=== PATIENT | male | born 1960 | race American Indian/Alaskan Native ===

== ENCOUNTER 2016-08-23 23:23 | Inpatient (IN) | payer MEDICARE ==
[2016-08-23] MEDS ORDERED: BOOSTRIX IM ONE (23:30)
[2016-08-23] MEDS ORDERED: NORMODYNE IV ONE (23:35)
--- NOTE | 2016-08-23 23:38 | Emergency Department Report ---
ED Altered Mental Status HPI - General Chief Complaint: Altered Mental Status Stated Complaint: AMS Time Seen by Provider: 08/23/16 23:33 Source: EMS Mode of arrival: Ambulatory Limitations: Altered Mental Status - History of Present Illness Initial Comments: Pt is a presenting to the ED via EMS for altered MS. EMS reports family and patient are poor historians, but the reported story is the patient who is wheelchair bound, fell out of his chair approximately 1.5 hours ago and has been trying to get up off the floor. Pt now presents somnolent and reacts to painful stimuli. FSG as per EMS was >300, BP elevated in the 200's, HR: 70's, saturating 100% on RA. Other history is unknown Son at bedside, he reports patient has a h/o CVA, HTN, DM, PVD, bilateral AKA, and kidney insufficiency. At baseline verbal and moves all extremities. MD Complaint: decreased responsiveness - Related Data Allergies Allergy/AdvReac Type Severity Reaction Status Date / Time Unable to Assess Allergy Unverified 08/23/16 23:25 ED Review of Systems ROS: Stated complaint: AMS Other details as noted in HPI Comment: Unobtainable due to pts medical conditions ED Past Medical Hx - Past Medical History Previous Medical History?: Yes - Surgical History Past Surgical History?: Yes Additional Surgical History: double amputee - Social History Smoking Status: Unknown if ever smoked ED Physical Exam - General Limitations: Altered Mental Status, Physical Limitation General appearance: in no apparent distress, lethargic, other (Patient has gag reflex, breathing on his own, saturating 99% on RA) - Head Head exam: Present: normocephalic, other (R orbital ecchymoses, 1cm laceration noted to the R eyebrow) - Eye Eye exam: Present: PERRL, EOMI. Absent: scleral icterus, conjunctival injection , nystagmus, periorbital swelling, periorbital tenderness Pupils: Absent: irregular, unequal, miosis - ENT ENT exam: Present: normal exam, mucous membranes moist, other (gag reflex intact ) - Neck Neck exam: Present: normal inspection, full ROM (placed in C-Collar). Absent: tenderness - Respiratory Respiratory exam: Present: normal lung sounds bilaterally. Absent: respiratory distress - Cardiovascular Cardiovascular Exam: Present: regular rate, normal rhythm, normal heart sounds. Absent: irregular rhythm, systolic murmur, diastolic murmur - GI/Abdominal GI/Abdominal exam: Present: soft, normal bowel sounds. Absent: distended, tenderness, guarding - exam: Present: normal inspection - Extremities Exam Extremities exam: Present: normal inspection, other (Pt has bilateral AKA, patient is spontaneously moving all extremities) - Back Exam Back exam: Present: normal inspection - Neurological Exam Neurological exam: Present: altered, other (GCS: 2,1,5) - Skin Skin exam: Present: warm, dry, normal color, ecchymosis. Absent: rash, diaphoretic ED Course Vital Signs 08/23/16 08/23/16 08/23/16 23:25 23:30 23:40 Pulse Rate 116 H 92 H Respiratory 26 H 26 H 24 Rate Blood Pressure Blood Pressure 208/114 204/104 [Right] O2 Sat by Pulse 95 95 98 Oximetry 08/23/16 08/24/16 08/24/16 23:58 00:00 00:06 Pulse Rate 95 H 92 H 42 L Respiratory 20 22 22 Rate Blood Pressure 153/111 189/103 Blood Pressure 153/111 189/103 [Right] O2 Sat by Pulse 94 97 98 Oximetry 08/24/16 08/24/16 08/24/16 00:10 00:16 00:20 Pulse Rate 89 91 H 90 Respiratory 17 22 18 Rate Blood Pressure 189/103 195/109 195/109 Blood Pressure 195/109 [Right] O2 Sat by Pulse 98 98 98 Oximetry 08/24/16 08/24/16 08/24/16 00:26 00:30 00:32 Pulse Rate 93 H 108 H 110 H Respiratory 17 18 21 Rate Blood Pressure 192/101 192/101 Blood Pressure 224/156 [Right] O2 Sat by Pulse 98 98 99 Oximetry 08/24/16 08/24/16 08/24/16 00:36 00:40 00:45 Pulse Rate 110 H 105 H 105 H Respiratory 18 28 H 30 H Rate Blood Pressure 224/156 224/156 Blood Pressure 244/160 [Right] O2 Sat by Pulse 99 97 93 Oximetry 08/24/16 08/24/16 08/24/16 00:46 00:50 00:55 Pulse Rate Respiratory 23 Rate Blood Pressure 244/160 222/123 Blood Pressure [Right] O2 Sat by Pulse 90 94 92 Oximetry 08/24/16 08/24/1617 01:00 01:05 01:10 Pulse Rate 98 H Respiratory 12 Rate Blood Pressure 231/131 231/131 218/120 Blood Pressure [Right] O2 Sat by Pulse 86 92 89 Oximetry 08/24/16 08/24/16 08/24/16 01:15 01:20 01:25 Pulse Rate 98 H 99 H Respiratory 18 17 18 Rate Blood Pressure 218/120 235/133 235/133 Blood Pressure [Right] O2 Sat by Pulse 90 91 95 Oximetry 08/24/16 08/24/16 08/24/16 01:30 01:35 01:40 Pulse Rate 94 H Respiratory 25 H 22 27 H Rate Blood Pressure 230/134 230/134 230/139 Blood Pressure [Right] O2 Sat by Pulse 87 95 Oximetry 08/24/16 08/24/16 08/24/16 01:45 01:50 01:55 Pulse Rate 90 89 88 Respiratory 23 22 23 Rate Blood Pressure 230/139 210/121 210/121 Blood Pressure [Right] O2 Sat by Pulse 98 97 99 Oximetry 08/24/16 08/24/16 08/24/16 02:00 02:05 02:10 Pulse Rate 88 88 88 Respiratory 22 22 22 Rate Blood Pressure 211/115 211/115 205/119 Blood Pressure [Right] O2 Sat by Pulse 96 99 96 Oximetry 08/24/16 08/24/16 08/24/16 02:15 02:20 02:25 Pulse Rate 87 87 88 Respiratory 21 22 20 Rate Blood Pressure 205/119 211/118 211/118 Blood Pressure [Right] O2 Sat by Pulse 99 96 99 Oximetry 08/24/16 08/24/16 08/24/16 02:30 02:35 02:40 Pulse Rate 88 87 87 Respiratory 22 23 22 Rate Blood Pressure 212/123 212/123 205/118 Blood Pressure [Right] O2 Sat by Pulse 96 99 95 Oximetry 08/24/16 08/24/16 08/24/16 02:45 02:50 02:55 Pulse Rate 86 90 93 H Respiratory 24 19 22 Rate Blood Pressure 205/118 231/143 231/143 Blood Pressure [Right] O2 Sat by Pulse 99 97 97 Oximetry 08/24/16 08/24/16 08/24/16 03:00 03:05 03:10 Pulse Rate 94 H 95 H 94 H Respiratory 30 H 13 16 Rate Blood Pressure 233/163 233/163 232/149 Blood Pressure [Right] O2 Sat by Pulse 98 98 96 Oximetry 08/24/16 08/24/16 08/24/16 03:15 03:20 03:25 Pulse Rate 94 H 93 H 96 H Respiratory 31 H 26 H 23 Rate Blood Pressure 232/149 233/137 233/137 Blood Pressure [Right] O2 Sat by Pulse 99 95 97 Oximetry - Reevaluation(s) Reevaluation #1: 08/24/16 00:21 Pt re-evaluated, patient is now more awake, son is at the bedside who reports patient has a history of PVD, HTN, DM, bilateral AKA, CVA, and kidney insufficiency. Pt re-examined, GCS: 4,1,6. Pt appears to have less movement of his RUE, however the nurse reports the patient did swing his arms at her in CT. Son reports patient is normally verbal and moves all extremities at baseline, he is unsure of patient's complete medical history - Lab Data Result diagrams: 08/23/16 23:35 08/23/16 23:35 Lab Results 08/23/16 08/23/16 08/23/16 Range/Units 23:25 23:35 23:35 WBC 6.9 (4.5-11.0) K/mm3 RBC 5.59 H (3.65-5.03) M/mm3 Hgb 10.8 L (11.8-15.2) gm/dl Hct 35.2 L (35.5-45.6) % MCV 63 L (84-94) fl MCH 19 L (28-32) pg MCHC 31 L (32-34) % RDW 17.0 H (13.2-15.2) % Plt Count 232 (140-440) K/mm3 Lymph % (Auto) 21.9 (13.4-35.0) % Gray % (Auto) 7.0 (0.0-7.3) % Eos % (Auto) 1.8 (0.0-4.3) % Baso % (Auto) 0.8 (0.0-1.8) % Lymph # 1.5 (1.2-5.4) K/mm3 Gray # 0.5 (0.0-0.8) K/mm3 Eos # 0.1 (0.0-0.4) K/mm3 Baso # 0.1 (0.0-0.1) K/mm3 Seg Neutrophils % 68.5 (40.0-70.0) % Seg Neutrophils # 4.7 (1.8-7.7) K/mm3 Sodium 137 (137-145) mmol/L Potassium 3.8 (3.6-5.0) mmol/L Chloride 100.4 (98-107) mmol/L Carbon Dioxide 20 L (22-30) mmol/L Anion Gap 20 mmol/L BUN 12 (9-20) mg/dL Creatinine 1.8 H (0.8-1.5) mg/dL Estimated GFR 47 ml/min BUN/Creatinine Ratio 6.66 % Glucose 357 H (75-100) mg/dL Lactic Acid (0.7-2.0) mmol/L Calcium 8.2 L (8.4-10.2) mg/dL Magnesium 1.80 (1.7-2.3) mg/dL Total Bilirubin 0.90 (0.1-1.2) mg/dL AST 37 (5-40) units/L ALT 18 (7-56) units/L Alkaline Phosphatase 147 H (35-129) units/L Ammonia (25-60) umol/L Total Creatine Kinase 340 H (55-170) units/L Total Protein 5.8 L (6.3-8.2) g/dL Albumin 3.2 L (3.9-5) g/dL Albumin/Globulin Ratio 1.2 % TSH (0.270-4.200) mlU/mL Urine Color (Yellow) Urine Turbidity (Clear) Urine pH (5.0-7.0) Ur Specific [place] (1.003-1.030) Urine Protein (Negative) mg/dL Urine Glucose (UA) (Negative) mg/dL Urine Ketones (Negative) mg/dL Urine Blood (Negative) Urine Nitrite (Negative) Urine Bilirubin (Negative) Urine Urobilinogen (<2.0) mg/dL Ur Leukocyte Esterase (Negative) Urine WBC (Auto) (0.0-6.0) /HPF Urine RBC (Auto) (0.0-6.0) /HPF Urine Bacteria (Auto) (Negative) /HPF Salicylates (2.8-20.0) mg/dL Urine Opiates Screen Urine Methadone Screen Acetaminophen (10.0-30.0) ug/mL Ur Barbiturates Screen Ur Phencyclidine Scrn Ur Amphetamines Screen U Benzodiazepines Scrn Urine Cocaine Screen U Marijuana (THC) Screen Drugs of Abuse Note Plasma/Serum Alcohol (0-0.07) gm% 08/23/16 08/23/16 08/23/16 Range/Units 23:35 23:35 23:35 WBC (4.5-11.0) K/mm3 RBC (3.65-5.03) M/mm3 Hgb (11.8-15.2) gm/dl Hct (35.5-45.6) % MCV (84-94) fl MCH (28-32) pg MCHC (32-34) % RDW (13.2-15.2) % Plt Count (140-440) K/mm3 Lymph % (Auto) (13.4-35.0) % Gray % (Auto) (0.0-7.3) % Eos % (Auto) (0.0-4.3) % Baso % (Auto) (0.0-1.8) % Lymph # (1.2-5.4) K/mm3 Gray # (0.0-0.8) K/mm3 Eos # (0.0-0.4) K/mm3 Baso # (0.0-0.1) K/mm3 Seg Neutrophils % (40.0-70.0) % Seg Neutrophils # (1.8-7.7) K/mm3 Sodium (137-145) mmol/L Potassium (3.6-5.0) mmol/L Chloride (98-107) mmol/L Carbon Dioxide (22-30) mmol/L Anion Gap mmol/L BUN (9-20) mg/dL Creatinine (0.8-1.5) mg/dL Estimated GFR ml/min BUN/Creatinine Ratio % Glucose (75-100) mg/dL Lactic Acid 4.60 H* (0.7-2.0) mmol/L Calcium (8.4-10.2) mg/dL Magnesium (1.7-2.3) mg/dL Total Bilirubin (0.1-1.2) mg/dL AST (5-40) units/L ALT (7-56) units/L Alkaline Phosphatase (35-129) units/L Ammonia (25-60) umol/L Total Creatine Kinase (55-170) units/L Total Protein (6.3-8.2) g/dL Albumin (3.9-5) g/dL Albumin/Globulin Ratio % TSH 3.080 (0.270-4.200) mlU/mL Urine Color (Yellow) Urine Turbidity (Clear) Urine pH (5.0-7.0) Ur Specific [place] (1.003-1.030) Urine Protein (Negative) mg/dL Urine Glucose (UA) (Negative) mg/dL Urine Ketones (Negative) mg/dL Urine Blood (Negative) Urine Nitrite (Negative) Urine Bilirubin (Negative) Urine Urobilinogen (<2.0) mg/dL Ur Leukocyte Esterase (Negative) Urine WBC (Auto) (0.0-6.0) /HPF Urine RBC (Auto) (0.0-6.0) /HPF Urine Bacteria (Auto) (Negative) /HPF Salicylates < 0.3 L (2.8-20.0) mg/dL Urine Opiates Screen Urine Methadone Screen Acetaminophen (10.0-30.0) ug/mL Ur Barbiturates Screen Ur Phencyclidine Scrn Ur Amphetamines Screen U Benzodiazepines Scrn Urine Cocaine Screen U Marijuana (THC) Screen Drugs of Abuse Note Plasma/Serum Alcohol (0-0.07) gm% 08/23/16 08/23/16 08/24/16 Range/Units 23:35 23:35 00:40 WBC (4.5-11.0) K/mm3 RBC (3.65-5.03) M/mm3 Hgb (11.8-15.2) gm/dl Hct (35.5-45.6) % MCV (84-94) fl MCH (28-32) pg MCHC (32-34) % RDW (13.2-15.2) % Plt Count (140-440) K/mm3 Lymph % (Auto) (13.4-35.0) % Gray % (Auto) (0.0-7.3) % Eos % (Auto) (0.0-4.3) % Baso % (Auto) (0.0-1.8) % Lymph # (1.2-5.4) K/mm3 Gray # (0.0-0.8) K/mm3 Eos # (0.0-0.4) K/mm3 Baso # (0.0-0.1) K/mm3 Seg Neutrophils % (40.0-70.0) % Seg Neutrophils # (1.8-7.7) K/mm3 Sodium (137-145) mmol/L Potassium (3.6-5.0) mmol/L Chloride (98-107) mmol/L Carbon Dioxide (22-30) mmol/L Anion Gap mmol/L BUN (9-20) mg/dL Creatinine (0.8-1.5) mg/dL Estimated GFR ml/min BUN/Creatinine Ratio % Glucose (75-100) mg/dL Lactic Acid (0.7-2.0) mmol/L Calcium (8.4-10.2) mg/dL Magnesium (1.7-2.3) mg/dL Total Bilirubin (0.1-1.2) mg/dL AST (5-40) units/L ALT (7-56) units/L Alkaline Phosphatase (35-129) units/L Ammonia (25-60) umol/L Total Creatine Kinase (55-170) units/L Total Protein (6.3-8.2) g/dL Albumin (3.9-5) g/dL Albumin/Globulin Ratio % TSH (0.270-4.200) mlU/mL Urine Color Yellow (Yellow) Urine Turbidity Clear (Clear) Urine pH 6.0 (5.0-7.0) Ur Specific [place] 1.022 (1.003-1.030) Urine Protein >500 (Negative) mg/dL Urine Glucose (UA) >=500 (Negative) mg/dL Urine Ketones Neg (Negative) mg/dL Urine Blood Mod (Negative) Urine Nitrite Neg (Negative) Urine Bilirubin Neg (Negative) Urine Urobilinogen < 2.0 (<2.0) mg/dL Ur Leukocyte Esterase Neg (Negative) Urine WBC (Auto) 1.0 (0.0-6.0) /HPF Urine RBC (Auto) 5.0 (0.0-6.0) /HPF Urine Bacteria (Auto) 2+ (Negative) /HPF Salicylates (2.8-20.0) mg/dL Urine Opiates Screen Urine Methadone Screen Acetaminophen < 15.0 (10.0-30.0) ug/mL Ur Barbiturates Screen Ur Phencyclidine Scrn Ur Amphetamines Screen U Benzodiazepines Scrn Urine Cocaine Screen U Marijuana (THC) Screen Drugs of Abuse Note Plasma/Serum Alcohol < 0.01 (0-0.07) gm% 08/24/16 08/24/16 08/24/16 Range/Units 00:40 01:44 01:44 WBC (4.5-11.0) K/mm3 RBC (3.65-5.03) M/mm3 Hgb (11.8-15.2) gm/dl Hct (35.5-45.6) % MCV (84-94) fl MCH (28-32) pg MCHC (32-34) % RDW (13.2-15.2) % Plt Count (140-440) K/mm3 Lymph % (Auto) (13.4-35.0) % Gray % (Auto) (0.0-7.3) % Eos % (Auto) (0.0-4.3) % Baso % (Auto) (0.0-1.8) % Lymph # (1.2-5.4) K/mm3 Gray # (0.0-0.8) K/mm3 Eos # (0.0-0.4) K/mm3 Baso # (0.0-0.1) K/mm3 Seg Neutrophils % (40.0-70.0) % Seg Neutrophils # (1.8-7.7) K/mm3 Sodium (137-145) mmol/L Potassium (3.6-5.0) mmol/L Chloride (98-107) mmol/L Carbon Dioxide (22-30) mmol/L Anion Gap mmol/L BUN (9-20) mg/dL Creatinine (0.8-1.5) mg/dL Estimated GFR ml/min BUN/Creatinine Ratio % Glucose (75-100) mg/dL Lactic Acid 2.50 H* (0.7-2.0) mmol/L Calcium (8.4-10.2) mg/dL Magnesium (1.7-2.3) mg/dL Total Bilirubin (0.1-1.2) mg/dL AST (5-40) units/L ALT (7-56) units/L Alkaline Phosphatase (35-129) units/L Ammonia 46.0 (25-60) umol/L Total Creatine Kinase (55-170) units/L Total Protein (6.3-8.2) g/dL Albumin (3.9-5) g/dL Albumin/Globulin Ratio % TSH (0.270-4.200) mlU/mL Urine Color (Yellow) Urine Turbidity (Clear) Urine pH (5.0-7.0) Ur Specific [place] (1.003-1.030) Urine Protein (Negative) mg/dL Urine Glucose (UA) (Negative) mg/dL Urine Ketones (Negative) mg/dL Urine Blood (Negative) Urine Nitrite (Negative) Urine Bilirubin (Negative) Urine Urobilinogen (<2.0) mg/dL Ur Leukocyte Esterase (Negative) Urine WBC (Auto) (0.0-6.0) /HPF Urine RBC (Auto) (0.0-6.0) /HPF Urine Bacteria (Auto) (Negative) /HPF Salicylates (2.8-20.0) mg/dL Urine Opiates Screen Presumptive negative Urine Methadone Screen Presumptive negative Acetaminophen (10.0-30.0) ug/mL Ur Barbiturates Screen Presumptive negative Ur Phencyclidine Scrn Presumptive negative Ur Amphetamines Screen Presumptive negative U Benzodiazepines Scrn Presumptive negative Urine Cocaine Screen Presumptive negative U Marijuana (THC) Screen Presumptive negative Drugs of Abuse Note Disclamer Plasma/Serum Alcohol (0-0.07) gm% - EKG Data -: EKG Interpreted by Me When compared to previous EKG there are: previous EKG unavailable 08/24/16 00:27 Time 2336. Sinus rhythm at 91 bpm, first degree AV block. Normal axis, no LVH Q wave in V2, diffuse T-wave inversions, no ST changes, no STEMI. No prior EKG for comparison - Radiology Data Radiology results: report reviewed CT head: No acute intracranial abnormality. An irregular area of encephalomalacia involving the right parietal lobe possibly secondary to an old infarct/hemorrhage. Cerebral atrophy appropriate for patient's age. CT cspine: No acute fracture or subluxation - Medical Decision Making Ordered Vancomycin and Zosyn for suspected infectious cause After upon initial evaluation and speaking to the son, it is unclear of his true medical history. It may be possible patient had a seizure and is post- ictal. Pt has an elevated lactate without a true source of infection. Will order keppra 1gm IVPB. Critical care attestation.: If time is entered above; I have spent that time in minutes in the direct care of this critically ill patient, excluding procedure time. ED Disposition Clinical Impression: Altered mental status, Head trauma, Laceration, Hyperglycemia, Hypertension Disposition: OP ADMITTED IP TO THIS HOSP Is pt being admited?: Yes Condition: Stable
[2016-08-23 23:52] LABS: Basophils % (Auto) 0.8 % (0.0-1.8); Eosinophils % (Auto) 1.8 % (0.0-4.3); Hematocrit 35.2 % (35.5-45.6); Hemoglobin 10.8 gm/dl (11.8-15.2); Mean Corpuscular HGB Conc 31 % (32-34); Mean Corpuscular Hemoglobin 19 pg (28-32); Mean Corpuscular Volume 63 fl (84-94); Platelet Count 232 K/mm3 (140-440); Red Blood Count 5.59 M/mm3 (3.65-5.03); White Blood Count 6.9 K/mm3 (4.5-11.0)
[2016-08-24 00:08] LABS: Albumin 3.2 g/dL (3.9-5); Albumin/Globulin Ratio 1.2 %; BUN/Creatinine Ratio 6.66; Bilirubin,Total 0.9 mg/dL (0.1-1.2); Calcium 8.2 mg/dL (8.4-10.2); Chloride 100.4 mmol/L (98-107); Magnesium 1.8 mg/dL (1.7-2.3); Potassium 3.8 mmol/L (3.6-5.0); Total Protein 5.8 g/dL (6.3-8.2)
[2016-08-24] MEDS ORDERED: NACL 0.9% 1000 ML 1,000 ML IV ONE ×2 (00:10→00:12)
[2016-08-24] MEDS ORDERED: KEPPRA 1,000 MG/NS 0.75% 100ML 1,000 MG/100 ML BAG IV ONE (00:38)
[2016-08-24 00:53] LABS: Urine Drugs of Abuse Note Disclamer
[2016-08-24] MEDS ORDERED: VANCOMYCIN/NS 1 GM/250 ML 1 GM/250 ML BAG IV ONE (01:00)
[2016-08-24] MEDS ORDERED: VANCOMYCIN/NS 1 GM/250 ML 1 GM/250 ML BAG IV SCH (01:00)
--- NOTE | 2016-08-24 01:01 | Cat Scan Report ---
FINAL REPORT PROCEDURE: CT CERVICAL SPINE WO CON TECHNIQUE: Computerized tomography of the cervical spine was performed from the skull base to T1 without contrast material. HISTORY: fall COMPARISON: No prior studies are available for comparison. FINDINGS: The alignment of the vertebral segments is normal. Minimal spur formation off the vertebral bodies is identified from the C5 through the C7 vertebral levels. The spinal canal is adequate at all levels. The visualized portion of the airway is patent. IMPRESSION: There is no evidence of an acute fracture or dislocation of the cervical spine. Mild arthritis..
[2016-08-24 01:04] LABS: Bacteria,Urine 2+ /HPF (Negative); Bilirubin,Urine NEG (Negative); Blood,Urine MOD (Negative); Ketones,Urine NEG (Negative); Leukocyte Esterase,Urine NEG (Negative); Nitrite,Urine NEG (Negative); Protein,Urine >500 mg/dL (Negative); Urobilinogen,Urine < 2.0 mg/dL (<2.0)
--- NOTE | 2016-08-24 01:17 | XRay Report ---
FINAL REPORT PROCEDURE: XR CHEST 1V AP TECHNIQUE: Chest radiograph anteroposterior view. CPT 50596 HISTORY: SOB COMPARISON: No prior studies are available for comparison. FINDINGS: Heart: Normal. Mediastinum/Vessels: Normal. Lungs/Pleural space: Mild atelectasis and effusion left lower lung. Bony thorax: No acute osseous abnormality. Life support devices: None. IMPRESSION: Mild atelectasis and effusion left lower lung.
[2016-08-24] MEDS ORDERED: ATIVAN IV ONE (01:21)
--- NOTE | 2016-08-24 03:18 | History and Physical Report ---
History of Present Illness Chief complaint: Unresponsive History of present illness: 55 YO Male with HTN, DM, CVA, PVD and is wheelchair bound, Renal Failure presents to ED for evaluation. Pt unable to provide history. Pt history provided by his son. Pt son states that pt was in his normal state of health and was watching TV. Pt fell from his wheelchair later in the evening as was unable to get up. Pt seen and evaluated in ED and found to have hypertensive emergency, and is aspirating but is able to protect his airway. Pt admitted to ICU for further care. Past History Past Medical History: diabetes, hypertension, PVD, stroke Past Surgical History: Other (Leg surgery) Social history: . denies: smoking, alcohol abuse, prescription drug abuse Family history: diabetes, hypertension Medications and Allergies Allergies Allergy/AdvReac Type Severity Reaction Status Date / Time Unable to Assess Allergy Unverified 08/23/16 23:25 Active Meds: Active Medications Piperacillin Sod/Tazobactam Sod (Zosyn/Ns 3.375gm/50ml) 3.37 gm in 49.93 mls @ 99.86 mls/hr IV Q6HR JERAMY Vancomycin HCl 750 mg/ Sodium (Chloride) 265 mls @ 166.667 mls/hr IV Q24H JERAMY Review of Systems ROS unobtainable: due to mental status Exam - Constitutional Vitals: Temp Pulse Resp BP Pulse Ox 99 H 25 H 230/134 95 08/24/16 01:20 08/24/16 01:30 08/24/16 01:30 08/24/16 01:25 General appearance: Present: severe distress, disheveled - EENT Eyes: Present: PERRL ENT: hearing intact, clear oral mucosa - Neck Neck: Present: supple, normal ROM - Respiratory Respiratory: bilateral: diminished - Cardiovascular Rhythm: regular Heart Sounds: Present: S1 & S2 Peripheral Pulses: within normal limits - Abdominal General gastrointestinal: Present: soft, non-tender, non-distended - Integumentary Integumentary: Present: clear, dry, decreased turgor - Musculoskeletal Musculoskeletal: generalized weakness - Psychiatric Psychiatric: no intact judgment & insight, no memory intact - Neurologic Neurologic: CNII-XII intact, no gait normal Results - Labs CBC & Chem 7: 08/23/16 23:35 08/23/16 23:35 Labs: Abnormal lab results 08/23/16 08/23/16 08/23/16 Range/Units 23:25 23:35 23:35 RBC 5.59 H (3.65-5.03) M/mm3 Hgb 10.8 L (11.8-15.2) gm/dl Hct 35.2 L (35.5-45.6) % MCV 63 L (84-94) fl MCH 19 L (28-32) pg MCHC 31 L (32-34) % RDW 17.0 H (13.2-15.2) % Carbon Dioxide 20 L (22-30) mmol/L Creatinine 1.8 H (0.8-1.5) mg/dL Glucose 357 H (75-100) mg/dL Lactic Acid (0.7-2.0) mmol/L Calcium 8.2 L (8.4-10.2) mg/dL Alkaline Phosphatase 147 H (35-129) units/L Total Creatine Kinase 340 H (55-170) units/L Total Protein 5.8 L (6.3-8.2) g/dL Albumin 3.2 L (3.9-5) g/dL Salicylates (2.8-20.0) mg/dL 08/23/16 08/23/16 08/24/16 Range/Units 23:35 23:35 01:44 RBC (3.65-5.03) M/mm3 Hgb (11.8-15.2) gm/dl Hct (35.5-45.6) % MCV (84-94) fl MCH (28-32) pg MCHC (32-34) % RDW (13.2-15.2) % Carbon Dioxide (22-30) mmol/L Creatinine (0.8-1.5) mg/dL Glucose (75-100) mg/dL Lactic Acid 4.60 H* 2.50 H* (0.7-2.0) mmol/L Calcium (8.4-10.2) mg/dL Alkaline Phosphatase (35-129) units/L Total Creatine Kinase (55-170) units/L Total Protein (6.3-8.2) g/dL Albumin (3.9-5) g/dL Salicylates < 0.3 L (2.8-20.0) mg/dL Assessment and Plan - Patient Problems (1) Hypertensive emergency Current Visit: Yes Status: Acute Plan to address problem: Katieene drip, monitor bp q shift, Goal systolic BP between 165-180 overnight, The high probability of a clinically significant, sudden or life threatening deterioration of the [Cardiac, pulmonary] system(s) required my full and direct attention, intervention and personal management. The aggregate critical care time was [65] minutes. This time is in addition to time spent performing reported procedures but includes the following: [x] Data Review and interpretation [x] Patient assessment and monitoring of vital signs [x] Documentation [x] Medication orders and management (2) Encephalopathy acute Current Visit: Yes Status: Acute Plan to address problem: hypertensive encephalopathy: monitor bp q shift, supportive care. (3) Aspiration pneumonia Current Visit: Yes Status: Acute Qualifiers: Aspiration pneumonia type: A Laterality: L Lung location: L Plan to address problem: Pneumonia Protocol: IV abx, supportive care, nebs, supplemental oxygen, blood cultures, aspiration precautions. (4) Acute respiratory failure Current Visit: Yes Status: Acute Qualifiers: Respiratory failure complication: R Plan to address problem: Pulmonary consulted, NIPPV as clinically indicated, supplemental oxygen. (5) Lactic acidosis Current Visit: Yes Status: Acute Plan to address problem: treat aspiration pneumonia, IVF replacement. supportive care. (6) Acute renal failure Current Visit: Yes Status: Acute Qualifiers: Acute renal failure type: A Plan to address problem: IVF replacement, monitor uop q shift, (7) Elevated d-dimer Current Visit: Yes Status: Acute Plan to address problem: will treat with empiric therapeutic anticoagulation, will reassess renal function, and conduct CTA chest after improved renal function. (8) DVT prophylaxis Current Visit: Yes Status: Acute
[2016-08-24] MEDS ORDERED: DULCOLAX PR PRN (03:22)
[2016-08-24] MEDS ORDERED: ZOFRAN IV PRN (03:22)
[2016-08-24] MEDS ORDERED: MILK OF MAGNESIA PO PRN (03:22)
[2016-08-24] MEDS ORDERED: DUONEB 0.5 MG-3 MG/3 ML SOLN IH PRN (03:22)
[2016-08-24] MEDS ORDERED: D50W (25GM) IV PRN (03:27)
[2016-08-24] MEDS ORDERED: PROVENTIL IH PRN (03:31)
[2016-08-24] MEDS ORDERED: CARDENE 50 MG in NACL 0.9% 250ML 230 ML IV SCH (04:00)
[2016-08-24] MEDS ORDERED: NS IV SCH (06:00)
[2016-08-24] MEDS ORDERED: ZOSYN IV SCH (06:00)
[2016-08-24] MEDS ORDERED: APRESOLINE IV ONE (07:56)
--- NOTE | 2016-08-24 08:32 | Admit Criteria Form ---
Admission Criteria Documentation: MENTAL STATUS CHANGE Clinical Indications for Inpatient Care (Place 'X' for any and all applicable criteria): Ongoing inpatient care may be needed for 1 or more of the following(1)(2)(3)(5)( 6): [X]I. Suspected serious etiology (eg, medical disorder, [employer] event) of altered mental status [ ]II. Danger to self or others not manageable at lower level of care [ ]III. Grave disability (eg, inability to perform self care necessary at lower level of care) [ ]IV. Agitation or inappropriate behavior interfering with care for primary condition (eg, attempting to discontinue lines or drains prematurely, unable to cooperate with respiratory care) [ ]V. Delirium [A] [D][E] as described by 1 or more of the following(26): [ ]a) Delirium due to alcohol or sedative [F] withdrawal [ ]b) Delirium of uncertain etiology that has not responded to appropriate empiric treatment [ ]c) Delirium that prevents performance of a life-sustaining function (eg, feeding or hydrating oneself) [ ]. General contraindications and/or Inappropriate clinical situations for Observational Care in patients with Mental Status Change, when ANY ONE of the following is required: [ ]a) Prediction of prolongation of LOS based on ANY ONE of the following may be considered as a contraindication for observational care 2, 3, 4, 5, 6, 7, 8, 9, 10, 11 [ ]i) Age > 65 yrs. [ ]ii) Patient arriving by ambulance [ ]iii) Patient with high acuity [ ]iv) Patient requiring vital sign monitoring [ ]v) Patient on IV medication [ ]b) Systolic blood pressures greater than or equal to 180mmHg 3, 12 [ ]c) Patient with altered mental status including delirium and other alteration of consciousness, (3) [ ]d) Patient whose discharge disposition will be to a long-term home or rehabilitation home should not be managed in Emergency Department Observation Unit. CMS rule requires 3 days hospital stay before such placement.3,13 [ ]e) Patient with failure to thrive due to broad array of etiologies 3,16,17 [ ]f) Inability to ambulate 3,14 Extended stay beyond goal length of stay for the primary condition may be needed until ALL of the following are present(3)(5): [ ]a) Underlying medical etiology of mental status change is absent, or has been established and adequately treated [ ]b) Danger to self or others is absent or manageable at lower level of care. [ ]c) Behavior crisis management, including physical or chemical restraints, is not required or available at lower level of car [ ]d) Substance or alcohol withdrawal is absent or manageable at lower level of care. [ ]e) Behavioral symptoms (eg, agitation, somnolence, inappropriate behavior) are absent, or are manageable at lower level of care. The original [facility] [employer] content created by [facility] [employer] has been revised. The portions of the content which have been revised are identified through the use of italic text or in bold, and [facility] has neither reviewed nor approved the modified material. All other unmodified content is copyright [facility] [employer]. Please see references footnoted in the original [facility] edition 2016 Admission Criteria Met: Yes
[2016-08-24] MEDS: NOVOLOG SUB-Q SCH ×3 (09:20→19:42)
--- NOTE | 2016-08-24 10:03 | Cat Scan Report ---
FINAL REPORT PROCEDURE: CT HEAD/BRAIN WO CON TECHNIQUE: Computerized tomography of the head was performed without contrast material. HISTORY: fall COMPARISON: No prior studies are available for comparison. FINDINGS: Skull and scalp: Normal. Paranasal sinuses: Normal. Ventricles and subarachnoid spaces: Are prominent consistent with cerebral atrophy.. Cerebrum: An acute intracranial hemorrhage is not identified. An irregular area of encephalomalacia is noted involving the right anterior parietal lobe without mass effect.. 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 Vasculature: Atherosclerotic calcification is identified involving bilateral internal carotid and vertebral arteries.. Comments: None. IMPRESSION: No acute intracranial abnormality An irregular area of encephalomalacia involving the right parietal lobe most likely secondary to an old infarct or hemorrhage. Cerebral atrophy appropriate for patient's age
[2016-08-24] MEDS ORDERED: NORMODYNE IV ONE (10:52)
--- NOTE | 2016-08-24 13:20 | Electroencephalogram Report ---
Electroencephalogram EEG Date of exam: 08/24/16 History: 55 YO M Hx AMS Impression: Abnormal awake and drowsy 20 minute routine EEG. There are findings to suggest mild-moderate nonspecific cerebral dysfunction. There are no findings to suggest cortical irritability, epileptiform discharges or electrographic seizures. Throughout the record the patient has altered mental status, foaming at the mouth and side to side head movements which are all non-epileptic in etiology. Description: The waking background shows an inappropriate organization with poorly-defined anterior posterior voltage and frequency gradients. Posteriorly, there is a poorly-developed mixed theta and delta frequency background which is symmetrical and bilaterally reactive. There is no variability. There are no features of sleep. Throughout, the recording there are no epileptiform abnormalities, focal or lateralizing features, or significant interhemispheric findings. Interpretation: This is a digitally acquired 21-channel electroencephalogram. Both bipolar and referential montages were used in interpretation. Electrodes were placed in accordance with the International 10-20 system.
[2016-08-24] MEDS: ROCEPHIN/NS 1 GM/50 ML 1 GM/50 ML BAG IV SCH (13:37)
[2016-08-24] MEDS: LOVENOX SUB-Q SCH ×3 (13:37→22:13)
[2016-08-24 14:43] LABS: BUN/Creatinine Ratio 9.44; Calcium 8.4 mg/dL (8.4-10.2); Chloride 105.4 mmol/L (98-107); Potassium 4.1 mmol/L (3.6-5.0)
[2016-08-24 14:56] LABS: Magnesium 1.9 mg/dL (1.7-2.3); Phosphorous 2.9 mg/dL (2.5-4.5)
[2016-08-24] MEDS: ZITHROMAX 500 MG in NACL 0.9% 250ML 250 ML IV SCH (15:13)
[2016-08-24] MEDS: APRESOLINE IV PRN (17:08)
[2016-08-24] MEDS: NovoLIN R 100 UNITS in NACL 0.9% 99 ML IV SCH ×3 (17:30→19:30)
[2016-08-24 17:36] LABS: ISTAT Base Excess -6; ISTAT HCO3 19.6; ISTAT PCO2 34.8 (35-45); ISTAT PH 7.359 (7.35-7.45); ISTAT PO2 100 (80-105); ISTAT SO2 98; ISTAT TCO2 21
[2016-08-24] MEDS: D5W/0.45% NACL/KCL 20 MEQ 20 MEQ/1,000 ML BAG IV SCH (18:00)
--- NOTE | 2016-08-24 18:41 | Progress Note ---
Assessment and Plan Assessment and plan: 55M who presented with obtundation, Elevated BP and high sugars 1. Hypertensive emergency Patient has been admitted to the ICU for Cardene drip, has failed multiple IV pushes of medications 2. Metabolic encephalopathy EEG has been done and shows nonspecific encephalopathy, non epileptiform Suspect CVA, patient will go for MRI of his brain when he is stable enough to go for the procedure 3. Presumed sepsis Continue broad-spectrum antibiotics, follow-up blood cultures, chest x-ray shows no infiltrates 4. Acute renal failure Continue IV fluids, nephrology consult Critical care time 32 minutes History Interval history: Patient remains obtunded, nonverbal, nurses note that he has had frothing at the mouth, some moving of his left upper extremity, does not obey commands. He' s had persistently elevated blood pressures and elevated blood sugars. Hospitalist Physical - Physical exam Narrative exam: General: Appears critically ill HEENT: MMM, EOMI cardiac: S1-S2 heard lungs: Rhonchorous breath sounds abdomen: soft, nontender, nondistended bowel sounds positive extremities: no edema clubbing or cyanosis Skin: no rash or lesion Neuro: Obtunded, nonverbal, does not be commands, frothing at the mouth, spontaneous movements of the left upper extremity Psych: Obtunded - Constitutional Vitals: Temp Pulse Resp BP Pulse Ox 99.9 F H 101 H 33 H 151/79 98 08/24/16 17:31 08/24/16 17:51 08/24/16 17:51 08/24/16 17:51 08/24/16 17:51 General appearance: Present: severe distress, disheveled Results - Labs CBC & Chem 7: 08/25/16 04:53 08/25/16 13:47 Labs: Laboratory Last Values WBC 6.9 K/mm3 (4.5-11.0) 08/23/16 23:35 RBC 5.59 M/mm3 (3.65-5.03) H 08/23/16 23:35 Hgb 10.8 gm/dl (11.8-15.2) L 08/23/16 23:35 Hct 35.2 % (35.5-45.6) L 08/23/16 23:35 MCV 63 fl (84-94) L 08/23/16 23:35 MCH 19 pg (28-32) L 08/23/16 23:35 MCHC 31 % (32-34) L 08/23/16 23:35 RDW 17.0 % (13.2-15.2) H 08/23/16 23:35 Plt Count 232 K/mm3 (140-440) 08/23/16 23:35 Lymph % (Auto) 21.9 % (13.4-35.0) 08/23/16 23:35 [place] % (Auto) 7.0 % (0.0-7.3) 08/23/16 23:35 Eos % (Auto) 1.8 % (0.0-4.3) 08/23/16 23:35 Baso % (Auto) 0.8 % (0.0-1.8) 08/23/16 23:35 Lymph # 1.5 K/mm3 (1.2-5.4) 08/23/16 23:35 [place] # 0.5 K/mm3 (0.0-0.8) 08/23/16 23:35 Eos # 0.1 K/mm3 (0.0-0.4) 08/23/16 23:35 Baso # 0.1 K/mm3 (0.0-0.1) 08/23/16 23:35 Seg Neutrophils % 68.5 % (40.0-70.0) 08/23/16 23:35 Seg Neutrophils # 4.7 K/mm3 (1.8-7.7) 08/23/16 23:35 D-Dimer 1138.47 ng/mlDDU (0-234) H 08/24/16 03:23 POC ABG pH 7.359 (7.35-7.45) 08/24/16 17:29 POC ABG pCO2 34.8 (35-45) L 08/24/16 17:29 POC ABG pO2 100 (80-105) 08/24/16 17:29 POC ABG HCO3 19.6 08/24/16 17:29 POC ABG Total CO2 21 08/24/16 17:29 POC ABG O2 Sat 98 08/24/16 17:29 POC ABG Base Excess -6 08/24/16 17:29 FiO2 28 % 08/24/16 17:29 Sodium 144 mmol/L (137-145) D 08/24/16 13:44 Potassium 4.1 mmol/L (3.6-5.0) 08/24/16 13:44 Chloride 105.4 mmol/L (98-107) 08/24/16 13:44 Carbon Dioxide 22 mmol/L (22-30) 08/24/16 13:44 Anion Gap 21 mmol/L 08/24/16 13:44 BUN 17 mg/dL (9-20) 08/24/16 13:44 Creatinine 1.8 mg/dL (0.8-1.5) H 08/24/16 13:44 Estimated GFR 47 ml/min 08/24/16 13:44 BUN/Creatinine Ratio 9.44 % 08/24/16 13:44 Glucose 266 mg/dL (75-100) H 08/24/16 13:44 POC Glucose 354 (70-105) H 08/24/16 13:02 Lactic Acid 2.50 mmol/L (0.7-2.0) H* 08/24/16 01:44 Calcium 8.4 mg/dL (8.4-10.2) 08/24/16 13:44 Phosphorus 2.90 mg/dL (2.5-4.5) 08/24/16 13:44 Magnesium 1.90 mg/dL (1.7-2.3) 08/24/16 13:44 Total Bilirubin 0.90 mg/dL (0.1-1.2) 08/23/16 23:35 AST 37 units/L (5-40) 08/23/16 23:35 ALT 18 units/L (7-56) 08/23/16 23:35 Alkaline Phosphatase 147 units/L (35-129) H 08/23/16 23:35 Ammonia 46.0 umol/L (25-60) 08/24/16 01:44 Total Creatine Kinase 340 units/L (55-170) H 08/23/16 23:25 Total Protein 5.8 g/dL (6.3-8.2) L 08/23/16 23:35 Albumin 3.2 g/dL (3.9-5) L 08/23/16 23:35 Albumin/Globulin Ratio 1.2 % 08/23/16 23:35 TSH 3.080 mlU/mL (0.270-4.200) 08/23/16 23:35 Urine Color Yellow (Yellow) 08/24/16 00:40 Urine Turbidity Clear (Clear) 08/24/16 00:40 Urine pH 6.0 (5.0-7.0) 08/24/16 00:40 Ur Specific [place] 1.022 (1.003-1.030) 08/24/16 00:40 Urine Protein >500 mg/dL (Negative) 08/24/16 00:40 Urine Glucose (UA) >=500 mg/dL (Negative) 08/24/16 00:40 Urine Ketones Neg mg/dL (Negative) 08/24/16 00:40 Urine Blood Mod (Negative) 08/24/16 00:40 Urine Nitrite Neg (Negative) 08/24/16 00:40 Urine Bilirubin Neg (Negative) 08/24/16 00:40 Urine Urobilinogen < 2.0 mg/dL (<2.0) 08/24/16 00:40 Ur Leukocyte Esterase Neg (Negative) 08/24/16 00:40 Urine WBC (Auto) 1.0 /HPF (0.0-6.0) 08/24/16 00:40 Urine RBC (Auto) 5.0 /HPF (0.0-6.0) 08/24/16 00:40 Urine Bacteria (Auto) 2+ /HPF (Negative) 08/24/16 00:40 Salicylates < 0.3 mg/dL (2.8-20.0) L 08/23/16 23:35 Urine Opiates Screen Presumptive negative 08/24/16 00:40 Urine Methadone Screen Presumptive negative 08/24/16 00:40 Acetaminophen < 15.0 ug/mL (10.0-30.0) 08/23/16 23:35 Ur Barbiturates Screen Presumptive negative 08/24/16 00:40 Ur Phencyclidine Scrn Presumptive negative 08/24/16 00:40 Ur Amphetamines Screen Presumptive negative 08/24/16 00:40 U Benzodiazepines Scrn Presumptive negative 08/24/16 00:40 Urine Cocaine Screen Presumptive negative 08/24/16 00:40 U Marijuana (THC) Screen Presumptive negative 08/24/16 00:40 Drugs of Abuse Note Disclamer 08/24/16 00:40 Plasma/Serum Alcohol < 0.01 gm% (0-0.07) 08/23/16 23:35
[2016-08-24] MEDS: CARDENE 50 MG in NACL 0.9% 250ML 230 ML IV SCH (19:00)
[2016-08-24 19:37] LABS: BUN/Creatinine Ratio 9.47; Calcium 8.2 mg/dL (8.4-10.2); Chloride 105.6 mmol/L (98-107); Potassium 4.1 mmol/L (3.6-5.0)
[2016-08-24] MEDS ORDERED: VANCOMYCIN 750 MG in NACL 0.9% 250ML 250 ML IV SCH (22:00)
[2016-08-24] MEDS: ATIVAN IV PRN (22:08)
[2016-08-24 22:55] LABS: BUN/Creatinine Ratio 10.55; Calcium 8.3 mg/dL (8.4-10.2); Chloride 103.7 mmol/L (98-107); Potassium 3.7 mmol/L (3.6-5.0)
[2016-08-25] MEDS: D5W/0.45% NACL/KCL 20 MEQ 20 MEQ/1,000 ML BAG IV SCH (03:22)
[2016-08-25] MEDS: ATIVAN IV PRN ×3 (03:24→15:00)
[2016-08-25 05:29] LABS: Basophils % (Auto) 0.1 % (0.0-1.8); Mean Corpuscular HGB Conc 30 % (32-34); Platelet Count 241 K/mm3 (140-440); Red Blood Count 5.36 M/mm3 (3.65-5.03); Red Cell Distribution Width 17.5 % (13.2-15.2); White Blood Count 14.1 K/mm3 (4.5-11.0)
[2016-08-25 05:36] LABS: Calcium 8.2 mg/dL (8.4-10.2); Chloride 106.2 mmol/L (98-107); Potassium 3.6 mmol/L (3.6-5.0)
[2016-08-25 05:40] LABS: Hematocrit 32.9 % (35.5-45.6); Hemoglobin 9.9 gm/dl (11.8-15.2); Mean Corpuscular Hemoglobin 19 pg (28-32); Mean Corpuscular Volume 61 fl (84-94)
[2016-08-25] MEDS: CARDENE 50 MG in NACL 0.9% 250ML 230 ML IV SCH (06:47)
[2016-08-25] MEDS: ROCEPHIN/NS 1 GM/50 ML 1 GM/50 ML BAG IV SCH (09:27)
[2016-08-25] MEDS: ZITHROMAX 500 MG in NACL 0.9% 250ML 250 ML IV SCH (10:18)
[2016-08-25] MEDS ORDERED: SODIUM BICARBONATE FEEDTUBE PRN (11:07)
[2016-08-25] MEDS ORDERED: SIMPLE SYRUP FEEDTUBE PRN (11:07)
[2016-08-25] MEDS ORDERED: PANCREAZE DR 10,500 UNIT FEEDTUBE PRN (11:07)
[2016-08-25] MEDS: LOVENOX SUB-Q SCH (11:46)
[2016-08-25] MEDS: APRESOLINE IV PRN (11:54)
[2016-08-25 12:08] LABS: ISTAT Base Excess -5; ISTAT HCO3 20.1; ISTAT PCO2 32.8 (35-45); ISTAT PH 7.394 (7.35-7.45); ISTAT PO2 108 (80-105); ISTAT SO2 98; ISTAT TCO2 21
--- NOTE | 2016-08-25 12:36 | Consultation ---
History of Present Illness - Reason for Consult Consult date: 08/25/16 Hypertensive Emergency Requesting physician: ABIMAEL MENDOZA - History of Present Illness 55 y/o male, admitted from the floor with hypertensive emergency. Patient is altered and hypertensive. Started on Cardene drip. This am, currently off, Cardene. Not responsive. ABG done but not hypercapnic. PaO2 is good. No family at bedside. Past History Past Medical History: diabetes, hypertension, PVD, stroke Past Surgical History: Other (Leg surgery) Social history: . denies: smoking, alcohol abuse, prescription drug abuse Family history: diabetes, hypertension Medications and Allergies Allergies Allergy/AdvReac Type Severity Reaction Status Date / Time Unable to Assess Allergy Unverified 08/23/16 23:25 Home Medications Medication Instructions Recorded Confirmed Last Taken Type Lopressor 50 mg PO DAILY 08/25/16 08/25/16 Unknown History Nifedipine ER 60 mg PO DAILY 08/25/16 08/25/16 Unknown History Active Meds: Active Medications Acetaminophen (Tylenol) 650 mg PO Q4H PRN PRN Reason: Pain MILD(1-3)/Fever >100.5/ALFARO Albuterol (Proventil) 2.5 mg IH Q6HRT PRN PRN Reason: Shortness Of Breath Lipase/Protease/Amylase (Pancreaze Dr 10,500 Unit) 1 each FEEDTUBE PRN PRN PRN Reason: For Clogged Feeding Tube Bisacodyl (Dulcolax) 10 mg [place] QDAY PRN PRN Reason: Constipation unrelieved by MOM Dextrose (D50w (25gm)) 50 ml IV PRN PRN PRN Reason: Hypoglycemia Enoxaparin Sodium (Lovenox) 50 mg 1 mg/kg (50 mg) SUB-Q Q12HR JERAMY Last Admin: 08/25/16 11:46 Dose: 50 mg Hydralazine HCl (Apresoline) 10 mg IV Q4HR PRN PRN Reason: BP >160/100 Last Admin: 08/25/16 11:54 Dose: 10 mg Azithromycin 500 mg/ Sodium (Chloride) 250 mls @ 250 mls/hr IV Q24HR JERAMY PRN Reason: Protocol Last Infusion: 08/25/16 11:56 Dose: Infused Ceftriaxone Sodium (Rocephin/Ns 1 Gm/50 Ml) 1 gm in 50 mls @ 100 mls/hr IV Q24HR JERAMY PRN Reason: Protocol Last Infusion: 08/25/16 11:55 Dose: Infused Nicardipine HCl 50 mg/ Sodium (Chloride) 250 mls @ 25 mls/hr IV TITR JERAMY; 5 MG/ HR PRN Reason: Protocol Last Titration: 08/25/16 10:57 Dose: 0 mg/hr, 0 mls/hr Insulin Human Regular 100 (units/ Sodium Chloride) 100 mls @ 1 mls/hr IV TITR JERAMY; 1 UNITS/HR PRN Reason: Protocol Last Titration: 08/25/16 10:14 Dose: 0.5 units/hr, 0.5 mls/hr Potassium Chloride/Dextrose/Sod Cl (D5w/0.45% Nacl/Kcl 20 Meq) 20 meq in 1,000 mls @ 62.5 mls/hr IV DIRECT JERAMY Last Admin: 08/25/16 03:22 Dose: 125 mls/hr Insulin Aspart (Novolog) 0 units SUB-Q Q6HR JERAMY PRN Reason: Protocol Insulin Detemir (Levemir) 20 units SUB-Q DAILY JERAMY Lorazepam (Ativan) 0.5 mg IV Q1H PRN PRN Reason: Agitation Last Admin: 08/25/16 03:24 Dose: 0.5 mg Magnesium Hydroxide (Milk Of Magnesia) 30 ml PO Q4H PRN PRN Reason: Constipation Ondansetron HCl (Zofran) 4 mg IV Q8H PRN PRN Reason: N/V unrelieved by Reglan Simple Syrup (Simple Syrup) 15 ml FEEDTUBE PRN PRN PRN Reason: Hypoglycemia Simple Syrup (Simple Syrup) 30 ml FEEDTUBE PRN PRN PRN Reason: Hypoglycemia Sodium Bicarbonate (Sodium Bicarbonate) 325 mg FEEDTUBE PRN PRN PRN Reason: For Clogged Feeding Tube Review of Systems ROS unobtainable: due to mental status Exam - Constitutional Vitals: Temp Pulse Resp BP Pulse Ox 98.8 F 95 H 19 162/100 98 08/25/16 12:24 08/25/16 12:00 08/25/16 12:00 08/25/16 12:00 08/25/16 12:00 General appearance: Present: no acute distress, other (not responsive) - EENT Eyes: Present: PERRL ENT: other (patient will not answer or follow any commands) - Neck Neck: Present: supple - Respiratory Respiratory effort: normal Respiratory: bilateral: rhonchi - Cardiovascular Rhythm: regular Heart Sounds: Present: S1 & S2 - Abdominal General gastrointestinal: Present: soft, distended (but only mildly) Male genitourinary: Present: deferred - Rectal Rectal Exam: deferred Results - Labs CBC & Chem 7: 08/25/16 04:53 08/25/16 04:53 Labs: Abnormal lab results 08/24/16 08/24/16 08/24/16 Range/Units 13:02 13:44 17:29 WBC (4.5-11.0) K/mm3 RBC (3.65-5.03) M/mm3 Hgb (11.8-15.2) gm/dl Hct (35.5-45.6) % MCV (84-94) fl MCH (28-32) pg MCHC (32-34) % RDW (13.2-15.2) % Lymph % (Auto) (13.4-35.0) % [place] % (Auto) (0.0-7.3) % Lymph # (1.2-5.4) K/mm3 [place] # (0.0-0.8) K/mm3 Seg Neutrophils % (40.0-70.0) % Seg Neutrophils # (1.8-7.7) K/mm3 POC ABG pCO2 34.8 L (35-45) POC ABG pO2 (80-105) Carbon Dioxide (22-30) mmol/L Creatinine 1.8 H (0.8-1.5) mg/dL Glucose 266 H (75-100) mg/dL POC Glucose 354 H (70-105) Calcium (8.4-10.2) mg/dL 08/24/16 08/24/16 08/24/16 Range/Units 17:34 18:24 18:41 WBC (4.5-11.0) K/mm3 RBC (3.65-5.03) M/mm3 Hgb (11.8-15.2) gm/dl Hct (35.5-45.6) % MCV (84-94) fl MCH (28-32) pg MCHC (32-34) % RDW (13.2-15.2) % Lymph % (Auto) (13.4-35.0) % [place] % (Auto) (0.0-7.3) % Lymph # (1.2-5.4) K/mm3 [place] # (0.0-0.8) K/mm3 Seg Neutrophils % (40.0-70.0) % Seg Neutrophils # (1.8-7.7) K/mm3 POC ABG pCO2 (35-45) POC ABG pO2 (80-105) Carbon Dioxide 18 L (22-30) mmol/L Creatinine 1.9 H (0.8-1.5) mg/dL Glucose 174 H (75-100) mg/dL POC Glucose 211 H 190 H (70-105) Calcium 8.2 L (8.4-10.2) mg/dL 08/24/16 08/24/16 08/24/16 Range/Units 19:28 20:24 21:21 WBC (4.5-11.0) K/mm3 RBC (3.65-5.03) M/mm3 Hgb (11.8-15.2) gm/dl Hct (35.5-45.6) % MCV (84-94) fl MCH (28-32) pg MCHC (32-34) % RDW (13.2-15.2) % Lymph % (Auto) (13.4-35.0) % [place] % (Auto) (0.0-7.3) % Lymph # (1.2-5.4) K/mm3 [place] # (0.0-0.8) K/mm3 Seg Neutrophils % (40.0-70.0) % Seg Neutrophils # (1.8-7.7) K/mm3 POC ABG pCO2 (35-45) POC ABG pO2 (80-105) Carbon Dioxide (22-30) mmol/L Creatinine (0.8-1.5) mg/dL Glucose (75-100) mg/dL POC Glucose 159 H 110 H 144 H (70-105) Calcium (8.4-10.2) mg/dL 08/24/16 08/24/16 08/24/16 Range/Units 21:48 22:26 23:19 WBC (4.5-11.0) K/mm3 RBC (3.65-5.03) M/mm3 Hgb (11.8-15.2) gm/dl Hct (35.5-45.6) % MCV (84-94) fl MCH (28-32) pg MCHC (32-34) % RDW (13.2-15.2) % Lymph % (Auto) (13.4-35.0) % [place] % (Auto) (0.0-7.3) % Lymph # (1.2-5.4) K/mm3 [place] # (0.0-0.8) K/mm3 Seg Neutrophils % (40.0-70.0) % Seg Neutrophils # (1.8-7.7) K/mm3 POC ABG pCO2 (35-45) POC ABG pO2 (80-105) Carbon Dioxide 21 L (22-30) mmol/L Creatinine 1.8 H (0.8-1.5) mg/dL Glucose 141 H (75-100) mg/dL POC Glucose 148 H 140 H (70-105) Calcium 8.3 L (8.4-10.2) mg/dL 08/25/16 08/25/16 08/25/16 Range/Units 01:11 02:15 03:18 WBC (4.5-11.0) K/mm3 RBC (3.65-5.03) M/mm3 Hgb (11.8-15.2) gm/dl Hct (35.5-45.6) % MCV (84-94) fl MCH (28-32) pg MCHC (32-34) % RDW (13.2-15.2) % Lymph % (Auto) (13.4-35.0) % [place] % (Auto) (0.0-7.3) % Lymph # (1.2-5.4) K/mm3 [place] # (0.0-0.8) K/mm3 Seg Neutrophils % (40.0-70.0) % Seg Neutrophils # (1.8-7.7) K/mm3 POC ABG pCO2 (35-45) POC ABG pO2 (80-105) Carbon Dioxide (22-30) mmol/L Creatinine (0.8-1.5) mg/dL Glucose (75-100) mg/dL POC Glucose 130 H 136 H 145 H (70-105) Calcium (8.4-10.2) mg/dL 08/25/16 08/25/16 08/25/16 Range/Units 04:09 04:53 04:53 WBC 14.1 H (4.5-11.0) K/mm3 RBC 5.36 H (3.65-5.03) M/mm3 Hgb 9.9 L (11.8-15.2) gm/dl Hct 32.9 L (35.5-45.6) % MCV 61 L (84-94) fl MCH 19 L (28-32) pg MCHC 30 L (32-34) % RDW 17.5 H (13.2-15.2) % Lymph % (Auto) 8.0 L (13.4-35.0) % [place] % (Auto) 9.7 H (0.0-7.3) % Lymph # 1.1 L (1.2-5.4) K/mm3 Peach # 1.4 H (0.0-0.8) K/mm3 Seg Neutrophils % 82.2 H (40.0-70.0) % Seg Neutrophils # 11.6 H (1.8-7.7) K/mm3 POC ABG pCO2 (35-45) POC ABG pO2 (80-105) Carbon Dioxide 21 L (22-30) mmol/L Creatinine 1.9 H (0.8-1.5) mg/dL Glucose 116 H (75-100) mg/dL POC Glucose 120 H (70-105) Calcium 8.2 L (8.4-10.2) mg/dL 08/25/16 08/25/16 08/25/16 Range/Units 05:05 06:31 07:35 WBC (4.5-11.0) K/mm3 RBC (3.65-5.03) M/mm3 Hgb (11.8-15.2) gm/dl Hct (35.5-45.6) % MCV (84-94) fl MCH (28-32) pg MCHC (32-34) % RDW (13.2-15.2) % Lymph % (Auto) (13.4-35.0) % [place] % (Auto) (0.0-7.3) % Lymph # (1.2-5.4) K/mm3 [place] # (0.0-0.8) K/mm3 Seg Neutrophils % (40.0-70.0) % Seg Neutrophils # (1.8-7.7) K/mm3 POC ABG pCO2 (35-45) POC ABG pO2 (80-105) Carbon Dioxide (22-30) mmol/L Creatinine (0.8-1.5) mg/dL Glucose (75-100) mg/dL POC Glucose 126 H 139 H 142 H (70-105) Calcium (8.4-10.2) mg/dL 08/25/16 08/25/16 08/25/16 Range/Units 08:55 09:48 10:59 WBC (4.5-11.0) K/mm3 RBC (3.65-5.03) M/mm3 Hgb (11.8-15.2) gm/dl Hct (35.5-45.6) % MCV (84-94) fl MCH (28-32) pg MCHC (32-34) % RDW (13.2-15.2) % Lymph % (Auto) (13.4-35.0) % [place] % (Auto) (0.0-7.3) % Lymph # (1.2-5.4) K/mm3 [place] # (0.0-0.8) K/mm3 Seg Neutrophils % (40.0-70.0) % Seg Neutrophils # (1.8-7.7) K/mm3 POC ABG pCO2 (35-45) POC ABG pO2 (80-105) Carbon Dioxide (22-30) mmol/L Creatinine (0.8-1.5) mg/dL Glucose (75-100) mg/dL POC Glucose 135 H 109 H 126 H (70-105) Calcium (8.4-10.2) mg/dL 08/25/16 Range/Units 11:34 WBC (4.5-11.0) K/mm3 RBC (3.65-5.03) M/mm3 Hgb (11.8-15.2) gm/dl Hct (35.5-45.6) % MCV (84-94) fl MCH (28-32) pg MCHC (32-34) % RDW (13.2-15.2) % Lymph % (Auto) (13.4-35.0) % [place] % (Auto) (0.0-7.3) % Lymph # (1.2-5.4) K/mm3 [place] # (0.0-0.8) K/mm3 Seg Neutrophils % (40.0-70.0) % Seg Neutrophils # (1.8-7.7) K/mm3 POC ABG pCO2 32.8 L (35-45) POC ABG pO2 108 H (80-105) Carbon Dioxide (22-30) mmol/L Creatinine (0.8-1.5) mg/dL Glucose (75-100) mg/dL POC Glucose (70-105) Calcium (8.4-10.2) mg/dL Assessment and Plan 55 y/o male with hypertensive emergency, metabolic encephalopathy, acute renal failure and leukocytosis 1. NG tube placed last night. Asked nursing to place to continuous suction for about an hour and then change back to low intermittent as long as output is not high 2. As long as the output is not high will start PO feeds and PO meds via 3. Limit any form of sedative medication 4. Consider renal consult 5. If patient is off drips, Cardene and Insulin, ok with transfer out of ICU as long as patient can stand being off cardene. 6. Neuro status being worked up by primary team CCT 31 minutes.
--- NOTE | 2016-08-25 12:56 | XRay Report ---
AP CHEST: HISTORY: Hypoxemia Mild cardiomegaly and pulmonary venous congestion are identified. There is poor visualization the left lower lobe suggesting left basilar atelectasis or less likely a small left pleural effusion. No pneumothorax. A nasogastric tube is in place. IMPRESSION: Cardiomegaly and pulmonary venous congestion. Probable left lower lobe partial atelectasis.
--- NOTE | 2016-08-25 13:02 | Consultation ---
History of Present Illness - Reason for Consult Consult date: 08/25/16 acute renal failure (55yrM adm s/p ?Blackout at home with elevated BP & Renal Insufficiency, BUN/Cr on adm 03/03.8), accelerated hypertension - History of Present Illness 55yrM adm via ER with decreased response, elevated BP & Increased BUN/Cr Past History Past Medical History: diabetes, hypertension, PVD, stroke Past Surgical History: Other (Leg surgery) Social history: . denies: smoking, alcohol abuse, prescription drug abuse Family history: diabetes, hypertension Medications and Allergies Allergies Allergy/AdvReac Type Severity Reaction Status Date / Time Unable to Assess Allergy Unverified 08/23/16 23:25 Home Medications Medication Instructions Recorded Confirmed Last Taken Type Lopressor 50 mg PO DAILY 08/25/16 08/25/16 Unknown History Nifedipine ER 60 mg PO DAILY 08/25/16 08/25/16 Unknown History Active Meds: Active Medications Acetaminophen (Tylenol) 650 mg PO Q4H PRN PRN Reason: Pain MILD(1-3)/Fever >100.5/ALFARO Albuterol (Proventil) 2.5 mg IH Q6HRT PRN PRN Reason: Shortness Of Breath Lipase/Protease/Amylase (Pancreaze Dr 10,500 Unit) 1 each FEEDTUBE PRN PRN PRN Reason: For Clogged Feeding Tube Bisacodyl (Dulcolax) 10 mg [place] QDAY PRN PRN Reason: Constipation unrelieved by MOM Dextrose (D50w (25gm)) 50 ml IV PRN PRN PRN Reason: Hypoglycemia Enoxaparin Sodium (Lovenox) 50 mg 1 mg/kg (50 mg) SUB-Q Q12HR [facility] Last Admin: 08/25/16 11:46 Dose: 50 mg Hydralazine HCl (Apresoline) 10 mg IV Q4HR PRN PRN Reason: BP >160/100 Last Admin: 08/25/16 11:54 Dose: 10 mg Azithromycin 500 mg/ Sodium (Chloride) 250 mls @ 250 mls/hr IV Q24HR JERAMY PRN Reason: Protocol Last Infusion: 08/25/16 11:56 Dose: Infused Ceftriaxone Sodium (Rocephin/Ns 1 Gm/50 Ml) 1 gm in 50 mls @ 100 mls/hr IV Q24HR JERAMY PRN Reason: Protocol Last Infusion: 08/25/16 11:55 Dose: Infused Nicardipine HCl 50 mg/ Sodium (Chloride) 250 mls @ 25 mls/hr IV TITR JERAMY; 5 MG/ HR PRN Reason: Protocol Last Titration: 08/25/16 10:57 Dose: 0 mg/hr, 0 mls/hr Insulin Human Regular 100 (units/ Sodium Chloride) 100 mls @ 1 mls/hr IV TITR JERAMY; 1 UNITS/HR PRN Reason: Protocol Last Titration: 08/25/16 10:14 Dose: 0.5 units/hr, 0.5 mls/hr Potassium Chloride/Dextrose/Sod Cl (D5w/0.45% Nacl/Kcl 20 Meq) 20 meq in 1,000 mls @ 62.5 mls/hr IV DIRECT JERAMY Last Admin: 08/25/16 03:22 Dose: 125 mls/hr Insulin Aspart (Novolog) 0 units SUB-Q Q6HR JERAMY PRN Reason: Protocol Insulin Detemir (Levemir) 20 units SUB-Q DAILY JERAMY Lorazepam (Ativan) 0.5 mg IV Q1H PRN PRN Reason: Agitation Last Admin: 08/25/16 03:24 Dose: 0.5 mg Magnesium Hydroxide (Milk Of Magnesia) 30 ml PO Q4H PRN PRN Reason: Constipation Ondansetron HCl (Zofran) 4 mg IV Q8H PRN PRN Reason: N/V unrelieved by Reglan Simple Syrup (Simple Syrup) 15 ml FEEDTUBE PRN PRN PRN Reason: Hypoglycemia Simple Syrup (Simple Syrup) 30 ml FEEDTUBE PRN PRN PRN Reason: Hypoglycemia Sodium Bicarbonate (Sodium Bicarbonate) 325 mg FEEDTUBE PRN PRN PRN Reason: For Clogged Feeding Tube Review of Systems ROS unobtainable: due to mental status Exam - Vital Signs Vital signs: Vital Signs Pulse Resp BP Pulse Ox 116 H 26 H 208/114 95 08/23/16 23:25 08/23/16 23:25 08/23/16 23:25 08/23/16 23:25 - General Appearance General appearance: appears stated age, other (Poor arousal but opens eyes & moves spontaneoulsy) Neck: Present: neck supple. Absent: JVD/HJR Respiratory: Other (Good air entry) Heart: regular, S1S2 Gastrointestinal: Present: other (Soft). Absent: tenderness, distended Integumentary: warm and dry Neurologic: obtunded Musculoskeletal: Present: other (Bilateral AKA) Results - Lab Results 08/25/16 04:53 08/25/16 04:53 Most recent lab results Calcium 8.2 mg/dL (8.4-10.2) L 08/25/16 04:53 Phosphorus 2.90 mg/dL (2.5-4.5) 08/24/16 13:44 Magnesium 1.90 mg/dL (1.7-2.3) 08/24/16 13:44 Assessment and Plan 1. Uncontrolled HTN 2. ALANNAH 3. Unresponsive PLAN Begin BP meds per NGT then wean to d/c Cardine drip Urine studies Renal u/s IVF Thanks very much, will f/u with you
[2016-08-25] MEDS: NOVOLOG SUB-Q SCH ×2 (13:26→17:47)
[2016-08-25 14:29] LABS: BUN/Creatinine Ratio 11.17; Calcium 8.2 mg/dL (8.4-10.2); Chloride 104.5 mmol/L (98-107)
[2016-08-25] MEDS ORDERED: NORVASC PO ONE ×2 (14:30)
[2016-08-25] MEDS ORDERED: NORMODYNE IV ONE (14:30)
[2016-08-25] MEDS: LEVEMIR SUB-Q SCH (14:40)
[2016-08-25] MEDS: NACL 0.45% 1000 ML 1,000 ML IV SCH (14:42)
[2016-08-25] MEDS: NORMODYNE PO SCH ×2 (14:58→22:53)
[2016-08-25] MEDS: HEPARIN SUB-Q SCH ×2 (14:58→22:53)
[2016-08-25 15:34] LABS: Potassium 4.9 mmol/L (3.6-5.0)
--- NOTE | 2016-08-25 16:28 | Magnetic Resonance Report ---
MRI of the brain without contrast. History: Altered mental status. Findings: There is a very large area of her streaky diffusion involving most if not all of the left MCA territory, a portion of the left anterior cerebral territory. There is involvement of the basal ganglia on the left. There is mild extrinsic compression of the left lateral ventricle with minimal shift of midline from left to right. There are vague areas of minimal hyperintense T2 signal are in the remy bilaterally and in the periventricular white matter on the right side. There are no extra-axial collections. Impression: Large acute infarct involving the left middle cerebral and portions of the left anterior cerebral territory with mild secondary mass effect and minimal shift of the midline from [id number]. Comment: These findings were called to the patients nurseJonathon in the ICU at 4 PM on August 25, 2016.
--- NOTE | 2016-08-25 16:51 | XRay Report ---
FINAL REPORT PROCEDURE: XR ABDOMEN 1V AP TECHNIQUE: AP view of the abdomen is obtained HISTORY: NGT placement COMPARISON: No prior studies are available for comparison. FINDINGS: Nasogastric tube passes into the antrum of the stomach. Mild increased colonic air is seen without bowel dilation. Mild increased small bowel air is seen without dilation. IMPRESSION: Nasogastric tube has its tip in the region of the antrum of the stomach.
--- NOTE | 2016-08-25 17:29 | Progress Note ---
Assessment and Plan Assessment and plan: 55M who presented with obtundation, Elevated BP and high sugars; he had not taken any of his meds in 6 months MRI brain 08/25 Large acute stroke involving the area of the left middle cerebral and portions of the left anterior cerebral territories with mild secondary mass effect with minimal shift from left to right Massive CVA with Infarct Neurology on board, allow permissive hypertension, prognosis is grim given the size of the stroke. We'll need to communicate with the family to obtain goals of care . Hypertensive emergency Patient has been weaned off Cardene drip, allow permissive hypertension given CVA, goal systolic blood pressure is 160-185 . Metabolic encephalopathy EEG has been done and shows nonspecific encephalopathy, non epileptiform Due to CVA . Presumed Sepsis has been ruled out Discontinue broad-spectrum antibiotics, sepsis has been ruled out by a negative blood cultures, chest x-ray shows no infiltrates . Acute renal failure Continue IV fluids, nephrology consult appreciated Hyper glycemic hyperosmolar nonketotic state Patient has been weaned off insulin drip, continue subcutaneous insulin, status post NG tube, may resume diabetic tube feeding Critical care time 32 minutes History Interval history: Patient remains obtunded, nonverbal, nurses note that he has had frothing at the mouth, some moving of his left upper extremity, does not obey commands. He' s had persistently elevated blood pressures and elevated blood sugars. Hospitalist Physical - Physical exam Narrative exam: General: Appears critically ill HEENT: MMM, EOMI cardiac: S1-S2 heard lungs: Rhonchorous breath sounds abdomen: soft, nontender, nondistended bowel sounds positive extremities: no edema clubbing or cyanosis Skin: no rash or lesion Neuro: Obtunded, nonverbal, does not be commands, frothing at the mouth, spontaneous movements of the left upper extremity Psych: Obtunded - Constitutional Vitals: Temp Pulse Resp BP Pulse Ox 98.5 F 82 24 130/78 97 08/25/16 16:00 08/25/16 17:00 08/25/16 17:00 08/25/16 17:00 08/25/16 17:00 General appearance: Present: severe distress, disheveled Results - Labs CBC & Chem 7: 08/25/16 04:53 08/25/16 13:47 Labs: Laboratory Last Values WBC 14.1 K/mm3 (4.5-11.0) H 08/25/16 04:53 RBC 5.36 M/mm3 (3.65-5.03) H 08/25/16 04:53 Hgb 9.9 gm/dl (11.8-15.2) L 08/25/16 04:53 Hct 32.9 % (35.5-45.6) L 08/25/16 04:53 MCV 61 fl (84-94) L 08/25/16 04:53 MCH 19 pg (28-32) L 08/25/16 04:53 MCHC 30 % (32-34) L 08/25/16 04:53 RDW 17.5 % (13.2-15.2) H 08/25/16 04:53 Plt Count 241 K/mm3 (140-440) 08/25/16 04:53 Lymph % (Auto) 8.0 % (13.4-35.0) L 08/25/16 04:53 [place] % (Auto) 9.7 % (0.0-7.3) H 08/25/16 04:53 Eos % (Auto) 0.0 % (0.0-4.3) 08/25/16 04:53 Baso % (Auto) 0.1 % (0.0-1.8) 08/25/16 04:53 Lymph # 1.1 K/mm3 (1.2-5.4) L 08/25/16 04:53 [place] # 1.4 K/mm3 (0.0-0.8) H 08/25/16 04:53 Eos # 0.0 K/mm3 (0.0-0.4) 08/25/16 04:53 Baso # 0.0 K/mm3 (0.0-0.1) 08/25/16 04:53 Seg Neutrophils % 82.2 % (40.0-70.0) H 08/25/16 04:53 Seg Neutrophils # 11.6 K/mm3 (1.8-7.7) H 08/25/16 04:53 D-Dimer 1138.47 ng/mlDDU (0-234) H 08/24/16 03:23 POC ABG pH 7.394 (7.35-7.45) 08/25/16 11:34 POC ABG pCO2 32.8 (35-45) L 08/25/16 11:34 POC ABG pO2 108 (80-105) H 08/25/16 11:34 POC ABG HCO3 20.1 08/25/16 11:34 POC ABG Total CO2 21 08/25/16 11:34 POC ABG O2 Sat 98 08/25/16 11:34 POC ABG Base Excess -5 08/25/16 11:34 FiO2 28 % 08/25/16 11:34 Sodium 139 mmol/L (137-145) 08/25/16 13:47 Potassium 4.9 mmol/L (3.6-5.0) D 08/25/16 13:47 Chloride 104.5 mmol/L (98-107) 08/25/16 13:47 Carbon Dioxide 19 mmol/L (22-30) L 08/25/16 13:47 Anion Gap 20 mmol/L 08/25/16 13:47 BUN 19 mg/dL (9-20) 08/25/16 13:47 Creatinine 1.7 mg/dL (0.8-1.5) H 08/25/16 13:47 Estimated GFR 51 ml/min 08/25/16 13:47 BUN/Creatinine Ratio 11.17 % 08/25/16 13:47 Glucose 196 mg/dL (75-100) H 08/25/16 13:47 POC Glucose 242 (70-105) H 08/25/16 16:30 Lactic Acid 1.80 mmol/L (0.7-2.0) 08/25/16 13:47 Calcium 8.2 mg/dL (8.4-10.2) L 08/25/16 13:47 Phosphorus 2.90 mg/dL (2.5-4.5) 08/24/16 13:44 Magnesium 1.90 mg/dL (1.7-2.3) 08/24/16 13:44 Total Bilirubin 0.90 mg/dL (0.1-1.2) 08/23/16 23:35 AST 37 units/L (5-40) 08/23/16 23:35 ALT 18 units/L (7-56) 08/23/16 23:35 Alkaline Phosphatase 147 units/L (35-129) H 08/23/16 23:35 Ammonia 46.0 umol/L (25-60) 08/24/16 01:44 Total Creatine Kinase 340 units/L (55-170) H 08/23/16 23:25 Total Protein 5.8 g/dL (6.3-8.2) L 08/23/16 23:35 Albumin 3.2 g/dL (3.9-5) L 08/23/16 23:35 Albumin/Globulin Ratio 1.2 % 08/23/16 23:35 TSH 3.080 mlU/mL (0.270-4.200) 08/23/16 23:35 Urine Color Yellow (Yellow) 08/24/16 00:40 Urine Turbidity Clear (Clear) 08/24/16 00:40 Urine pH 6.0 (5.0-7.0) 08/24/16 00:40 Ur Specific Lopez 1.022 (1.003-1.030) 08/24/16 00:40 Urine Protein >500 mg/dL (Negative) 08/24/16 00:40 Urine Glucose (UA) >=500 mg/dL (Negative) 08/24/16 00:40 Urine Ketones Neg mg/dL (Negative) 08/24/16 00:40 Urine Blood Mod (Negative) 08/24/16 00:40 Urine Nitrite Neg (Negative) 08/24/16 00:40 Urine Bilirubin Neg (Negative) 08/24/16 00:40 Urine Urobilinogen < 2.0 mg/dL (<2.0) 08/24/16 00:40 Ur Leukocyte Esterase Neg (Negative) 08/24/16 00:40 Urine WBC (Auto) 1.0 /HPF (0.0-6.0) 08/24/16 00:40 Urine RBC (Auto) 5.0 /HPF (0.0-6.0) 08/24/16 00:40 Urine Bacteria (Auto) 2+ /HPF (Negative) 08/24/16 00:40 Urine Creatinine 237.7 mg/dL (0.1-20.0) H 08/25/16 15:00 Protein/Creatinin Ratio 3.71 08/25/16 15:00 Urine Sodium 10 mEq/L 08/25/16 15:00 Urine Total Protein 882 mg/dL (5-11.8) H 08/25/16 15:00 Salicylates < 0.3 mg/dL (2.8-20.0) L 08/23/16 23:35 Urine Opiates Screen Presumptive negative 08/24/16 00:40 Urine Methadone Screen Presumptive negative 08/24/16 00:40 Acetaminophen < 15.0 ug/mL (10.0-30.0) 08/23/16 23:35 Ur Barbiturates Screen Presumptive negative 08/24/16 00:40 Ur Phencyclidine Scrn Presumptive negative 08/24/16 00:40 Ur Amphetamines Screen Presumptive negative 08/24/16 00:40 U Benzodiazepines Scrn Presumptive negative 08/24/16 00:40 Urine Cocaine Screen Presumptive negative 08/24/16 00:40 U Marijuana (THC) Screen Presumptive negative 08/24/16 00:40 Drugs of Abuse Note Disclamer 08/24/16 00:40 Plasma/Serum Alcohol < 0.01 gm% (0-0.07) 08/23/16 23:35
[2016-08-25] MEDS ORDERED: NORMODYNE IV PRN (17:35)
[2016-08-25] MEDS ORDERED: VANCOMYCIN 750 MG in NACL 0.9% 250ML 250 ML IV SCH (22:00)
[2016-08-26] MEDS: NOVOLOG SUB-Q SCH ×4 (00:26→18:03)
[2016-08-26] MEDS: NACL 0.45% 1000 ML 1,000 ML IV SCH (01:54)
[2016-08-26] MEDS: HEPARIN SUB-Q SCH ×4 (06:03→22:00)
[2016-08-26 08:03] LABS: Albumin 2.7 g/dL (3.9-5); Bilirubin,Total 0.9 mg/dL (0.1-1.2); Calcium 8.1 mg/dL (8.4-10.2); Chloride 106.2 mmol/L (98-107); Magnesium 1.8 mg/dL (1.7-2.3); Phosphorous 3.7 mg/dL (2.5-4.5); Potassium 4.2 mmol/L (3.6-5.0); Total Protein 5.5 g/dL (6.3-8.2)
--- NOTE | 2016-08-26 09:18 | Ultrasound Report ---
ULTRASOUND RENAL INDICATION: ALANNAH. COMPARISON: None similar. FINDINGS: Renal sonography suggests top normal/slight increased renal cortical echogenicity. Grossly preserved contours. No hydronephrosis. Slight diffuse imaged hepatic coarsening. Right hepatic lobe not excluded enlarged at approximately 19 cm craniocaudal. Small bilateral pleural effusions also suspected. RIGHT KIDNEY measures 9.8 x 5.2 x 4.9 cm with cortical thickness of 1.7 cm. LEFT KIDNEY estimated at 9.8 x 5.7 x 5.1 cm with cortical thickness of 1.2 cm. URINARY BLADDER suboptimally distended and assessed, though grossly unremarkable, in so far seen. CONCLUSION: Mild underlying medical renal disease possible sonographically without acute renal abnormality. Various other findings, as above. Please correlate. Thank you for the opportunity to participate in this patient's care.
[2016-08-26] MEDS: NORMODYNE PO SCH ×3 (09:32→22:00)
[2016-08-26] MEDS: LEVEMIR SUB-Q SCH (09:33)
--- NOTE | 2016-08-26 11:11 | Progress Note ---
Assessment and Plan 55 y/o male with hypertensive emergency, metabolic encephalopathy, acute renal failure and leukocytosis 1. Continue tube feeds 2. Follow up neurology recs 3. Discontinue any and all sedatives 4. Follow up renal recs. 5. Patient no longer requiring any drips. 6. Asked nursing to discuss with Neuro the saftey of MRI reading. As long as they are comfortable, feel that patient needs to be transferred to the floor Subjective Date of service: 08/26/16 Interval history: Large left sided stroke seen on MRI. Patient still not responsive. Sat is good on cannula. No family at bedside. Objective - Constitutional Vitals: Vital Signs - 12hr 08/25/16 08/25/16 08/26/16 23:30 23:42 00:00 Temperature 98.2 F Pulse Rate 84 82 Pulse Rate [ 82 From Monitor] Respiratory 26 H 23 Rate Blood Pressure 123/72 116/71 O2 Sat by Pulse 98 98 Oximetry 08/26/16 08/26/16 08/26/16 00:30 01:00 01:30 Temperature Pulse Rate 80 80 79 Pulse Rate [ From Monitor] Respiratory 19 22 19 Rate Blood Pressure 108/69 113/72 123/78 O2 Sat by Pulse 99 97 98 Oximetry 08/26/16 08/26/16 08/26/16 02:00 02:30 03:00 Temperature Pulse Rate 81 77 82 Pulse Rate [ From Monitor] Respiratory 21 19 26 H Rate Blood Pressure 123/78 117/79 128/80 O2 Sat by Pulse 99 98 Oximetry 08/26/16 08/26/16 08/26/16 03:30 04:00 04:30 Temperature 97.6 F Pulse Rate 79 84 86 Pulse Rate [ 84 From Monitor] Respiratory 20 17 28 H Rate Blood Pressure 127/80 135/79 134/82 O2 Sat by Pulse 99 99 99 Oximetry 08/26/16 08/26/16 08/26/16 05:00 05:30 06:00 Temperature Pulse Rate 83 86 Pulse Rate [ From Monitor] Respiratory 25 H 20 Rate Blood Pressure 133/86 133/86 133/86 O2 Sat by Pulse 98 100 99 Oximetry 08/26/16 08/26/16 08/26/16 06:30 07:00 07:30 Temperature Pulse Rate 84 81 81 Pulse Rate [ 81 From Monitor] Respiratory 21 20 20 Rate Blood Pressure 137/74 137/74 137/78 O2 Sat by Pulse 100 99 99 Oximetry 08/26/16 08/26/16 08/26/16 07:51 08:00 08:30 Temperature 98.0 F Pulse Rate 86 81 Pulse Rate [ From Monitor] Respiratory 20 18 Rate Blood Pressure 143/76 161/86 O2 Sat by Pulse 99 100 Oximetry 08/26/16 08/26/16 08/26/16 09:00 09:30 09:59 Temperature Pulse Rate 83 81 Pulse Rate [ From Monitor] Respiratory 19 23 Rate Blood Pressure 150/85 159/85 O2 Sat by Pulse 99 100 99 Oximetry 08/26/16 08/26/16 10:00 10:30 Temperature Pulse Rate 79 81 Pulse Rate [ From Monitor] Respiratory 24 27 H Rate Blood Pressure 132/84 122/77 O2 Sat by Pulse 100 99 Oximetry General appearance: Present: no acute distress, other (not responsive) - Neck Neck: supple - Respiratory Respiratory effort: normal Respiratory: bilateral: CTA - Breasts Breasts: deferred - Cardiovascular Rhythm: regular Heart Sounds: Present: S1 & S2 Extremities: no ischemia - Gastrointestinal General gastrointestinal: Present: soft, non-tender Rectal Exam: deferred - Genitourinary Male genitourinary: deferred - Labs CBC & Chem 7: 08/25/16 04:53 08/26/16 07:16 Labs: Abnormal lab results 08/25/16 08/25/16 08/25/16 Range/Units 10:59 11:34 13:47 POC ABG pCO2 32.8 L (35-45) POC ABG pO2 108 H (80-105) Carbon Dioxide 19 L (22-30) mmol/L BUN (9-20) mg/dL Creatinine 1.7 H (0.8-1.5) mg/dL Glucose 196 H (75-100) mg/dL POC Glucose 126 H (70-105) Calcium 8.2 L (8.4-10.2) mg/dL AST (5-40) units/L Total Protein (6.3-8.2) g/dL Albumin (3.9-5) g/dL Urine Creatinine (0.1-20.0) mg/dL Urine Total Protein (5-11.8) mg/dL 08/25/16 08/25/16 08/25/16 Range/Units 15:00 16:30 23:09 POC ABG pCO2 (35-45) POC ABG pO2 (80-105) Carbon Dioxide (22-30) mmol/L BUN (9-20) mg/dL Creatinine (0.8-1.5) mg/dL Glucose (75-100) mg/dL POC Glucose 242 H 131 H (70-105) Calcium (8.4-10.2) mg/dL AST (5-40) units/L Total Protein (6.3-8.2) g/dL Albumin (3.9-5) g/dL Urine Creatinine 237.7 H (0.1-20.0) mg/dL Urine Total Protein 882 H (5-11.8) mg/dL 08/26/16 08/26/16 Range/Units 05:41 07:16 POC ABG pCO2 (35-45) POC ABG pO2 (80-105) Carbon Dioxide 18 L (22-30) mmol/L BUN 26 H (9-20) mg/dL Creatinine 2.0 H (0.8-1.5) mg/dL Glucose 132 H (75-100) mg/dL POC Glucose 156 H (70-105) Calcium 8.1 L (8.4-10.2) mg/dL AST 41 H (5-40) units/L Total Protein 5.5 L (6.3-8.2) g/dL Albumin 2.7 L (3.9-5) g/dL Urine Creatinine (0.1-20.0) mg/dL Urine Total Protein (5-11.8) mg/dL
--- NOTE | 2016-08-26 12:21 | Progress Note ---
Assessment and Plan 1. HTN - Improved control, agree to avoid too low BP in the setting of acute CVA 2. ALANNAH - Continue IVF & f/u BUN/Cr. Avoid Nephrotoxic meds 3. CVA - Large Acute infarct per MRI. F/u Neuro recs 4. Lytes - Change IVF to bicarb drip & f/u Acidosis Subjective Date of service: 08/26/16 Interval history: MRI revealed Acute Cerebral infarct Objective - Vital Signs Vital signs: Vital Signs - 12hr 08/26/16 08/26/16 08/26/16 00:30 01:00 01:30 Temperature Pulse Rate 80 80 79 Pulse Rate [ From Monitor] Respiratory 19 22 19 Rate Blood Pressure 108/69 113/72 123/78 O2 Sat by Pulse 99 97 98 Oximetry 08/26/16 08/26/16 08/26/16 02:00 02:30 03:00 Temperature Pulse Rate 81 77 82 Pulse Rate [ From Monitor] Respiratory 21 19 26 H Rate Blood Pressure 123/78 117/79 128/80 O2 Sat by Pulse 99 98 Oximetry 08/26/16 08/26/16 08/26/16 03:30 04:00 04:30 Temperature 97.6 F Pulse Rate 79 84 86 Pulse Rate [ 84 From Monitor] Respiratory 20 17 28 H Rate Blood Pressure 127/80 135/79 134/82 O2 Sat by Pulse 99 99 99 Oximetry 08/26/16 08/26/16 08/26/16 05:00 05:30 06:00 Temperature Pulse Rate 83 86 Pulse Rate [ From Monitor] Respiratory 25 H 20 Rate Blood Pressure 133/86 133/86 133/86 O2 Sat by Pulse 98 100 99 Oximetry 08/26/16 08/26/16 08/26/16 06:30 07:00 07:30 Temperature Pulse Rate 84 81 81 Pulse Rate [ 81 From Monitor] Respiratory 21 20 20 Rate Blood Pressure 137/74 137/74 137/78 O2 Sat by Pulse 100 99 99 Oximetry 08/26/16 08/26/16 08/26/16 07:51 08:00 08:30 Temperature 98.0 F Pulse Rate 86 81 Pulse Rate [ From Monitor] Respiratory 20 18 Rate Blood Pressure 143/76 161/86 O2 Sat by Pulse 99 100 Oximetry 08/26/16 08/26/16 08/26/16 09:00 09:30 09:59 Temperature Pulse Rate 83 81 Pulse Rate [ From Monitor] Respiratory 19 23 Rate Blood Pressure 150/85 159/85 O2 Sat by Pulse 99 100 99 Oximetry 08/26/16 08/26/16 10:00 10:30 Temperature Pulse Rate 79 81 Pulse Rate [ From Monitor] Respiratory 24 27 H Rate Blood Pressure 132/84 122/77 O2 Sat by Pulse 100 99 Oximetry - General Appearance General appearance: other (Still poorly responsive) Neck: no JVD Respiratory: Present: Other (Good air entry) Cardiology: regular, S1S2 Gastrointestinal: other (Soft) Neurologic: obtunded - Lab 08/25/16 04:53 08/26/16 07:16 Most recent lab results Calcium 8.1 mg/dL (8.4-10.2) L 08/26/16 07:16 Phosphorus 3.70 mg/dL (2.5-4.5) 08/26/16 07:16 Magnesium 1.80 mg/dL (1.7-2.3) 08/26/16 07:16 Urine Creatinine 237.7 mg/dL (0.1-20.0) H 08/25/16 15:00 Urine Sodium 10 mEq/L 08/25/16 15:00 Urine Total Protein 882 mg/dL (5-11.8) H 08/25/16 15:00
[2016-08-26] MEDS: SODIUM BICARBONATE 100 MEQ in D5W 1,000 ML IV SCH (14:03)
--- NOTE | 2016-08-26 15:55 | Progress Note ---
Assessment and Plan Assessment and plan: 55M who presented with obtundation, Elevated BP and high sugars; he had not taken any of his meds in 6 months MRI brain 08/25 Large acute stroke involving the area of the left middle cerebral and portions of the left anterior cerebral territories with mild secondary mass effect with minimal shift from left to right Massive CVA with Infarct Neurology on board, allow permissive hypertension, prognosis is grim given the size of the stroke. We'll need to communicate with the family to decide goals of care . Hypertensive emergency Patient has been weaned off Cardene drip, allow permissive hypertension given CVA, goal systolic blood pressure is 160-185, BP meds in place . Metabolic encephalopathy EEG has been done and shows nonspecific encephalopathy, non epileptiform Due to CVA . Presumed Sepsis has been ruled out Discontinue broad-spectrum antibiotics, sepsis has been ruled out by a negative blood cultures, chest x-ray shows no infiltrates . Acute renal failure due to ATN and vasomotor nephropathy Continue IV fluids, nephrology consult appreciated metabolic acidosis likely due to ALANNAH bicarbonate drip ordered Hyper glycemic hyperosmolar nonketotic state Patient has been weaned off insulin drip, continue subcutaneous insulin, status post NG tube, diabetic tube feeding Critical care time 32 minutes History Interval history: Patient remains obtunded, nonverbal, nurses note that he has had frothing at the mouth, some moving of his left upper extremity, does not obey commands. bp and blood glc have improved Hospitalist Physical - Physical exam Narrative exam: General: Appears critically ill HEENT: MMM, EOMI cardiac: S1-S2 heard lungs: Rhonchorous breath sounds abdomen: soft, nontender, nondistended bowel sounds positive extremities: no edema clubbing or cyanosis Skin: no rash or lesion Neuro: Obtunded, nonverbal, does not be commands, frothing at the mouth, spontaneous movements of the left upper extremity Psych: Obtunded - Constitutional Vitals: Temp Pulse Resp BP Pulse Ox 97.4 F L 93 H 20 123/89 95 08/26/16 12:00 08/26/16 13:46 08/26/16 13:46 08/26/16 13:30 08/26/16 13:30 General appearance: Present: no acute distress, other (not responsive) Results - Labs CBC & Chem 7: 08/25/16 04:53 08/26/16 07:16 Labs: Laboratory Last Values WBC 14.1 K/mm3 (4.5-11.0) H 08/25/16 04:53 RBC 5.36 M/mm3 (3.65-5.03) H 08/25/16 04:53 Hgb 9.9 gm/dl (11.8-15.2) L 08/25/16 04:53 Hct 32.9 % (35.5-45.6) L 08/25/16 04:53 MCV 61 fl (84-94) L 08/25/16 04:53 MCH 19 pg (28-32) L 08/25/16 04:53 MCHC 30 % (32-34) L 08/25/16 04:53 RDW 17.5 % (13.2-15.2) H 08/25/16 04:53 Plt Count 241 K/mm3 (140-440) 08/25/16 04:53 Lymph % (Auto) 8.0 % (13.4-35.0) L 08/25/16 04:53 Morris % (Auto) 9.7 % (0.0-7.3) H 08/25/16 04:53 Eos % (Auto) 0.0 % (0.0-4.3) 08/25/16 04:53 Baso % (Auto) 0.1 % (0.0-1.8) 08/25/16 04:53 Lymph # 1.1 K/mm3 (1.2-5.4) L 08/25/16 04:53 Morris # 1.4 K/mm3 (0.0-0.8) H 08/25/16 04:53 Eos # 0.0 K/mm3 (0.0-0.4) 08/25/16 04:53 Baso # 0.0 K/mm3 (0.0-0.1) 08/25/16 04:53 Seg Neutrophils % 82.2 % (40.0-70.0) H 08/25/16 04:53 Seg Neutrophils # 11.6 K/mm3 (1.8-7.7) H 08/25/16 04:53 D-Dimer 1138.47 ng/mlDDU (0-234) H 08/24/16 03:23 POC ABG pH 7.394 (7.35-7.45) 08/25/16 11:34 POC ABG pCO2 32.8 (35-45) L 08/25/16 11:34 POC ABG pO2 108 (80-105) H 08/25/16 11:34 POC ABG HCO3 20.1 08/25/16 11:34 POC ABG Total CO2 21 08/25/16 11:34 POC ABG O2 Sat 98 08/25/16 11:34 POC ABG Base Excess -5 08/25/16 11:34 FiO2 28 % 08/25/16 11:34 Sodium 140 mmol/L (137-145) 08/26/16 07:16 Potassium 4.2 mmol/L (3.6-5.0) 08/26/16 07:16 Chloride 106.2 mmol/L (98-107) 08/26/16 07:16 Carbon Dioxide 18 mmol/L (22-30) L 08/26/16 07:16 Anion Gap 20 mmol/L 08/26/16 07:16 BUN 26 mg/dL (9-20) H 08/26/16 07:16 Creatinine 2.0 mg/dL (0.8-1.5) H 08/26/16 07:16 Estimated GFR 42 ml/min 08/26/16 07:16 BUN/Creatinine Ratio 13.00 % 08/26/16 07:16 Glucose 132 mg/dL (75-100) H 08/26/16 07:16 POC Glucose 119 (70-105) H 08/26/16 12:12 Lactic Acid 1.80 mmol/L (0.7-2.0) 08/25/16 13:47 Calcium 8.1 mg/dL (8.4-10.2) L 08/26/16 07:16 Phosphorus 3.70 mg/dL (2.5-4.5) 08/26/16 07:16 Magnesium 1.80 mg/dL (1.7-2.3) 08/26/16 07:16 Total Bilirubin 0.90 mg/dL (0.1-1.2) 08/26/16 07:16 AST 41 units/L (5-40) H 08/26/16 07:16 ALT 17 units/L (7-56) 08/26/16 07:16 Alkaline Phosphatase 97 units/L (35-129) 08/26/16 07:16 Ammonia 46.0 umol/L (25-60) 08/24/16 01:44 Total Creatine Kinase 340 units/L (55-170) H 08/23/16 23:25 Total Protein 5.5 g/dL (6.3-8.2) L 08/26/16 07:16 Albumin 2.7 g/dL (3.9-5) L 08/26/16 07:16 Albumin/Globulin Ratio 1.0 % 08/26/16 07:16 TSH 3.080 mlU/mL (0.270-4.200) 08/23/16 23:35 Urine Color Yellow (Yellow) 08/24/16 00:40 Urine Turbidity Clear (Clear) 08/24/16 00:40 Urine pH 6.0 (5.0-7.0) 08/24/16 00:40 Ur Specific [place] 1.022 (1.003-1.030) 08/24/16 00:40 Urine Protein >500 mg/dL (Negative) 08/24/16 00:40 Urine Glucose (UA) >=500 mg/dL (Negative) 08/24/16 00:40 Urine Ketones Neg mg/dL (Negative) 08/24/16 00:40 Urine Blood Mod (Negative) 08/24/16 00:40 Urine Nitrite Neg (Negative) 08/24/16 00:40 Urine Bilirubin Neg (Negative) 08/24/16 00:40 Urine Urobilinogen < 2.0 mg/dL (<2.0) 08/24/16 00:40 Ur Leukocyte Esterase Neg (Negative) 08/24/16 00:40 Urine WBC (Auto) 1.0 /HPF (0.0-6.0) 08/24/16 00:40 Urine RBC (Auto) 5.0 /HPF (0.0-6.0) 08/24/16 00:40 Urine Bacteria (Auto) 2+ /HPF (Negative) 08/24/16 00:40 Urine Creatinine 237.7 mg/dL (0.1-20.0) H 08/25/16 15:00 Protein/Creatinin Ratio 3.71 08/25/16 15:00 Urine Sodium 10 mEq/L 08/25/16 15:00 Urine Total Protein 882 mg/dL (5-11.8) H 08/25/16 15:00 Salicylates < 0.3 mg/dL (2.8-20.0) L 08/23/16 23:35 Urine Opiates Screen Presumptive negative 08/24/16 00:40 Urine Methadone Screen Presumptive negative 08/24/16 00:40 Acetaminophen < 15.0 ug/mL (10.0-30.0) 08/23/16 23:35 Ur Barbiturates Screen Presumptive negative 08/24/16 00:40 Ur Phencyclidine Scrn Presumptive negative 08/24/16 00:40 Ur Amphetamines Screen Presumptive negative 08/24/16 00:40 U Benzodiazepines Scrn Presumptive negative 08/24/16 00:40 Urine Cocaine Screen Presumptive negative 08/24/16 00:40 U Marijuana (THC) Screen Presumptive negative 08/24/16 00:40 Drugs of Abuse Note Disclamer 08/24/16 00:40 Plasma/Serum Alcohol < 0.01 gm% (0-0.07) 08/23/16 23:35
[2016-08-26] MEDS ORDERED: ADRENALIN IV ONE (22:15)
--- NOTE | 2016-08-26 23:01 | XRay Report ---
FINAL REPORT PROCEDURE: XR CHEST 1V AP TECHNIQUE: Chest radiograph anteroposterior view. CPT 48316 HISTORY: Intubation COMPARISON: 08/24/2016 FINDINGS: Heart: Mild cardiomegaly. Mediastinum/Vessels: There is mild pulmonary venous congestion. Bilateral perihilar haziness is identified.. Lungs/Pleural space: Normal. Bony thorax: No acute osseous abnormality. Life support devices: Endotracheal tube is terminating about 1 centimeter above the magnolia. Nasogastric tube is extending down into the abdomen and its tip is not included in the study.. IMPRESSION: Bilateral perihilar haziness in most likely represents pulmonary edema. Pneumonia cannot be excluded. Mild cardiomegaly.
--- NOTE | 2016-08-26 23:26 | Event Note ---
Date: 08/26/16 Code blue called Patient went into respiratory distress and had to be intubated He subsequently lost his pulse, initial rhythm PEA ACLS protocol was initiated, referred to the code sheet for details There was ROSC repeat labs
[2016-08-27 00:18] LABS: ISTAT Base Excess -4; ISTAT HCO3 21.5; ISTAT PCO2 36.2 (35-45); ISTAT PH 7.381 (7.35-7.45); ISTAT PO2 205 (80-105); ISTAT SO2 100; ISTAT TCO2 23
[2016-08-27] MEDS: NOVOLOG SUB-Q SCH ×4 (00:41→17:40)
[2016-08-27 01:56] LABS: Basophils % (Auto) 0.2 % (0.0-1.8); Eosinophils % (Auto) 0.1 % (0.0-4.3); Mean Corpuscular HGB Conc 30 % (32-34); Platelet Count 265 K/mm3 (140-440); Red Blood Count 5.29 M/mm3 (3.65-5.03); Red Cell Distribution Width 17.4 % (13.2-15.2); White Blood Count 11.8 K/mm3 (4.5-11.0)
[2016-08-27 01:58] LABS: BUN/Creatinine Ratio 14.09; Calcium 7.8 mg/dL (8.4-10.2); Chloride 96.6 mmol/L (98-107); Hematocrit 33.3 % (35.5-45.6); Mean Corpuscular Hemoglobin 19 pg (28-32); Mean Corpuscular Volume 63 fl (84-94); Potassium 4.2 mmol/L (3.6-5.0)
[2016-08-27 02:14] LABS: Creatine Kinase MB 13.6 ng/mL (0.0-4.0)
[2016-08-27 03:31] LABS: ISTAT Base Excess -1; ISTAT HCO3 22.6; ISTAT PCO2 31.3 (35-45); ISTAT PH 7.467 (7.35-7.45); ISTAT PO2 101 (80-105); ISTAT SO2 98; ISTAT TCO2 24
[2016-08-27] MEDS: SODIUM BICARBONATE 100 MEQ in D5W 1,000 ML IV SCH (04:39)
[2016-08-27 04:45] LABS: Magnesium 1.9 mg/dL (1.7-2.3); Phosphorous 3.3 mg/dL (2.5-4.5)
[2016-08-27 04:47] LABS: Creatine Kinase MB 9.3 ng/mL (0.0-4.0)
[2016-08-27] MEDS: HEPARIN SUB-Q SCH ×4 (05:00→21:05)
--- NOTE | 2016-08-27 09:22 | Progress Note ---
Assessment and Plan 1. S/p Cardiopulm Arrest - Intubated & on vent, f/u per pulm 2. HTN - Adjust BP meds for better control. Resume Amlodipine 3. ALANNAH - Prerenal Azotemia worsened post code, Now ATN. Continue F/u closely on cautious IVF, f/u pulm/vent status closely 4. CVA - Large Acute infarct per MRI. F/u per Neuro 5. Lytes - Continue bicarb drip & f/u Acidosis Subjective Date of service: 08/27/16 Interval history: Pt intubated & on vent s/p PEA arrest yesterday Objective - Vital Signs Vital signs: Vital Signs - 12hr 08/26/16 08/26/16 08/26/16 21:30 22:00 22:30 Temperature Pulse Rate 92 H 102 H Pulse Rate [ From Monitor] Respiratory 29 H 27 H Rate Blood Pressure 158/94 183/93 158/94 O2 Sat by Pulse 95 100 100 Oximetry 08/26/16 08/26/16 08/26/16 23:00 23:30 23:35 Temperature Pulse Rate 101 H 96 H 102 H Pulse Rate [ From Monitor] Respiratory Rate Blood Pressure 150/97 132/83 168/106 O2 Sat by Pulse 100 100 100 Oximetry 08/27/16 08/27/16 08/27/16 00:00 00:25 00:30 Temperature 98.9 F Pulse Rate 90 90 86 Pulse Rate [ From Monitor] Respiratory 20 Rate Blood Pressure 131/79 130/83 O2 Sat by Pulse 100 100 98 Oximetry 08/27/16 08/27/16 08/27/16 01:00 01:30 02:00 Temperature Pulse Rate 86 85 86 Pulse Rate [ From Monitor] Respiratory 20 20 20 Rate Blood Pressure 138/85 143/87 157/91 O2 Sat by Pulse 98 98 98 Oximetry 08/27/16 08/27/16 08/27/16 02:10 02:30 03:00 Temperature Pulse Rate 86 85 84 Pulse Rate [ From Monitor] Respiratory 20 20 Rate Blood Pressure 157/83 154/87 O2 Sat by Pulse 99 99 Oximetry 08/27/16 08/27/16 08/27/16 03:05 03:30 04:00 Temperature 98.5 F Pulse Rate 84 86 87 Pulse Rate [ From Monitor] Respiratory 16 18 Rate Blood Pressure 154/87 151/83 160/89 O2 Sat by Pulse 99 98 99 Oximetry 08/27/16 08/27/16 08/27/16 04:30 05:00 05:30 Temperature Pulse Rate 87 87 87 Pulse Rate [ From Monitor] Respiratory 18 20 23 Rate Blood Pressure 160/90 159/91 168/92 O2 Sat by Pulse 100 100 99 Oximetry 08/27/16 08/27/16 08/27/16 06:00 06:25 06:30 Temperature 98.5 F Pulse Rate 88 89 Pulse Rate [ From Monitor] Respiratory 25 H 20 21 Rate Blood Pressure 163/95 187/99 175/102 O2 Sat by Pulse 100 99 100 Oximetry 08/27/16 08/27/16 08/27/16 07:00 07:10 07:30 Temperature Pulse Rate 91 H 88 92 H Pulse Rate [ From Monitor] Respiratory 20 25 H Rate Blood Pressure 179/103 183/102 O2 Sat by Pulse 99 98 99 Oximetry 08/27/16 08/27/16 08/27/16 08:00 08:10 08:30 Temperature 99.3 F Pulse Rate 90 89 Pulse Rate [ 87 From Monitor] Respiratory 20 21 25 H Rate Blood Pressure 187/99 175/100 O2 Sat by Pulse 99 100 99 Oximetry 08/27/16 08:32 Temperature Pulse Rate 92 H Pulse Rate [ From Monitor] Respiratory Rate Blood Pressure 187/99 O2 Sat by Pulse Oximetry - General Appearance General appearance: intubated Respiratory: Present: Other (Good air entry per vent) Cardiology: regular, S1S2 Gastrointestinal: other (Soft) Neurologic: obtunded - Lab 08/27/16 00:00 08/27/16 00:00 Most recent lab results Calcium 7.8 mg/dL (8.4-10.2) L 08/27/16 00:00 Phosphorus 3.30 mg/dL (2.5-4.5) 08/27/16 04:17 Magnesium 1.90 mg/dL (1.7-2.3) 08/27/16 04:17 Urine Creatinine 237.7 mg/dL (0.1-20.0) H 08/25/16 15:00 Urine Sodium 10 mEq/L 08/25/16 15:00 Urine Total Protein 882 mg/dL (5-11.8) H 08/25/16 15:00
[2016-08-27] MEDS ORDERED: SODIUM BICARBONATE 150 MEQ in D5W 1,000 ML IV SCH (09:26)
--- NOTE | 2016-08-27 09:49 | Progress Note ---
Assessment and Plan 55 y/o male with hypertensive emergency, metabolic encephalopathy, acute renal failure and leukocytosis, now cardiac arrest with ROSC and orally intubated on mechanical ventilation 1. Vent support, currently on PEEP of 5 and FiO2 of 30%. CXR is clear. Respiratory failure likely secondary to neurologic dysfunction 2. Hopeful, neurology can evaluate and speak with family, given size of stroke , and location, it appears that the prognosis would be very poor, and meaningful recovery would be very low as well. 3. No sedative medication whatsoever 4. Follow up renal recs, worsening renal function. 5. Pending discussion with neurology and the family, if family wishes to continue to be aggressive, patient would need trach and peg placement and then LTACH for possible vent weaning 6. Overall prognosis is extremely poor, no family at bedside to discuss this with. CCT 31 minutes. Subjective Date of service: 08/27/16 Interval history: Patient coded last night around 2200. I was not notified of the code nor the intubation status. Found patient this am in bed intubated. Appears that patients respiratory status became compromised. Per documentaion from nursing, a decision was made to intubate but then the patient coded. The code sheet per nursing was PEA but based upon the oncall physician note, it was PEA. Neurology was notified but they had not seen the patient yet as they were consulted on yesterday. Patient does have a large left sided stroke. Currently intubated and not on any sedation. Objective Vital Signs - 12hr 08/26/16 08/26/16 08/26/16 22:00 22:30 23:00 Temperature Pulse Rate 102 H 101 H Pulse Rate [ From Monitor] Respiratory 27 H Rate Blood Pressure 183/93 158/94 150/97 O2 Sat by Pulse 100 100 100 Oximetry 08/26/16 08/26/16 08/27/16 23:30 23:35 00:00 Temperature 98.9 F Pulse Rate 96 H 102 H 90 Pulse Rate [ From Monitor] Respiratory Rate Blood Pressure 132/83 168/106 131/79 O2 Sat by Pulse 100 100 100 Oximetry 08/27/16 08/27/16 08/27/16 00:25 00:30 01:00 Temperature Pulse Rate 90 86 86 Pulse Rate [ From Monitor] Respiratory 20 20 Rate Blood Pressure 130/83 138/85 O2 Sat by Pulse 100 98 98 Oximetry 08/27/16 08/27/16 08/27/16 01:30 02:00 02:10 Temperature Pulse Rate 85 86 86 Pulse Rate [ From Monitor] Respiratory 20 20 Rate Blood Pressure 143/87 157/91 O2 Sat by Pulse 98 98 Oximetry 08/27/16 08/27/16 08/27/16 02:30 03:00 03:05 Temperature Pulse Rate 85 84 84 Pulse Rate [ From Monitor] Respiratory 20 20 Rate Blood Pressure 157/83 154/87 154/87 O2 Sat by Pulse 99 99 99 Oximetry 08/27/16 08/27/16 08/27/16 03:30 04:00 04:30 Temperature 98.5 F Pulse Rate 86 87 87 Pulse Rate [ From Monitor] Respiratory 16 18 18 Rate Blood Pressure 151/83 160/89 160/90 O2 Sat by Pulse 98 99 100 Oximetry 08/27/16 08/27/16 08/27/16 05:00 05:30 06:00 Temperature Pulse Rate 87 87 88 Pulse Rate [ From Monitor] Respiratory 20 23 25 H Rate Blood Pressure 159/91 168/92 163/95 O2 Sat by Pulse 100 99 100 Oximetry 08/27/16 08/27/16 08/27/16 06:25 06:30 07:00 Temperature 98.5 F Pulse Rate 89 91 H Pulse Rate [ From Monitor] Respiratory 20 21 20 Rate Blood Pressure 187/99 175/102 179/103 O2 Sat by Pulse 99 100 99 Oximetry 08/27/16 08/27/16 08/27/16 07:10 07:30 08:00 Temperature 99.3 F Pulse Rate 88 92 H 90 Pulse Rate [ From Monitor] Respiratory 25 H 20 Rate Blood Pressure 183/102 187/99 O2 Sat by Pulse 98 99 99 Oximetry 08/27/16 08/27/16 08/27/16 08:10 08:30 08:32 Temperature Pulse Rate 89 92 H Pulse Rate [ 87 From Monitor] Respiratory 21 25 H Rate Blood Pressure 175/100 187/99 O2 Sat by Pulse 100 99 Oximetry Constitutional: comatose Eyes: non-icteric ENT: other (orally intubated) Effort: normal Ascultation: Bilateral: clear Percussion: Bilateral: not dull Cardiovascular: regular rate and rhythm Gastrointestinal: normoactive bowel sounds, soft Extremities: other (bilateral AKA) CBC and BMP: 08/27/16 00:00 08/27/16 00:00 ABG, PT/INR, D-dimer: ABG POC ABG pH 7.467 (7.35-7.45) H 08/27/16 03:22 POC ABG pCO2 31.3 (35-45) L 08/27/16 03:22 POC ABG pO2 101 (80-105) 08/27/16 03:22 POC ABG HCO3 22.6 08/27/16 03:22 POC ABG Total CO2 24 08/27/16 03:22 POC ABG O2 Sat 98 08/27/16 03:22 PT/INR, D-dimer D-Dimer 1138.47 ng/mlDDU (0-234) H 08/24/16 03:23 Abnormal lab findings: Abnormal Labs 08/24/16 08/24/16 08/24/16 03:23 09:23 10:58 WBC RBC Hgb Hct MCV MCH MCHC RDW Lymph % (Auto) Runn[place] % (Auto) Lymph # Runn[place] # Seg Neutrophils % Seg Neutrophils # D-Dimer 1138.47 H POC ABG pH POC ABG pCO2 POC ABG pO2 Sodium Chloride Carbon Dioxide BUN Creatinine Glucose POC Glucose 410 H 392 H Calcium AST Total Creatine Kinase CK-MB (CK-2) Troponin T Total Protein Albumin HDL Cholesterol Urine Creatinine Urine Total Protein 08/24/16 08/24/16 08/24/16 13:02 13:44 17:29 WBC RBC Hgb Hct MCV MCH MCHC RDW Lymph % (Auto) [place] % (Auto) Lymph # [place] # Seg Neutrophils % Seg Neutrophils # D-Dimer POC ABG pH POC ABG pCO2 34.8 L POC ABG pO2 Sodium Chloride Carbon Dioxide BUN Creatinine 1.8 H Glucose 266 H POC Glucose 354 H Calcium AST Total Creatine Kinase CK-MB (CK-2) Troponin T Total Protein Albumin HDL Cholesterol Urine Creatinine Urine Total Protein 08/24/16 08/24/16 08/24/16 17:34 18:24 18:41 WBC RBC Hgb Hct MCV MCH MCHC RDW Lymph % (Auto) [place] % (Auto) Lymph # [place] # Seg Neutrophils % Seg Neutrophils # D-Dimer POC ABG pH POC ABG pCO2 POC ABG pO2 Sodium Chloride Carbon Dioxide 18 L BUN Creatinine 1.9 H Glucose 174 H POC Glucose 211 H 190 H Calcium 8.2 L AST Total Creatine Kinase CK-MB (CK-2) Troponin T Total Protein Albumin HDL Cholesterol Urine Creatinine Urine Total Protein 08/24/16 08/24/16 08/24/16 19:28 20:24 21:21 WBC RBC Hgb Hct MCV MCH MCHC RDW Lymph % (Auto) [place] % (Auto) Lymph # [place] # Seg Neutrophils % Seg Neutrophils # D-Dimer POC ABG pH POC ABG pCO2 POC ABG pO2 Sodium Chloride Carbon Dioxide BUN Creatinine Glucose POC Glucose 159 H 110 H 144 H Calcium AST Total Creatine Kinase CK-MB (CK-2) Troponin T Total Protein Albumin HDL Cholesterol Urine Creatinine Urine Total Protein 08/24/16 08/24/16 08/24/16 21:48 22:26 23:19 WBC RBC Hgb Hct MCV MCH MCHC RDW Lymph % (Auto) [place] % (Auto) Lymph # [place] # Seg Neutrophils % Seg Neutrophils # D-Dimer POC ABG pH POC ABG pCO2 POC ABG pO2 Sodium Chloride Carbon Dioxide 21 L BUN Creatinine 1.8 H Glucose 141 H POC Glucose 148 H 140 H Calcium 8.3 L AST Total Creatine Kinase CK-MB (CK-2) Troponin T Total Protein Albumin HDL Cholesterol Urine Creatinine Urine Total Protein 08/25/16 08/25/16 08/25/16 01:11 02:15 03:18 WBC RBC Hgb Hct MCV MCH MCHC RDW Lymph % (Auto) [place] % (Auto) Lymph # [place] # Seg Neutrophils % Seg Neutrophils # D-Dimer POC ABG pH POC ABG pCO2 POC ABG pO2 Sodium Chloride Carbon Dioxide BUN Creatinine Glucose POC Glucose 130 H 136 H 145 H Calcium AST Total Creatine Kinase CK-MB (CK-2) Troponin T Total Protein Albumin HDL Cholesterol Urine Creatinine Urine Total Protein 08/25/16 08/25/16 08/25/16 04:09 04:53 04:53 WBC 14.1 H RBC 5.36 H Hgb 9.9 L Hct 32.9 L MCV 61 L MCH 19 L MCHC 30 L RDW 17.5 H Lymph % (Auto) 8.0 L [place] % (Auto) 9.7 H Lymph # 1.1 L [place] # 1.4 H Seg Neutrophils % 82.2 H Seg Neutrophils # 11.6 H D-Dimer POC ABG pH POC ABG pCO2 POC ABG pO2 Sodium Chloride Carbon Dioxide 21 L BUN Creatinine 1.9 H Glucose 116 H POC Glucose 120 H Calcium 8.2 L AST Total Creatine Kinase CK-MB (CK-2) Troponin T Total Protein Albumin HDL Cholesterol Urine Creatinine Urine Total Protein 08/25/16 08/25/16 08/25/16 05:05 06:31 07:35 WBC RBC Hgb Hct MCV MCH MCHC RDW Lymph % (Auto) [place] % (Auto) Lymph # R[place] # Seg Neutrophils % Seg Neutrophils # D-Dimer POC ABG pH POC ABG pCO2 POC ABG pO2 Sodium Chloride Carbon Dioxide BUN Creatinine Glucose POC Glucose 126 H 139 H 142 H Calcium AST Total Creatine Kinase CK-MB (CK-2) Troponin T Total Protein Albumin HDL Cholesterol Urine Creatinine Urine Total Protein 08/25/16 08/25/16 08/25/16 08:55 09:48 10:59 WBC RBC Hgb Hct MCV MCH MCHC RDW Lymph % (Auto) [place] % (Auto) Lymph # R[place] # Seg Neutrophils % Seg Neutrophils # D-Dimer POC ABG pH POC ABG pCO2 POC ABG pO2 Sodium Chloride Carbon Dioxide BUN Creatinine Glucose POC Glucose 135 H 109 H 126 H Calcium AST Total Creatine Kinase CK-MB (CK-2) Troponin T Total Protein Albumin HDL Cholesterol Urine Creatinine Urine Total Protein 08/25/16 08/25/16 08/25/16 11:34 13:47 15:00 WBC RBC Hgb Hct MCV MCH MCHC RDW Lymph % (Auto) [place] % (Auto) Lymph # R[place] # Seg Neutrophils % Seg Neutrophils # D-Dimer POC ABG pH POC ABG pCO2 32.8 L POC ABG pO2 108 H Sodium Chloride Carbon Dioxide 19 L BUN Creatinine 1.7 H Glucose 196 H POC Glucose Calcium 8.2 L AST Total Creatine Kinase CK-MB (CK-2) Troponin T Total Protein Albumin HDL Cholesterol Urine Creatinine 237.7 H Urine Total Protein 882 H 08/25/16 08/25/16 08/26/16 16:30 23:09 05:41 WBC RBC Hgb Hct MCV MCH MCHC RDW Lymph % (Auto) [place] % (Auto) Lymph # Runn[place] # Seg Neutrophils % Seg Neutrophils # D-Dimer POC ABG pH POC ABG pCO2 POC ABG pO2 Sodium Chloride Carbon Dioxide BUN Creatinine Glucose POC Glucose 242 H 131 H 156 H Calcium AST Total Creatine Kinase CK-MB (CK-2) Troponin T Total Protein Albumin HDL Cholesterol Urine Creatinine Urine Total Protein 08/26/16 08/26/16 08/26/16 07:16 12:12 17:51 WBC RBC Hgb Hct MCV MCH MCHC RDW Lymph % (Auto) [place] % (Auto) Lymph # [place] # Seg Neutrophils % Seg Neutrophils # D-Dimer POC ABG pH POC ABG pCO2 POC ABG pO2 Sodium Chloride Carbon Dioxide 18 L BUN 26 H Creatinine 2.0 H Glucose 132 H POC Glucose 119 H 161 H Calcium 8.1 L AST 41 H Total Creatine Kinase CK-MB (CK-2) Troponin T Total Protein 5.5 L Albumin 2.7 L HDL Cholesterol Urine Creatinine Urine Total Protein 08/26/16 08/26/16 08/27/16 22:34 23:50 00:00 WBC 11.8 H RBC 5.29 H Hgb 10.0 L Hct 33.3 L MCV 63 L MCH 19 L MCHC 30 L RDW 17.4 H Lymph % (Auto) [place] % (Auto) 8.7 H Lymph # R[place] # 1.0 H Seg Neutrophils % 72.6 H Seg Neutrophils # 8.6 H D-Dimer POC ABG pH POC ABG pCO2 POC ABG pO2 Sodium Chloride Carbon Dioxide BUN Creatinine Glucose POC Glucose 107 H 119 H Calcium AST Total Creatine Kinase CK-MB (CK-2) Troponin T Total Protein Albumin HDL Cholesterol Urine Creatinine Urine Total Protein 08/27/16 08/27/16 08/27/16 00:00 00:00 00:02 WBC RBC Hgb Hct MCV MCH MCHC RDW Lymph % (Auto) [place] % (Auto) Lymph # [place] # Seg Neutrophils % Seg Neutrophils # D-Dimer POC ABG pH POC ABG pCO2 POC ABG pO2 205 H Sodium 135 L Chloride 96.6 L Carbon Dioxide 16 L BUN 31 H Creatinine 2.2 H Glucose 154 H POC Glucose Calcium 7.8 L AST Total Creatine Kinase 1401 H CK-MB (CK-2) 13.6 H Troponin T 0.421 H* Total Protein Albumin HDL Cholesterol 78 H Urine Creatinine Urine Total Protein 08/27/16 08/27/16 08/27/16 00:37 03:22 04:08 WBC RBC Hgb Hct MCV MCH MCHC RDW Lymph % (Auto) [place] % (Auto) Lymph # Runn[place] # Seg Neutrophils % Seg Neutrophils # D-Dimer POC ABG pH 7.467 H POC ABG pCO2 31.3 L POC ABG pO2 Sodium Chloride Carbon Dioxide BUN Creatinine Glucose POC Glucose 106 H Calcium AST Total Creatine Kinase 909 H CK-MB (CK-2) 9.3 H Troponin T Total Protein Albumin HDL Cholesterol Urine Creatinine Urine Total Protein 08/27/16 08/27/16 04:35 05:35 WBC RBC Hgb Hct MCV MCH MCHC RDW Lymph % (Auto) R[place] % (Auto) Lymph # Runn[place] # Seg Neutrophils % Seg Neutrophils # D-Dimer POC ABG pH POC ABG pCO2 POC ABG pO2 Sodium Chloride Carbon Dioxide BUN Creatinine Glucose POC Glucose 120 H 113 H Calcium AST Total Creatine Kinase CK-MB (CK-2) Troponin T Total Protein Albumin HDL Cholesterol Urine Creatinine Urine Total Protein Chest x-ray: image reviewed (cardiomegaly but clear lung shepherd)
[2016-08-27] MEDS: LEVEMIR SUB-Q SCH (10:31)
[2016-08-27] MEDS: NORMODYNE PO SCH ×2 (10:32→21:07)
[2016-08-27] MEDS: NORVASC PO SCH (10:33)
[2016-08-27 11:08] LABS: Creatine Kinase MB 6.3 ng/mL (0.0-4.0)
--- NOTE | 2016-08-27 15:27 | Progress Note ---
Assessment and Plan Assessment and plan: 55M who presented with obtundation, Elevated BP and high sugars; he had not taken any of his meds in 6 months MRI brain 08/25 Large acute stroke involving the area of the left middle cerebral and portions of the left anterior cerebral territories with mild secondary mass effect with minimal shift from left to right Acute Massive CVA with Infarct Neurology on board, allow permissive hypertension, prognosis is grim given the size of the stroke. We'll need to communicate with the family to decide goals of care . Hypertensive emergency Patient has been weaned off Cardene drip, allow permissive hypertension given CVA, goal systolic blood pressure is 160-185, BP meds in place . Metabolic encephalopathy EEG has been done and shows nonspecific encephalopathy, non epileptiform Due to CVA . Presumed Sepsis has been ruled out Discontinue broad-spectrum antibiotics, sepsis has been ruled out by a negative blood cultures, chest x-ray shows no infiltrates . Acute renal failure due to ATN and vasomotor nephropathy Continue IV fluids, nephrology consult appreciated metabolic acidosis likely due to ALANNAH bicarbonate drip ordered Hyper glycemic hyperosmolar nonketotic state Type 2 diabetes Patient has been weaned off insulin drip, continue subcutaneous insulin, status post NG tube, diabetic tube feeding Acute hypoxic respiratory failure Patient is currently vent dependent, status post intubation, continue mechanical ventilation Attempted to call his brother is his next of kin, Felipe Theo at [phone] and [phone], does with the numbers listed in his chart. However both of these numbers have been disconnected. 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 As his prognosis is grim, the options would be either comfort care/ hospice or placement of trach, PEG tube and transferred to LTAC Critical care time 32 minutes History Interval history: Patient went into respiratory distress overnight, he then became pulseless. Full ACLS protocol was initiated, after which there was Rosc, he is now on the fence, has not required sedation. Hospitalist Physical - Physical exam Narrative exam: General: Appears critically ill HEENT: MMM, EOMI cardiac: S1-S2 heard lungs: Rhonchorous breath sounds, mechanical ventilatory breath sounds abdomen: soft, nontender, nondistended bowel sounds positive extremities: no edema clubbing or cyanosis Skin: no rash or lesion Neuro: Obtunded, nonverbal, does not be commands, frothing at the mouth, spontaneous movements of the left upper extremity Patient is not currently on any sedation despite being intubated Psych: Obtunded - Constitutional Vitals: Temp Pulse Resp BP Pulse Ox 100.3 F H 87 28 H 150/91 99 08/27/16 11:59 08/27/16 12:30 08/27/16 12:30 08/27/16 12:30 08/27/16 12:30 General appearance: Present: no acute distress, other (not responsive) Results - Labs CBC & Chem 7: 08/27/16 00:00 08/27/16 00:00 Labs: Laboratory Last Values WBC 11.8 K/mm3 (4.5-11.0) H 08/27/16 00:00 RBC 5.29 M/mm3 (3.65-5.03) H 08/27/16 00:00 Hgb 10.0 gm/dl (11.8-15.2) L 08/27/16 00:00 Hct 33.3 % (35.5-45.6) L 08/27/16 00:00 MCV 63 fl (84-94) L 08/27/16 00:00 MCH 19 pg (28-32) L 08/27/16 00:00 MCHC 30 % (32-34) L 08/27/16 00:00 RDW 17.4 % (13.2-15.2) H 08/27/16 00:00 Plt Count 265 K/mm3 (140-440) 08/27/16 00:00 Lymph % (Auto) 18.4 % (13.4-35.0) 08/27/16 00:00 [place] % (Auto) 8.7 % (0.0-7.3) H 08/27/16 00:00 Eos % (Auto) 0.1 % (0.0-4.3) 08/27/16 00:00 Baso % (Auto) 0.2 % (0.0-1.8) 08/27/16 00:00 Lymph # 2.2 K/mm3 (1.2-5.4) 08/27/16 00:00 [place] # 1.0 K/mm3 (0.0-0.8) H 08/27/16 00:00 Eos # 0.0 K/mm3 (0.0-0.4) 08/27/16 00:00 Baso # 0.0 K/mm3 (0.0-0.1) 08/27/16 00:00 Seg Neutrophils % 72.6 % (40.0-70.0) H 08/27/16 00:00 Seg Neutrophils # 8.6 K/mm3 (1.8-7.7) H 08/27/16 00:00 D-Dimer 1138.47 ng/mlDDU (0-234) H 08/24/16 03:23 POC ABG pH 7.467 (7.35-7.45) H 08/27/16 03:22 POC ABG pCO2 31.3 (35-45) L 08/27/16 03:22 POC ABG pO2 101 (80-105) 08/27/16 03:22 POC ABG HCO3 22.6 08/27/16 03:22 POC ABG Total CO2 24 08/27/16 03:22 POC ABG O2 Sat 98 08/27/16 03:22 POC ABG Base Excess -1 08/27/16 03:22 FiO2 30 % 08/27/16 03:22 Sodium 135 mmol/L (137-145) L 08/27/16 00:00 Potassium 4.2 mmol/L (3.6-5.0) 08/27/16 00:00 Chloride 96.6 mmol/L (98-107) L 08/27/16 00:00 Carbon Dioxide 16 mmol/L (22-30) L 08/27/16 00:00 Anion Gap 27 mmol/L 08/27/16 00:00 BUN 31 mg/dL (9-20) H 08/27/16 00:00 Creatinine 2.2 mg/dL (0.8-1.5) H 08/27/16 00:00 Estimated GFR 38 ml/min 08/27/16 00:00 BUN/Creatinine Ratio 14.09 % 08/27/16 00:00 Glucose 154 mg/dL (75-100) H 08/27/16 00:00 POC Glucose 113 (70-105) H 08/27/16 05:35 Lactic Acid 1.80 mmol/L (0.7-2.0) 08/25/16 13:47 Calcium 7.8 mg/dL (8.4-10.2) L 08/27/16 00:00 Phosphorus 3.30 mg/dL (2.5-4.5) 08/27/16 04:17 Magnesium 1.90 mg/dL (1.7-2.3) 08/27/16 04:17 Total Bilirubin 0.90 mg/dL (0.1-1.2) 08/26/16 07:16 AST 41 units/L (5-40) H 08/26/16 07:16 ALT 17 units/L (7-56) 08/26/16 07:16 Alkaline Phosphatase 97 units/L (35-129) 08/26/16 07:16 Ammonia 46.0 umol/L (25-60) 08/24/16 01:44 Total Creatine Kinase 796 units/L (55-170) H 08/27/16 10:32 CK-MB (CK-2) 6.3 ng/mL (0.0-4.0) H 08/27/16 10:32 CK-MB (CK-2) Rel Index 0.7 (0-4) 08/27/16 10:32 Troponin T 0.421 ng/mL (0.00-0.029) H* 08/27/16 00:00 Total Protein 5.5 g/dL (6.3-8.2) L 08/26/16 07:16 Albumin 2.7 g/dL (3.9-5) L 08/26/16 07:16 Albumin/Globulin Ratio 1.0 % 08/26/16 07:16 Triglycerides 68 mg/dL (2-149) 08/27/16 00:00 Cholesterol 182 mg/dL (50-199) 08/27/16 00:00 LDL Cholesterol Direct 91 mg/dL (50-130) 08/27/16 00:00 HDL Cholesterol 78 mg/dL (40-59) H 08/27/16 00:00 Cholesterol/HDL Ratio 2.33 % 08/27/16 00:00 TSH 3.080 mlU/mL (0.270-4.200) 08/23/16 23:35 Urine Color Yellow (Yellow) 08/24/16 00:40 Urine Turbidity Clear (Clear) 08/24/16 00:40 Urine pH 6.0 (5.0-7.0) 08/24/16 00:40 Ur Specific Barre 1.022 (1.003-1.030) 08/24/16 00:40 Urine Protein >500 mg/dL (Negative) 08/24/16 00:40 Urine Glucose (UA) >=500 mg/dL (Negative) 08/24/16 00:40 Urine Ketones Neg mg/dL (Negative) 08/24/16 00:40 Urine Blood Mod (Negative) 08/24/16 00:40 Urine Nitrite Neg (Negative) 08/24/16 00:40 Urine Bilirubin Neg (Negative) 08/24/16 00:40 Urine Urobilinogen < 2.0 mg/dL (<2.0) 08/24/16 00:40 Ur Leukocyte Esterase Neg (Negative) 08/24/16 00:40 Urine WBC (Auto) 1.0 /HPF (0.0-6.0) 08/24/16 00:40 Urine RBC (Auto) 5.0 /HPF (0.0-6.0) 08/24/16 00:40 Urine Bacteria (Auto) 2+ /HPF (Negative) 08/24/16 00:40 Urine Creatinine 237.7 mg/dL (0.1-20.0) H 08/25/16 15:00 Protein/Creatinin Ratio 3.71 08/25/16 15:00 Urine Sodium 10 mEq/L 08/25/16 15:00 Urine Total Protein 882 mg/dL (5-11.8) H 08/25/16 15:00 Salicylates < 0.3 mg/dL (2.8-20.0) L 08/23/16 23:35 Urine Opiates Screen Presumptive negative 08/24/16 00:40 Urine Methadone Screen Presumptive negative 08/24/16 00:40 Acetaminophen < 15.0 ug/mL (10.0-30.0) 08/23/16 23:35 Ur Barbiturates Screen Presumptive negative 08/24/16 00:40 Ur Phencyclidine Scrn Presumptive negative 08/24/16 00:40 Ur Amphetamines Screen Presumptive negative 08/24/16 00:40 U Benzodiazepines Scrn Presumptive negative 08/24/16 00:40 Urine Cocaine Screen Presumptive negative 08/24/16 00:40 U Marijuana (THC) Screen Presumptive negative 08/24/16 00:40 Drugs of Abuse Note Disclamer 08/24/16 00:40 Plasma/Serum Alcohol < 0.01 gm% (0-0.07) 08/23/16 23:35
[2016-08-27] MEDS: TYLENOL PO PRN (17:14)
[2016-08-28] MEDS: NOVOLOG SUB-Q SCH ×4 (00:26→12:38)
[2016-08-28 04:38] LABS: Hematocrit 28.8 % (35.5-45.6); Hemoglobin 8.9 gm/dl (11.8-15.2); Mean Corpuscular HGB Conc 31 % (32-34); Red Cell Distribution Width 16.8 % (13.2-15.2); White Blood Count 11.5 K/mm3 (4.5-11.0)
[2016-08-28 04:44] LABS: Mean Corpuscular Hemoglobin 19 pg (28-32); Mean Corpuscular Volume 61 fl (84-94); Platelet Count 213 K/mm3 (140-440)
[2016-08-28 04:48] LABS: BUN/Creatinine Ratio 15.26; Calcium 7.5 mg/dL (8.4-10.2); Potassium 3.6 mmol/L (3.6-5.0)
[2016-08-28] MEDS: SIMPLE SYRUP FEEDTUBE PRN ×2 (05:02→06:05)
[2016-08-28] MEDS: HEPARIN SUB-Q SCH ×3 (05:04→22:19)
[2016-08-28 06:04] LABS: ISTAT Base Excess 9; ISTAT HCO3 31.1; ISTAT PCO2 35.2 (35-45); ISTAT PH 7.554 (7.35-7.45); ISTAT PO2 108 (80-105); ISTAT SO2 99; ISTAT TCO2 32
--- NOTE | 2016-08-28 09:36 | XRay Report ---
Single view chest: Compared to 08/26/16. History: Followup of respiratory failure. Findings: Cardiomegaly. Mild pulmonary venous congestion. Stable support system. Haziness left lower lobe probably related to mild pleural effusion. No consolidation. No pneumothorax. Impression: Slight increase in pulmonary venous congestion and probable left effusion compared to previous study.
[2016-08-28] MEDS: NORMODYNE PO SCH ×2 (10:15→22:18)
[2016-08-28] MEDS: NORVASC PO SCH (10:15)
[2016-08-28] MEDS: LEVEMIR SUB-Q SCH (10:33)
[2016-08-28 11:22] LABS: ISTAT Base Excess 6; ISTAT HCO3 29.6; ISTAT PCO2 38.1 (35-45); ISTAT PH 7.499 (7.35-7.45); ISTAT PO2 82 (80-105); ISTAT SO2 97; ISTAT TCO2 31
--- NOTE | 2016-08-28 11:42 | Progress Note ---
Assessment and Plan 1. S/p Cardiopulm Arrest - Intubated & on vent, f/u per pulm 2. HTN - Improved BP control, continue current meds 3. ALANNAH/ATN - F/u resolving BUN/Cr. Continue F/u cautious IVF 4. Lytes - Resolved Acidosis. Change IVF to NS 5. CVA - Large Acute infarct per MRI. F/u per Neuro Subjective Date of service: 08/28/16 Interval history: Pt intubated & on vent s/p PEA arrest Objective - Vital Signs Vital signs: Vital Signs - 12hr 08/27/16 08/28/16 08/28/16 23:53 00:00 00:04 Temperature 99.0 F Pulse Rate 89 79 Respiratory 17 16 Rate Blood Pressure 131/77 131/77 O2 Sat by Pulse 99 99 Oximetry 08/28/16 08/28/16 08/28/16 00:30 01:00 01:20 Temperature Pulse Rate 78 80 Respiratory 16 20 Rate Blood Pressure 126/79 136/83 O2 Sat by Pulse 99 98 97 Oximetry 08/28/16 08/28/16 08/28/16 01:30 02:00 02:30 Temperature Pulse Rate 80 85 81 Respiratory 17 26 H 20 Rate Blood Pressure 140/82 133/81 140/81 O2 Sat by Pulse 99 99 99 Oximetry 08/28/16 08/28/16 08/28/16 03:00 03:30 03:48 Temperature 99.5 F Pulse Rate 82 82 Respiratory 20 16 Rate Blood Pressure 137/83 145/84 O2 Sat by Pulse 98 98 Oximetry 08/28/16 08/28/16 08/28/16 04:00 04:20 04:30 Temperature Pulse Rate 86 82 82 Respiratory 16 16 Rate Blood Pressure 140/81 140/81 O2 Sat by Pulse 97 97 97 Oximetry 08/28/16 08/28/16 08/28/16 05:00 05:30 05:55 Temperature Pulse Rate 84 88 88 Respiratory 17 27 H Rate Blood Pressure 148/86 149/89 O2 Sat by Pulse 99 98 Oximetry 08/28/16 08/28/16 08/28/16 06:00 06:30 07:00 Temperature Pulse Rate 88 90 91 H Respiratory 25 H 28 H 28 H Rate Blood Pressure 156/90 162/89 163/93 O2 Sat by Pulse 98 99 98 Oximetry 05/08/28/16 08/28/16 07:05 07:30 08:00 Temperature 99.7 F H Pulse Rate 90 86 91 H Respiratory 18 24 Rate Blood Pressure 162/86 163/92 O2 Sat by Pulse 97 98 98 Oximetry 08/28/16 08/28/16 08/28/16 08:15 08:30 09:00 Temperature Pulse Rate 91 H 90 Respiratory 23 22 20 Rate Blood Pressure 165/87 153/87 O2 Sat by Pulse 98 98 98 Oximetry 08/28/16 08/28/16 08/28/16 09:30 10:00 10:50 Temperature Pulse Rate 89 90 Respiratory 20 19 20 Rate Blood Pressure 159/87 167/91 O2 Sat by Pulse 98 98 96 Oximetry - General Appearance General appearance: other (Pt remains unresponsive) Respiratory: Present: Other (On vent) Cardiology: regular, S1S2 Gastrointestinal: other (Soft) Neurologic: obtunded - Lab 08/28/16 03:39 08/28/16 03:39 Most recent lab results Calcium 7.5 mg/dL (8.4-10.2) L 08/28/16 03:39 Phosphorus 3.00 mg/dL (2.5-4.5) 08/28/16 03:39 Magnesium 2.00 mg/dL (1.7-2.3) 08/28/16 03:39 Urine Creatinine 237.7 mg/dL (0.1-20.0) H 08/25/16 15:00 Urine Sodium 10 mEq/L 08/25/16 15:00 Urine Total Protein 882 mg/dL (5-11.8) H 08/25/16 15:00
--- NOTE | 2016-08-28 12:21 | Progress Note ---
Assessment and Plan 55 y/o male with hypertensive emergency, metabolic encephalopathy, acute renal failure and leukocytosis, now cardiac arrest with ROSC and orally intubated on mechanical ventilation No new recs today. Please see below 1. Vent support, currently on PEEP of 5 and FiO2 of 30%. CXR is clear. Respiratory failure likely secondary to neurologic dysfunction 2. Hopeful, neurology can evaluate and speak with family, given size of stroke , and location, it appears that the prognosis would be very poor, and meaningful recovery would be very low as well. 3. No sedative medication whatsoever 4. Follow up renal recs, worsening renal function. 5. Pending discussion with neurology and the family, if family wishes to continue to be aggressive, patient would need trach and peg placement and then LTACH for possible vent weaning 6. Overall prognosis is extremely poor, no family at bedside to discuss this with. CCT 31 minutes. Subjective Date of service: 08/28/16 Interval history: patient remains unresponsive on vent. no sedation, is breathing over the vent. Remainder is negative. Objective Vital Signs - 12hr 08/28/16 08/28/16 08/28/16 00:30 01:00 01:20 Temperature Pulse Rate 78 80 Respiratory 16 20 Rate Blood Pressure 126/79 136/83 O2 Sat by Pulse 99 98 97 Oximetry 08/28/16 08/28/16 08/28/16 01:30 02:00 02:30 Temperature Pulse Rate 80 85 81 Respiratory 17 26 H 20 Rate Blood Pressure 140/82 133/81 140/81 O2 Sat by Pulse 99 99 99 Oximetry 08/28/16 08/28/16 08/28/16 03:00 03:30 03:48 Temperature 99.5 F Pulse Rate 82 82 Respiratory 20 16 Rate Blood Pressure 137/83 145/84 O2 Sat by Pulse 98 98 Oximetry 08/28/16 08/28/16 08/28/16 04:00 04:20 04:30 Temperature Pulse Rate 86 82 82 Respiratory 16 16 Rate Blood Pressure 140/81 140/81 O2 Sat by Pulse 97 97 97 Oximetry 08/28/16 08/28/16 08/28/16 05:00 05:30 05:55 Temperature Pulse Rate 84 88 88 Respiratory 17 27 H Rate Blood Pressure 148/86 149/89 O2 Sat by Pulse 99 98 Oximetry 08/28/16 08/28/16 08/28/16 06:00 06:30 07:00 Temperature Pulse Rate 88 90 91 H Respiratory 25 H 28 H 28 H Rate Blood Pressure 156/90 162/89 163/93 O2 Sat by Pulse 98 99 98 Oximetry 08/28/16 08/28/16 08/28/16 07:05 07:30 08:00 Temperature 99.7 F H Pulse Rate 90 86 91 H Respiratory 18 24 Rate Blood Pressure 162/86 163/92 O2 Sat by Pulse 97 98 98 Oximetry 08/28/16 08/28/16 08/28/16 08:15 08:30 09:00 Temperature Pulse Rate 91 H 90 Respiratory 23 22 20 Rate Blood Pressure 165/87 153/87 O2 Sat by Pulse 98 98 98 Oximetry 08/28/16 08/28/16 08/28/16 09:30 10:00 10:50 Temperature Pulse Rate 89 90 Respiratory 20 19 20 Rate Blood Pressure 159/87 167/91 O2 Sat by Pulse 98 98 96 Oximetry Constitutional: comatose Eyes: non-icteric ENT: other (orally intubated) Effort: normal Ascultation: Bilateral: clear Percussion: Bilateral: not dull Cardiovascular: regular rate and rhythm Gastrointestinal: normoactive bowel sounds, soft Extremities: other (bilateral AKA) CBC and BMP: 08/28/16 03:39 08/28/16 03:39 ABG, PT/INR, D-dimer: ABG POC ABG pH 7.499 (7.35-7.45) H 08/28/16 11:15 POC ABG pCO2 38.1 (35-45) 08/28/16 11:15 POC ABG pO2 82 (80-105) 08/28/16 11:15 POC ABG HCO3 29.6 08/28/16 11:15 POC ABG Total CO2 31 08/28/16 11:15 POC ABG O2 Sat 97 08/28/16 11:15 PT/INR, D-dimer D-Dimer 1138.47 ng/mlDDU (0-234) H 08/24/16 03:23 Abnormal lab findings: Abnormal Labs 08/24/16 08/24/16 08/24/16 03:23 09:23 10:58 WBC RBC Hgb Hct MCV MCH MCHC RDW Lymph % (Auto) [place] % (Auto) Lymph # [place] # Seg Neutrophils % Seg Neutrophils # D-Dimer 1138.47 H POC ABG pH POC ABG pCO2 POC ABG pO2 Sodium Chloride Carbon Dioxide BUN Creatinine Glucose POC Glucose 410 H 392 H Calcium AST Total Creatine Kinase CK-MB (CK-2) Troponin T Total Protein Albumin HDL Cholesterol Urine Creatinine Urine Total Protein 08/24/16 08/24/16 08/24/16 13:02 13:44 17:29 WBC RBC Hgb Hct MCV MCH MCHC RDW Lymph % (Auto) [place] % (Auto) Lymph # [place] # Seg Neutrophils % Seg Neutrophils # D-Dimer POC ABG pH POC ABG pCO2 34.8 L POC ABG pO2 Sodium Chloride Carbon Dioxide BUN Creatinine 1.8 H Glucose 266 H POC Glucose 354 H Calcium AST Total Creatine Kinase CK-MB (CK-2) Troponin T Total Protein Albumin HDL Cholesterol Urine Creatinine Urine Total Protein 08/24/16 08/24/16 08/24/16 17:34 18:24 18:41 WBC RBC Hgb Hct MCV MCH MCHC RDW Lymph % (Auto) [place] % (Auto) Lymph # [place] # Seg Neutrophils % Seg Neutrophils # D-Dimer POC ABG pH POC ABG pCO2 POC ABG pO2 Sodium Chloride Carbon Dioxide 18 L BUN Creatinine 1.9 H Glucose 174 H POC Glucose 211 H 190 H Calcium 8.2 L AST Total Creatine Kinase CK-MB (CK-2) Troponin T Total Protein Albumin HDL Cholesterol Urine Creatinine Urine Total Protein 08/24/16 08/24/16 08/24/16 19:28 20:24 21:21 WBC RBC Hgb Hct MCV MCH MCHC RDW Lymph % (Auto) [place] % (Auto) Lymph # [place] # Seg Neutrophils % Seg Neutrophils # D-Dimer POC ABG pH POC ABG pCO2 POC ABG pO2 Sodium Chloride Carbon Dioxide BUN Creatinine Glucose POC Glucose 159 H 110 H 144 H Calcium AST Total Creatine Kinase CK-MB (CK-2) Troponin T Total Protein Albumin HDL Cholesterol Urine Creatinine Urine Total Protein 08/24/16 08/24/16 08/24/16 21:48 22:26 23:19 WBC RBC Hgb Hct MCV MCH MCHC RDW Lymph % (Auto) [place] % (Auto) Lymph # [place] # Seg Neutrophils % Seg Neutrophils # D-Dimer POC ABG pH POC ABG pCO2 POC ABG pO2 Sodium Chloride Carbon Dioxide 21 L BUN Creatinine 1.8 H Glucose 141 H POC Glucose 148 H 140 H Calcium 8.3 L AST Total Creatine Kinase CK-MB (CK-2) Troponin T Total Protein Albumin HDL Cholesterol Urine Creatinine Urine Total Protein 08/25/16 08/25/16 08/25/16 01:11 02:15 03:18 WBC RBC Hgb Hct MCV MCH MCHC RDW Lymph % (Auto) [place] % (Auto) Lymph # [place] # Seg Neutrophils % Seg Neutrophils # D-Dimer POC ABG pH POC ABG pCO2 POC ABG pO2 Sodium Chloride Carbon Dioxide BUN Creatinine Glucose POC Glucose 130 H 136 H 145 H Calcium AST Total Creatine Kinase CK-MB (CK-2) Troponin T Total Protein Albumin HDL Cholesterol Urine Creatinine Urine Total Protein 08/25/16 08/25/16 08/25/16 04:09 04:53 04:53 WBC 14.1 H RBC 5.36 H Hgb 9.9 L Hct 32.9 L MCV 61 L MCH 19 L MCHC 30 L RDW 17.5 H Lymph % (Auto) 8.0 L [place] % (Auto) 9.7 H Lymph # 1.1 L [place] # 1.4 H Seg Neutrophils % 82.2 H Seg Neutrophils # 11.6 H D-Dimer POC ABG pH POC ABG pCO2 POC ABG pO2 Sodium Chloride Carbon Dioxide 21 L BUN Creatinine 1.9 H Glucose 116 H POC Glucose 120 H Calcium 8.2 L AST Total Creatine Kinase CK-MB (CK-2) Troponin T Total Protein Albumin HDL Cholesterol Urine Creatinine Urine Total Protein 08/25/16 08/25/16 08/25/16 05:05 06:31 07:35 WBC RBC Hgb Hct MCV MCH MCHC RDW Lymph % (Auto) [place] % (Auto) Lymph # [place] # Seg Neutrophils % Seg Neutrophils # D-Dimer POC ABG pH POC ABG pCO2 POC ABG pO2 Sodium Chloride Carbon Dioxide BUN Creatinine Glucose POC Glucose 126 H 139 H 142 H Calcium AST Total Creatine Kinase CK-MB (CK-2) Troponin T Total Protein Albumin HDL Cholesterol Urine Creatinine Urine Total Protein 08/25/16 08/25/16 08/25/16 08:55 09:48 10:59 WBC RBC Hgb Hct MCV MCH MCHC RDW Lymph % (Auto) [place] % (Auto) Lymph # [place] # Seg Neutrophils % Seg Neutrophils # D-Dimer POC ABG pH POC ABG pCO2 POC ABG pO2 Sodium Chloride Carbon Dioxide BUN Creatinine Glucose POC Glucose 135 H 109 H 126 H Calcium AST Total Creatine Kinase CK-MB (CK-2) Troponin T Total Protein Albumin HDL Cholesterol Urine Creatinine Urine Total Protein 08/25/16 08/25/16 08/25/16 11:34 13:47 15:00 WBC RBC Hgb Hct MCV MCH MCHC RDW Lymph % (Auto) [place] % (Auto) Lymph # [place] # Seg Neutrophils % Seg Neutrophils # D-Dimer POC ABG pH POC ABG pCO2 32.8 L POC ABG pO2 108 H Sodium Chloride Carbon Dioxide 19 L BUN Creatinine 1.7 H Glucose 196 H POC Glucose Calcium 8.2 L AST Total Creatine Kinase CK-MB (CK-2) Troponin T Total Protein Albumin HDL Cholesterol Urine Creatinine 237.7 H Urine Total Protein 882 H 08/25/16 08/25/16 08/26/16 16:30 23:09 05:41 WBC RBC Hgb Hct MCV MCH MCHC RDW Lymph % (Auto) [place] % (Auto) Lymph # [place] # Seg Neutrophils % Seg Neutrophils # D-Dimer POC ABG pH POC ABG pCO2 POC ABG pO2 Sodium Chloride Carbon Dioxide BUN Creatinine Glucose POC Glucose 242 H 131 H 156 H Calcium AST Total Creatine Kinase CK-MB (CK-2) Troponin T Total Protein Albumin HDL Cholesterol Urine Creatinine Urine Total Protein 08/26/16 08/26/16 08/26/16 07:16 12:12 17:51 WBC RBC Hgb Hct MCV MCH MCHC RDW Lymph % (Auto) [place] % (Auto) Lymph # [place] # Seg Neutrophils % Seg Neutrophils # D-Dimer POC ABG pH POC ABG pCO2 POC ABG pO2 Sodium Chloride Carbon Dioxide 18 L BUN 26 H Creatinine 2.0 H Glucose 132 H POC Glucose 119 H 161 H Calcium 8.1 L AST 41 H Total Creatine Kinase CK-MB (CK-2) Troponin T Total Protein 5.5 L Albumin 2.7 L HDL Cholesterol Urine Creatinine Urine Total Protein 08/26/16 08/26/16 08/27/16 22:34 23:50 00:00 WBC 11.8 H RBC 5.29 H Hgb 10.0 L Hct 33.3 L MCV 63 L MCH 19 L MCHC 30 L RDW 17.4 H Lymph % (Auto) [place] % (Auto) 8.7 H Lymph # [place] # 1.0 H Seg Neutrophils % 72.6 H Seg Neutrophils # 8.6 H D-Dimer POC ABG pH POC ABG pCO2 POC ABG pO2 Sodium Chloride Carbon Dioxide BUN Creatinine Glucose POC Glucose 107 H 119 H Calcium AST Total Creatine Kinase CK-MB (CK-2) Troponin T Total Protein Albumin HDL Cholesterol Urine Creatinine Urine Total Protein 08/27/16 08/27/16 08/27/16 00:00 00:00 00:02 WBC RBC Hgb Hct MCV MCH MCHC RDW Lymph % (Auto) [place] % (Auto) Lymph # [place] # Seg Neutrophils % Seg Neutrophils # D-Dimer POC ABG pH POC ABG pCO2 POC ABG pO2 205 H Sodium 135 L Chloride 96.6 L Carbon Dioxide 16 L BUN 31 H Creatinine 2.2 H Glucose 154 H POC Glucose Calcium 7.8 L AST Total Creatine Kinase 1401 H CK-MB (CK-2) 13.6 H Troponin T 0.421 H* Total Protein Albumin HDL Cholesterol 78 H Urine Creatinine Urine Total Protein 08/27/16 08/27/16 08/27/16 00:37 03:22 04:08 WBC RBC Hgb Hct MCV MCH MCHC RDW Lymph % (Auto) [place] % (Auto) Lymph # [place] # Seg Neutrophils % Seg Neutrophils # D-Dimer POC ABG pH 7.467 H POC ABG pCO2 31.3 L POC ABG pO2 Sodium Chloride Carbon Dioxide BUN Creatinine Glucose POC Glucose 106 H Calcium AST Total Creatine Kinase 909 H CK-MB (CK-2) 9.3 H Troponin T Total Protein Albumin HDL Cholesterol Urine Creatinine Urine Total Protein 08/27/16 08/27/16 08/27/16 04:35 05:35 10:32 WBC RBC Hgb Hct MCV MCH MCHC RDW Lymph % (Auto) [place] % (Auto) Lymph # [place] # Seg Neutrophils % Seg Neutrophils # D-Dimer POC ABG pH POC ABG pCO2 POC ABG pO2 Sodium Chloride Carbon Dioxide BUN Creatinine Glucose POC Glucose 120 H 113 H Calcium AST Total Creatine Kinase 796 H CK-MB (CK-2) 6.3 H Troponin T Total Protein Albumin HDL Cholesterol Urine Creatinine Urine Total Protein 08/27/16 08/27/16 08/27/16 11:59 17:28 18:46 WBC RBC Hgb Hct MCV MCH MCHC RDW Lymph % (Auto) [place] % (Auto) Lymph # [place] # Seg Neutrophils % Seg Neutrophils # D-Dimer POC ABG pH POC ABG pCO2 POC ABG pO2 Sodium Chloride Carbon Dioxide BUN Creatinine Glucose POC Glucose 225 H 231 H Calcium AST Total Creatine Kinase CK-MB (CK-2) Troponin T 0.473 H* Total Protein Albumin HDL Cholesterol Urine Creatinine Urine Total Protein 08/27/16 08/28/16 08/28/16 23:32 03:39 03:39 WBC 11.5 H RBC Hgb 8.9 L Hct 28.8 L MCV 61 L MCH 19 L MCHC 31 L RDW 16.8 H Lymph % (Auto) [place] % (Auto) Lymph # [place] # Seg Neutrophils % Seg Neutrophils # D-Dimer POC ABG pH POC ABG pCO2 POC ABG pO2 Sodium 134 L Chloride 95.0 L Carbon Dioxide BUN 29 H Creatinine 1.9 H Glucose 66 L POC Glucose 110 H Calcium 7.5 L AST Total Creatine Kinase CK-MB (CK-2) Troponin T Total Protein Albumin HDL Cholesterol Urine Creatinine Urine Total Protein 08/28/16 08/28/16 08/28/16 04:45 05:25 06:48 WBC RBC Hgb Hct MCV MCH MCHC RDW Lymph % (Auto) [place] % (Auto) Lymph # [place] # Seg Neutrophils % Seg Neutrophils # D-Dimer POC ABG pH 7.554 H POC ABG pCO2 POC ABG pO2 108 H Sodium Chloride Carbon Dioxide BUN Creatinine Glucose POC Glucose 67 L 120 H Calcium AST Total Creatine Kinase CK-MB (CK-2) Troponin T Total Protein Albumin HDL Cholesterol Urine Creatinine Urine Total Protein 08/28/16 08/28/16 08/28/16 10:29 11:15 12:00 WBC RBC Hgb Hct MCV MCH MCHC RDW Lymph % (Auto) [place] % (Auto) Lymph # [place] # Seg Neutrophils % Seg Neutrophils # D-Dimer POC ABG pH 7.499 H POC ABG pCO2 POC ABG pO2 Sodium Chloride Carbon Dioxide BUN Creatinine Glucose POC Glucose 206 H 181 H Calcium AST Total Creatine Kinase CK-MB (CK-2) Troponin T Total Protein Albumin HDL Cholesterol Urine Creatinine Urine Total Protein
[2016-08-28] MEDS: NACL 0.9% 1000 ML 1,000 ML IV SCH ×2 (12:48→22:24)
--- NOTE | 2016-08-28 14:44 | Progress Note ---
Assessment and Plan Assessment and plan: 85-year-old male cardiac arrest from pulseless activity massive CVA currently intubated prognosis is extremely poor. Total Time Spent with Patient (Minutes): 42min critcal care time 40% with coodination of care - Patient Problems (1) Acute CVA (cerebrovascular accident) Current Visit: Yes Status: Acute Plan to address problem: She would acute CVA massive CVA left cerebral artery. Patient unresponsive nonverbal minimal sedation spoke with son prognosis is extremely poor. (2) Acute respiratory failure Current Visit: Yes Status: Acute Qualifiers: Respiratory failure complication: R Plan to address problem: Respiratory failure multifactorial aspiration pneumonia acute CVA hypoxic respiratory failure remains intubated unable to wean prognosis is extremely poor consider hospice services. If not taken trach spoke with son Remington about alternative treatment and the plan going forward will speak with family and said options for tomorrow. (3) Altered mental status Current Visit: Yes Status: Acute Qualifiers: Altered mental status type: coma Coma depth: C Coma timing: unspecified coma timing (4) Aspiration pneumonia Current Visit: Yes Status: Acute Qualifiers: Aspiration pneumonia type: A Laterality: L Lung location: L Plan to address problem: Aspiration pneumonia continue broad-spectrum anabiotic's at present afebrile but unable to wean. Secondary to cardiorespiratory arrest and CVA. (5) Hypertensive emergency Current Visit: Yes Status: Acute Plan to address problem: Resolved (6) Cardiac arrest Current Visit: Yes Status: Acute Plan to address problem: Is status post cardiac arrest from pulseless electrical activity. Remains regular irregular. Anticoagulation statin. Increased risk for another cardiac event. (7) Acute renal failure (ARF) Current Visit: Yes Status: Acute Qualifiers: Acute renal failure type: A History Interval history: Patient remains intubated and unresponsive at this particular time. Spoke to his son and long conversation Mr. Macedo. Informed him of the gravity of patient' s illness. Informed of the poor prognosis as well as all of his diagnosis. A understand. He will speak with the rest of his family. Remains acutely ill at this time. Intubated NG tube unresponsive. Hospitalist Physical - Constitutional Vitals: Temp Pulse Resp BP Pulse Ox 99.7 F H 90 20 167/91 96 08/28/16 08:00 08/28/16 10:00 08/28/16 10:50 08/28/16 10:00 08/28/16 10:50 General appearance: Present: no acute distress, other (not responsive) - EENT ENT: other (pupils are responsivecv ) - Neck Neck: Present: supple, normal ROM - Respiratory Respiratory effort: normal Respiratory: bilateral: diminished, rales, rhonchi - Cardiovascular Rhythm: regularly irregular Heart Sounds: Present: S1 & S2 - Extremities Extremities: abnormal Extremity abnormal: edema, pulses diminished Peripheral Pulses: abnormal - Abdominal General gastrointestinal: soft, non-tender, distended, hypoactive bowel sounds - Psychiatric Psychiatric: other - Neurologic Neurologic: focal deficits (unresponsive) Results - Labs CBC & Chem 7: 08/28/16 03:39 08/28/16 03:39 Labs: Laboratory Last Values WBC 11.5 K/mm3 (4.5-11.0) H 08/28/16 03:39 RBC 4.70 M/mm3 (3.65-5.03) 08/28/16 03:39 Hgb 8.9 gm/dl (11.8-15.2) L 08/28/16 03:39 Hct 28.8 % (35.5-45.6) L 08/28/16 03:39 MCV 61 fl (84-94) L 08/28/16 03:39 MCH 19 pg (28-32) L 08/28/16 03:39 MCHC 31 % (32-34) L 08/28/16 03:39 RDW 16.8 % (13.2-15.2) H 08/28/16 03:39 Plt Count 213 K/mm3 (140-440) 08/28/16 03:39 Lymph % (Auto) Drug Room Clerk 08/28/16 03:39 [place] % (Auto) Drug Room Clerk 08/28/16 03:39 Eos % (Auto) Drug Room Clerk 08/28/16 03:39 Baso % (Auto) Drug Room Clerk 08/28/16 03:39 Lymph # Drug Room Clerk 08/28/16 03:39 [place] # Drug Room Clerk 08/28/16 03:39 Eos # Drug Room Clerk 08/28/16 03:39 Baso # Drug Room Clerk 08/28/16 03:39 Seg Neutrophils % Drug Room Clerk 08/28/16 03:39 Seg Neutrophils # Drug Room Clerk 08/28/16 03:39 D-Dimer 1138.47 ng/mlDDU (0-234) H 08/24/16 03:23 POC ABG pH 7.499 (7.35-7.45) H 08/28/16 11:15 POC ABG pCO2 38.1 (35-45) 08/28/16 11:15 POC ABG pO2 82 (80-105) 08/28/16 11:15 POC ABG HCO3 29.6 08/28/16 11:15 POC ABG Total CO2 31 08/28/16 11:15 POC ABG O2 Sat 97 08/28/16 11:15 POC ABG Base Excess 6 08/28/16 11:15 FiO2 30 % 08/28/16 11:15 Sodium 134 mmol/L (137-145) L 08/28/16 03:39 Potassium 3.6 mmol/L (3.6-5.0) 08/28/16 03:39 Chloride 95.0 mmol/L (98-107) L 08/28/16 03:39 Carbon Dioxide 23 mmol/L (22-30) D 08/28/16 03:39 Anion Gap 20 mmol/L 08/28/16 03:39 BUN 29 mg/dL (9-20) H 08/28/16 03:39 Creatinine 1.9 mg/dL (0.8-1.5) H 08/28/16 03:39 Estimated GFR 44 ml/min 08/28/16 03:39 BUN/Creatinine Ratio 15.26 % 08/28/16 03:39 Glucose 66 mg/dL (75-100) L 08/28/16 03:39 POC Glucose 181 (70-105) H 08/28/16 12:00 Lactic Acid 1.80 mmol/L (0.7-2.0) 08/25/16 13:47 Calcium 7.5 mg/dL (8.4-10.2) L 08/28/16 03:39 Phosphorus 3.00 mg/dL (2.5-4.5) 08/28/16 03:39 Magnesium 2.00 mg/dL (1.7-2.3) 08/28/16 03:39 Total Bilirubin 0.90 mg/dL (0.1-1.2) 08/26/16 07:16 AST 41 units/L (5-40) H 08/26/16 07:16 ALT 17 units/L (7-56) 08/26/16 07:16 Alkaline Phosphatase 97 units/L (35-129) 08/26/16 07:16 Ammonia 46.0 umol/L (25-60) 08/24/16 01:44 Total Creatine Kinase 796 units/L (55-170) H 08/27/16 10:32 CK-MB (CK-2) 6.3 ng/mL (0.0-4.0) H 08/27/16 10:32 CK-MB (CK-2) Rel Index 0.7 (0-4) 08/27/16 10:32 Troponin T 0.473 ng/mL (0.00-0.029) H* 08/27/16 18:46 Total Protein 5.5 g/dL (6.3-8.2) L 08/26/16 07:16 Albumin 2.7 g/dL (3.9-5) L 08/26/16 07:16 Albumin/Globulin Ratio 1.0 % 08/26/16 07:16 Triglycerides 68 mg/dL (2-149) 08/27/16 00:00 Cholesterol 182 mg/dL (50-199) 08/27/16 00:00 LDL Cholesterol Direct 91 mg/dL (50-130) 08/27/16 00:00 HDL Cholesterol 78 mg/dL (40-59) H 08/27/16 00:00 Cholesterol/HDL Ratio 2.33 % 08/27/16 00:00 TSH 3.080 mlU/mL (0.270-4.200) 08/23/16 23:35 Urine Color Yellow (Yellow) 08/24/16 00:40 Urine Turbidity Clear (Clear) 08/24/16 00:40 Urine pH 6.0 (5.0-7.0) 08/24/16 00:40 Ur Specific [place] 1.022 (1.003-1.030) 08/24/16 00:40 Urine Protein >500 mg/dL (Negative) 08/24/16 00:40 Urine Glucose (UA) >=500 mg/dL (Negative) 08/24/16 00:40 Urine Ketones Neg mg/dL (Negative) 08/24/16 00:40 Urine Blood Mod (Negative) 08/24/16 00:40 Urine Nitrite Neg (Negative) 08/24/16 00:40 Urine Bilirubin Neg (Negative) 08/24/16 00:40 Urine Urobilinogen < 2.0 mg/dL (<2.0) 08/24/16 00:40 Ur Leukocyte Esterase Neg (Negative) 08/24/16 00:40 Urine WBC (Auto) 1.0 /HPF (0.0-6.0) 08/24/16 00:40 Urine RBC (Auto) 5.0 /HPF (0.0-6.0) 08/24/16 00:40 Urine Bacteria (Auto) 2+ /HPF (Negative) 08/24/16 00:40 Urine Creatinine 237.7 mg/dL (0.1-20.0) H 08/25/16 15:00 Protein/Creatinin Ratio 3.71 08/25/16 15:00 Urine Sodium 10 mEq/L 08/25/16 15:00 Urine Total Protein 882 mg/dL (5-11.8) H 08/25/16 15:00 Salicylates < 0.3 mg/dL (2.8-20.0) L 08/23/16 23:35 Urine Opiates Screen Presumptive negative 08/24/16 00:40 Urine Methadone Screen Presumptive negative 08/24/16 00:40 Acetaminophen < 15.0 ug/mL (10.0-30.0) 08/23/16 23:35 Ur Barbiturates Screen Presumptive negative 08/24/16 00:40 Ur Phencyclidine Scrn Presumptive negative 08/24/16 00:40 Ur Amphetamines Screen Presumptive negative 08/24/16 00:40 U Benzodiazepines Scrn Presumptive negative 08/24/16 00:40 Urine Cocaine Screen Presumptive negative 08/24/16 00:40 U Marijuana (THC) Screen Presumptive negative 08/24/16 00:40 Drugs of Abuse Note Disclamer 08/24/16 00:40 Plasma/Serum Alcohol < 0.01 gm% (0-0.07) 08/23/16 23:35 - Imaging and Cardiology Chest x-ray: image reviewed CT Scan - head: image reviewed MRI - head: image reviewed
[2016-08-29 04:34] LABS: BUN/Creatinine Ratio 15.55; Calcium 7.4 mg/dL (8.4-10.2); Chloride 95.9 mmol/L (98-107); Potassium 3.7 mmol/L (3.6-5.0)
[2016-08-29 06:15] LABS: ISTAT Base Excess 6; ISTAT HCO3 29.9; ISTAT PCO2 41.7 (35-45); ISTAT PH 7.463 (7.35-7.45); ISTAT PO2 68 (80-105); ISTAT SO2 94; ISTAT TCO2 31
[2016-08-29] MEDS: NOVOLOG SUB-Q SCH ×3 (08:35→18:15)
[2016-08-29] MEDS: HEPARIN SUB-Q SCH ×3 (08:35→22:00)
--- NOTE | 2016-08-29 08:39 | XRay Report ---
AP CHEST: HISTORY: Followup respiratory failure. The endotracheal tube and nasogastric tube remain in good position. Mild cardiomegaly, mild central venous congestion and small left pleural effusion are again noted and not significantly changed. Minor right basilar atelectasis has developed. The remainder of the lungs are clear. No pneumothorax. IMPRESSION:. No significant change.
[2016-08-29] MEDS: NORVASC PO SCH (10:13)
[2016-08-29] MEDS: NORMODYNE PO SCH ×2 (10:14→21:15)
[2016-08-29] MEDS: LEVEMIR SUB-Q SCH (10:15)
[2016-08-29] MEDS: NACL 0.9% 1000 ML 1,000 ML IV SCH ×2 (10:15→21:11)
--- NOTE | 2016-08-29 13:56 | Progress Note ---
Assessment and Plan Assessment and plan: 85-year-old male cardiac arrest from pulseless activity massive CVA currently intubated prognosis is extremely poor. - Patient Problems (1) Acute CVA (cerebrovascular accident) Current Visit: Yes Status: Acute Plan to address problem: acute CVA massive CVA left cerebral artery. Patient unresponsive nonverbal minimal sedation spoke with son prognosis is extremely poor. Family to consider hospice services. Spoke with his son maricruz at [phone] for now continue statin aspirin (2) Acute respiratory failure Current Visit: Yes Status: Acute Qualifiers: Respiratory failure complication: R Plan to address problem: At this particular time still unable to wean. Consider hospice versus periodic and trach. (3) Altered mental status Current Visit: Yes Status: Acute Qualifiers: Altered mental status type: coma Coma depth: C Coma timing: unspecified coma timing Plan to address problem: Obtunded most likely secondary to the CVA. Patient is not responding at all. (4) Aspiration pneumonia Current Visit: Yes Status: Acute Qualifiers: Aspiration pneumonia type: A Laterality: L Lung location: L Plan to address problem: Aspiration pneumonia continue broad-spectrum anabiotic's at present afebrile but unable to wean. Secondary to cardiorespiratory arrest and CVA. (5) Hypertensive emergency Current Visit: Yes Status: Acute Plan to address problem: At this particular time blood pressure much better controlled. (6) Cardiac arrest Current Visit: Yes Status: Acute Plan to address problem: Is status post cardiac arrest from pulseless electrical activity. Remains regular irregular. Anticoagulation statin. Increased risk for another cardiac event. (7) Acute renal failure (ARF) Current Visit: Yes Status: Acute Qualifiers: Acute renal failure type: A History Interval history: Patient remains intubated and unresponsive at this particular time. . Remains acutely ill at this time. Intubated NG tube unresponsive. No new events overnight Hospitalist Physical - Constitutional Vitals: Temp Pulse Resp BP Pulse Ox 99.2 F 83 25 H 143/84 96 08/29/16 12:00 08/29/16 11:00 08/29/16 11:00 08/29/16 11:00 08/29/16 11:00 General appearance: Present: no acute distress, other (not responsive) - EENT ENT: other (erythematous conjunctiva) - Neck Neck: Present: supple, normal ROM - Respiratory Respiratory: bilateral: diminished, rales - Cardiovascular Rhythm: regular - Extremities Extremity abnormal: edema, other (bilateral AKA) - Abdominal General gastrointestinal: soft, non-tender, distended, normal bowel sounds, no hypoactive bowel sounds, no absent bowel sounds, no splenomegaly, no mass - Psychiatric Psychiatric: other (obtunded) - Neurologic Neurologic: focal deficits Results - Labs CBC & Chem 7: 08/28/16 03:39 08/29/16 03:12 Labs: Laboratory Last Values WBC 11.5 K/mm3 (4.5-11.0) H 08/28/16 03:39 RBC 4.70 M/mm3 (3.65-5.03) 08/28/16 03:39 Hgb 8.9 gm/dl (11.8-15.2) L 08/28/16 03:39 Hct 28.8 % (35.5-45.6) L 08/28/16 03:39 MCV 61 fl (84-94) L 08/28/16 03:39 MCH 19 pg (28-32) L 08/28/16 03:39 MCHC 31 % (32-34) L 08/28/16 03:39 RDW 16.8 % (13.2-15.2) H 08/28/16 03:39 Plt Count 213 K/mm3 (140-440) 08/28/16 03:39 Lymph % (Auto) [place]rier 08/28/16 03:39 [place] % (Auto) Rotary Drier 08/28/16 03:39 Eos % (Auto) [place]ary [place]rier 08/28/16 03:39 Baso % (Auto) [place]ary [place]rier 08/28/16 03:39 Lymph # [place] 08/28/16 03:39 [place] # Rotary Drier 08/28/16 03:39 Eos # [place]rier 08/28/16 03:39 Baso # [place] 08/28/16 03:39 Seg Neutrophils % [place] 08/28/16 03:39 Seg Neutrophils # [place] 08/28/16 03:39 D-Dimer 1138.47 ng/mlDDU (0-234) H 08/24/16 03:23 POC ABG pH 7.463 (7.35-7.45) H 08/29/16 05:56 POC ABG pCO2 41.7 (35-45) 08/29/16 05:56 POC ABG pO2 68 (80-105) L 08/29/16 05:56 POC ABG HCO3 29.9 08/29/16 05:56 POC ABG Total CO2 31 08/29/16 05:56 POC ABG O2 Sat 94 08/29/16 05:56 POC ABG Base Excess 6 08/29/16 05:56 FiO2 30 % 08/29/16 05:56 Sodium 134 mmol/L (137-145) L 08/29/16 03:12 Potassium 3.7 mmol/L (3.6-5.0) 08/29/16 03:12 Chloride 95.9 mmol/L (98-107) L 08/29/16 03:12 Carbon Dioxide 25 mmol/L (22-30) 08/29/16 03:12 Anion Gap 17 mmol/L 08/29/16 03:12 BUN 28 mg/dL (9-20) H 08/29/16 03:12 Creatinine 1.8 mg/dL (0.8-1.5) H 08/29/16 03:12 Estimated GFR 47 ml/min 08/29/16 03:12 BUN/Creatinine Ratio 15.55 % 08/29/16 03:12 Glucose 89 mg/dL (75-100) 08/29/16 03:12 POC Glucose 174 (70-105) H 08/29/16 11:52 Lactic Acid 1.80 mmol/L (0.7-2.0) 08/25/16 13:47 Calcium 7.4 mg/dL (8.4-10.2) L 08/29/16 03:12 Phosphorus 3.00 mg/dL (2.5-4.5) 08/28/16 03:39 Magnesium 2.00 mg/dL (1.7-2.3) 08/28/16 03:39 Total Bilirubin 0.90 mg/dL (0.1-1.2) 08/26/16 07:16 AST 41 units/L (5-40) H 08/26/16 07:16 ALT 17 units/L (7-56) 08/26/16 07:16 Alkaline Phosphatase 97 units/L (35-129) 08/26/16 07:16 Ammonia 46.0 umol/L (25-60) 08/24/16 01:44 Total Creatine Kinase 796 units/L (55-170) H 08/27/16 10:32 CK-MB (CK-2) 6.3 ng/mL (0.0-4.0) H 08/27/16 10:32 CK-MB (CK-2) Rel Index 0.7 (0-4) 08/27/16 10:32 Troponin T 0.473 ng/mL (0.00-0.029) H* 08/27/16 18:46 Total Protein 5.5 g/dL (6.3-8.2) L 08/26/16 07:16 Albumin 2.7 g/dL (3.9-5) L 08/26/16 07:16 Albumin/Globulin Ratio 1.0 % 08/26/16 07:16 Triglycerides 68 mg/dL (2-149) 08/27/16 00:00 Cholesterol 182 mg/dL (50-199) 08/27/16 00:00 LDL Cholesterol Direct 91 mg/dL (50-130) 08/27/16 00:00 HDL Cholesterol 78 mg/dL (40-59) H 08/27/16 00:00 Cholesterol/HDL Ratio 2.33 % 08/27/16 00:00 TSH 3.080 mlU/mL (0.270-4.200) 08/23/16 23:35 Urine Color Yellow (Yellow) 08/24/16 00:40 Urine Turbidity Clear (Clear) 08/24/16 00:40 Urine pH 6.0 (5.0-7.0) 08/24/16 00:40 Ur Specific [place] 1.022 (1.003-1.030) 08/24/16 00:40 Urine Protein >500 mg/dL (Negative) 08/24/16 00:40 Urine Glucose (UA) >=500 mg/dL (Negative) 08/24/16 00:40 Urine Ketones Neg mg/dL (Negative) 08/24/16 00:40 Urine Blood Mod (Negative) 08/24/16 00:40 Urine Nitrite Neg (Negative) 08/24/16 00:40 Urine Bilirubin Neg (Negative) 08/24/16 00:40 Urine Urobilinogen < 2.0 mg/dL (<2.0) 08/24/16 00:40 Ur Leukocyte Esterase Neg (Negative) 08/24/16 00:40 Urine WBC (Auto) 1.0 /HPF (0.0-6.0) 08/24/16 00:40 Urine RBC (Auto) 5.0 /HPF (0.0-6.0) 08/24/16 00:40 Urine Bacteria (Auto) 2+ /HPF (Negative) 08/24/16 00:40 Urine Creatinine 237.7 mg/dL (0.1-20.0) H 08/25/16 15:00 Protein/Creatinin Ratio 3.71 08/25/16 15:00 Urine Sodium 10 mEq/L 08/25/16 15:00 Urine Total Protein 882 mg/dL (5-11.8) H 08/25/16 15:00 Salicylates < 0.3 mg/dL (2.8-20.0) L 08/23/16 23:35 Urine Opiates Screen Presumptive negative 08/24/16 00:40 Urine Methadone Screen Presumptive negative 08/24/16 00:40 Acetaminophen < 15.0 ug/mL (10.0-30.0) 08/23/16 23:35 Ur Barbiturates Screen Presumptive negative 08/24/16 00:40 Ur Phencyclidine Scrn Presumptive negative 08/24/16 00:40 Ur Amphetamines Screen Presumptive negative 08/24/16 00:40 U Benzodiazepines Scrn Presumptive negative 08/24/16 00:40 Urine Cocaine Screen Presumptive negative 08/24/16 00:40 U Marijuana (THC) Screen Presumptive negative 08/24/16 00:40 Drugs of Abuse Note Disclamer 08/24/16 00:40 Plasma/Serum Alcohol < 0.01 gm% (0-0.07) 08/23/16 23:35
--- NOTE | 2016-08-29 15:54 | Progress Note ---
Assessment and Plan 1. S/p Cardiopulm Arrest - Intubated & on vent, f/u per pulm 2. HTN - Improved BP control, continue current meds 3. ALANNAH/ATN - F/u resolving BUN/Cr. Continue cautious IVF 4. Lytes - F/u Na+ on NS 5. CVA - Large Acute infarct per MRI. F/u per Neuro Subjective Date of service: 08/29/16 Interval history: Pt intubated & on vent s/p PEA arrest Objective - Vital Signs Vital signs: Vital Signs - 12hr 08/29/16 08/29/16 08/29/16 04:00 04:30 05:00 Temperature Pulse Rate 80 81 82 Pulse Rate [ From Monitor] Respiratory 17 20 17 Rate Blood Pressure 134/80 141/81 138/83 O2 Sat by Pulse 98 97 98 Oximetry 08/29/16 08/29/16 08/29/16 05:30 05:56 06:00 Temperature Pulse Rate 83 84 79 Pulse Rate [ From Monitor] Respiratory 23 22 22 Rate Blood Pressure 143/80 138/83 133/75 O2 Sat by Pulse 96 97 96 Oximetry 08/29/16 08/29/16 08/29/16 06:30 07:00 07:10 Temperature Pulse Rate 80 80 88 Pulse Rate [ From Monitor] Respiratory 27 H 25 H 24 Rate Blood Pressure 136/76 135/79 O2 Sat by Pulse 97 97 96 Oximetry 08/29/16 08/29/16 08/29/16 07:30 07:42 08:00 Temperature 98.9 F Pulse Rate 82 80 Pulse Rate [ 80 From Monitor] Respiratory 23 22 Rate Blood Pressure 140/77 139/79 O2 Sat by Pulse 97 97 Oximetry 08/29/16 08/29/16 08/29/16 08:30 09:00 09:30 Temperature Pulse Rate 86 85 85 Pulse Rate [ From Monitor] Respiratory 22 23 24 Rate Blood Pressure 152/83 150/82 159/85 O2 Sat by Pulse 95 95 95 Oximetry 08/29/16 08/29/16 08/29/16 10:00 10:13 10:14 Temperature Pulse Rate 84 86 87 Pulse Rate [ From Monitor] Respiratory 22 Rate Blood Pressure 159/83 159/83 159/83 O2 Sat by Pulse 95 Oximetry 08/29/16 08/29/16 08/29/16 10:30 11:00 11:30 Temperature Pulse Rate 86 83 80 Pulse Rate [ From Monitor] Respiratory 22 25 H 24 Rate Blood Pressure 160/88 143/84 137/76 O2 Sat by Pulse 96 96 96 Oximetry 08/29/16 08/29/16 08/29/16 12:00 12:30 13:00 Temperature 99.2 F Pulse Rate 81 79 80 Pulse Rate [ From Monitor] Respiratory 24 24 26 H Rate Blood Pressure 138/79 130/76 132/75 O2 Sat by Pulse 96 96 96 Oximetry 08/29/16 08/29/16 08/29/16 13:30 14:00 14:30 Temperature Pulse Rate 80 79 79 Pulse Rate [ From Monitor] Respiratory 27 H 28 H 31 H Rate Blood Pressure 134/78 133/77 132/78 O2 Sat by Pulse 97 97 96 Oximetry 08/29/16 08/29/16 08/29/16 15:00 15:09 15:30 Temperature Pulse Rate 78 77 78 Pulse Rate [ From Monitor] Respiratory 29 H 27 H 29 H Rate Blood Pressure 128/76 128/76 131/76 O2 Sat by Pulse 96 96 95 Oximetry - General Appearance General appearance: intubated Neck: no JVD Respiratory: Present: Other (Good air entry per vent) Cardiology: regular, S1S2 Gastrointestinal: other (Soft) Neurologic: obtunded - Lab 08/28/16 03:39 08/29/16 03:12 Most recent lab results Calcium 7.4 mg/dL (8.4-10.2) L 08/29/16 03:12 Phosphorus 3.00 mg/dL (2.5-4.5) 08/28/16 03:39 Magnesium 2.00 mg/dL (1.7-2.3) 08/28/16 03:39 Urine Creatinine 237.7 mg/dL (0.1-20.0) H 08/25/16 15:00 Urine Sodium 10 mEq/L 08/25/16 15:00 Urine Total Protein 882 mg/dL (5-11.8) H 08/25/16 15:00
[2016-08-29] MEDS: ARTIFICIAL TEARS OPHTH OINT OU PRN (16:23)
--- NOTE | 2016-08-29 17:07 | Progress Note ---
Assessment and Plan Imp: 1. Large Acute CVA 2. Malignant HTN related to #1 3. S/p CP arrest 4. Anoxic encephalopathy 5. ALANNAH 6. Acute respiratory failure, hypoxia Rec: 1. Can cont. PSV but mentation precludes extubation; likely will need trach/PEG 2. BP control 3. DVT/GI PPx, TFs 4. Recommend neurology f/u with family to help discuss prognosis and goals of care; appears prognosis very poor for meaningful recovery No family present CCT 31 minutes Subjective Date of service: 08/29/16 Principal diagnosis: Acute respiratory failure Interval history: No events. Comatose. Nonresponsive on ventilator. Tolerating PSV 10/5. BP stable. Not getting sedation. Active Medications Acetaminophen (Tylenol) 650 mg PO Q4H PRN PRN Reason: Pain MILD(1-3)/Fever >100.5/ALFARO Last Admin: 08/27/16 17:14 Dose: 650 mg Albuterol (Proventil) 2.5 mg IH Q6HRT PRN PRN Reason: Shortness Of Breath Last Admin: 08/26/16 13:36 Dose: 2.5 mg Amlodipine Besylate (Norvasc) 10 mg PO QDAY JERAMY Last Admin: 08/29/16 10:13 Dose: 10 mg Lipase/Protease/Amylase (Pancreaze Dr 10,500 Unit) 1 each FEEDTUBE PRN PRN PRN Reason: For Clogged Feeding Tube Bisacodyl (Dulcolax) 10 mg MD QDAY PRN PRN Reason: Constipation unrelieved by MOM Dextrose (D50w (25gm)) 50 ml IV PRN PRN PRN Reason: Hypoglycemia Heparin Sodium (Porcine) (Heparin) 5,000 unit SUB-Q Q8HR JERAMY Last Admin: 08/29/16 13:30 Dose: 5,000 unit Insulin Human Regular 100 (units/ Sodium Chloride) 100 mls @ 1 mls/hr IV TITR JERAMY; 1 UNITS/HR PRN Reason: Protocol Last Titration: 08/25/16 10:14 Dose: 0.5 units/hr, 0.5 mls/hr Sodium Chloride (Nacl 0.9% 1000 Ml) 1,000 mls @ 100 mls/hr IV DIRECT JERAMY Last Admin: 08/29/16 10:15 Dose: 100 mls/hr Insulin Aspart (Novolog) 0 units SUB-Q Q6HR [facility] PRN Reason: Protocol Last Admin: 08/29/16 13:28 Dose: 3 units Insulin Detemir (Levemir) 20 units SUB-Q DAILY [facility] Last Admin: 08/29/16 10:15 Dose: 20 units Labetalol HCl (Normodyne) 300 mg PO BID [facility] Last Admin: 08/29/16 10:14 Dose: 300 mg Labetalol HCl (Normodyne) 10 mg IV Q4H PRN PRN Reason: Blood Pressure SBP>185 Last Admin: 08/27/16 08:32 Dose: 10 mg Magnesium Hydroxide (Milk Of Magnesia) 30 ml PO Q4H PRN PRN Reason: Constipation Multi-Ingred Cream/Lotion/Oil/Oint (Artificial Tears Ophth Oint) 1 applic OU PRN PRN PRN Reason: Dry Eye(s) Last Admin: 08/29/16 16:23 Dose: 1 applic Ondansetron HCl (Zofran) 4 mg IV Q8H PRN PRN Reason: N/V unrelieved by Reglan Simple Syrup (Simple Syrup) 15 ml FEEDTUBE PRN PRN PRN Reason: Hypoglycemia Last Admin: 08/28/16 06:05 Dose: 15 ml Simple Syrup (Simple Syrup) 30 ml FEEDTUBE PRN PRN PRN Reason: Hypoglycemia Objective Vital Signs - 12hr 08/29/16 08/29/16 08/29/16 05:30 05:56 06:00 Temperature Pulse Rate 83 84 79 Pulse Rate [ From Monitor] Respiratory 23 22 22 Rate Blood Pressure 143/80 138/83 133/75 O2 Sat by Pulse 96 97 96 Oximetry 08/29/16 08/29/16 08/29/16 06:30 07:00 07:10 Temperature Pulse Rate 80 80 88 Pulse Rate [ From Monitor] Respiratory 27 H 25 H 24 Rate Blood Pressure 136/76 135/79 O2 Sat by Pulse 97 97 96 Oximetry 08/29/16 08/29/16 08/29/16 07:30 07:42 08:00 Temperature 98.9 F Pulse Rate 82 80 Pulse Rate [ 80 From Monitor] Respiratory 23 22 Rate Blood Pressure 140/77 139/79 O2 Sat by Pulse 97 97 Oximetry 08/29/16 08/29/16 08/29/16 08:30 09:00 09:30 Temperature Pulse Rate 86 85 85 Pulse Rate [ From Monitor] Respiratory 22 23 24 Rate Blood Pressure 152/83 150/82 159/85 O2 Sat by Pulse 95 95 95 Oximetry 08/29/16 08/29/16 08/29/16 10:00 10:13 10:14 Temperature Pulse Rate 84 86 87 Pulse Rate [ From Monitor] Respiratory 22 Rate Blood Pressure 159/83 159/83 159/83 O2 Sat by Pulse 95 Oximetry 08/29/16 08/29/16 08/29/16 10:30 11:00 11:30 Temperature Pulse Rate 86 83 80 Pulse Rate [ From Monitor] Respiratory 22 25 H 24 Rate Blood Pressure 160/88 143/84 137/76 O2 Sat by Pulse 96 96 96 Oximetry 08/29/16 08/29/16 08/29/16 12:00 12:30 13:00 Temperature 99.2 F Pulse Rate 81 79 80 Pulse Rate [ From Monitor] Respiratory 24 24 26 H Rate Blood Pressure 138/79 130/76 132/75 O2 Sat by Pulse 96 96 96 Oximetry 08/29/16 08/29/16 08/29/16 13:30 14:00 14:30 Temperature Pulse Rate 80 79 79 Pulse Rate [ From Monitor] Respiratory 27 H 28 H 31 H Rate Blood Pressure 134/78 133/77 132/78 O2 Sat by Pulse 97 97 96 Oximetry 08/29/16 08/29/16 08/29/16 15:00 15:09 15:30 Temperature Pulse Rate 78 77 78 Pulse Rate [ From Monitor] Respiratory 29 H 27 H 29 H Rate Blood Pressure 128/76 128/76 131/76 O2 Sat by Pulse 96 96 95 Oximetry 08/29/16 15:52 Temperature 98.9 F Pulse Rate Pulse Rate [ From Monitor] Respiratory Rate Blood Pressure O2 Sat by Pulse Oximetry Constitutional: comatose, other (critically ill on vent) Eyes: non-icteric ENT: other (orally intubated) Effort: normal Ascultation: Bilateral: clear Cardiovascular: regular rate and rhythm (no mrg) Gastrointestinal: normoactive bowel sounds, soft, non-tender, non-distended Integumentary: normal Extremities: no cyanosis, no edema, other (bilateral AKA) Neurologic: other (flaccid extremities) Psychiatric: other (not able to assess) CBC and BMP: 08/28/16 03:39 08/29/16 03:12 ABG, PT/INR, D-dimer: ABG POC ABG pH 7.463 (7.35-7.45) H 08/29/16 05:56 POC ABG pCO2 41.7 (35-45) 08/29/16 05:56 POC ABG pO2 68 (80-105) L 08/29/16 05:56 POC ABG HCO3 29.9 08/29/16 05:56 POC ABG Total CO2 31 08/29/16 05:56 POC ABG O2 Sat 94 08/29/16 05:56 PT/INR, D-dimer D-Dimer 1138.47 ng/mlDDU (0-234) H 08/24/16 03:23 Abnormal lab findings: Abnormal Labs 08/24/16 08/24/16 08/24/16 03:23 09:23 10:58 WBC RBC Hgb Hct MCV MCH MCHC RDW Lymph % (Auto) [place] % (Auto) Lymph # [place] # Seg Neutrophils % Seg Neutrophils # D-Dimer 1138.47 H POC ABG pH POC ABG pCO2 POC ABG pO2 Sodium Chloride Carbon Dioxide BUN Creatinine Glucose POC Glucose 410 H 392 H Calcium AST Total Creatine Kinase CK-MB (CK-2) Troponin T Total Protein Albumin HDL Cholesterol Urine Creatinine Urine Total Protein 08/24/16 08/24/16 08/24/16 13:02 13:44 17:29 WBC RBC Hgb Hct MCV MCH MCHC RDW Lymph % (Auto) [place] % (Auto) Lymph # [place] # Seg Neutrophils % Seg Neutrophils # D-Dimer POC ABG pH POC ABG pCO2 34.8 L POC ABG pO2 Sodium Chloride Carbon Dioxide BUN Creatinine 1.8 H Glucose 266 H POC Glucose 354 H Calcium AST Total Creatine Kinase CK-MB (CK-2) Troponin T Total Protein Albumin HDL Cholesterol Urine Creatinine Urine Total Protein 08/24/16 08/24/16 08/24/16 17:34 18:24 18:41 WBC RBC Hgb Hct MCV MCH MCHC RDW Lymph % (Auto) [place] % (Auto) Lymph # [place] # Seg Neutrophils % Seg Neutrophils # D-Dimer POC ABG pH POC ABG pCO2 POC ABG pO2 Sodium Chloride Carbon Dioxide 18 L BUN Creatinine 1.9 H Glucose 174 H POC Glucose 211 H 190 H Calcium 8.2 L AST Total Creatine Kinase CK-MB (CK-2) Troponin T Total Protein Albumin HDL Cholesterol Urine Creatinine Urine Total Protein 08/24/16 08/24/16 08/24/16 19:28 20:24 21:21 WBC RBC Hgb Hct MCV MCH MCHC RDW Lymph % (Auto) [place] % (Auto) Lymph # [place] # Seg Neutrophils % Seg Neutrophils # D-Dimer POC ABG pH POC ABG pCO2 POC ABG pO2 Sodium Chloride Carbon Dioxide BUN Creatinine Glucose POC Glucose 159 H 110 H 144 H Calcium AST Total Creatine Kinase CK-MB (CK-2) Troponin T Total Protein Albumin HDL Cholesterol Urine Creatinine Urine Total Protein 08/24/16 08/24/16 08/24/16 21:48 22:26 23:19 WBC RBC Hgb Hct MCV MCH MCHC RDW Lymph % (Auto) [place] % (Auto) Lymph # [place] # Seg Neutrophils % Seg Neutrophils # D-Dimer POC ABG pH POC ABG pCO2 POC ABG pO2 Sodium Chloride Carbon Dioxide 21 L BUN Creatinine 1.8 H Glucose 141 H POC Glucose 148 H 140 H Calcium 8.3 L AST Total Creatine Kinase CK-MB (CK-2) Troponin T Total Protein Albumin HDL Cholesterol Urine Creatinine Urine Total Protein 08/25/16 08/25/16 08/25/16 01:11 02:15 03:18 WBC RBC Hgb Hct MCV MCH MCHC RDW Lymph % (Auto) [place] % (Auto) Lymph # [place] # Seg Neutrophils % Seg Neutrophils # D-Dimer POC ABG pH POC ABG pCO2 POC ABG pO2 Sodium Chloride Carbon Dioxide BUN Creatinine Glucose POC Glucose 130 H 136 H 145 H Calcium AST Total Creatine Kinase CK-MB (CK-2) Troponin T Total Protein Albumin HDL Cholesterol Urine Creatinine Urine Total Protein 08/25/16 08/25/16 08/25/16 04:09 04:53 04:53 WBC 14.1 H RBC 5.36 H Hgb 9.9 L Hct 32.9 L MCV 61 L MCH 19 L MCHC 30 L RDW 17.5 H Lymph % (Auto) 8.0 L [place] % (Auto) 9.7 H Lymph # 1.1 L [place] # 1.4 H Seg Neutrophils % 82.2 H Seg Neutrophils # 11.6 H D-Dimer POC ABG pH POC ABG pCO2 POC ABG pO2 Sodium Chloride Carbon Dioxide 21 L BUN Creatinine 1.9 H Glucose 116 H POC Glucose 120 H Calcium 8.2 L AST Total Creatine Kinase CK-MB (CK-2) Troponin T Total Protein Albumin HDL Cholesterol Urine Creatinine Urine Total Protein 08/25/16 08/25/16 08/25/16 05:05 06:31 07:35 WBC RBC Hgb Hct MCV MCH MCHC RDW Lymph % (Auto) [place] % (Auto) Lymph # [place] # Seg Neutrophils % Seg Neutrophils # D-Dimer POC ABG pH POC ABG pCO2 POC ABG pO2 Sodium Chloride Carbon Dioxide BUN Creatinine Glucose POC Glucose 126 H 139 H 142 H Calcium AST Total Creatine Kinase CK-MB (CK-2) Troponin T Total Protein Albumin HDL Cholesterol Urine Creatinine Urine Total Protein 08/25/16 08/25/16 08/25/16 08:55 09:48 10:59 WBC RBC Hgb Hct MCV MCH MCHC RDW Lymph % (Auto) [place] % (Auto) Lymph # [place] # Seg Neutrophils % Seg Neutrophils # D-Dimer POC ABG pH POC ABG pCO2 POC ABG pO2 Sodium Chloride Carbon Dioxide BUN Creatinine Glucose POC Glucose 135 H 109 H 126 H Calcium AST Total Creatine Kinase CK-MB (CK-2) Troponin T Total Protein Albumin HDL Cholesterol Urine Creatinine Urine Total Protein 08/25/16 08/25/16 08/25/16 11:34 13:47 15:00 WBC RBC Hgb Hct MCV MCH MCHC RDW Lymph % (Auto) [place] % (Auto) Lymph # [place] # Seg Neutrophils % Seg Neutrophils # D-Dimer POC ABG pH POC ABG pCO2 32.8 L POC ABG pO2 108 H Sodium Chloride Carbon Dioxide 19 L BUN Creatinine 1.7 H Glucose 196 H POC Glucose Calcium 8.2 L AST Total Creatine Kinase CK-MB (CK-2) Troponin T Total Protein Albumin HDL Cholesterol Urine Creatinine 237.7 H Urine Total Protein 882 H 08/25/16 08/25/16 08/26/16 16:30 23:09 05:41 WBC RBC Hgb Hct MCV MCH MCHC RDW Lymph % (Auto) [place] % (Auto) Lymph # [place] # Seg Neutrophils % Seg Neutrophils # D-Dimer POC ABG pH POC ABG pCO2 POC ABG pO2 Sodium Chloride Carbon Dioxide BUN Creatinine Glucose POC Glucose 242 H 131 H 156 H Calcium AST Total Creatine Kinase CK-MB (CK-2) Troponin T Total Protein Albumin HDL Cholesterol Urine Creatinine Urine Total Protein 08/26/16 08/26/16 08/26/16 07:16 12:12 17:51 WBC RBC Hgb Hct MCV MCH MCHC RDW Lymph % (Auto) [place] % (Auto) Lymph # [place] # Seg Neutrophils % Seg Neutrophils # D-Dimer POC ABG pH POC ABG pCO2 POC ABG pO2 Sodium Chloride Carbon Dioxide 18 L BUN 26 H Creatinine 2.0 H Glucose 132 H POC Glucose 119 H 161 H Calcium 8.1 L AST 41 H Total Creatine Kinase CK-MB (CK-2) Troponin T Total Protein 5.5 L Albumin 2.7 L HDL Cholesterol Urine Creatinine Urine Total Protein 08/26/16 08/26/16 08/27/16 22:34 23:50 00:00 WBC 11.8 H RBC 5.29 H Hgb 10.0 L Hct 33.3 L MCV 63 L MCH 19 L MCHC 30 L RDW 17.4 H Lymph % (Auto) [place] % (Auto) 8.7 H Lymph # [place] # 1.0 H Seg Neutrophils % 72.6 H Seg Neutrophils # 8.6 H D-Dimer POC ABG pH POC ABG pCO2 POC ABG pO2 Sodium Chloride Carbon Dioxide BUN Creatinine Glucose POC Glucose 107 H 119 H Calcium AST Total Creatine Kinase CK-MB (CK-2) Troponin T Total Protein Albumin HDL Cholesterol Urine Creatinine Urine Total Protein 08/27/16 08/27/16 08/27/16 00:00 00:00 00:02 WBC RBC Hgb Hct MCV MCH MCHC RDW Lymph % (Auto) [place] % (Auto) Lymph # [place] # Seg Neutrophils % Seg Neutrophils # D-Dimer POC ABG pH POC ABG pCO2 POC ABG pO2 205 H Sodium 135 L Chloride 96.6 L Carbon Dioxide 16 L BUN 31 H Creatinine 2.2 H Glucose 154 H POC Glucose Calcium 7.8 L AST Total Creatine Kinase 1401 H CK-MB (CK-2) 13.6 H Troponin T 0.421 H* Total Protein Albumin HDL Cholesterol 78 H Urine Creatinine Urine Total Protein 08/27/16 08/27/16 08/27/16 00:37 03:22 04:08 WBC RBC Hgb Hct MCV MCH MCHC RDW Lymph % (Auto) [place] % (Auto) Lymph # [place] # Seg Neutrophils % Seg Neutrophils # D-Dimer POC ABG pH 7.467 H POC ABG pCO2 31.3 L POC ABG pO2 Sodium Chloride Carbon Dioxide BUN Creatinine Glucose POC Glucose 106 H Calcium AST Total Creatine Kinase 909 H CK-MB (CK-2) 9.3 H Troponin T Total Protein Albumin HDL Cholesterol Urine Creatinine Urine Total Protein 08/27/16 08/27/16 08/27/16 04:35 05:35 10:32 WBC RBC Hgb Hct MCV MCH MCHC RDW Lymph % (Auto) [place] % (Auto) Lymph # [place] # Seg Neutrophils % Seg Neutrophils # D-Dimer POC ABG pH POC ABG pCO2 POC ABG pO2 Sodium Chloride Carbon Dioxide BUN Creatinine Glucose POC Glucose 120 H 113 H Calcium AST Total Creatine Kinase 796 H CK-MB (CK-2) 6.3 H Troponin T Total Protein Albumin HDL Cholesterol Urine Creatinine Urine Total Protein 08/27/16 08/27/16 08/27/16 11:59 17:28 18:46 WBC RBC Hgb Hct MCV MCH MCHC RDW Lymph % (Auto) [place] % (Auto) Lymph # [place] # Seg Neutrophils % Seg Neutrophils # D-Dimer POC ABG pH POC ABG pCO2 POC ABG pO2 Sodium Chloride Carbon Dioxide BUN Creatinine Glucose POC Glucose 225 H 231 H Calcium AST Total Creatine Kinase CK-MB (CK-2) Troponin T 0.473 H* Total Protein Albumin HDL Cholesterol Urine Creatinine Urine Total Protein 08/27/16 08/28/16 08/28/16 23:32 03:39 03:39 WBC 11.5 H RBC Hgb 8.9 L Hct 28.8 L MCV 61 L MCH 19 L MCHC 31 L RDW 16.8 H Lymph % (Auto) [place] % (Auto) Lymph # [place] # Seg Neutrophils % Seg Neutrophils # D-Dimer POC ABG pH POC ABG pCO2 POC ABG pO2 Sodium 134 L Chloride 95.0 L Carbon Dioxide BUN 29 H Creatinine 1.9 H Glucose 66 L POC Glucose 110 H Calcium 7.5 L AST Total Creatine Kinase CK-MB (CK-2) Troponin T Total Protein Albumin HDL Cholesterol Urine Creatinine Urine Total Protein 08/28/16 08/28/16 08/28/16 04:45 05:25 06:48 WBC RBC Hgb Hct MCV MCH MCHC RDW Lymph % (Auto) [place] % (Auto) Lymph # [place] # Seg Neutrophils % Seg Neutrophils # D-Dimer POC ABG pH 7.554 H POC ABG pCO2 POC ABG pO2 108 H Sodium Chloride Carbon Dioxide BUN Creatinine Glucose POC Glucose 67 L 120 H Calcium AST Total Creatine Kinase CK-MB (CK-2) Troponin T Total Protein Albumin HDL Cholesterol Urine Creatinine Urine Total Protein 08/28/16 08/28/16 08/28/16 10:29 11:15 12:00 WBC RBC Hgb Hct MCV MCH MCHC RDW Lymph % (Auto) [place] % (Auto) Lymph # [place] # Seg Neutrophils % Seg Neutrophils # D-Dimer POC ABG pH 7.499 H POC ABG pCO2 POC ABG pO2 Sodium Chloride Carbon Dioxide BUN Creatinine Glucose POC Glucose 206 H 181 H Calcium AST Total Creatine Kinase CK-MB (CK-2) Troponin T Total Protein Albumin HDL Cholesterol Urine Creatinine Urine Total Protein 08/28/16 08/29/16 08/29/16 17:38 03:12 05:56 WBC RBC Hgb Hct MCV MCH MCHC RDW Lymph % (Auto) [place] % (Auto) Lymph # [place] # Seg Neutrophils % Seg Neutrophils # D-Dimer POC ABG pH 7.463 H POC ABG pCO2 POC ABG pO2 68 L Sodium 134 L Chloride 95.9 L Carbon Dioxide BUN 28 H Creatinine 1.8 H Glucose POC Glucose 140 H Calcium 7.4 L AST Total Creatine Kinase CK-MB (CK-2) Troponin T Total Protein Albumin HDL Cholesterol Urine Creatinine Urine Total Protein 08/29/16 11:52 WBC RBC Hgb Hct MCV MCH MCHC RDW Lymph % (Auto) [place] % (Auto) Lymph # [place] # Seg Neutrophils % Seg Neutrophils # D-Dimer POC ABG pH POC ABG pCO2 POC ABG pO2 Sodium Chloride Carbon Dioxide BUN Creatinine Glucose POC Glucose 174 H Calcium AST Total Creatine Kinase CK-MB (CK-2) Troponin T Total Protein Albumin HDL Cholesterol Urine Creatinine Urine Total Protein Chest x-ray: report reviewed, image reviewed (cardiomegaly w/ small bilateral effusions)
[2016-08-30 05:22] LABS: ISTAT Base Excess 3; ISTAT HCO3 26.7; ISTAT PCO2 35.7 (35-45); ISTAT PH 7.483 (7.35-7.45); ISTAT PO2 67 (80-105); ISTAT SO2 94; ISTAT TCO2 28
[2016-08-30 05:57] LABS: BUN/Creatinine Ratio 19.44; Calcium 7.5 mg/dL (8.4-10.2); Chloride 98.6 mmol/L (98-107); Potassium 4.1 mmol/L (3.6-5.0)
[2016-08-30 06:08] LABS: Magnesium 2.2 mg/dL (1.7-2.3); Phosphorous 3.6 mg/dL (2.5-4.5)
[2016-08-30] MEDS: HEPARIN SUB-Q SCH ×3 (06:16→22:34)
[2016-08-30] MEDS: NOVOLOG SUB-Q SCH ×4 (06:17→18:19)
[2016-08-30] MEDS: NACL 0.9% 1000 ML 1,000 ML IV SCH ×2 (06:29→16:17)
--- NOTE | 2016-08-30 08:41 | Progress Note ---
Assessment and Plan Assessment and plan: --Status post PEA cardiac arrest With anoxic encephalopathy, continue supportive care, poor prognosis --Acute hypoxic hypercapnic respiratory failure/mechanical ventilation more than 96 hrs Continue ventilatory support, current management Pulmonary following, unable to wean, patient may need trach and PEG placement Full CODE STATUS --Anoxic encephalopathy; supportive care --Aspiration pneumonia; secondary to altered level of consciousness, CVA Continue current antibiotics, follow cultures, pulmonary following --Acute massive CVA; Patient is unresponsive poor prognosis, supportive care --malignant hypertension Moderate control, continue current antihypertensives and when necessary medications --Acute renal failure; secondary to ATN Closely monitor renal function, avoid nephrotoxic medications, nephrology following --Status post bilateral lower extremity amputation --Full CODE STATUS --Poor prognosis Continue current management Plan of care discussed with the patient's, consults and recommendations noted and appreciated Recommend hospice/comfort care We will discuss the plan of care with the family History Interval history: patient seen and evaluated in ICU this morning medical records reviewed Patient is unresponsive encephalopathy orally intubated on ventilatory support Vital signs reviewed No family at the bedside Hospitalist Physical - Constitutional Vitals: Temp Pulse Resp BP Pulse Ox 99.1 F 80 26 H 143/80 95 08/30/16 03:41 08/30/16 08:00 08/30/16 08:00 08/30/16 08:00 08/30/16 08:00 General appearance: Present: no acute distress, other (not responsive, orally intubated on ventilator support) - Neck Neck: Present: supple, normal ROM - Respiratory Respiratory effort: normal Respiratory: bilateral: diminished, rhonchi, negative: rales, wheezing - Cardiovascular Rhythm: regular Heart Sounds: Present: S1 & S2 - Extremities Extremities: no ischemia, pulses intact, pulses symmetrical Peripheral Pulses: within normal limits - Abdominal General gastrointestinal: soft, non-tender, non-distended, normal bowel sounds - Integumentary Integumentary: Present: clear, warm - Psychiatric Psychiatric: other (not responsive) - Neurologic Neurologic: other (noncommunicative and encephalopathy) Results - Labs CBC & Chem 7: 08/30/16 08:55 08/30/16 04:50 Labs: Laboratory Last Values WBC 11.5 K/mm3 (4.5-11.0) H 08/28/16 03:39 RBC 4.70 M/mm3 (3.65-5.03) 08/28/16 03:39 Hgb 8.9 gm/dl (11.8-15.2) L 08/28/16 03:39 Hct 28.8 % (35.5-45.6) L 08/28/16 03:39 MCV 61 fl (84-94) L 08/28/16 03:39 MCH 19 pg (28-32) L 08/28/16 03:39 MCHC 31 % (32-34) L 08/28/16 03:39 RDW 16.8 % (13.2-15.2) H 08/28/16 03:39 Plt Count 213 K/mm3 (140-440) 08/28/16 03:39 Lymph % (Auto) [employer] 08/28/16 03:39 [place] % (Auto) [employer] 08/28/16 03:39 Eos % (Auto) [employer] 08/28/16 03:39 Baso % (Auto) [employer] 08/28/16 03:39 Lymph # [employer] 08/28/16 03:39 [place] # [employer] 08/28/16 03:39 Eos # [employer] 08/28/16 03:39 Baso # [employer] 08/28/16 03:39 Seg Neutrophils % [employer] 08/28/16 03:39 Seg Neutrophils # [employer] 08/28/16 03:39 D-Dimer 1138.47 ng/mlDDU (0-234) H 08/24/16 03:23 POC ABG pH 7.483 (7.35-7.45) H 08/30/16 04:49 POC ABG pCO2 35.7 (35-45) 08/30/16 04:49 POC ABG pO2 67 (80-105) L 08/30/16 04:49 POC ABG HCO3 26.7 08/30/16 04:49 POC ABG Total CO2 28 08/30/16 04:49 POC ABG O2 Sat 94 08/30/16 04:49 POC ABG Base Excess 3 08/30/16 04:49 FiO2 30 % 08/30/16 04:49 Sodium 135 mmol/L (137-145) L 08/30/16 04:50 Potassium 4.1 mmol/L (3.6-5.0) 08/30/16 04:50 Chloride 98.6 mmol/L (98-107) 08/30/16 04:50 Carbon Dioxide 24 mmol/L (22-30) 08/30/16 04:50 Anion Gap 17 mmol/L 08/30/16 04:50 BUN 35 mg/dL (9-20) H 08/30/16 04:50 Creatinine 1.8 mg/dL (0.8-1.5) H 08/30/16 04:50 Estimated GFR 47 ml/min 08/30/16 04:50 BUN/Creatinine Ratio 19.44 % 08/30/16 04:50 Glucose 167 mg/dL (75-100) H 08/30/16 04:50 POC Glucose 191 (70-105) H 08/30/16 05:30 Lactic Acid 1.80 mmol/L (0.7-2.0) 08/25/16 13:47 Calcium 7.5 mg/dL (8.4-10.2) L 08/30/16 04:50 Phosphorus 3.60 mg/dL (2.5-4.5) 08/30/16 04:50 Magnesium 2.20 mg/dL (1.7-2.3) 08/30/16 04:50 Total Bilirubin 0.90 mg/dL (0.1-1.2) 08/26/16 07:16 AST 41 units/L (5-40) H 08/26/16 07:16 ALT 17 units/L (7-56) 08/26/16 07:16 Alkaline Phosphatase 97 units/L (35-129) 08/26/16 07:16 Ammonia 46.0 umol/L (25-60) 08/24/16 01:44 Total Creatine Kinase 796 units/L (55-170) H 08/27/16 10:32 CK-MB (CK-2) 6.3 ng/mL (0.0-4.0) H 08/27/16 10:32 CK-MB (CK-2) Rel Index 0.7 (0-4) 08/27/16 10:32 Troponin T 0.473 ng/mL (0.00-0.029) H* 08/27/16 18:46 Total Protein 5.5 g/dL (6.3-8.2) L 08/26/16 07:16 Albumin 2.7 g/dL (3.9-5) L 08/26/16 07:16 Albumin/Globulin Ratio 1.0 % 08/26/16 07:16 Triglycerides 68 mg/dL (2-149) 08/27/16 00:00 Cholesterol 182 mg/dL (50-199) 08/27/16 00:00 LDL Cholesterol Direct 91 mg/dL (50-130) 08/27/16 00:00 HDL Cholesterol 78 mg/dL (40-59) H 08/27/16 00:00 Cholesterol/HDL Ratio 2.33 % 08/27/16 00:00 TSH 3.080 mlU/mL (0.270-4.200) 08/23/16 23:35 Urine Color Yellow (Yellow) 08/24/16 00:40 Urine Turbidity Clear (Clear) 08/24/16 00:40 Urine pH 6.0 (5.0-7.0) 08/24/16 00:40 Ur Specific [place] 1.022 (1.003-1.030) 08/24/16 00:40 Urine Protein >500 mg/dL (Negative) 08/24/16 00:40 Urine Glucose (UA) >=500 mg/dL (Negative) 08/24/16 00:40 Urine Ketones Neg mg/dL (Negative) 08/24/16 00:40 Urine Blood Mod (Negative) 08/24/16 00:40 Urine Nitrite Neg (Negative) 08/24/16 00:40 Urine Bilirubin Neg (Negative) 08/24/16 00:40 Urine Urobilinogen < 2.0 mg/dL (<2.0) 08/24/16 00:40 Ur Leukocyte Esterase Neg (Negative) 08/24/16 00:40 Urine WBC (Auto) 1.0 /HPF (0.0-6.0) 08/24/16 00:40 Urine RBC (Auto) 5.0 /HPF (0.0-6.0) 08/24/16 00:40 Urine Bacteria (Auto) 2+ /HPF (Negative) 08/24/16 00:40 Urine Creatinine 237.7 mg/dL (0.1-20.0) H 08/25/16 15:00 Protein/Creatinin Ratio 3.71 08/25/16 15:00 Urine Sodium 10 mEq/L 08/25/16 15:00 Urine Total Protein 882 mg/dL (5-11.8) H 08/25/16 15:00 Salicylates < 0.3 mg/dL (2.8-20.0) L 08/23/16 23:35 Urine Opiates Screen Presumptive negative 08/24/16 00:40 Urine Methadone Screen Presumptive negative 08/24/16 00:40 Acetaminophen < 15.0 ug/mL (10.0-30.0) 08/23/16 23:35 Ur Barbiturates Screen Presumptive negative 08/24/16 00:40 Ur Phencyclidine Scrn Presumptive negative 08/24/16 00:40 Ur Amphetamines Screen Presumptive negative 08/24/16 00:40 U Benzodiazepines Scrn Presumptive negative 08/24/16 00:40 Urine Cocaine Screen Presumptive negative 08/24/16 00:40 U Marijuana (THC) Screen Presumptive negative 08/24/16 00:40 Drugs of Abuse Note Disclamer 08/24/16 00:40 Plasma/Serum Alcohol < 0.01 gm% (0-0.07) 08/23/16 23:35
[2016-08-30 09:40] LABS: Basophils % (Auto) 0.4 % (0.0-1.8); Eosinophils % (Auto) 0.5 % (0.0-4.3); Hematocrit 27.5 % (35.5-45.6); Hemoglobin 8.6 gm/dl (11.8-15.2); Mean Corpuscular HGB Conc 31 % (32-34); Red Blood Count 4.54 M/mm3 (3.65-5.03); Red Cell Distribution Width 16.6 % (13.2-15.2)
[2016-08-30 09:44] LABS: Mean Corpuscular Hemoglobin 19 pg (28-32); Mean Corpuscular Volume 61 fl (84-94); Platelet Count 187 K/mm3 (140-440)
--- NOTE | 2016-08-30 10:21 | XRay Report ---
AP CHEST: HISTORY: Followup respiratory failure The endotracheal tube and nasogastric tube remain in good position. Mild cardiomegaly and pulmonary venous congestion are stable. Small left pleural effusion and left basilar atelectasis are stable. No new acute process is appreciated. IMPRESSION: No change.
[2016-08-30] MEDS: LEVEMIR SUB-Q SCH (10:29)
[2016-08-30] MEDS: NORVASC PO SCH (10:29)
[2016-08-30] MEDS: NORMODYNE PO SCH ×2 (10:29→22:33)
[2016-08-30] MEDS: ARTIFICIAL TEARS OPHTH OINT OU PRN (10:30)
--- NOTE | 2016-08-30 10:39 | Consultation ---
History of Present Illness Consult date: 08/30/16 Requesting physician: BETY PEREZ Reason for Consult: stroke Chief complaint: AMS limits direct hx History of present illness: 55 YO Male with HTN, DM, stroke unclear details/residual deficits, PVD s/p b/l AKA wheelchair bound, Renal Failure presents to ED for evaluation 08/23. Pt unable to provide history. Pt history provided by records. According to son as documented pt was in his normal state of health and was watching TV. Pt fell from his wheelchair later in the evening as was unable to get up. Pt seen and evaluated in ED and found to have hypertensive emergency. On 08/26 11 PM pt had PEA arrest s/p ACLS and was intubated. He has not received sedation. Past History Past Medical History: diabetes, hypertension, PVD, stroke Past Surgical History: Other (Leg surgery) Social history: . denies: smoking, alcohol abuse, prescription drug abuse Family history: diabetes, hypertension Medications and Allergies Allergies Allergy/AdvReac Type Severity Reaction Status Date / Time Unable to Assess Allergy Unverified 08/23/16 23:25 Home Medications Medication Instructions Recorded Confirmed Last Taken Type Lopressor 50 mg PO DAILY 08/25/16 08/25/16 Unknown History Nifedipine ER 60 mg PO DAILY 08/25/16 08/25/16 Unknown History Active Meds: Active Medications Acetaminophen (Tylenol) 650 mg PO Q4H PRN PRN Reason: Pain MILD(1-3)/Fever >100.5/ALFARO Last Admin: 08/27/16 17:14 Dose: 650 mg Albuterol (Proventil) 2.5 mg IH Q6HRT PRN PRN Reason: Shortness Of Breath Last Admin: 08/26/16 13:36 Dose: 2.5 mg Amlodipine Besylate (Norvasc) 10 mg PO QDAY JERAMY Last Admin: 08/30/16 10:29 Dose: 10 mg Lipase/Protease/Amylase (Pancreaze Dr 10,500 Unit) 1 each FEEDTUBE PRN PRN PRN Reason: For Clogged Feeding Tube Bisacodyl (Dulcolax) 10 mg ND QDAY PRN PRN Reason: Constipation unrelieved by MOM Dextrose (D50w (25gm)) 50 ml IV PRN PRN PRN Reason: Hypoglycemia Heparin Sodium (Porcine) (Heparin) 5,000 unit SUB-Q Q8HR [facility] Last Admin: 08/30/16 06:16 Dose: 5,000 unit Sodium Chloride (Nacl 0.9% 1000 Ml) 1,000 mls @ 100 mls/hr IV DIRECT [facility] Last Admin: 08/30/16 06:29 Dose: 100 mls/hr Insulin Aspart (Novolog) 0 units SUB-Q Q6HR JERAMY PRN Reason: Protocol Last Admin: 08/30/16 06:18 Dose: Not Given Insulin Detemir (Levemir) 20 units SUB-Q DAILY [facility] Last Admin: 08/30/16 10:29 Dose: 20 units Labetalol HCl (Normodyne) 300 mg PO BID [facility] Last Admin: 08/30/16 10:29 Dose: 300 mg Labetalol HCl (Normodyne) 10 mg IV Q4H PRN PRN Reason: Blood Pressure SBP>185 Last Admin: 08/27/16 08:32 Dose: 10 mg Magnesium Hydroxide (Milk Of Magnesia) 30 ml PO Q4H PRN PRN Reason: Constipation Multi-Ingred Cream/Lotion/Oil/Oint (Artificial Tears Ophth Oint) 1 applic OU PRN PRN PRN Reason: Dry Eye(s) Last Admin: 08/30/16 10:30 Dose: 1 applic Ondansetron HCl (Zofran) 4 mg IV Q8H PRN PRN Reason: N/V unrelieved by Reglan Simple Syrup (Simple Syrup) 15 ml FEEDTUBE PRN PRN PRN Reason: Hypoglycemia Last Admin: 08/28/16 06:05 Dose: 15 ml Simple Syrup (Simple Syrup) 30 ml FEEDTUBE PRN PRN PRN Reason: Hypoglycemia Review of Systems ROS unobtainable: due to endotracheal tube, due to mental status Physical Examination - Vital Signs Vital Signs: Vital Signs Pulse Resp BP Pulse Ox 116 H 26 H 208/114 95 08/23/16 23:25 08/23/16 23:25 08/23/16 23:25 08/23/16 23:25 - Constitutional General appearance: uncomfortable, acutely ill, chronically ill - EENT EENT: Present: ATNC, PERRL, mucous membranes dry - Respiratory Respiratory: Present: no respiratory distress, decreased breath sounds - Cardiovascular Cardiovascular: Present: regular rate Extremities: Present: no inflammation, other (b./l AKA) - Gastrointestinal Gastrointestinal: Present: normoactive bowel sounds, soft, non-distended - Integumentary Integumentary: Present: normal - Neurologic Cranial nerve examination: PERRL, face symmetric, intact gag reflex, Intact Vestibulo-ocular r, intact corneal reflex Speech examination: other (no speech not following commands) Sensorimotor examination: flaccid paralysis, hemiparesis Motor examination - right side: 1/5: hip flexors, knee extensors, dorsiflexion, 2/5: biceps, triceps, wrist flexion, wrist extension, single pointed operator Motor examination - left side: 1/5: biceps, triceps, wrist flexion, wrist extension, single pointed operator, hip flexors, knee extensors Detailed sensory examination: intact, pain (slight withdrawal on RUE) Reflexes: 1+: bicep - Musculoskeletal Musculoskeletal: Present: no fluid collection, no pain Results - Laboratory Findings CBC and BMP: 08/30/16 08:55 08/30/16 04:50 Abnormal Lab Findings: Abnormal Labs 08/24/16 08/24/16 08/24/16 03:23 09:23 10:58 WBC RBC Hgb Hct MCV MCH MCHC RDW Lymph % (Auto) Mills % (Auto) Lymph # Mills # Seg Neutrophils % Seg Neutrophils # D-Dimer 1138.47 H POC ABG pH POC ABG pCO2 POC ABG pO2 Sodium Chloride Carbon Dioxide BUN Creatinine Glucose POC Glucose 410 H 392 H Calcium AST Total Creatine Kinase CK-MB (CK-2) Troponin T Total Protein Albumin HDL Cholesterol Urine Creatinine Urine Total Protein 08/24/16 08/24/16 08/24/16 13:02 13:44 17:29 WBC RBC Hgb Hct MCV MCH MCHC RDW Lymph % (Auto) Mills % (Auto) Lymph # Mills # Seg Neutrophils % Seg Neutrophils # D-Dimer POC ABG pH POC ABG pCO2 34.8 L POC ABG pO2 Sodium Chloride Carbon Dioxide BUN Creatinine 1.8 H Glucose 266 H POC Glucose 354 H Calcium AST Total Creatine Kinase CK-MB (CK-2) Troponin T Total Protein Albumin HDL Cholesterol Urine Creatinine Urine Total Protein 08/24/16 08/24/16 08/24/16 17:34 18:24 18:41 WBC RBC Hgb Hct MCV MCH MCHC RDW Lymph % (Auto) Mills % (Auto) Lymph # Mills # Seg Neutrophils % Seg Neutrophils # D-Dimer POC ABG pH POC ABG pCO2 POC ABG pO2 Sodium Chloride Carbon Dioxide 18 L BUN Creatinine 1.9 H Glucose 174 H POC Glucose 211 H 190 H Calcium 8.2 L AST Total Creatine Kinase CK-MB (CK-2) Troponin T Total Protein Albumin HDL Cholesterol Urine Creatinine Urine Total Protein 08/24/16 08/24/16 08/24/16 19:28 20:24 21:21 WBC RBC Hgb Hct MCV MCH MCHC RDW Lymph % (Auto) Mills % (Auto) Lymph # Mills # Seg Neutrophils % Seg Neutrophils # D-Dimer POC ABG pH POC ABG pCO2 POC ABG pO2 Sodium Chloride Carbon Dioxide BUN Creatinine Glucose POC Glucose 159 H 110 H 144 H Calcium AST Total Creatine Kinase CK-MB (CK-2) Troponin T Total Protein Albumin HDL Cholesterol Urine Creatinine Urine Total Protein 08/24/16 08/24/16 08/24/16 21:48 22:26 23:19 WBC RBC Hgb Hct MCV MCH MCHC RDW Lymph % (Auto) Mills % (Auto) Lymph # Mills # Seg Neutrophils % Seg Neutrophils # D-Dimer POC ABG pH POC ABG pCO2 POC ABG pO2 Sodium Chloride Carbon Dioxide 21 L BUN Creatinine 1.8 H Glucose 141 H POC Glucose 148 H 140 H Calcium 8.3 L AST Total Creatine Kinase CK-MB (CK-2) Troponin T Total Protein Albumin HDL Cholesterol Urine Creatinine Urine Total Protein 08/25/16 08/25/16 08/25/16 01:11 02:15 03:18 WBC RBC Hgb Hct MCV MCH MCHC RDW Lymph % (Auto) Mills % (Auto) Lymph # Mills # Seg Neutrophils % Seg Neutrophils # D-Dimer POC ABG pH POC ABG pCO2 POC ABG pO2 Sodium Chloride Carbon Dioxide BUN Creatinine Glucose POC Glucose 130 H 136 H 145 H Calcium AST Total Creatine Kinase CK-MB (CK-2) Troponin T Total Protein Albumin HDL Cholesterol Urine Creatinine Urine Total Protein 08/25/16 08/25/16 08/25/16 04:09 04:53 04:53 WBC 14.1 H RBC 5.36 H Hgb 9.9 L Hct 32.9 L MCV 61 L MCH 19 L MCHC 30 L RDW 17.5 H Lymph % (Auto) 8.0 L Mills % (Auto) 9.7 H Lymph # 1.1 L Mills # 1.4 H Seg Neutrophils % 82.2 H Seg Neutrophils # 11.6 H D-Dimer POC ABG pH POC ABG pCO2 POC ABG pO2 Sodium Chloride Carbon Dioxide 21 L BUN Creatinine 1.9 H Glucose 116 H POC Glucose 120 H Calcium 8.2 L AST Total Creatine Kinase CK-MB (CK-2) Troponin T Total Protein Albumin HDL Cholesterol Urine Creatinine Urine Total Protein 08/25/16 08/25/16 08/25/16 05:05 06:31 07:35 WBC RBC Hgb Hct MCV MCH MCHC RDW Lymph % (Auto) Mills % (Auto) Lymph # Mills # Seg Neutrophils % Seg Neutrophils # D-Dimer POC ABG pH POC ABG pCO2 POC ABG pO2 Sodium Chloride Carbon Dioxide BUN Creatinine Glucose POC Glucose 126 H 139 H 142 H Calcium AST Total Creatine Kinase CK-MB (CK-2) Troponin T Total Protein Albumin HDL Cholesterol Urine Creatinine Urine Total Protein 08/25/16 08/25/16 08/25/16 08:55 09:48 10:59 WBC RBC Hgb Hct MCV MCH MCHC RDW Lymph % (Auto) Mills % (Auto) Lymph # Mills # Seg Neutrophils % Seg Neutrophils # D-Dimer POC ABG pH POC ABG pCO2 POC ABG pO2 Sodium Chloride Carbon Dioxide BUN Creatinine Glucose POC Glucose 135 H 109 H 126 H Calcium AST Total Creatine Kinase CK-MB (CK-2) Troponin T Total Protein Albumin HDL Cholesterol Urine Creatinine Urine Total Protein 08/25/16 08/25/16 08/25/16 11:34 13:47 15:00 WBC RBC Hgb Hct MCV MCH MCHC RDW Lymph % (Auto) Mills % (Auto) Lymph # Mills # Seg Neutrophils % Seg Neutrophils # D-Dimer POC ABG pH POC ABG pCO2 32.8 L POC ABG pO2 108 H Sodium Chloride Carbon Dioxide 19 L BUN Creatinine 1.7 H Glucose 196 H POC Glucose Calcium 8.2 L AST Total Creatine Kinase CK-MB (CK-2) Troponin T Total Protein Albumin HDL Cholesterol Urine Creatinine 237.7 H Urine Total Protein 882 H 08/25/16 08/25/16 08/26/16 16:30 23:09 05:41 WBC RBC Hgb Hct MCV MCH MCHC RDW Lymph % (Auto) Mills % (Auto) Lymph # Mills # Seg Neutrophils % Seg Neutrophils # D-Dimer POC ABG pH POC ABG pCO2 POC ABG pO2 Sodium Chloride Carbon Dioxide BUN Creatinine Glucose POC Glucose 242 H 131 H 156 H Calcium AST Total Creatine Kinase CK-MB (CK-2) Troponin T Total Protein Albumin HDL Cholesterol Urine Creatinine Urine Total Protein 08/26/16 08/26/16 08/26/16 07:16 12:12 17:51 WBC RBC Hgb Hct MCV MCH MCHC RDW Lymph % (Auto) Mills % (Auto) Lymph # Mills # Seg Neutrophils % Seg Neutrophils # D-Dimer POC ABG pH POC ABG pCO2 POC ABG pO2 Sodium Chloride Carbon Dioxide 18 L BUN 26 H Creatinine 2.0 H Glucose 132 H POC Glucose 119 H 161 H Calcium 8.1 L AST 41 H Total Creatine Kinase CK-MB (CK-2) Troponin T Total Protein 5.5 L Albumin 2.7 L HDL Cholesterol Urine Creatinine Urine Total Protein 08/26/16 08/26/16 08/27/16 22:34 23:50 00:00 WBC 11.8 H RBC 5.29 H Hgb 10.0 L Hct 33.3 L MCV 63 L MCH 19 L MCHC 30 L RDW 17.4 H Lymph % (Auto) Mills % (Auto) 8.7 H Lymph # Mills # 1.0 H Seg Neutrophils % 72.6 H Seg Neutrophils # 8.6 H D-Dimer POC ABG pH POC ABG pCO2 POC ABG pO2 Sodium Chloride Carbon Dioxide BUN Creatinine Glucose POC Glucose 107 H 119 H Calcium AST Total Creatine Kinase CK-MB (CK-2) Troponin T Total Protein Albumin HDL Cholesterol Urine Creatinine Urine Total Protein 08/27/16 08/27/16 08/27/16 00:00 00:00 00:02 WBC RBC Hgb Hct MCV MCH MCHC RDW Lymph % (Auto) Mills % (Auto) Lymph # Mills # Seg Neutrophils % Seg Neutrophils # D-Dimer POC ABG pH POC ABG pCO2 POC ABG pO2 205 H Sodium 135 L Chloride 96.6 L Carbon Dioxide 16 L BUN 31 H Creatinine 2.2 H Glucose 154 H POC Glucose Calcium 7.8 L AST Total Creatine Kinase 1401 H CK-MB (CK-2) 13.6 H Troponin T 0.421 H* Total Protein Albumin HDL Cholesterol 78 H Urine Creatinine Urine Total Protein 08/27/16 08/27/16 08/27/16 00:37 03:22 04:08 WBC RBC Hgb Hct MCV MCH MCHC RDW Lymph % (Auto) Mills % (Auto) Lymph # Mills # Seg Neutrophils % Seg Neutrophils # D-Dimer POC ABG pH 7.467 H POC ABG pCO2 31.3 L POC ABG pO2 Sodium Chloride Carbon Dioxide BUN Creatinine Glucose POC Glucose 106 H Calcium AST Total Creatine Kinase 909 H CK-MB (CK-2) 9.3 H Troponin T Total Protein Albumin HDL Cholesterol Urine Creatinine Urine Total Protein 08/27/16 08/27/16 08/27/16 04:35 05:35 10:32 WBC RBC Hgb Hct MCV MCH MCHC RDW Lymph % (Auto) Mills % (Auto) Lymph # Mills # Seg Neutrophils % Seg Neutrophils # D-Dimer POC ABG pH POC ABG pCO2 POC ABG pO2 Sodium Chloride Carbon Dioxide BUN Creatinine Glucose POC Glucose 120 H 113 H Calcium AST Total Creatine Kinase 796 H CK-MB (CK-2) 6.3 H Troponin T Total Protein Albumin HDL Cholesterol Urine Creatinine Urine Total Protein 08/27/16 08/27/16 08/27/16 11:59 17:28 18:46 WBC RBC Hgb Hct MCV MCH MCHC RDW Lymph % (Auto) Mills % (Auto) Lymph # Mills # Seg Neutrophils % Seg Neutrophils # D-Dimer POC ABG pH POC ABG pCO2 POC ABG pO2 Sodium Chloride Carbon Dioxide BUN Creatinine Glucose POC Glucose 225 H 231 H Calcium AST Total Creatine Kinase CK-MB (CK-2) Troponin T 0.473 H* Total Protein Albumin HDL Cholesterol Urine Creatinine Urine Total Protein 08/27/16 08/28/16 08/28/16 23:32 03:39 03:39 WBC 11.5 H RBC Hgb 8.9 L Hct 28.8 L MCV 61 L MCH 19 L MCHC 31 L RDW 16.8 H Lymph % (Auto) Mills % (Auto) Lymph # Mills # Seg Neutrophils % Seg Neutrophils # D-Dimer POC ABG pH POC ABG pCO2 POC ABG pO2 Sodium 134 L Chloride 95.0 L Carbon Dioxide BUN 29 H Creatinine 1.9 H Glucose 66 L POC Glucose 110 H Calcium 7.5 L AST Total Creatine Kinase CK-MB (CK-2) Troponin T Total Protein Albumin HDL Cholesterol Urine Creatinine Urine Total Protein 08/28/16 08/28/16 08/28/16 04:45 05:25 06:48 WBC RBC Hgb Hct MCV MCH MCHC RDW Lymph % (Auto) Mills % (Auto) Lymph # Mills # Seg Neutrophils % Seg Neutrophils # D-Dimer POC ABG pH 7.554 H POC ABG pCO2 POC ABG pO2 108 H Sodium Chloride Carbon Dioxide BUN Creatinine Glucose POC Glucose 67 L 120 H Calcium AST Total Creatine Kinase CK-MB (CK-2) Troponin T Total Protein Albumin HDL Cholesterol Urine Creatinine Urine Total Protein 08/28/16 08/28/16 08/28/16 10:29 11:15 12:00 WBC RBC Hgb Hct MCV MCH MCHC RDW Lymph % (Auto) Mills % (Auto) Lymph # Mills # Seg Neutrophils % Seg Neutrophils # D-Dimer POC ABG pH 7.499 H POC ABG pCO2 POC ABG pO2 Sodium Chloride Carbon Dioxide BUN Creatinine Glucose POC Glucose 206 H 181 H Calcium AST Total Creatine Kinase CK-MB (CK-2) Troponin T Total Protein Albumin HDL Cholesterol Urine Creatinine Urine Total Protein 08/28/16 08/29/16 08/29/16 17:38 03:12 05:56 WBC RBC Hgb Hct MCV MCH MCHC RDW Lymph % (Auto) Mills % (Auto) Lymph # Mills # Seg Neutrophils % Seg Neutrophils # D-Dimer POC ABG pH 7.463 H POC ABG pCO2 POC ABG pO2 68 L Sodium 134 L Chloride 95.9 L Carbon Dioxide BUN 28 H Creatinine 1.8 H Glucose POC Glucose 140 H Calcium 7.4 L AST Total Creatine Kinase CK-MB (CK-2) Troponin T Total Protein Albumin HDL Cholesterol Urine Creatinine Urine Total Protein 08/29/16 08/29/16 08/29/16 11:52 17:43 23:21 WBC RBC Hgb Hct MCV MCH MCHC RDW Lymph % (Auto) Mills % (Auto) Lymph # Mills # Seg Neutrophils % Seg Neutrophils # D-Dimer POC ABG pH POC ABG pCO2 POC ABG pO2 Sodium Chloride Carbon Dioxide BUN Creatinine Glucose POC Glucose 174 H 187 H 208 H Calcium AST Total Creatine Kinase CK-MB (CK-2) Troponin T Total Protein Albumin HDL Cholesterol Urine Creatinine Urine Total Protein 08/30/16 08/30/16 08/30/16 04:49 04:50 05:30 WBC RBC Hgb Hct MCV MCH MCHC RDW Lymph % (Auto) Mills % (Auto) Lymph # Mills # Seg Neutrophils % Seg Neutrophils # D-Dimer POC ABG pH 7.483 H POC ABG pCO2 POC ABG pO2 67 L Sodium 135 L Chloride Carbon Dioxide BUN 35 H Creatinine 1.8 H Glucose 167 H POC Glucose 191 H Calcium 7.5 L AST Total Creatine Kinase CK-MB (CK-2) Troponin T Total Protein Albumin HDL Cholesterol Urine Creatinine Urine Total Protein 08/30/16 08:55 WBC 15.0 H RBC Hgb 8.6 L Hct 27.5 L MCV 61 L MCH 19 L MCHC 31 L RDW 16.6 H Lymph % (Auto) 7.8 L Mills % (Auto) 10.4 H Lymph # Mills # 1.6 H Seg Neutrophils % 80.9 H Seg Neutrophils # 12.2 H D-Dimer POC ABG pH POC ABG pCO2 POC ABG pO2 Sodium Chloride Carbon Dioxide BUN Creatinine Glucose POC Glucose Calcium AST Total Creatine Kinase CK-MB (CK-2) Troponin T Total Protein Albumin HDL Cholesterol Urine Creatinine Urine Total Protein Assessment and Plan 55 YO Male with HTN, DM, stroke unclear details/residual deficits, PVD s/p b/l AKA wheelchair bound, Renal Failure presents to ED for evaluation 08/23 after falling from chair and unable to get up. Iniitial Dx hypertensive emergency but MRI Brain obtained 08/27 revealed large acute L MCA/ELIANE stroke. EEG 08/24 mild to mod nonspecific diffuse cerebral dysfunction but no IEDs/Sz. On 08/26 11 PM pt had PEA arrest s/p ACLS. He has not received TH or sedation. On exam pt has intact upper brainstem reflexes and slight RUE withdrawal to pain so he does not formally meet AAN criteria for definite poor neurologic prognosis(, unconsciousness after one month, or unconsciousness or severe disability after six months). However considering baseline Hx and new L MCA stroke pt will likely need continuous nursing care for an indefinite period with Trach/PEG. Plan and Recommendation: 1. No indication for pharmacologic thrombolysis with IV tPA or mechanical thrombectomy due to last known normal > 6 hrs from presentation. Current NIHSS 31 . 2. Telemetry bed w/ Q4 hour neuro checks 3. Vascular Imaging: Bilateral Carotid Duplex U/S 4. TTE to eval for possible cardiac source of embolism 5. 30 day ambulatory Tele monitor ? pAFib 6. Serum Labs: HgA1c, LDL. 7. Autoregulate SBP to goal 120-160 as pt is outside permissive HTN window. 8. Secondary stroke prevention: ASA 325mg Daily & upgrade to full dose statin therapy (Crestor 20mg or 40mg OR Lipitor 40mg or 80mg Daily OR Zocor 40mg QDay) for goal LDL < 70. No firm indication at this point for therapeutic anticoagulation as pt has not had AFib captured on telemetry monitoring. 9. F/E/N: isotonic IVF prn, prn replete, bedside speech/swallow eval prior to PO intake-likely will need PEG 10. DVT Prophylaxis 11. Stroke education, PT/OT/Speech Therapy consults, CM evaluation 12. For any changes in neurologic status, pls obtain STAT CTH w/o contrast and call neurology
[2016-08-30] MEDS: ASPIRIN PO SCH (11:54)
--- NOTE | 2016-08-30 14:45 | Event Note ---
Date: 08/30/16 Patient's condition, poor prognosis, treatment plan discussed in detail with the son at the bedside along with the patient's nurse Answered all his questions, Son verbalized understanding of poor prognosis, I discussed with him the option of hospice/comfort care and also the option of tracheostomy/PEG placement and possible LTAC placement Options of DNR/DNI discussed with the patient's son,he requested DO NOT RESUSCITATE status He will discuss with other family members and decide on withdrawal of care and hospice if all the family members agree. Discussed the plan of care with the case management
--- NOTE | 2016-08-30 14:57 | Progress Note ---
Assessment and Plan 1. S/p Cardiopulm Arrest - Intubated & on vent, Mx per pulm 2. HTN - F/u on meds 3. ALANNAH/ATN - F/u BUN/Cr. Continue cautious IVF 4. Lytes - F/u labs 5. CVA - Large Acute infarct per MRI. F/u per Neuro Pt now DNR per Hospitalist's note. Await further discussions on Hospice Vs Withdrawal of care. Will f/u as needed Subjective Date of service: 08/30/16 Principal diagnosis: Acute respiratory failure Interval history: Pt intubated & on vent s/p PEA arrest Objective - Vital Signs Vital signs: Vital Signs - 12hr 08/30/16 08/30/16 08/30/16 03:00 03:30 03:41 Temperature 99.1 F Pulse Rate 81 80 Pulse Rate [ From Monitor] Respiratory 31 H 24 Rate Blood Pressure 145/84 151/85 O2 Sat by Pulse 93 96 Oximetry 08/30/16 08/30/16 08/30/16 04:00 04:04 04:30 Temperature Pulse Rate 82 82 Pulse Rate [ From Monitor] Respiratory 27 H 24 Rate Blood Pressure 153/85 151/85 153/85 O2 Sat by Pulse 93 95 96 Oximetry 08/30/16 08/30/16 08/30/16 05:00 05:30 06:00 Temperature Pulse Rate 80 81 81 Pulse Rate [ From Monitor] Respiratory 27 H 24 25 H Rate Blood Pressure 148/84 151/84 151/84 O2 Sat by Pulse 96 96 96 Oximetry 08/30/16 08/30/16 08/30/16 06:30 07:00 07:30 Temperature Pulse Rate 81 82 80 Pulse Rate [ From Monitor] Respiratory 25 H 26 H 24 Rate Blood Pressure 152/86 158/86 157/87 O2 Sat by Pulse 96 96 96 Oximetry 08/30/16 08/30/16 08/30/16 08:00 08:27 08:30 Temperature 97.5 F L Pulse Rate 81 84 83 Pulse Rate [ 80 From Monitor] Respiratory 26 H 25 H 28 H Rate Blood Pressure 143/80 143/84 150/85 O2 Sat by Pulse 95 100 96 Oximetry 08/30/16 08/30/16 08/30/16 09:00 09:30 10:00 Temperature Pulse Rate 84 85 86 Pulse Rate [ From Monitor] Respiratory 27 H 22 29 H Rate Blood Pressure 153/84 159/83 166/88 O2 Sat by Pulse 93 96 96 Oximetry 08/30/16 08/30/16 08/30/16 10:29 10:30 11:00 Temperature Pulse Rate 89 84 79 Pulse Rate [ From Monitor] Respiratory 22 25 H Rate Blood Pressure 166/88 174/84 138/78 O2 Sat by Pulse 96 97 Oximetry 08/30/16 08/30/16 08/30/16 11:30 12:00 12:20 Temperature 97.7 F Pulse Rate 80 77 78 Pulse Rate [ From Monitor] Respiratory 30 H 24 26 H Rate Blood Pressure 137/80 131/76 131/76 O2 Sat by Pulse 97 97 97 Oximetry 08/30/16 08/30/16 08/30/16 12:30 13:00 13:30 Temperature Pulse Rate 81 81 80 Pulse Rate [ From Monitor] Respiratory 24 28 H 27 H Rate Blood Pressure 131/76 140/79 139/76 O2 Sat by Pulse 95 95 95 Oximetry - General Appearance General appearance: intubated Respiratory: Present: Other (On vent) Cardiology: regular, S1S2 Gastrointestinal: other Neurologic: obtunded - Lab 08/30/16 08:55 08/30/16 04:50 Most recent lab results Calcium 7.5 mg/dL (8.4-10.2) L 08/30/16 04:50 Phosphorus 3.60 mg/dL (2.5-4.5) 08/30/16 04:50 Magnesium 2.20 mg/dL (1.7-2.3) 08/30/16 04:50 Urine Creatinine 237.7 mg/dL (0.1-20.0) H 08/25/16 15:00 Urine Sodium 10 mEq/L 08/25/16 15:00 Urine Total Protein 882 mg/dL (5-11.8) H 08/25/16 15:00
--- NOTE | 2016-08-30 15:36 | Progress Note ---
Assessment and Plan Imp: 1. Large Acute CVA 2. Malignant HTN related to #1 3. S/p CP arrest 4. Anoxic encephalopathy 5. ALANNAH 6. Acute respiratory failure, hypoxia 7. Constipation Rec: 1. Can cont. PSV but mentation precludes extubation; likely will need trach/PEG if family wishes for aggressive treatment 2. BP control 3. DVT/GI PPx, TFs 4. F/u Echo 5. Anti-platelets added 6. Bowel regimen added; monitor 7. Per hospitalist, patient is now DNR/DNI and will co-sign order No family present during my evaluation CCT 31 minutes Subjective Date of service: 08/30/16 Principal diagnosis: Acute respiratory failure Interval history: No events. Comatose. Nonresponsive on ventilator. Tolerating PSV 01/05. BP stable. Not getting sedation. No BM. Active Medications Acetaminophen (Tylenol) 650 mg PO Q4H PRN PRN Reason: Pain MILD(1-3)/Fever >100.5/ALFARO Last Admin: 08/27/16 17:14 Dose: 650 mg Albuterol (Proventil) 2.5 mg IH Q6HRT PRN PRN Reason: Shortness Of Breath Last Admin: 08/26/16 13:36 Dose: 2.5 mg Amlodipine Besylate (Norvasc) 10 mg PO QDAY JERAMY Last Admin: 08/30/16 10:29 Dose: 10 mg Lipase/Protease/Amylase (Pancreaze Dr 10,500 Unit) 1 each FEEDTUBE PRN PRN PRN Reason: For Clogged Feeding Tube Aspirin (Aspirin) 325 mg PO QDAY JERAMY Last Admin: 08/30/16 11:54 Dose: 325 mg Bisacodyl (Dulcolax) 10 mg AR QDAY PRN PRN Reason: Constipation unrelieved by MOM Dextrose (D50w (25gm)) 50 ml IV PRN PRN PRN Reason: Hypoglycemia Heparin Sodium (Porcine) (Heparin) 5,000 unit SUB-Q Q8HR JERAMY Last Admin: 08/30/16 15:29 Dose: 5,000 unit Sodium Chloride (Nacl 0.9% 1000 Ml) 1,000 mls @ 100 mls/hr IV DIRECT JERAMY Last Admin: 08/30/16 06:29 Dose: 100 mls/hr Insulin Aspart (Novolog) 0 units SUB-Q Q6HR JERAMY PRN Reason: Protocol Last Admin: 08/30/16 11:54 Dose: 3 units Insulin Detemir (Levemir) 20 units SUB-Q DAILY [facility] Last Admin: 08/30/16 10:29 Dose: 20 units Labetalol HCl (Normodyne) 300 mg PO BID [facility] Last Admin: 08/30/16 10:29 Dose: 300 mg Labetalol HCl (Normodyne) 10 mg IV Q4H PRN PRN Reason: Blood Pressure SBP>185 Last Admin: 08/27/16 08:32 Dose: 10 mg Magnesium Hydroxide (Milk Of Magnesia) 30 ml PO Q4H PRN PRN Reason: Constipation Multi-Ingred Cream/Lotion/Oil/Oint (Artificial Tears Ophth Oint) 1 applic OU PRN PRN PRN Reason: Dry Eye(s) Last Admin: 08/30/16 10:30 Dose: 1 applic Ondansetron HCl (Zofran) 4 mg IV Q8H PRN PRN Reason: N/V unrelieved by Reglan Senna/Docusate Sodium (Senokot S) 2 tab PO QHS [facility] Simple Syrup (Simple Syrup) 15 ml FEEDTUBE PRN PRN PRN Reason: Hypoglycemia Last Admin: 08/28/16 06:05 Dose: 15 ml Simple Syrup (Simple Syrup) 30 ml FEEDTUBE PRN PRN PRN Reason: Hypoglycemia Objective Vital Signs - 12hr 08/30/16 08/30/16 08/30/16 03:41 04:00 04:04 Temperature 99.1 F Pulse Rate 82 82 Pulse Rate [ From Monitor] Respiratory 27 H 24 Rate Blood Pressure 153/85 151/85 O2 Sat by Pulse 93 95 Oximetry 08/30/16 08/30/16 08/30/16 04:30 05:00 05:30 Temperature Pulse Rate 80 81 Pulse Rate [ From Monitor] Respiratory 27 H 24 Rate Blood Pressure 153/85 148/84 151/84 O2 Sat by Pulse 96 96 96 Oximetry 08/30/16 08/30/16 08/30/16 06:00 06:30 07:00 Temperature Pulse Rate 81 81 82 Pulse Rate [ From Monitor] Respiratory 25 H 25 H 26 H Rate Blood Pressure 151/84 152/86 158/86 O2 Sat by Pulse 96 96 96 Oximetry 0508/30/16 08/30/16 07:30 08:00 08:27 Temperature 97.5 F L Pulse Rate 80 81 84 Pulse Rate [ 80 From Monitor] Respiratory 24 26 H 25 H Rate Blood Pressure 157/87 143/80 143/84 O2 Sat by Pulse 96 95 100 Oximetry 08/30/16 08/30/16 08/30/16 08:30 09:00 09:30 Temperature Pulse Rate 83 84 85 Pulse Rate [ From Monitor] Respiratory 28 H 27 H 22 Rate Blood Pressure 150/85 153/84 159/83 O2 Sat by Pulse 96 93 96 Oximetry 08/30/16 08/30/16 08/30/16 10:00 10:29 10:30 Temperature Pulse Rate 86 89 84 Pulse Rate [ From Monitor] Respiratory 29 H 22 Rate Blood Pressure 166/88 166/88 174/84 O2 Sat by Pulse 96 96 Oximetry 08/30/16 08/30/16 08/30/16 11:00 11:30 12:00 Temperature 97.7 F Pulse Rate 79 80 77 Pulse Rate [ From Monitor] Respiratory 25 H 30 H 24 Rate Blood Pressure 138/78 137/80 131/76 O2 Sat by Pulse 97 97 97 Oximetry 08/30/16 08/30/16 08/30/16 12:20 12:30 13:00 Temperature Pulse Rate 78 81 81 Pulse Rate [ From Monitor] Respiratory 26 H 24 28 H Rate Blood Pressure 131/76 131/76 140/79 O2 Sat by Pulse 97 95 95 Oximetry 08/30/16 08/30/16 08/30/16 13:30 14:00 14:30 Temperature Pulse Rate 80 80 79 Pulse Rate [ From Monitor] Respiratory 27 H 26 H 25 H Rate Blood Pressure 139/76 141/77 142/77 O2 Sat by Pulse 95 94 94 Oximetry 08/30/16 15:00 Temperature Pulse Rate 79 Pulse Rate [ From Monitor] Respiratory 23 Rate Blood Pressure 141/76 O2 Sat by Pulse 94 Oximetry Constitutional: comatose, other (critically ill on vent) Eyes: non-icteric ENT: other (orally intubated) Effort: normal Ascultation: Bilateral: clear Percussion: Bilateral: not dull Cardiovascular: regular rate and rhythm (no mrg) Gastrointestinal: normoactive bowel sounds, soft, non-distended Integumentary: normal Extremities: no cyanosis, no edema, other (bilateral AKA) Neurologic: other (moves RUE spontaneously, nothing purposeful) Psychiatric: other (not able to assess) CBC and BMP: 08/30/16 08:55 08/30/16 04:50 ABG, PT/INR, D-dimer: ABG POC ABG pH 7.483 (7.35-7.45) H 08/30/16 04:49 POC ABG pCO2 35.7 (35-45) 08/30/16 04:49 POC ABG pO2 67 (80-105) L 08/30/16 04:49 POC ABG HCO3 26.7 08/30/16 04:49 POC ABG Total CO2 28 08/30/16 04:49 POC ABG O2 Sat 94 08/30/16 04:49 PT/INR, D-dimer D-Dimer 1138.47 ng/mlDDU (0-234) H 08/24/16 03:23 Abnormal lab findings: Abnormal Labs 08/24/16 08/24/16 08/24/16 03:23 09:23 10:58 WBC RBC Hgb Hct MCV MCH MCHC RDW Lymph % (Auto) [place] % (Auto) Lymph # [place] # Seg Neutrophils % Seg Neutrophils # D-Dimer 1138.47 H POC ABG pH POC ABG pCO2 POC ABG pO2 Sodium Chloride Carbon Dioxide BUN Creatinine Glucose POC Glucose 410 H 392 H Calcium AST Total Creatine Kinase CK-MB (CK-2) Troponin T Total Protein Albumin HDL Cholesterol Urine Creatinine Urine Total Protein 08/24/16 08/24/16 08/24/16 13:02 13:44 17:29 WBC RBC Hgb Hct MCV MCH MCHC RDW Lymph % (Auto) [place] % (Auto) Lymph # [place] # Seg Neutrophils % Seg Neutrophils # D-Dimer POC ABG pH POC ABG pCO2 34.8 L POC ABG pO2 Sodium Chloride Carbon Dioxide BUN Creatinine 1.8 H Glucose 266 H POC Glucose 354 H Calcium AST Total Creatine Kinase CK-MB (CK-2) Troponin T Total Protein Albumin HDL Cholesterol Urine Creatinine Urine Total Protein 08/24/16 08/24/16 08/24/16 17:34 18:24 18:41 WBC RBC Hgb Hct MCV MCH MCHC RDW Lymph % (Auto) [place] % (Auto) Lymph # [place] # Seg Neutrophils % Seg Neutrophils # D-Dimer POC ABG pH POC ABG pCO2 POC ABG pO2 Sodium Chloride Carbon Dioxide 18 L BUN Creatinine 1.9 H Glucose 174 H POC Glucose 211 H 190 H Calcium 8.2 L AST Total Creatine Kinase CK-MB (CK-2) Troponin T Total Protein Albumin HDL Cholesterol Urine Creatinine Urine Total Protein 08/24/16 08/24/16 08/24/16 19:28 20:24 21:21 WBC RBC Hgb Hct MCV MCH MCHC RDW Lymph % (Auto) [place] % (Auto) Lymph # [place] # Seg Neutrophils % Seg Neutrophils # D-Dimer POC ABG pH POC ABG pCO2 POC ABG pO2 Sodium Chloride Carbon Dioxide BUN Creatinine Glucose POC Glucose 159 H 110 H 144 H Calcium AST Total Creatine Kinase CK-MB (CK-2) Troponin T Total Protein Albumin HDL Cholesterol Urine Creatinine Urine Total Protein 08/24/16 08/24/16 08/24/16 21:48 22:26 23:19 WBC RBC Hgb Hct MCV MCH MCHC RDW Lymph % (Auto) [place] % (Auto) Lymph # [place] # Seg Neutrophils % Seg Neutrophils # D-Dimer POC ABG pH POC ABG pCO2 POC ABG pO2 Sodium Chloride Carbon Dioxide 21 L BUN Creatinine 1.8 H Glucose 141 H POC Glucose 148 H 140 H Calcium 8.3 L AST Total Creatine Kinase CK-MB (CK-2) Troponin T Total Protein Albumin HDL Cholesterol Urine Creatinine Urine Total Protein 08/25/16 08/25/16 08/25/16 01:11 02:15 03:18 WBC RBC Hgb Hct MCV MCH MCHC RDW Lymph % (Auto) [place] % (Auto) Lymph # [place] # Seg Neutrophils % Seg Neutrophils # D-Dimer POC ABG pH POC ABG pCO2 POC ABG pO2 Sodium Chloride Carbon Dioxide BUN Creatinine Glucose POC Glucose 130 H 136 H 145 H Calcium AST Total Creatine Kinase CK-MB (CK-2) Troponin T Total Protein Albumin HDL Cholesterol Urine Creatinine Urine Total Protein 08/25/16 08/25/16 08/25/16 04:09 04:53 04:53 WBC 14.1 H RBC 5.36 H Hgb 9.9 L Hct 32.9 L MCV 61 L MCH 19 L MCHC 30 L RDW 17.5 H Lymph % (Auto) 8.0 L [place] % (Auto) 9.7 H Lymph # 1.1 L [place] # 1.4 H Seg Neutrophils % 82.2 H Seg Neutrophils # 11.6 H D-Dimer POC ABG pH POC ABG pCO2 POC ABG pO2 Sodium Chloride Carbon Dioxide 21 L BUN Creatinine 1.9 H Glucose 116 H POC Glucose 120 H Calcium 8.2 L AST Total Creatine Kinase CK-MB (CK-2) Troponin T Total Protein Albumin HDL Cholesterol Urine Creatinine Urine Total Protein 08/25/16 08/25/16 08/25/16 05:05 06:31 07:35 WBC RBC Hgb Hct MCV MCH MCHC RDW Lymph % (Auto) [place] % (Auto) Lymph # [place] # Seg Neutrophils % Seg Neutrophils # D-Dimer POC ABG pH POC ABG pCO2 POC ABG pO2 Sodium Chloride Carbon Dioxide BUN Creatinine Glucose POC Glucose 126 H 139 H 142 H Calcium AST Total Creatine Kinase CK-MB (CK-2) Troponin T Total Protein Albumin HDL Cholesterol Urine Creatinine Urine Total Protein 08/25/16 08/25/16 08/25/16 08:55 09:48 10:59 WBC RBC Hgb Hct MCV MCH MCHC RDW Lymph % (Auto) [place] % (Auto) Lymph # [place] # Seg Neutrophils % Seg Neutrophils # D-Dimer POC ABG pH POC ABG pCO2 POC ABG pO2 Sodium Chloride Carbon Dioxide BUN Creatinine Glucose POC Glucose 135 H 109 H 126 H Calcium AST Total Creatine Kinase CK-MB (CK-2) Troponin T Total Protein Albumin HDL Cholesterol Urine Creatinine Urine Total Protein 08/25/16 08/25/16 08/25/16 11:34 13:47 15:00 WBC RBC Hgb Hct MCV MCH MCHC RDW Lymph % (Auto) [place] % (Auto) Lymph # [place] # Seg Neutrophils % Seg Neutrophils # D-Dimer POC ABG pH POC ABG pCO2 32.8 L POC ABG pO2 108 H Sodium Chloride Carbon Dioxide 19 L BUN Creatinine 1.7 H Glucose 196 H POC Glucose Calcium 8.2 L AST Total Creatine Kinase CK-MB (CK-2) Troponin T Total Protein Albumin HDL Cholesterol Urine Creatinine 237.7 H Urine Total Protein 882 H 08/25/16 08/25/16 08/26/16 16:30 23:09 05:41 WBC RBC Hgb Hct MCV MCH MCHC RDW Lymph % (Auto) [place] % (Auto) Lymph # [place] # Seg Neutrophils % Seg Neutrophils # D-Dimer POC ABG pH POC ABG pCO2 POC ABG pO2 Sodium Chloride Carbon Dioxide BUN Creatinine Glucose POC Glucose 242 H 131 H 156 H Calcium AST Total Creatine Kinase CK-MB (CK-2) Troponin T Total Protein Albumin HDL Cholesterol Urine Creatinine Urine Total Protein 08/26/16 08/26/16 08/26/16 07:16 12:12 17:51 WBC RBC Hgb Hct MCV MCH MCHC RDW Lymph % (Auto) [place] % (Auto) Lymph # [place] # Seg Neutrophils % Seg Neutrophils # D-Dimer POC ABG pH POC ABG pCO2 POC ABG pO2 Sodium Chloride Carbon Dioxide 18 L BUN 26 H Creatinine 2.0 H Glucose 132 H POC Glucose 119 H 161 H Calcium 8.1 L AST 41 H Total Creatine Kinase CK-MB (CK-2) Troponin T Total Protein 5.5 L Albumin 2.7 L HDL Cholesterol Urine Creatinine Urine Total Protein 08/26/16 08/26/16 08/27/16 22:34 23:50 00:00 WBC 11.8 H RBC 5.29 H Hgb 10.0 L Hct 33.3 L MCV 63 L MCH 19 L MCHC 30 L RDW 17.4 H Lymph % (Auto) [place] % (Auto) 8.7 H Lymph # [place] # 1.0 H Seg Neutrophils % 72.6 H Seg Neutrophils # 8.6 H D-Dimer POC ABG pH POC ABG pCO2 POC ABG pO2 Sodium Chloride Carbon Dioxide BUN Creatinine Glucose POC Glucose 107 H 119 H Calcium AST Total Creatine Kinase CK-MB (CK-2) Troponin T Total Protein Albumin HDL Cholesterol Urine Creatinine Urine Total Protein 08/27/16 08/27/16 08/27/16 00:00 00:00 00:02 WBC RBC Hgb Hct MCV MCH MCHC RDW Lymph % (Auto) [place] % (Auto) Lymph # [place] # Seg Neutrophils % Seg Neutrophils # D-Dimer POC ABG pH POC ABG pCO2 POC ABG pO2 205 H Sodium 135 L Chloride 96.6 L Carbon Dioxide 16 L BUN 31 H Creatinine 2.2 H Glucose 154 H POC Glucose Calcium 7.8 L AST Total Creatine Kinase 1401 H CK-MB (CK-2) 13.6 H Troponin T 0.421 H* Total Protein Albumin HDL Cholesterol 78 H Urine Creatinine Urine Total Protein 08/27/16 08/27/16 08/27/16 00:37 03:22 04:08 WBC RBC Hgb Hct MCV MCH MCHC RDW Lymph % (Auto) [place] % (Auto) Lymph # [place] # Seg Neutrophils % Seg Neutrophils # D-Dimer POC ABG pH 7.467 H POC ABG pCO2 31.3 L POC ABG pO2 Sodium Chloride Carbon Dioxide BUN Creatinine Glucose POC Glucose 106 H Calcium AST Total Creatine Kinase 909 H CK-MB (CK-2) 9.3 H Troponin T Total Protein Albumin HDL Cholesterol Urine Creatinine Urine Total Protein 08/27/16 08/27/16 08/27/16 04:35 05:35 10:32 WBC RBC Hgb Hct MCV MCH MCHC RDW Lymph % (Auto) [place] % (Auto) Lymph # [place] # Seg Neutrophils % Seg Neutrophils # D-Dimer POC ABG pH POC ABG pCO2 POC ABG pO2 Sodium Chloride Carbon Dioxide BUN Creatinine Glucose POC Glucose 120 H 113 H Calcium AST Total Creatine Kinase 796 H CK-MB (CK-2) 6.3 H Troponin T Total Protein Albumin HDL Cholesterol Urine Creatinine Urine Total Protein 08/27/16 08/27/16 08/27/16 11:59 17:28 18:46 WBC RBC Hgb Hct MCV MCH MCHC RDW Lymph % (Auto) [place] % (Auto) Lymph # [place] # Seg Neutrophils % Seg Neutrophils # D-Dimer POC ABG pH POC ABG pCO2 POC ABG pO2 Sodium Chloride Carbon Dioxide BUN Creatinine Glucose POC Glucose 225 H 231 H Calcium AST Total Creatine Kinase CK-MB (CK-2) Troponin T 0.473 H* Total Protein Albumin HDL Cholesterol Urine Creatinine Urine Total Protein 08/27/16 08/28/16 08/28/16 23:32 03:39 03:39 WBC 11.5 H RBC Hgb 8.9 L Hct 28.8 L MCV 61 L MCH 19 L MCHC 31 L RDW 16.8 H Lymph % (Auto) [place] % (Auto) Lymph # [place] # Seg Neutrophils % Seg Neutrophils # D-Dimer POC ABG pH POC ABG pCO2 POC ABG pO2 Sodium 134 L Chloride 95.0 L Carbon Dioxide BUN 29 H Creatinine 1.9 H Glucose 66 L POC Glucose 110 H Calcium 7.5 L AST Total Creatine Kinase CK-MB (CK-2) Troponin T Total Protein Albumin HDL Cholesterol Urine Creatinine Urine Total Protein 08/28/16 08/28/16 08/28/16 04:45 05:25 06:48 WBC RBC Hgb Hct MCV MCH MCHC RDW Lymph % (Auto) [place] % (Auto) Lymph # [place] # Seg Neutrophils % Seg Neutrophils # D-Dimer POC ABG pH 7.554 H POC ABG pCO2 POC ABG pO2 108 H Sodium Chloride Carbon Dioxide BUN Creatinine Glucose POC Glucose 67 L 120 H Calcium AST Total Creatine Kinase CK-MB (CK-2) Troponin T Total Protein Albumin HDL Cholesterol Urine Creatinine Urine Total Protein 08/28/16 08/28/16 08/28/16 10:29 11:15 12:00 WBC RBC Hgb Hct MCV MCH MCHC RDW Lymph % (Auto) [place] % (Auto) Lymph # [place] # Seg Neutrophils % Seg Neutrophils # D-Dimer POC ABG pH 7.499 H POC ABG pCO2 POC ABG pO2 Sodium Chloride Carbon Dioxide BUN Creatinine Glucose POC Glucose 206 H 181 H Calcium AST Total Creatine Kinase CK-MB (CK-2) Troponin T Total Protein Albumin HDL Cholesterol Urine Creatinine Urine Total Protein 08/28/16 08/29/16 08/29/16 17:38 03:12 05:56 WBC RBC Hgb Hct MCV MCH MCHC RDW Lymph % (Auto) [place] % (Auto) Lymph # [place] # Seg Neutrophils % Seg Neutrophils # D-Dimer POC ABG pH 7.463 H POC ABG pCO2 POC ABG pO2 68 L Sodium 134 L Chloride 95.9 L Carbon Dioxide BUN 28 H Creatinine 1.8 H Glucose POC Glucose 140 H Calcium 7.4 L AST Total Creatine Kinase CK-MB (CK-2) Troponin T Total Protein Albumin HDL Cholesterol Urine Creatinine Urine Total Protein 08/29/16 08/29/16 08/29/16 11:52 17:43 23:21 WBC RBC Hgb Hct MCV MCH MCHC RDW Lymph % (Auto) [place] % (Auto) Lymph # [place] # Seg Neutrophils % Seg Neutrophils # D-Dimer POC ABG pH POC ABG pCO2 POC ABG pO2 Sodium Chloride Carbon Dioxide BUN Creatinine Glucose POC Glucose 174 H 187 H 208 H Calcium AST Total Creatine Kinase CK-MB (CK-2) Troponin T Total Protein Albumin HDL Cholesterol Urine Creatinine Urine Total Protein 08/30/16 08/30/16 08/30/16 04:49 04:50 05:30 WBC RBC Hgb Hct MCV MCH MCHC RDW Lymph % (Auto) [place] % (Auto) Lymph # [place] # Seg Neutrophils % Seg Neutrophils # D-Dimer POC ABG pH 7.483 H POC ABG pCO2 POC ABG pO2 67 L Sodium 135 L Chloride Carbon Dioxide BUN 35 H Creatinine 1.8 H Glucose 167 H POC Glucose 191 H Calcium 7.5 L AST Total Creatine Kinase CK-MB (CK-2) Troponin T Total Protein Albumin HDL Cholesterol Urine Creatinine Urine Total Protein 08/30/16 08/30/16 08:55 11:39 WBC 15.0 H RBC Hgb 8.6 L Hct 27.5 L MCV 61 L MCH 19 L MCHC 31 L RDW 16.6 H Lymph % (Auto) 7.8 L [place] % (Auto) 10.4 H Lymph # [place] # 1.6 H Seg Neutrophils % 80.9 H Seg Neutrophils # 12.2 H D-Dimer POC ABG pH POC ABG pCO2 POC ABG pO2 Sodium Chloride Carbon Dioxide BUN Creatinine Glucose POC Glucose 195 H Calcium AST Total Creatine Kinase CK-MB (CK-2) Troponin T Total Protein Albumin HDL Cholesterol Urine Creatinine Urine Total Protein Chest x-ray: report reviewed, image reviewed (increasing L pleural effusion)
[2016-08-30] MEDS: SENOKOT S PO SCH (22:34)
[2016-08-31] MEDS: NACL 0.9% 1000 ML 1,000 ML IV SCH ×2 (00:33→13:12)
[2016-08-31] MEDS: NOVOLOG SUB-Q SCH ×4 (00:34→17:36)
[2016-08-31] MEDS: HEPARIN SUB-Q SCH ×3 (06:18→21:59)
--- NOTE | 2016-08-31 07:55 | Progress Note ---
Assessment and Plan Assessment and plan: --Acute hypoxic hypercapnic respiratory failure/mechanical ventilation more than 96 hrs Continue ventilatory support, current management Pulmonary following, unable to wean, patient may need trach and PEG placement DO NOT RESUSCITATE status, family considering withdrawal of care/hospice --Status post PEA cardiac arrest With anoxic encephalopathy, continue supportive care, poor prognosis --Anoxic encephalopathy; supportive care --Aspiration pneumonia; secondary to altered level of consciousness, CVA Continue current antibiotics, follow cultures, pulmonary following --Acute massive CVA; Patient is unresponsive poor prognosis, supportive care --malignant hypertension Moderate control, continue current antihypertensives and when necessary medications --Acute renal failure; secondary to ATN Closely monitor renal function, avoid nephrotoxic medications, nephrology following --Status post bilateral lower extremity amputation --DO NOT RESUSCITATE status --Poor prognosis Family considering withdrawal of care , hospice DC planning. Case management , home with hospice when set up and when the decision is made by family Plan of care discussed with his nurse and the case management History Interval history: Patient seen and evaluated medical records reviewed Clinically no change noted, orally intubated on ventilatory support Unresponsive Vital signs reviewed Hospitalist Physical - Constitutional Vitals: Temp Pulse Resp BP Pulse Ox 99.9 F H 89 26 H 160/79 97 08/31/16 04:00 08/31/16 06:00 08/31/16 06:00 08/31/16 06:00 08/31/16 06:00 General appearance: Present: no acute distress, other (not responsive, orally intubated on ventilator support) - Neck Neck: Present: supple, other (ET tube and Dobbhoff in place) - Respiratory Respiratory effort: normal Respiratory: bilateral: diminished, rhonchi, negative: rales, wheezing - Cardiovascular Rhythm: regular Heart Sounds: Present: S1 & S2 - Extremities Extremities: no ischemia, pulses intact, pulses symmetrical - Abdominal General gastrointestinal: soft, non-tender, non-distended, normal bowel sounds - Integumentary Integumentary: Present: clear, warm - Psychiatric Psychiatric: other (noncommunicative) - Neurologic Neurologic: other (unresponsive) Results - Labs CBC & Chem 7: 08/31/16 08:02 08/31/16 08:02 Labs: Laboratory Last Values WBC 15.0 K/mm3 (4.5-11.0) H 08/30/16 08:55 RBC 4.54 M/mm3 (3.65-5.03) 08/30/16 08:55 Hgb 8.6 gm/dl (11.8-15.2) L 08/30/16 08:55 Hct 27.5 % (35.5-45.6) L 08/30/16 08:55 MCV 61 fl (84-94) L 08/30/16 08:55 MCH 19 pg (28-32) L 08/30/16 08:55 MCHC 31 % (32-34) L 08/30/16 08:55 RDW 16.6 % (13.2-15.2) H 08/30/16 08:55 Plt Count 187 K/mm3 (140-440) 08/30/16 08:55 Lymph % (Auto) 7.8 % (13.4-35.0) L 08/30/16 08:55 [place] % (Auto) 10.4 % (0.0-7.3) H 08/30/16 08:55 Eos % (Auto) 0.5 % (0.0-4.3) 08/30/16 08:55 Baso % (Auto) 0.4 % (0.0-1.8) 08/30/16 08:55 Lymph # 1.2 K/mm3 (1.2-5.4) 08/30/16 08:55 [place] # 1.6 K/mm3 (0.0-0.8) H 08/30/16 08:55 Eos # 0.1 K/mm3 (0.0-0.4) 08/30/16 08:55 Baso # 0.1 K/mm3 (0.0-0.1) 08/30/16 08:55 Seg Neutrophils % 80.9 % (40.0-70.0) H 08/30/16 08:55 Seg Neutrophils # 12.2 K/mm3 (1.8-7.7) H 08/30/16 08:55 D-Dimer 1138.47 ng/mlDDU (0-234) H 08/24/16 03:23 POC ABG pH 7.483 (7.35-7.45) H 08/30/16 04:49 POC ABG pCO2 35.7 (35-45) 08/30/16 04:49 POC ABG pO2 67 (80-105) L 08/30/16 04:49 POC ABG HCO3 26.7 08/30/16 04:49 POC ABG Total CO2 28 08/30/16 04:49 POC ABG O2 Sat 94 08/30/16 04:49 POC ABG Base Excess 3 08/30/16 04:49 FiO2 30 % 08/30/16 04:49 Sodium 135 mmol/L (137-145) L 08/30/16 04:50 Potassium 4.1 mmol/L (3.6-5.0) 08/30/16 04:50 Chloride 98.6 mmol/L (98-107) 08/30/16 04:50 Carbon Dioxide 24 mmol/L (22-30) 08/30/16 04:50 Anion Gap 17 mmol/L 08/30/16 04:50 BUN 35 mg/dL (9-20) H 08/30/16 04:50 Creatinine 1.8 mg/dL (0.8-1.5) H 08/30/16 04:50 Estimated GFR 47 ml/min 08/30/16 04:50 BUN/Creatinine Ratio 19.44 % 08/30/16 04:50 Glucose 167 mg/dL (75-100) H 08/30/16 04:50 POC Glucose 155 (70-105) H 08/31/16 05:37 Lactic Acid 1.80 mmol/L (0.7-2.0) 08/25/16 13:47 Calcium 7.5 mg/dL (8.4-10.2) L 08/30/16 04:50 Phosphorus 3.60 mg/dL (2.5-4.5) 08/30/16 04:50 Magnesium 2.20 mg/dL (1.7-2.3) 08/30/16 04:50 Total Bilirubin 0.90 mg/dL (0.1-1.2) 08/26/16 07:16 AST 41 units/L (5-40) H 08/26/16 07:16 ALT 17 units/L (7-56) 08/26/16 07:16 Alkaline Phosphatase 97 units/L (35-129) 08/26/16 07:16 Ammonia 46.0 umol/L (25-60) 08/24/16 01:44 Total Creatine Kinase 796 units/L (55-170) H 08/27/16 10:32 CK-MB (CK-2) 6.3 ng/mL (0.0-4.0) H 08/27/16 10:32 CK-MB (CK-2) Rel Index 0.7 (0-4) 08/27/16 10:32 Troponin T 0.473 ng/mL (0.00-0.029) H* 08/27/16 18:46 Total Protein 5.5 g/dL (6.3-8.2) L 08/26/16 07:16 Albumin 2.7 g/dL (3.9-5) L 08/26/16 07:16 Albumin/Globulin Ratio 1.0 % 08/26/16 07:16 Triglycerides 68 mg/dL (2-149) 08/27/16 00:00 Cholesterol 182 mg/dL (50-199) 08/27/16 00:00 LDL Cholesterol Direct 70 mg/dL (50-130) 08/30/16 09:01 HDL Cholesterol 78 mg/dL (40-59) H 08/27/16 00:00 Cholesterol/HDL Ratio 2.33 % 08/27/16 00:00 TSH 3.080 mlU/mL (0.270-4.200) 08/23/16 23:35 Urine Color Yellow (Yellow) 08/24/16 00:40 Urine Turbidity Clear (Clear) 08/24/16 00:40 Urine pH 6.0 (5.0-7.0) 08/24/16 00:40 Ur Specific [place] 1.022 (1.003-1.030) 08/24/16 00:40 Urine Protein >500 mg/dL (Negative) 08/24/16 00:40 Urine Glucose (UA) >=500 mg/dL (Negative) 08/24/16 00:40 Urine Ketones Neg mg/dL (Negative) 08/24/16 00:40 Urine Blood Mod (Negative) 08/24/16 00:40 Urine Nitrite Neg (Negative) 08/24/16 00:40 Urine Bilirubin Neg (Negative) 08/24/16 00:40 Urine Urobilinogen < 2.0 mg/dL (<2.0) 08/24/16 00:40 Ur Leukocyte Esterase Neg (Negative) 08/24/16 00:40 Urine WBC (Auto) 1.0 /HPF (0.0-6.0) 08/24/16 00:40 Urine RBC (Auto) 5.0 /HPF (0.0-6.0) 08/24/16 00:40 Urine Bacteria (Auto) 2+ /HPF (Negative) 08/24/16 00:40 Urine Creatinine 237.7 mg/dL (0.1-20.0) H 08/25/16 15:00 Protein/Creatinin Ratio 3.71 08/25/16 15:00 Urine Sodium 10 mEq/L 08/25/16 15:00 Urine Total Protein 882 mg/dL (5-11.8) H 08/25/16 15:00 Salicylates < 0.3 mg/dL (2.8-20.0) L 08/23/16 23:35 Urine Opiates Screen Presumptive negative 08/24/16 00:40 Urine Methadone Screen Presumptive negative 08/24/16 00:40 Acetaminophen < 15.0 ug/mL (10.0-30.0) 08/23/16 23:35 Ur Barbiturates Screen Presumptive negative 08/24/16 00:40 Ur Phencyclidine Scrn Presumptive negative 08/24/16 00:40 Ur Amphetamines Screen Presumptive negative 08/24/16 00:40 U Benzodiazepines Scrn Presumptive negative 08/24/16 00:40 Urine Cocaine Screen Presumptive negative 08/24/16 00:40 U Marijuana (THC) Screen Presumptive negative 08/24/16 00:40 Drugs of Abuse Note Disclamer 08/24/16 00:40 Plasma/Serum Alcohol < 0.01 gm% (0-0.07) 08/23/16 23:35
[2016-08-31 08:22] LABS: Hematocrit 27.4 % (35.5-45.6); Hemoglobin 8.5 gm/dl (11.8-15.2); Mean Corpuscular HGB Conc 31 % (32-34); Platelet Count 280 K/mm3 (140-440); Red Blood Count 4.51 M/mm3 (3.65-5.03); Red Cell Distribution Width 16.4 % (13.2-15.2); White Blood Count 14.7 K/mm3 (4.5-11.0)
[2016-08-31 08:26] LABS: Mean Corpuscular Hemoglobin 19 pg (28-32); Mean Corpuscular Volume 61 fl (84-94)
[2016-08-31 08:36] LABS: BUN/Creatinine Ratio 21.76; Calcium 7.7 mg/dL (8.4-10.2); Chloride 100.7 mmol/L (98-107); Potassium 4.5 mmol/L (3.6-5.0)
--- NOTE | 2016-08-31 08:50 | XRay Report ---
AP CHEST :08/31/16 CLINICAL: Intubated.Follow up respiratory failure. COMPARISON:Previous day. FINDINGS: The endotracheal tube is in satisfactory position. The feeding tube is satisfactory. Cardiomegaly and central vascular congestion. The pulmonary vessels are less distinct on the prior exam and there is increased diffuse opacity of the lung shepherd. The greatest opacification is in the left lower lobe with silhouetting of the diaphragm and opacification of the left costophrenic angle. No pneumothorax. IMPRESSION: Increased haziness of the lung shepherd consistent with either bilateral pleural effusions or multilobar airspace disease.
[2016-08-31] MEDS: NORVASC PO SCH (09:46)
[2016-08-31] MEDS: ASPIRIN PO SCH (09:47)
[2016-08-31] MEDS: NORMODYNE PO SCH ×2 (09:47→22:00)
[2016-08-31] MEDS: LEVEMIR SUB-Q SCH (09:47)
--- NOTE | 2016-08-31 10:45 | Discharge Summary ---
Providers - Providers Date of Admission: 08/24/16 03:22 Attending physician: JULIA DHILLON 08/24/16 03:54 Consult to Physician [CONS] Routine Consulting Provider: BETY PEREZ Reason For Exam: resp failure Place consult to:: DR. PEREZ Notified:: OFFICE Phone number called:: [phone] Was contact made?: Yes If yes, spoke with:: JULIANA Time called:: 09:15 08/24/16 13:09 Consult to Physician [CONS] Routine Consulting Provider: BETY PEREZ Reason For Exam: ICU admission Place consult to:: DR. PEREZ Notified:: OFFICE Phone number called:: [phone] Was contact made?: Yes If yes, spoke with:: MITCHELL Time called:: 13:30 08/25/16 10:24 Consult to Dietitian/Nutrition [CONS] Routine Physician Instructions: Reason For Exam: Reason for Consult: Write/Manage Tube Feeding 08/25/16 10:26 Consult to Physician [CONS] Routine Consulting Provider: KATHERYN HEBERT Reason For Exam: ALANNAH Place consult to:: dr Chong Notified:: yes Phone number called:: [phone] Was contact made?: Yes If yes, spoke with:: Office Time called:: 10:55 08/26/16 11:29 Consult to Physician [CONS] Routine Consulting Provider: ROMAN PEREZ Reason For Exam: AMS Place consult to:: Dr Perez via Nora Osborne Notified:: Nora Osborne Phone number called:: [phone] Was contact made?: Yes If yes, spoke with:: Nora QuanTemplate message Time called:: 11:32 08/30/16 15:35 Consult to Case Management [CONS] Stat Services Needed at Discharge: Other Notified:: Kavita Was contact made?: Yes Time called:: 15:36 Additional Physician Instructions: Admit & Evaluate for Home Hospice Primary care physician: UNDERPRESSER HAND Hospitalization Condition: Stable Disposition: STILL A PATIENT Exam - Constitutional Vitals: Temp Pulse Resp BP Pulse Ox 99.9 F H 94 H 26 H 165/86 96 08/31/16 08:00 08/31/16 10:00 08/31/16 10:00 08/31/16 10:00 08/31/16 10:00 Plan Follow up with: PRIMARY CARE, [Primary Care Provider] - 3-5 Days
--- NOTE | 2016-08-31 11:20 | Progress Note ---
Assessment and Plan 55 YO Male with HTN, DM, stroke unclear details/residual deficits, PVD s/p b/l AKA wheelchair bound, Renal Failure presents to ED for evaluation 08/23 after falling from chair and unable to get up. Iniitial Dx hypertensive emergency but MRI Brain obtained 08/27 revealed large acute L MCA/ELIANE stroke. EEG 08/24 mild to mod nonspecific diffuse cerebral dysfunction but no IEDs/Sz. On 08/26 11 PM pt had PEA arrest s/p ACLS. He has not received TH or sedation. On exam pt has intact upper brainstem reflexes and slight RUE withdrawal to pain so he does not formally meet AAN criteria for definite poor neurologic prognosis(, unconsciousness after one month, or unconsciousness or severe disability after six months). However considering baseline Hx and new L MCA stroke pt will likely need continuous nursing care for an indefinite period with Trach/PEG. CDs/TTE neg. LDL 70. Plan and Recommendation: 1. No indication for pharmacologic thrombolysis with IV tPA or mechanical thrombectomy due to last known normal > 6 hrs from presentation. Current NIHSS 31 . 2. Telemetry bed w/ Q4 hour neuro checks 3. 30 day ambulatory Tele monitor ? pAFib 4. Autoregulate SBP to goal 120-160 as pt is outside permissive HTN window. 5. Secondary stroke prevention: ASA 325mg Daily & upgrade to full dose statin therapy (Crestor 20mg or 40mg OR Lipitor 40mg or 80mg Daily OR Zocor 40mg QDay) for goal LDL < 70. No firm indication at this point for therapeutic anticoagulation as pt has not had AFib captured on telemetry monitoring. 6. F/E/N: isotonic IVF prn, prn replete, bedside speech/swallow eval prior to PO intake-likely will need PEG 7. DVT Prophylaxis 8. Stroke education, PT/OT/Speech Therapy consults, CM evaluation 9. For any changes in neurologic status, pls obtain STAT CTH w/o contrast and call neurology 10. We can revisit as needed. Subjective Date of service: 08/31/16 Principal diagnosis: Acute respiratory failure Interval history: no change. Objective - Vital Sign Vital Signs - 12hr 08/30/16 08/30/16 08/31/16 23:30 23:54 00:00 Temperature 100.0 F H Pulse Rate 80 80 76 Respiratory 27 H 16 Rate Blood Pressure 165/87 147/85 139/82 O2 Sat by Pulse 95 96 96 Oximetry 08/31/16 08/31/16 08/31/16 00:14 00:30 01:00 Temperature Pulse Rate 80 81 79 Respiratory 24 24 27 H Rate Blood Pressure 139/82 149/88 152/88 O2 Sat by Pulse 96 97 96 Oximetry 08/31/16 08/31/16 08/31/16 01:30 02:00 02:30 Temperature Pulse Rate 79 81 82 Respiratory 26 H 27 H 25 H Rate Blood Pressure 147/86 158/87 152/85 O2 Sat by Pulse 96 97 99 Oximetry 08/31/16 08/31/16 08/31/16 03:00 03:30 04:00 Temperature 99.9 F H Pulse Rate 83 87 83 Respiratory 24 24 Rate Blood Pressure 151/85 147/78 147/72 O2 Sat by Pulse 99 98 97 Oximetry 08/31/16 08/31/16 08/31/16 04:30 04:40 05:00 Temperature Pulse Rate 83 86 84 Respiratory 18 22 Rate Blood Pressure 148/79 148/79 152/80 O2 Sat by Pulse 97 97 96 Oximetry 08/31/16 08/31/16 08/31/16 05:30 06:00 06:30 Temperature Pulse Rate 87 89 90 Respiratory 23 26 H 26 H Rate Blood Pressure 164/80 160/79 165/82 O2 Sat by Pulse 97 97 97 Oximetry 08/31/16 08/31/16 08/31/16 07:00 07:30 08:00 Temperature 99.9 F H Pulse Rate 90 91 H 95 H Respiratory 25 H 27 H 25 H Rate Blood Pressure 163/81 171/82 171/82 O2 Sat by Pulse 95 96 96 Oximetry 08/31/16 08/31/16 08/31/16 08:05 08:30 09:00 Temperature Pulse Rate 99 H 96 H 97 H Respiratory 23 27 H 27 H Rate Blood Pressure 171/85 167/87 178/89 O2 Sat by Pulse 96 96 96 Oximetry 08/31/16 08/31/16 08/31/16 09:30 09:37 09:46 Temperature Pulse Rate 97 H 95 H 99 H Respiratory 24 Rate Blood Pressure 171/85 171/82 171/85 O2 Sat by Pulse 96 96 Oximetry 08/31/16 08/31/16 09:47 10:00 Temperature Pulse Rate 99 H 94 H Respiratory 26 H Rate Blood Pressure 171/85 165/86 O2 Sat by Pulse 96 Oximetry - General Apperance Constitutional: acutely ill, chronically ill - EENT EENT: ATNC, PERRL - Respiratory Respiratory: chest non-tender, no respiratory distress, decreased breath sounds - Cardiovascular Cardiovascular: regular rate Extremities: no clubbing, cyanosis, no inflammation - Gastrointestinal Gastrointestinal: soft, non-distended - Integumentary Integumentary: normal - Neurologic Cranial nerve examination: PERRL, face symmetric, Intact Vestibulo-ocular r, intact corneal reflex Speech examination: other (no speech) Detailed motor examination: other (RUE 1-2/5 withdrawal and LUE 0-1/5 and LE no movement) Detailed sensory examination: intact, pain - Musculoskeletal Musculoskeletal: no fluid collection, no pain, normal range of motion - Laboratory Findings CBC and BMP: 08/31/16 08:02 08/31/16 08:02 Abnormal Lab Findings: Abnormal Labs 08/24/16 08/24/16 08/24/16 03:23 09:23 10:58 WBC RBC Hgb Hct MCV MCH MCHC RDW Lymph % (Auto) Cannon % (Auto) Lymph # Cannon # Seg Neutrophils % Seg Neutrophils # D-Dimer 1138.47 H POC ABG pH POC ABG pCO2 POC ABG pO2 Sodium Chloride Carbon Dioxide BUN Creatinine Glucose POC Glucose 410 H 392 H Calcium AST Total Creatine Kinase CK-MB (CK-2) Troponin T Total Protein Albumin HDL Cholesterol Urine Creatinine Urine Total Protein 08/24/16 08/24/16 08/24/16 13:02 13:44 17:29 WBC RBC Hgb Hct MCV MCH MCHC RDW Lymph % (Auto) Cannon % (Auto) Lymph # Cannon # Seg Neutrophils % Seg Neutrophils # D-Dimer POC ABG pH POC ABG pCO2 34.8 L POC ABG pO2 Sodium Chloride Carbon Dioxide BUN Creatinine 1.8 H Glucose 266 H POC Glucose 354 H Calcium AST Total Creatine Kinase CK-MB (CK-2) Troponin T Total Protein Albumin HDL Cholesterol Urine Creatinine Urine Total Protein 08/24/16 08/24/16 08/24/16 17:34 18:24 18:41 WBC RBC Hgb Hct MCV MCH MCHC RDW Lymph % (Auto) Cannon % (Auto) Lymph # Cannon # Seg Neutrophils % Seg Neutrophils # D-Dimer POC ABG pH POC ABG pCO2 POC ABG pO2 Sodium Chloride Carbon Dioxide 18 L BUN Creatinine 1.9 H Glucose 174 H POC Glucose 211 H 190 H Calcium 8.2 L AST Total Creatine Kinase CK-MB (CK-2) Troponin T Total Protein Albumin HDL Cholesterol Urine Creatinine Urine Total Protein 08/24/16 08/24/16 08/24/16 19:28 20:24 21:21 WBC RBC Hgb Hct MCV MCH MCHC RDW Lymph % (Auto) Cannon % (Auto) Lymph # Cannon # Seg Neutrophils % Seg Neutrophils # D-Dimer POC ABG pH POC ABG pCO2 POC ABG pO2 Sodium Chloride Carbon Dioxide BUN Creatinine Glucose POC Glucose 159 H 110 H 144 H Calcium AST Total Creatine Kinase CK-MB (CK-2) Troponin T Total Protein Albumin HDL Cholesterol Urine Creatinine Urine Total Protein 08/24/16 08/24/16 08/24/16 21:48 22:26 23:19 WBC RBC Hgb Hct MCV MCH MCHC RDW Lymph % (Auto) Cannon % (Auto) Lymph # Cannon # Seg Neutrophils % Seg Neutrophils # D-Dimer POC ABG pH POC ABG pCO2 POC ABG pO2 Sodium Chloride Carbon Dioxide 21 L BUN Creatinine 1.8 H Glucose 141 H POC Glucose 148 H 140 H Calcium 8.3 L AST Total Creatine Kinase CK-MB (CK-2) Troponin T Total Protein Albumin HDL Cholesterol Urine Creatinine Urine Total Protein 08/25/16 08/25/16 08/25/16 01:11 02:15 03:18 WBC RBC Hgb Hct MCV MCH MCHC RDW Lymph % (Auto) Cannon % (Auto) Lymph # Cannon # Seg Neutrophils % Seg Neutrophils # D-Dimer POC ABG pH POC ABG pCO2 POC ABG pO2 Sodium Chloride Carbon Dioxide BUN Creatinine Glucose POC Glucose 130 H 136 H 145 H Calcium AST Total Creatine Kinase CK-MB (CK-2) Troponin T Total Protein Albumin HDL Cholesterol Urine Creatinine Urine Total Protein 08/25/16 08/25/16 08/25/16 04:09 04:53 04:53 WBC 14.1 H RBC 5.36 H Hgb 9.9 L Hct 32.9 L MCV 61 L MCH 19 L MCHC 30 L RDW 17.5 H Lymph % (Auto) 8.0 L Cannon % (Auto) 9.7 H Lymph # 1.1 L Cannon # 1.4 H Seg Neutrophils % 82.2 H Seg Neutrophils # 11.6 H D-Dimer POC ABG pH POC ABG pCO2 POC ABG pO2 Sodium Chloride Carbon Dioxide 21 L BUN Creatinine 1.9 H Glucose 116 H POC Glucose 120 H Calcium 8.2 L AST Total Creatine Kinase CK-MB (CK-2) Troponin T Total Protein Albumin HDL Cholesterol Urine Creatinine Urine Total Protein 08/25/16 08/25/16 08/25/16 05:05 06:31 07:35 WBC RBC Hgb Hct MCV MCH MCHC RDW Lymph % (Auto) Cannon % (Auto) Lymph # Cannon # Seg Neutrophils % Seg Neutrophils # D-Dimer POC ABG pH POC ABG pCO2 POC ABG pO2 Sodium Chloride Carbon Dioxide BUN Creatinine Glucose POC Glucose 126 H 139 H 142 H Calcium AST Total Creatine Kinase CK-MB (CK-2) Troponin T Total Protein Albumin HDL Cholesterol Urine Creatinine Urine Total Protein 08/25/16 08/25/16 08/25/16 08:55 09:48 10:59 WBC RBC Hgb Hct MCV MCH MCHC RDW Lymph % (Auto) Cannon % (Auto) Lymph # Cannon # Seg Neutrophils % Seg Neutrophils # D-Dimer POC ABG pH POC ABG pCO2 POC ABG pO2 Sodium Chloride Carbon Dioxide BUN Creatinine Glucose POC Glucose 135 H 109 H 126 H Calcium AST Total Creatine Kinase CK-MB (CK-2) Troponin T Total Protein Albumin HDL Cholesterol Urine Creatinine Urine Total Protein 08/25/16 08/25/16 08/25/16 11:34 13:47 15:00 WBC RBC Hgb Hct MCV MCH MCHC RDW Lymph % (Auto) Cannon % (Auto) Lymph # Cannon # Seg Neutrophils % Seg Neutrophils # D-Dimer POC ABG pH POC ABG pCO2 32.8 L POC ABG pO2 108 H Sodium Chloride Carbon Dioxide 19 L BUN Creatinine 1.7 H Glucose 196 H POC Glucose Calcium 8.2 L AST Total Creatine Kinase CK-MB (CK-2) Troponin T Total Protein Albumin HDL Cholesterol Urine Creatinine 237.7 H Urine Total Protein 882 H 08/25/16 08/25/16 08/26/16 16:30 23:09 05:41 WBC RBC Hgb Hct MCV MCH MCHC RDW Lymph % (Auto) Cannon % (Auto) Lymph # Cannon # Seg Neutrophils % Seg Neutrophils # D-Dimer POC ABG pH POC ABG pCO2 POC ABG pO2 Sodium Chloride Carbon Dioxide BUN Creatinine Glucose POC Glucose 242 H 131 H 156 H Calcium AST Total Creatine Kinase CK-MB (CK-2) Troponin T Total Protein Albumin HDL Cholesterol Urine Creatinine Urine Total Protein 08/26/16 08/26/16 08/26/16 07:16 12:12 17:51 WBC RBC Hgb Hct MCV MCH MCHC RDW Lymph % (Auto) Cannon % (Auto) Lymph # Cannon # Seg Neutrophils % Seg Neutrophils # D-Dimer POC ABG pH POC ABG pCO2 POC ABG pO2 Sodium Chloride Carbon Dioxide 18 L BUN 26 H Creatinine 2.0 H Glucose 132 H POC Glucose 119 H 161 H Calcium 8.1 L AST 41 H Total Creatine Kinase CK-MB (CK-2) Troponin T Total Protein 5.5 L Albumin 2.7 L HDL Cholesterol Urine Creatinine Urine Total Protein 08/26/16 08/26/16 08/27/16 22:34 23:50 00:00 WBC 11.8 H RBC 5.29 H Hgb 10.0 L Hct 33.3 L MCV 63 L MCH 19 L MCHC 30 L RDW 17.4 H Lymph % (Auto) Cannon % (Auto) 8.7 H Lymph # Cannon # 1.0 H Seg Neutrophils % 72.6 H Seg Neutrophils # 8.6 H D-Dimer POC ABG pH POC ABG pCO2 POC ABG pO2 Sodium Chloride Carbon Dioxide BUN Creatinine Glucose POC Glucose 107 H 119 H Calcium AST Total Creatine Kinase CK-MB (CK-2) Troponin T Total Protein Albumin HDL Cholesterol Urine Creatinine Urine Total Protein 08/27/16 08/27/16 08/27/16 00:00 00:00 00:02 WBC RBC Hgb Hct MCV MCH MCHC RDW Lymph % (Auto) Cannon % (Auto) Lymph # Cannon # Seg Neutrophils % Seg Neutrophils # D-Dimer POC ABG pH POC ABG pCO2 POC ABG pO2 205 H Sodium 135 L Chloride 96.6 L Carbon Dioxide 16 L BUN 31 H Creatinine 2.2 H Glucose 154 H POC Glucose Calcium 7.8 L AST Total Creatine Kinase 1401 H CK-MB (CK-2) 13.6 H Troponin T 0.421 H* Total Protein Albumin HDL Cholesterol 78 H Urine Creatinine Urine Total Protein 08/27/16 08/27/16 08/27/16 00:37 03:22 04:08 WBC RBC Hgb Hct MCV MCH MCHC RDW Lymph % (Auto) Cannon % (Auto) Lymph # Cannon # Seg Neutrophils % Seg Neutrophils # D-Dimer POC ABG pH 7.467 H POC ABG pCO2 31.3 L POC ABG pO2 Sodium Chloride Carbon Dioxide BUN Creatinine Glucose POC Glucose 106 H Calcium AST Total Creatine Kinase 909 H CK-MB (CK-2) 9.3 H Troponin T Total Protein Albumin HDL Cholesterol Urine Creatinine Urine Total Protein 08/27/16 08/27/16 08/27/16 04:35 05:35 10:32 WBC RBC Hgb Hct MCV MCH MCHC RDW Lymph % (Auto) Cannon % (Auto) Lymph # Cannon # Seg Neutrophils % Seg Neutrophils # D-Dimer POC ABG pH POC ABG pCO2 POC ABG pO2 Sodium Chloride Carbon Dioxide BUN Creatinine Glucose POC Glucose 120 H 113 H Calcium AST Total Creatine Kinase 796 H CK-MB (CK-2) 6.3 H Troponin T Total Protein Albumin HDL Cholesterol Urine Creatinine Urine Total Protein 08/27/16 08/27/16 08/27/16 11:59 17:28 18:46 WBC RBC Hgb Hct MCV MCH MCHC RDW Lymph % (Auto) Cannon % (Auto) Lymph # Cannon # Seg Neutrophils % Seg Neutrophils # D-Dimer POC ABG pH POC ABG pCO2 POC ABG pO2 Sodium Chloride Carbon Dioxide BUN Creatinine Glucose POC Glucose 225 H 231 H Calcium AST Total Creatine Kinase CK-MB (CK-2) Troponin T 0.473 H* Total Protein Albumin HDL Cholesterol Urine Creatinine Urine Total Protein 08/27/16 08/28/16 08/28/16 23:32 03:39 03:39 WBC 11.5 H RBC Hgb 8.9 L Hct 28.8 L MCV 61 L MCH 19 L MCHC 31 L RDW 16.8 H Lymph % (Auto) Cannon % (Auto) Lymph # Cannon # Seg Neutrophils % Seg Neutrophils # D-Dimer POC ABG pH POC ABG pCO2 POC ABG pO2 Sodium 134 L Chloride 95.0 L Carbon Dioxide BUN 29 H Creatinine 1.9 H Glucose 66 L POC Glucose 110 H Calcium 7.5 L AST Total Creatine Kinase CK-MB (CK-2) Troponin T Total Protein Albumin HDL Cholesterol Urine Creatinine Urine Total Protein 08/28/16 08/28/16 08/28/16 04:45 05:25 06:48 WBC RBC Hgb Hct MCV MCH MCHC RDW Lymph % (Auto) Cannon % (Auto) Lymph # Cannon # Seg Neutrophils % Seg Neutrophils # D-Dimer POC ABG pH 7.554 H POC ABG pCO2 POC ABG pO2 108 H Sodium Chloride Carbon Dioxide BUN Creatinine Glucose POC Glucose 67 L 120 H Calcium AST Total Creatine Kinase CK-MB (CK-2) Troponin T Total Protein Albumin HDL Cholesterol Urine Creatinine Urine Total Protein 08/28/16 08/28/16 08/28/16 10:29 11:15 12:00 WBC RBC Hgb Hct MCV MCH MCHC RDW Lymph % (Auto) Cannon % (Auto) Lymph # Cannon # Seg Neutrophils % Seg Neutrophils # D-Dimer POC ABG pH 7.499 H POC ABG pCO2 POC ABG pO2 Sodium Chloride Carbon Dioxide BUN Creatinine Glucose POC Glucose 206 H 181 H Calcium AST Total Creatine Kinase CK-MB (CK-2) Troponin T Total Protein Albumin HDL Cholesterol Urine Creatinine Urine Total Protein 08/28/16 08/29/16 08/29/16 17:38 03:12 05:56 WBC RBC Hgb Hct MCV MCH MCHC RDW Lymph % (Auto) Cannon % (Auto) Lymph # Cannon # Seg Neutrophils % Seg Neutrophils # D-Dimer POC ABG pH 7.463 H POC ABG pCO2 POC ABG pO2 68 L Sodium 134 L Chloride 95.9 L Carbon Dioxide BUN 28 H Creatinine 1.8 H Glucose POC Glucose 140 H Calcium 7.4 L AST Total Creatine Kinase CK-MB (CK-2) Troponin T Total Protein Albumin HDL Cholesterol Urine Creatinine Urine Total Protein 08/29/16 08/29/16 08/29/16 11:52 17:43 23:21 WBC RBC Hgb Hct MCV MCH MCHC RDW Lymph % (Auto) Cannon % (Auto) Lymph # Cannon # Seg Neutrophils % Seg Neutrophils # D-Dimer POC ABG pH POC ABG pCO2 POC ABG pO2 Sodium Chloride Carbon Dioxide BUN Creatinine Glucose POC Glucose 174 H 187 H 208 H Calcium AST Total Creatine Kinase CK-MB (CK-2) Troponin T Total Protein Albumin HDL Cholesterol Urine Creatinine Urine Total Protein 08/30/16 08/30/16 08/30/16 04:49 04:50 05:30 WBC RBC Hgb Hct MCV MCH MCHC RDW Lymph % (Auto) Cannon % (Auto) Lymph # Cannon # Seg Neutrophils % Seg Neutrophils # D-Dimer POC ABG pH 7.483 H POC ABG pCO2 POC ABG pO2 67 L Sodium 135 L Chloride Carbon Dioxide BUN 35 H Creatinine 1.8 H Glucose 167 H POC Glucose 191 H Calcium 7.5 L AST Total Creatine Kinase CK-MB (CK-2) Troponin T Total Protein Albumin HDL Cholesterol Urine Creatinine Urine Total Protein 08/30/16 08/30/16 08/30/16 08:55 11:39 17:18 WBC 15.0 H RBC Hgb 8.6 L Hct 27.5 L MCV 61 L MCH 19 L MCHC 31 L RDW 16.6 H Lymph % (Auto) 7.8 L Cannon % (Auto) 10.4 H Lymph # Cannon # 1.6 H Seg Neutrophils % 80.9 H Seg Neutrophils # 12.2 H D-Dimer POC ABG pH POC ABG pCO2 POC ABG pO2 Sodium Chloride Carbon Dioxide BUN Creatinine Glucose POC Glucose 195 H 147 H Calcium AST Total Creatine Kinase CK-MB (CK-2) Troponin T Total Protein Albumin HDL Cholesterol Urine Creatinine Urine Total Protein 08/30/16 08/31/16 08/31/16 23:19 05:37 08:02 WBC 14.7 H RBC Hgb 8.5 L Hct 27.4 L MCV 61 L MCH 19 L MCHC 31 L RDW 16.4 H Lymph % (Auto) Cannon % (Auto) Lymph # Cannon # Seg Neutrophils % Seg Neutrophils # D-Dimer POC ABG pH POC ABG pCO2 POC ABG pO2 Sodium Chloride Carbon Dioxide BUN Creatinine Glucose POC Glucose 143 H 155 H Calcium AST Total Creatine Kinase CK-MB (CK-2) Troponin T Total Protein Albumin HDL Cholesterol Urine Creatinine Urine Total Protein 08/31/16 08:02 WBC RBC Hgb Hct MCV MCH MCHC RDW Lymph % (Auto) Cannon % (Auto) Lymph # Cannon # Seg Neutrophils % Seg Neutrophils # D-Dimer POC ABG pH POC ABG pCO2 POC ABG pO2 Sodium 136 L Chloride Carbon Dioxide BUN 37 H Creatinine 1.7 H Glucose 153 H POC Glucose Calcium 7.7 L AST Total Creatine Kinase CK-MB (CK-2) Troponin T Total Protein Albumin HDL Cholesterol Urine Creatinine Urine Total Protein
--- NOTE | 2016-08-31 13:34 | Progress Note ---
Assessment and Plan 1. S/p Cardiopulm Arrest - Intubated & on vent, Mx per pulm. Remains unresponsive 2. HTN - F/u on meds 3. ALANNAH/ATN - F/u BUN/Cr. Hold IVF & f/u 4. Lytes - F/u labs 5. CVA - Large Acute infarct per MRI. F/u per Neuro Subjective Date of service: 08/31/16 Principal diagnosis: Acute respiratory failure Interval history: No change in clinical status. Remains on vent & still unresponsive Objective - Vital Signs Vital signs: Vital Signs - 12hr 08/31/16 08/31/16 08/31/16 02:00 02:30 03:00 Temperature Pulse Rate 81 82 83 Respiratory 27 H 25 H 24 Rate Blood Pressure 158/87 152/85 151/85 O2 Sat by Pulse 97 99 99 Oximetry 08/31/16 08/31/16 08/31/16 03:30 04:00 04:30 Temperature 99.9 F H Pulse Rate 87 83 83 Respiratory 24 18 Rate Blood Pressure 147/78 147/72 148/79 O2 Sat by Pulse 98 97 97 Oximetry 08/31/16 08/31/16 08/31/16 04:40 05:00 05:30 Temperature Pulse Rate 86 84 87 Respiratory 22 23 Rate Blood Pressure 148/79 152/80 164/80 O2 Sat by Pulse 97 96 97 Oximetry 08/31/16 08/31/16 08/31/16 06:00 06:30 07:00 Temperature Pulse Rate 89 90 90 Respiratory 26 H 26 H 25 H Rate Blood Pressure 160/79 165/82 163/81 O2 Sat by Pulse 97 97 95 Oximetry 08/31/16 08/31/16 08/31/16 07:30 08:00 08:05 Temperature 99.9 F H Pulse Rate 91 H 95 H 99 H Respiratory 27 H 25 H 23 Rate Blood Pressure 171/82 171/82 171/85 O2 Sat by Pulse 96 96 96 Oximetry 08/31/16 08/31/16 08/31/16 08:30 09:00 09:30 Temperature Pulse Rate 96 H 97 H 97 H Respiratory 27 H 27 H 24 Rate Blood Pressure 167/87 178/89 171/85 O2 Sat by Pulse 96 96 96 Oximetry 08/31/16 08/31/16 08/31/16 09:37 09:46 09:47 Temperature Pulse Rate 95 H 99 H 99 H Respiratory Rate Blood Pressure 171/82 171/85 171/85 O2 Sat by Pulse 96 Oximetry 08/31/16 08/31/16 08/31/16 10:00 10:30 11:00 Temperature Pulse Rate 94 H 87 81 Respiratory 26 H 28 H 24 Rate Blood Pressure 165/86 135/71 128/66 O2 Sat by Pulse 96 97 97 Oximetry 08/31/16 08/31/16 11:30 12:00 Temperature 99.2 F Pulse Rate 83 82 Respiratory 28 H 24 Rate Blood Pressure 126/70 133/70 O2 Sat by Pulse 97 97 Oximetry - General Appearance General appearance: intubated Neurologic: obtunded - Lab 08/31/16 08:02 08/31/16 08:02 Most recent lab results Calcium 7.7 mg/dL (8.4-10.2) L 08/31/16 08:02 Phosphorus 3.60 mg/dL (2.5-4.5) 08/30/16 04:50 Magnesium 2.20 mg/dL (1.7-2.3) 08/30/16 04:50 Urine Creatinine 237.7 mg/dL (0.1-20.0) H 08/25/16 15:00 Urine Sodium 10 mEq/L 08/25/16 15:00 Urine Total Protein 882 mg/dL (5-11.8) H 08/25/16 15:00
--- NOTE | 2016-08-31 14:11 | Progress Note ---
Assessment and Plan Imp: 1. Large Acute CVA 2. Malignant HTN related to #1 3. S/p CP arrest 4. Anoxic encephalopathy 5. ALANNAH 6. Acute respiratory failure, hypoxia 7. Constipation 8. 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 Can cont. PSV but mentation precludes extubation; will need trach/PEG if family wishes for aggressive treatment 2. BP control 3. DVT/GI PPx, TFs; agree w/ d/c IVFs 4. Anti-platelets added 5. Bowel regimen added; monitor 6. AND but family wants to hold off on hospice for now No family present during my evaluation CCT 31 minutes Subjective Date of service: 08/31/16 Principal diagnosis: Acute respiratory failure Interval history: No events. Comatose. Nonresponsive on ventilator. Tolerating PSV 10/5. BP stable. Not getting sedation. Active Medications Acetaminophen (Tylenol) 650 mg PO Q4H PRN PRN Reason: Pain MILD(1-3)/Fever >100.5/ALFARO Last Admin: 08/27/16 17:14 Dose: 650 mg Albuterol (Proventil) 2.5 mg IH Q6HRT PRN PRN Reason: Shortness Of Breath Last Admin: 08/26/16 13:36 Dose: 2.5 mg Amlodipine Besylate (Norvasc) 10 mg PO QDAY [facility] Last Admin: 08/31/16 09:46 Dose: 10 mg Lipase/Protease/Amylase (Pancreaze Dr 10,500 Unit) 1 each FEEDTUBE PRN PRN PRN Reason: For Clogged Feeding Tube Aspirin (Aspirin) 325 mg PO QDAY [facility] Last Admin: 08/31/16 09:47 Dose: 325 mg Bisacodyl (Dulcolax) 10 mg [place] QDAY PRN PRN Reason: Constipation unrelieved by MOM Dextrose (D50w (25gm)) 50 ml IV PRN PRN PRN Reason: Hypoglycemia Heparin Sodium (Porcine) (Heparin) 5,000 unit SUB-Q Q8HR [facility] Last Admin: 08/31/16 06:18 Dose: 5,000 unit Insulin Aspart (Novolog) 0 units SUB-Q Q6HR JERAMY PRN Reason: Protocol Last Admin: 08/31/16 13:12 Dose: 3 units Insulin Detemir (Levemir) 20 units SUB-Q DAILY [facility] Last Admin: 08/31/16 09:47 Dose: 20 units Labetalol HCl (Normodyne) 300 mg PO BID [facility] Last Admin: 08/31/16 09:47 Dose: 300 mg Labetalol HCl (Normodyne) 10 mg IV Q4H PRN PRN Reason: Blood Pressure SBP>185 Last Admin: 08/27/16 08:32 Dose: 10 mg Magnesium Hydroxide (Milk Of Magnesia) 30 ml PO Q4H PRN PRN Reason: Constipation Multi-Ingred Cream/Lotion/Oil/Oint (Artificial Tears Ophth Oint) 1 applic OU PRN PRN PRN Reason: Dry Eye(s) Last Admin: 08/30/16 10:30 Dose: 1 applic Ondansetron HCl (Zofran) 4 mg IV Q8H PRN PRN Reason: N/V unrelieved by Reglan Senna/Docusate Sodium (Senokot S) 2 tab PO QHS [facility] Last Admin: 08/30/16 22:34 Dose: 2 tab Simple Syrup (Simple Syrup) 15 ml FEEDTUBE PRN PRN PRN Reason: Hypoglycemia Last Admin: 08/28/16 06:05 Dose: 15 ml Simple Syrup (Simple Syrup) 30 ml FEEDTUBE PRN PRN PRN Reason: Hypoglycemia Objective Vital Signs - 12hr 08/31/16 08/31/16 08/31/16 02:30 03:00 03:30 Temperature Pulse Rate 82 83 87 Respiratory 25 H 24 Rate Blood Pressure 152/85 151/85 147/78 O2 Sat by Pulse 99 99 98 Oximetry 08/31/16 08/31/16 08/31/16 04:00 04:30 04:40 Temperature 99.9 F H Pulse Rate 83 83 86 Respiratory 24 18 Rate Blood Pressure 147/72 148/79 148/79 O2 Sat by Pulse 97 97 97 Oximetry 08/31/16 08/31/16 08/31/16 05:00 05:30 06:00 Temperature Pulse Rate 84 87 89 Respiratory 22 23 26 H Rate Blood Pressure 152/80 164/80 160/79 O2 Sat by Pulse 96 97 97 Oximetry 08/31/16 08/31/16 08/31/16 06:30 07:00 07:30 Temperature Pulse Rate 90 90 91 H Respiratory 26 H 25 H 27 H Rate Blood Pressure 165/82 163/81 171/82 O2 Sat by Pulse 97 95 96 Oximetry 08/31/16 08/31/16 08/31/16 08:00 08:05 08:30 Temperature 99.9 F H Pulse Rate 95 H 99 H 96 H Respiratory 25 H 23 27 H Rate Blood Pressure 171/82 171/85 167/87 O2 Sat by Pulse 96 96 96 Oximetry 08/31/16 08/31/16 08/31/16 09:00 09:30 09:37 Temperature Pulse Rate 97 H 97 H 95 H Respiratory 27 H 24 Rate Blood Pressure 178/89 171/85 171/82 O2 Sat by Pulse 96 96 96 Oximetry 08/31/16 08/31/16 08/31/16 09:46 09:47 10:00 Temperature Pulse Rate 99 H 99 H 94 H Respiratory 26 H Rate Blood Pressure 171/85 171/85 165/86 O2 Sat by Pulse 96 Oximetry 08/31/16 08/31/16 08/31/16 10:30 11:00 11:30 Temperature Pulse Rate 87 81 83 Respiratory 28 H 24 28 H Rate Blood Pressure 135/71 128/66 126/70 O2 Sat by Pulse 97 97 97 Oximetry 08/31/16 08/31/16 12:00 12:12 Temperature 99.2 F Pulse Rate 82 82 Respiratory 24 24 Rate Blood Pressure 133/70 133/70 O2 Sat by Pulse 97 97 Oximetry Constitutional: comatose, other (critically ill on vent, diaphoretic) Eyes: non-icteric ENT: other (orally intubated) Effort: normal Ascultation: Bilateral: clear Cardiovascular: regular rate and rhythm (no mrg) Gastrointestinal: soft, non-distended Integumentary: normal Extremities: no cyanosis, no edema, other (bilateral AKA) Neurologic: other (moves RUE spontaneously, nothing purposeful, minimal opening of eyes but not tracking) Psychiatric: other (not able to assess) CBC and BMP: 08/31/16 08:02 08/31/16 08:02 ABG, PT/INR, D-dimer: ABG POC ABG pH 7.483 (7.35-7.45) H 08/30/16 04:49 POC ABG pCO2 35.7 (35-45) 08/30/16 04:49 POC ABG pO2 67 (80-105) L 08/30/16 04:49 POC ABG HCO3 26.7 08/30/16 04:49 POC ABG Total CO2 28 08/30/16 04:49 POC ABG O2 Sat 94 08/30/16 04:49 PT/INR, D-dimer D-Dimer 1138.47 ng/mlDDU (0-234) H 08/24/16 03:23 Abnormal lab findings: Abnormal Labs 08/24/16 08/24/16 08/24/16 03:23 09:23 10:58 WBC RBC Hgb Hct MCV MCH MCHC RDW Lymph % (Auto) [place] % (Auto) Lymph # [place] # Seg Neutrophils % Seg Neutrophils # D-Dimer 1138.47 H POC ABG pH POC ABG pCO2 POC ABG pO2 Sodium Chloride Carbon Dioxide BUN Creatinine Glucose POC Glucose 410 H 392 H Calcium AST Total Creatine Kinase CK-MB (CK-2) Troponin T Total Protein Albumin HDL Cholesterol Urine Creatinine Urine Total Protein 08/24/16 08/24/16 08/24/16 13:02 13:44 17:29 WBC RBC Hgb Hct MCV MCH MCHC RDW Lymph % (Auto) [place] % (Auto) Lymph # [place] # Seg Neutrophils % Seg Neutrophils # D-Dimer POC ABG pH POC ABG pCO2 34.8 L POC ABG pO2 Sodium Chloride Carbon Dioxide BUN Creatinine 1.8 H Glucose 266 H POC Glucose 354 H Calcium AST Total Creatine Kinase CK-MB (CK-2) Troponin T Total Protein Albumin HDL Cholesterol Urine Creatinine Urine Total Protein 08/24/16 08/24/16 08/24/16 17:34 18:24 18:41 WBC RBC Hgb Hct MCV MCH MCHC RDW Lymph % (Auto) [place] % (Auto) Lymph # [place] # Seg Neutrophils % Seg Neutrophils # D-Dimer POC ABG pH POC ABG pCO2 POC ABG pO2 Sodium Chloride Carbon Dioxide 18 L BUN Creatinine 1.9 H Glucose 174 H POC Glucose 211 H 190 H Calcium 8.2 L AST Total Creatine Kinase CK-MB (CK-2) Troponin T Total Protein Albumin HDL Cholesterol Urine Creatinine Urine Total Protein 08/24/16 08/24/16 08/24/16 19:28 20:24 21:21 WBC RBC Hgb Hct MCV MCH MCHC RDW Lymph % (Auto) [place] % (Auto) Lymph # [place] # Seg Neutrophils % Seg Neutrophils # D-Dimer POC ABG pH POC ABG pCO2 POC ABG pO2 Sodium Chloride Carbon Dioxide BUN Creatinine Glucose POC Glucose 159 H 110 H 144 H Calcium AST Total Creatine Kinase CK-MB (CK-2) Troponin T Total Protein Albumin HDL Cholesterol Urine Creatinine Urine Total Protein 08/24/16 08/24/16 08/24/16 21:48 22:26 23:19 WBC RBC Hgb Hct MCV MCH MCHC RDW Lymph % (Auto) [place] % (Auto) Lymph # [place] # Seg Neutrophils % Seg Neutrophils # D-Dimer POC ABG pH POC ABG pCO2 POC ABG pO2 Sodium Chloride Carbon Dioxide 21 L BUN Creatinine 1.8 H Glucose 141 H POC Glucose 148 H 140 H Calcium 8.3 L AST Total Creatine Kinase CK-MB (CK-2) Troponin T Total Protein Albumin HDL Cholesterol Urine Creatinine Urine Total Protein 08/25/16 08/25/16 08/25/16 01:11 02:15 03:18 WBC RBC Hgb Hct MCV MCH MCHC RDW Lymph % (Auto) [place] % (Auto) Lymph # [place] # Seg Neutrophils % Seg Neutrophils # D-Dimer POC ABG pH POC ABG pCO2 POC ABG pO2 Sodium Chloride Carbon Dioxide BUN Creatinine Glucose POC Glucose 130 H 136 H 145 H Calcium AST Total Creatine Kinase CK-MB (CK-2) Troponin T Total Protein Albumin HDL Cholesterol Urine Creatinine Urine Total Protein 08/25/16 08/25/16 08/25/16 04:09 04:53 04:53 WBC 14.1 H RBC 5.36 H Hgb 9.9 L Hct 32.9 L MCV 61 L MCH 19 L MCHC 30 L RDW 17.5 H Lymph % (Auto) 8.0 L [place] % (Auto) 9.7 H Lymph # 1.1 L [place] # 1.4 H Seg Neutrophils % 82.2 H Seg Neutrophils # 11.6 H D-Dimer POC ABG pH POC ABG pCO2 POC ABG pO2 Sodium Chloride Carbon Dioxide 21 L BUN Creatinine 1.9 H Glucose 116 H POC Glucose 120 H Calcium 8.2 L AST Total Creatine Kinase CK-MB (CK-2) Troponin T Total Protein Albumin HDL Cholesterol Urine Creatinine Urine Total Protein 08/25/16 08/25/16 08/25/16 05:05 06:31 07:35 WBC RBC Hgb Hct MCV MCH MCHC RDW Lymph % (Auto) [place] % (Auto) Lymph # [place] # Seg Neutrophils % Seg Neutrophils # D-Dimer POC ABG pH POC ABG pCO2 POC ABG pO2 Sodium Chloride Carbon Dioxide BUN Creatinine Glucose POC Glucose 126 H 139 H 142 H Calcium AST Total Creatine Kinase CK-MB (CK-2) Troponin T Total Protein Albumin HDL Cholesterol Urine Creatinine Urine Total Protein 08/25/16 08/25/16 08/25/16 08:55 09:48 10:59 WBC RBC Hgb Hct MCV MCH MCHC RDW Lymph % (Auto) [place] % (Auto) Lymph # [place] # Seg Neutrophils % Seg Neutrophils # D-Dimer POC ABG pH POC ABG pCO2 POC ABG pO2 Sodium Chloride Carbon Dioxide BUN Creatinine Glucose POC Glucose 135 H 109 H 126 H Calcium AST Total Creatine Kinase CK-MB (CK-2) Troponin T Total Protein Albumin HDL Cholesterol Urine Creatinine Urine Total Protein 08/25/16 08/25/16 08/25/16 11:34 13:47 15:00 WBC RBC Hgb Hct MCV MCH MCHC RDW Lymph % (Auto) [place] % (Auto) Lymph # [place] # Seg Neutrophils % Seg Neutrophils # D-Dimer POC ABG pH POC ABG pCO2 32.8 L POC ABG pO2 108 H Sodium Chloride Carbon Dioxide 19 L BUN Creatinine 1.7 H Glucose 196 H POC Glucose Calcium 8.2 L AST Total Creatine Kinase CK-MB (CK-2) Troponin T Total Protein Albumin HDL Cholesterol Urine Creatinine 237.7 H Urine Total Protein 882 H 08/25/16 08/25/16 08/26/16 16:30 23:09 05:41 WBC RBC Hgb Hct MCV MCH MCHC RDW Lymph % (Auto) [place] % (Auto) Lymph # [place] # Seg Neutrophils % Seg Neutrophils # D-Dimer POC ABG pH POC ABG pCO2 POC ABG pO2 Sodium Chloride Carbon Dioxide BUN Creatinine Glucose POC Glucose 242 H 131 H 156 H Calcium AST Total Creatine Kinase CK-MB (CK-2) Troponin T Total Protein Albumin HDL Cholesterol Urine Creatinine Urine Total Protein 08/26/16 08/26/16 08/26/16 07:16 12:12 17:51 WBC RBC Hgb Hct MCV MCH MCHC RDW Lymph % (Auto) [place] % (Auto) Lymph # [place] # Seg Neutrophils % Seg Neutrophils # D-Dimer POC ABG pH POC ABG pCO2 POC ABG pO2 Sodium Chloride Carbon Dioxide 18 L BUN 26 H Creatinine 2.0 H Glucose 132 H POC Glucose 119 H 161 H Calcium 8.1 L AST 41 H Total Creatine Kinase CK-MB (CK-2) Troponin T Total Protein 5.5 L Albumin 2.7 L HDL Cholesterol Urine Creatinine Urine Total Protein 08/26/16 08/26/16 08/27/16 22:34 23:50 00:00 WBC 11.8 H RBC 5.29 H Hgb 10.0 L Hct 33.3 L MCV 63 L MCH 19 L MCHC 30 L RDW 17.4 H Lymph % (Auto) [place] % (Auto) 8.7 H Lymph # [place] # 1.0 H Seg Neutrophils % 72.6 H Seg Neutrophils # 8.6 H D-Dimer POC ABG pH POC ABG pCO2 POC ABG pO2 Sodium Chloride Carbon Dioxide BUN Creatinine Glucose POC Glucose 107 H 119 H Calcium AST Total Creatine Kinase CK-MB (CK-2) Troponin T Total Protein Albumin HDL Cholesterol Urine Creatinine Urine Total Protein 08/27/16 08/27/16 08/27/16 00:00 00:00 00:02 WBC RBC Hgb Hct MCV MCH MCHC RDW Lymph % (Auto) [place] % (Auto) Lymph # [place] # Seg Neutrophils % Seg Neutrophils # D-Dimer POC ABG pH POC ABG pCO2 POC ABG pO2 205 H Sodium 135 L Chloride 96.6 L Carbon Dioxide 16 L BUN 31 H Creatinine 2.2 H Glucose 154 H POC Glucose Calcium 7.8 L AST Total Creatine Kinase 1401 H CK-MB (CK-2) 13.6 H Troponin T 0.421 H* Total Protein Albumin HDL Cholesterol 78 H Urine Creatinine Urine Total Protein 08/27/16 08/27/16 08/27/16 00:37 03:22 04:08 WBC RBC Hgb Hct MCV MCH MCHC RDW Lymph % (Auto) [place] % (Auto) Lymph # [place] # Seg Neutrophils % Seg Neutrophils # D-Dimer POC ABG pH 7.467 H POC ABG pCO2 31.3 L POC ABG pO2 Sodium Chloride Carbon Dioxide BUN Creatinine Glucose POC Glucose 106 H Calcium AST Total Creatine Kinase 909 H CK-MB (CK-2) 9.3 H Troponin T Total Protein Albumin HDL Cholesterol Urine Creatinine Urine Total Protein 08/27/16 08/27/16 08/27/16 04:35 05:35 10:32 WBC RBC Hgb Hct MCV MCH MCHC RDW Lymph % (Auto) [place] % (Auto) Lymph # [place] # Seg Neutrophils % Seg Neutrophils # D-Dimer POC ABG pH POC ABG pCO2 POC ABG pO2 Sodium Chloride Carbon Dioxide BUN Creatinine Glucose POC Glucose 120 H 113 H Calcium AST Total Creatine Kinase 796 H CK-MB (CK-2) 6.3 H Troponin T Total Protein Albumin HDL Cholesterol Urine Creatinine Urine Total Protein 08/27/16 08/27/16 08/27/16 11:59 17:28 18:46 WBC RBC Hgb Hct MCV MCH MCHC RDW Lymph % (Auto) [place] % (Auto) Lymph # [place] # Seg Neutrophils % Seg Neutrophils # D-Dimer POC ABG pH POC ABG pCO2 POC ABG pO2 Sodium Chloride Carbon Dioxide BUN Creatinine Glucose POC Glucose 225 H 231 H Calcium AST Total Creatine Kinase CK-MB (CK-2) Troponin T 0.473 H* Total Protein Albumin HDL Cholesterol Urine Creatinine Urine Total Protein 08/27/16 08/28/16 08/28/16 23:32 03:39 03:39 WBC 11.5 H RBC Hgb 8.9 L Hct 28.8 L MCV 61 L MCH 19 L MCHC 31 L RDW 16.8 H Lymph % (Auto) [place] % (Auto) Lymph # [place] # Seg Neutrophils % Seg Neutrophils # D-Dimer POC ABG pH POC ABG pCO2 POC ABG pO2 Sodium 134 L Chloride 95.0 L Carbon Dioxide BUN 29 H Creatinine 1.9 H Glucose 66 L POC Glucose 110 H Calcium 7.5 L AST Total Creatine Kinase CK-MB (CK-2) Troponin T Total Protein Albumin HDL Cholesterol Urine Creatinine Urine Total Protein 08/28/16 08/28/16 08/28/16 04:45 05:25 06:48 WBC RBC Hgb Hct MCV MCH MCHC RDW Lymph % (Auto) [place] % (Auto) Lymph # [place] # Seg Neutrophils % Seg Neutrophils # D-Dimer POC ABG pH 7.554 H POC ABG pCO2 POC ABG pO2 108 H Sodium Chloride Carbon Dioxide BUN Creatinine Glucose POC Glucose 67 L 120 H Calcium AST Total Creatine Kinase CK-MB (CK-2) Troponin T Total Protein Albumin HDL Cholesterol Urine Creatinine Urine Total Protein 08/28/16 08/28/16 08/28/16 10:29 11:15 12:00 WBC RBC Hgb Hct MCV MCH MCHC RDW Lymph % (Auto) [place] % (Auto) Lymph # [place] # Seg Neutrophils % Seg Neutrophils # D-Dimer POC ABG pH 7.499 H POC ABG pCO2 POC ABG pO2 Sodium Chloride Carbon Dioxide BUN Creatinine Glucose POC Glucose 206 H 181 H Calcium AST Total Creatine Kinase CK-MB (CK-2) Troponin T Total Protein Albumin HDL Cholesterol Urine Creatinine Urine Total Protein 08/28/16 08/29/16 08/29/16 17:38 03:12 05:56 WBC RBC Hgb Hct MCV MCH MCHC RDW Lymph % (Auto) [place] % (Auto) Lymph # [place] # Seg Neutrophils % Seg Neutrophils # D-Dimer POC ABG pH 7.463 H POC ABG pCO2 POC ABG pO2 68 L Sodium 134 L Chloride 95.9 L Carbon Dioxide BUN 28 H Creatinine 1.8 H Glucose POC Glucose 140 H Calcium 7.4 L AST Total Creatine Kinase CK-MB (CK-2) Troponin T Total Protein Albumin HDL Cholesterol Urine Creatinine Urine Total Protein 08/29/16 08/29/16 08/29/16 11:52 17:43 23:21 WBC RBC Hgb Hct MCV MCH MCHC RDW Lymph % (Auto) [place] % (Auto) Lymph # [place] # Seg Neutrophils % Seg Neutrophils # D-Dimer POC ABG pH POC ABG pCO2 POC ABG pO2 Sodium Chloride Carbon Dioxide BUN Creatinine Glucose POC Glucose 174 H 187 H 208 H Calcium AST Total Creatine Kinase CK-MB (CK-2) Troponin T Total Protein Albumin HDL Cholesterol Urine Creatinine Urine Total Protein 08/30/16 08/30/16 08/30/16 04:49 04:50 05:30 WBC RBC Hgb Hct MCV MCH MCHC RDW Lymph % (Auto) [place] % (Auto) Lymph # [place] # Seg Neutrophils % Seg Neutrophils # D-Dimer POC ABG pH 7.483 H POC ABG pCO2 POC ABG pO2 67 L Sodium 135 L Chloride Carbon Dioxide BUN 35 H Creatinine 1.8 H Glucose 167 H POC Glucose 191 H Calcium 7.5 L AST Total Creatine Kinase CK-MB (CK-2) Troponin T Total Protein Albumin HDL Cholesterol Urine Creatinine Urine Total Protein 08/30/16 08/30/16 08/30/16 08:55 11:39 17:18 WBC 15.0 H RBC Hgb 8.6 L Hct 27.5 L MCV 61 L MCH 19 L MCHC 31 L RDW 16.6 H Lymph % (Auto) 7.8 L [place] % (Auto) 10.4 H Lymph # [place] # 1.6 H Seg Neutrophils % 80.9 H Seg Neutrophils # 12.2 H D-Dimer POC ABG pH POC ABG pCO2 POC ABG pO2 Sodium Chloride Carbon Dioxide BUN Creatinine Glucose POC Glucose 195 H 147 H Calcium AST Total Creatine Kinase CK-MB (CK-2) Troponin T Total Protein Albumin HDL Cholesterol Urine Creatinine Urine Total Protein 08/30/16 08/31/16 08/31/16 23:19 05:37 08:02 WBC 14.7 H RBC Hgb 8.5 L Hct 27.4 L MCV 61 L MCH 19 L MCHC 31 L RDW 16.4 H Lymph % (Auto) [place] % (Auto) Lymph # [place] # Seg Neutrophils % Seg Neutrophils # D-Dimer POC ABG pH POC ABG pCO2 POC ABG pO2 Sodium Chloride Carbon Dioxide BUN Creatinine Glucose POC Glucose 143 H 155 H Calcium AST Total Creatine Kinase CK-MB (CK-2) Troponin T Total Protein Albumin HDL Cholesterol Urine Creatinine Urine Total Protein 08/31/16 08/31/16 08:02 11:42 WBC RBC Hgb Hct MCV MCH MCHC RDW Lymph % (Auto) [place] % (Auto) Lymph # [place] # Seg Neutrophils % Seg Neutrophils # D-Dimer POC ABG pH POC ABG pCO2 POC ABG pO2 Sodium 136 L Chloride Carbon Dioxide BUN 37 H Creatinine 1.7 H Glucose 153 H POC Glucose 195 H Calcium 7.7 L AST Total Creatine Kinase CK-MB (CK-2) Troponin T Total Protein Albumin HDL Cholesterol Urine Creatinine Urine Total Protein Chest x-ray: report reviewed, image reviewed (no change)
[2016-08-31] MEDS: SENOKOT S PO SCH (22:00)
[2016-08-31] MEDS: ARTIFICIAL TEARS OPHTH OINT OU PRN (22:03)
[2016-09-01] MEDS: NOVOLOG SUB-Q SCH ×4 (00:26→17:34)
[2016-09-01] MEDS: HEPARIN SUB-Q SCH ×3 (05:36→21:24)
[2016-09-01 06:43] LABS: Hematocrit 26.6 % (35.5-45.6); Hemoglobin 8.2 gm/dl (11.8-15.2); Mean Corpuscular HGB Conc 31 % (32-34); Platelet Count 319 K/mm3 (140-440); Red Cell Distribution Width 16.7 % (13.2-15.2); White Blood Count 15.8 K/mm3 (4.5-11.0)
[2016-09-01 06:45] LABS: Mean Corpuscular Hemoglobin 19 pg (28-32); Mean Corpuscular Volume 61 fl (84-94)
[2016-09-01 07:09] LABS: Albumin 2.2 g/dL (3.9-5); Albumin/Globulin Ratio 0.9 %; BUN/Creatinine Ratio 21.5; Bilirubin,Total 2.1 mg/dL (0.1-1.2); Calcium 7.8 mg/dL (8.4-10.2); Chloride 100.7 mmol/L (98-107); Magnesium 2.4 mg/dL (1.7-2.3); Potassium 4.5 mmol/L (3.6-5.0); Total Protein 4.7 g/dL (6.3-8.2)
[2016-09-01 08:02] LABS: Anisocytosis 2+; Basophils % (Manual) 0 % (0.0-1.8); Blastocytes % (Manual) 0 %; Giant Platelets Rare; Large Platelets 1+; Poikilocytosis 2+
[2016-09-01 08:03] LABS: Hypochromasia 2+; Microcytosis 2+; Polychromasia Few; Schistocytes Rare; Target Cells 1+; Tear Drop Cells 1+
[2016-09-01 08:04] LABS: Diff Status Complete; Platelet Estimate Cons
--- NOTE | 2016-09-01 08:54 | XRay Report ---
CHEST 1 VIEW INDICATION: Respiratory failure followup. COMPARISON: Yesterday. FINDINGS: Portable, frontal chest radiograph, 2:23 AM, 09/01/2016 reveals stable cardiomediastinal silhouette, supporting devices, appearance of the lungs and osseous structures, providing for the difference in technique. CONCLUSION: No significant interval change in bilateral pulmonary congestive haziness and left retrocardiac opacity. Thank you for the opportunity to participate in this patient's care.
[2016-09-01] MEDS: LEVEMIR SUB-Q SCH (09:12)
[2016-09-01] MEDS: NORVASC PO SCH (09:12)
[2016-09-01] MEDS: ASPIRIN PO SCH (09:13)
[2016-09-01] MEDS: NORMODYNE PO SCH ×2 (09:13→21:16)
[2016-09-01] MEDS: PEPCID PO SCH (09:14)
--- NOTE | 2016-09-01 11:17 | Progress Note ---
Assessment and Plan Assessment and plan: --Acute hypoxic hypercapnic respiratory failure/mechanical ventilation more than 96 hrs Continue ventilatory support, wean as tolerated and extubate Pulmonary following, , patient may need trach and PEG placement if unable to wean DO NOT RESUSCITATE status, --Status post PEA cardiac arrest With anoxic encephalopathy, continue supportive care, poor prognosis --Anoxic encephalopathy; supportive care --Aspiration pneumonia; secondary to altered level of consciousness, CVA Continue current antibiotics, follow cultures, pulmonary following --Acute massive CVA; Patient is unresponsive poor prognosis, supportive care --malignant hypertension Moderate control, continue current antihypertensives and when necessary medications --Acute renal failure; secondary to ATN Closely monitor renal function, avoid nephrotoxic medications, nephrology following --Status post bilateral lower extremity amputation --DO NOT RESUSCITATE status --Poor prognosis Family not considering hospice, Plan of care discussed with the patient's nurse, the son and the case management Consults and recommendations noted and appreciated Critical care time 31 minutes History Interval history: Patient seen and evaluated medical records reviewed Patient remains intubated on ventilatory support more than 96 hours Unresponsive, spontaneous opening of eyes No new events reported by the nursing staff Vital signs reviewed stable Hospitalist Physical - Constitutional Vitals: Temp Pulse Resp BP Pulse Ox 99.9 F H 83 20 146/76 96 09/01/16 08:00 09/01/16 11:00 09/01/16 11:00 09/01/16 11:00 09/01/16 11:00 General appearance: Present: no acute distress, other (not responsive, orally intubated on ventilator support) - EENT Eyes: Absent: scleral icterus, conjunctival injection (spontaneous opening of eyes) - Neck Neck: Present: supple, other (ET tube and Dobbhoff in place) - Respiratory Respiratory effort: normal Respiratory: bilateral: diminished, negative: rales, rhonchi, wheezing - Cardiovascular Rhythm: regular Heart Sounds: Present: S1 & S2 - Extremities Extremities: abnormal (bilateral above-knee amputation) - Abdominal General gastrointestinal: soft, non-tender, non-distended, normal bowel sounds - Integumentary Integumentary: Present: clear, warm - Psychiatric Psychiatric: other (intubated and sedated) - Neurologic Neurologic: other (intubated and sedated) Results - Labs CBC & Chem 7: 09/01/16 06:19 09/01/16 06:19 Labs: Laboratory Last Values WBC 15.8 K/mm3 (4.5-11.0) H 09/01/16 06:19 RBC 4.40 M/mm3 (3.65-5.03) 09/01/16 06:19 Hgb 8.2 gm/dl (11.8-15.2) L 09/01/16 06:19 Hct 26.6 % (35.5-45.6) L 09/01/16 06:19 MCV 61 fl (84-94) L 09/01/16 06:19 MCH 19 pg (28-32) L 09/01/16 06:19 MCHC 31 % (32-34) L 09/01/16 06:19 RDW 16.7 % (13.2-15.2) H 09/01/16 06:19 Plt Count 319 K/mm3 (140-440) 09/01/16 06:19 Lymph % (Auto) 7.8 % (13.4-35.0) L 08/30/16 08:55 [place] % (Auto) 10.4 % (0.0-7.3) H 08/30/16 08:55 Eos % (Auto) 0.5 % (0.0-4.3) 08/30/16 08:55 Baso % (Auto) 0.4 % (0.0-1.8) 08/30/16 08:55 Lymph # 1.2 K/mm3 (1.2-5.4) 08/30/16 08:55 [place] # 1.6 K/mm3 (0.0-0.8) H 08/30/16 08:55 Eos # 0.1 K/mm3 (0.0-0.4) 08/30/16 08:55 Baso # 0.1 K/mm3 (0.0-0.1) 08/30/16 08:55 Add Manual Diff Complete 09/01/16 06:19 Total Counted 100 09/01/16 06:19 Seg Neutrophils % 80.9 % (40.0-70.0) H 08/30/16 08:55 Seg Neuts % (Manual) 87.0 % (40.0-70.0) H 09/01/16 06:19 Band Neutrophils % 0 % 09/01/16 06:19 Lymphocytes % (Manual) 5.0 % (13.4-35.0) L 09/01/16 06:19 Reactive Lymphs % (Man) 0 % 09/01/16 06:19 Monocytes % (Manual) 7.0 % (0.0-7.3) 09/01/16 06:19 Eosinophils % (Manual) 1.0 % (0.0-4.3) 09/01/16 06:19 Basophils % (Manual) 0 % (0.0-1.8) 09/01/16 06:19 Metamyelocytes % 0 % 09/01/16 06:19 Myelocytes % 0 % 09/01/16 06:19 Promyelocytes % 0 % 09/01/16 06:19 Blast Cells % 0 % 09/01/16 06:19 Nucleated RBC % 1.0 % (0.0-0.9) H 09/01/16 06:19 Seg Neutrophils # 12.2 K/mm3 (1.8-7.7) H 08/30/16 08:55 Seg Neutrophils # Man 13.7 K/mm3 (1.8-7.7) H 09/01/16 06:19 Band Neutrophils # 0.0 K/mm3 09/01/16 06:19 Lymphocytes # (Manual) 0.8 K/mm3 (1.2-5.4) L 09/01/16 06:19 Abs React Lymphs (Man) 0.0 K/mm3 09/01/16 06:19 Monocytes # (Manual) 1.1 K/mm3 (0.0-0.8) H 09/01/16 06:19 Eosinophils # (Manual) 0.2 K/mm3 (0.0-0.4) 09/01/16 06:19 Basophils # (Manual) 0.0 K/mm3 (0.0-0.1) 09/01/16 06:19 Metamyelocytes # 0.0 K/mm3 09/01/16 06:19 Myelocytes # 0.0 K/mm3 09/01/16 06:19 Promyelocytes # 0.0 K/mm3 09/01/16 06:19 Blast Cells # 0.0 K/mm3 09/01/16 06:19 WBC Morphology Not Reportable 09/01/16 06:19 Hypersegmented Neuts Not Reportable 09/01/16 06:19 Hyposegmented Neuts Not Reportable 09/01/16 06:19 Hypogranular Neuts Not Reportable 09/01/16 06:19 Smudge Cells Not Reportable 09/01/16 06:19 Toxic Granulation Not Reportable 09/01/16 06:19 Toxic Vacuolation Not Reportable 09/01/16 06:19 Dohle Bodies Not Reportable 09/01/16 06:19 Pelger-Huet Anomaly Not Reportable 09/01/16 06:19 Mattie Rods Not Reportable 09/01/16 06:19 Platelet Estimate Cons 09/01/16 06:19 Clumped Platelets Not Reportable 09/01/16 06:19 Plt Clumps, EDTA Not Reportable 09/01/16 06:19 Large Platelets 1+ 09/01/16 06:19 Giant Platelets Rare 09/01/16 06:19 Platelet Satelliting Not Reportable 09/01/16 06:19 Plt Morphology Comment Not Reportable 09/01/16 06:19 RBC Morphology Not Reportable 09/01/16 06:19 Dimorphic RBCs Not Reportable 09/01/16 06:19 Polychromasia Few 09/01/16 06:19 Hypochromasia 2+ 09/01/16 06:19 Poikilocytosis 2+ 09/01/16 06:19 Anisocytosis 2+ 09/01/16 06:19 Microcytosis 2+ 09/01/16 06:19 Macrocytosis Not Reportable 09/01/16 06:19 Spherocytes Not Reportable 09/01/16 06:19 Pappenheimer Bodies Not Reportable 09/01/16 06:19 Sickle Cells Not Reportable 09/01/16 06:19 Target Cells 1+ 09/01/16 06:19 Tear Drop Cells 1+ 09/01/16 06:19 Ovalocytes Not Reportable 09/01/16 06:19 Helmet Cells Not Reportable 09/01/16 06:19 Saeed-[place] Bodies Not Reportable 09/01/16 06:19 Combined Locks Rings Not Reportable 09/01/16 06:19 Ashlyn Cells Not Reportable 09/01/16 06:19 Bite Cells Not Reportable 09/01/16 06:19 Crenated Cell Not Reportable 09/01/16 06:19 Elliptocytes Not Reportable 09/01/16 06:19 Acanthocytes (Spur) Not Reportable 09/01/16 06:19 Rouleaux Not Reportable 09/01/16 06:19 Hemoglobin C Crystals Not Reportable 09/01/16 06:19 Schistocytes Rare 09/01/16 06:19 Malaria parasites Not Reportable 09/01/16 06:19 Gentry Bodies Not Reportable 09/01/16 06:19 Hem Pathologist Commnt No 09/01/16 06:19 D-Dimer 1138.47 ng/mlDDU (0-234) H 08/24/16 03:23 POC ABG pH 7.483 (7.35-7.45) H 08/30/16 04:49 POC ABG pCO2 35.7 (35-45) 08/30/16 04:49 POC ABG pO2 67 (80-105) L 08/30/16 04:49 POC ABG HCO3 26.7 08/30/16 04:49 POC ABG Total CO2 28 08/30/16 04:49 POC ABG O2 Sat 94 08/30/16 04:49 POC ABG Base Excess 3 08/30/16 04:49 FiO2 30 % 08/30/16 04:49 Sodium 137 mmol/L (137-145) 09/01/16 06:19 Potassium 4.5 mmol/L (3.6-5.0) 09/01/16 06:19 Chloride 100.7 mmol/L (98-107) 09/01/16 06:19 Carbon Dioxide 23 mmol/L (22-30) 09/01/16 06:19 Anion Gap 18 mmol/L 09/01/16 06:19 BUN 43 mg/dL (9-20) H 09/01/16 06:19 Creatinine 2.0 mg/dL (0.8-1.5) H 09/01/16 06:19 Estimated GFR 42 ml/min 09/01/16 06:19 BUN/Creatinine Ratio 21.50 % 09/01/16 06:19 Glucose 150 mg/dL (75-100) H 09/01/16 06:19 POC Glucose 154 (70-105) H 09/01/16 05:28 Lactic Acid 1.80 mmol/L (0.7-2.0) 08/25/16 13:47 Calcium 7.8 mg/dL (8.4-10.2) L 09/01/16 06:19 Phosphorus 4.00 mg/dL (2.5-4.5) 09/01/16 06:19 Magnesium 2.40 mg/dL (1.7-2.3) H 09/01/16 06:19 Total Bilirubin 2.10 mg/dL (0.1-1.2) H 09/01/16 06:19 AST 41 units/L (5-40) H 09/01/16 06:19 ALT 55 units/L (7-56) 09/01/16 06:19 Alkaline Phosphatase 301 units/L (35-129) H 09/01/16 06:19 Ammonia 46.0 umol/L (25-60) 08/24/16 01:44 Total Creatine Kinase 796 units/L (55-170) H 08/27/16 10:32 CK-MB (CK-2) 6.3 ng/mL (0.0-4.0) H 08/27/16 10:32 CK-MB (CK-2) Rel Index 0.7 (0-4) 08/27/16 10:32 Troponin T 0.473 ng/mL (0.00-0.029) H* 08/27/16 18:46 Total Protein 4.7 g/dL (6.3-8.2) L 09/01/16 06:19 Albumin 2.2 g/dL (3.9-5) L 09/01/16 06:19 Albumin/Globulin Ratio 0.9 % 09/01/16 06:19 Triglycerides 68 mg/dL (2-149) 08/27/16 00:00 Cholesterol 182 mg/dL (50-199) 08/27/16 00:00 LDL Cholesterol Direct 70 mg/dL (50-130) 08/30/16 09:01 HDL Cholesterol 78 mg/dL (40-59) H 08/27/16 00:00 Cholesterol/HDL Ratio 2.33 % 08/27/16 00:00 TSH 3.080 mlU/mL (0.270-4.200) 08/23/16 23:35 Urine Color Yellow (Yellow) 08/24/16 00:40 Urine Turbidity Clear (Clear) 08/24/16 00:40 Urine pH 6.0 (5.0-7.0) 08/24/16 00:40 Ur Specific [place] 1.022 (1.003-1.030) 08/24/16 00:40 Urine Protein >500 mg/dL (Negative) 08/24/16 00:40 Urine Glucose (UA) >=500 mg/dL (Negative) 08/24/16 00:40 Urine Ketones Neg mg/dL (Negative) 08/24/16 00:40 Urine Blood Mod (Negative) 08/24/16 00:40 Urine Nitrite Neg (Negative) 08/24/16 00:40 Urine Bilirubin Neg (Negative) 08/24/16 00:40 Urine Urobilinogen < 2.0 mg/dL (<2.0) 08/24/16 00:40 Ur Leukocyte Esterase Neg (Negative) 08/24/16 00:40 Urine WBC (Auto) 1.0 /HPF (0.0-6.0) 08/24/16 00:40 Urine RBC (Auto) 5.0 /HPF (0.0-6.0) 08/24/16 00:40 Urine Bacteria (Auto) 2+ /HPF (Negative) 08/24/16 00:40 Urine Creatinine 237.7 mg/dL (0.1-20.0) H 08/25/16 15:00 Protein/Creatinin Ratio 3.71 08/25/16 15:00 Urine Sodium 10 mEq/L 08/25/16 15:00 Urine Total Protein 882 mg/dL (5-11.8) H 08/25/16 15:00 Salicylates < 0.3 mg/dL (2.8-20.0) L 08/23/16 23:35 Urine Opiates Screen Presumptive negative 08/24/16 00:40 Urine Methadone Screen Presumptive negative 08/24/16 00:40 Acetaminophen < 15.0 ug/mL (10.0-30.0) 08/23/16 23:35 Ur Barbiturates Screen Presumptive negative 08/24/16 00:40 Ur Phencyclidine Scrn Presumptive negative 08/24/16 00:40 Ur Amphetamines Screen Presumptive negative 08/24/16 00:40 U Benzodiazepines Scrn Presumptive negative 08/24/16 00:40 Urine Cocaine Screen Presumptive negative 08/24/16 00:40 U Marijuana (THC) Screen Presumptive negative 08/24/16 00:40 Drugs of Abuse Note Disclamer 08/24/16 00:40 Plasma/Serum Alcohol < 0.01 gm% (0-0.07) 08/23/16 23:35
--- NOTE | 2016-09-01 12:07 | Progress Note ---
Assessment and Plan 1. S/p Cardiopulm Arrest - Intubated & on vent, Mx per pulm 2. HTN - Adjust meds as necessary 3. ALANNAH/ATN - Worsening BUN/Cr, F/u labs closely, avoid nephrotoxic meds 4. Lytes - F/u labs 5. CVA - Large Acute infarct per MRI. Remains unresponsive. F/u Neuro recs 6. Periph Edema - Hold Amlodipine, still hold IVF & f/u urine output. Would not advise diuretics since CXR not overt CHF at this time >36mins Subjective Date of service: 09/01/16 Principal diagnosis: Acute respiratory failure Objective - Vital Signs Vital signs: Vital Signs - 12hr 09/01/16 09/01/16 09/01/16 00:00 00:30 01:00 Temperature 99.1 F Pulse Rate 74 78 79 Pulse Rate [ 79 From Monitor] Respiratory 18 20 24 Rate Blood Pressure 138/77 148/79 148/79 O2 Sat by Pulse 96 97 97 Oximetry 09/01/16 09/01/16 09/01/16 01:30 02:00 02:30 Temperature Pulse Rate 80 81 82 Pulse Rate [ From Monitor] Respiratory 23 22 21 Rate Blood Pressure 152/79 155/78 153/79 O2 Sat by Pulse 96 96 96 Oximetry 09/01/16 09/01/16 09/01/16 03:00 03:30 04:00 Temperature 100 F H Pulse Rate 83 83 85 Pulse Rate [ 90 From Monitor] Respiratory 23 15 24 Rate Blood Pressure 159/79 153/80 161/83 O2 Sat by Pulse 96 96 97 Oximetry 09/01/16 09/01/16 09/01/16 04:30 05:00 05:30 Temperature Pulse Rate 86 84 86 Pulse Rate [ From Monitor] Respiratory 24 20 22 Rate Blood Pressure 160/82 161/82 164/85 O2 Sat by Pulse 97 96 97 Oximetry 09/01/16 09/01/16 09/01/16 06:00 06:30 07:00 Temperature Pulse Rate 88 87 89 Pulse Rate [ From Monitor] Respiratory 23 22 24 Rate Blood Pressure 173/85 168/83 173/87 O2 Sat by Pulse 97 96 97 Oximetry 09/01/16 09/01/16 09/01/16 07:30 08:00 08:30 Temperature 99.9 F H Pulse Rate 89 89 89 Pulse Rate [ From Monitor] Respiratory 22 24 24 Rate Blood Pressure 169/87 167/86 171/87 O2 Sat by Pulse 97 97 97 Oximetry 09/01/16 09/01/16 09/01/16 09:00 09:12 09:13 Temperature Pulse Rate 92 H 91 H 90 Pulse Rate [ From Monitor] Respiratory 24 Rate Blood Pressure 175/88 175/88 175/88 O2 Sat by Pulse 97 Oximetry 09/01/16 09/01/16 09/01/16 09:30 09:38 10:00 Temperature Pulse Rate 84 82 83 Pulse Rate [ From Monitor] Respiratory 18 23 Rate Blood Pressure 162/82 162/82 150/77 O2 Sat by Pulse 96 97 97 Oximetry 09/01/16 09/01/16 09/01/16 10:05 10:30 11:00 Temperature Pulse Rate 85 85 83 Pulse Rate [ From Monitor] Respiratory 23 26 H 20 Rate Blood Pressure 150/77 153/80 146/76 O2 Sat by Pulse 97 97 96 Oximetry - General Appearance General appearance: intubated Respiratory: Present: Other (On vent) Cardiology: regular, S1S2 Gastrointestinal: other (Soft) Neurologic: other (Unresponsive) - Lab 09/01/16 06:19 09/01/16 06:19 Most recent lab results Calcium 7.8 mg/dL (8.4-10.2) L 09/01/16 06:19 Phosphorus 4.00 mg/dL (2.5-4.5) 09/01/16 06:19 Magnesium 2.40 mg/dL (1.7-2.3) H 09/01/16 06:19 Urine Creatinine 237.7 mg/dL (0.1-20.0) H 08/25/16 15:00 Urine Sodium 10 mEq/L 08/25/16 15:00 Urine Total Protein 882 mg/dL (5-11.8) H 08/25/16 15:00
[2016-09-01] MEDS: APRESOLINE PO SCH ×2 (14:28→21:15)
--- NOTE | 2016-09-01 14:29 | Progress Note ---
Assessment and Plan Imp: 1. Large Acute CVA 2. Malignant HTN related to #1 3. S/p CP arrest 4. Anoxic encephalopathy 5. ALANNAH 6. Acute respiratory failure, hypoxia 7. Constipation 8. 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 Can cont. PSV but mentation precludes extubation; will need trach/PEG if family wishes for aggressive treatment 2. BP control per primary/renal 3. DVT/GI PPx, TFs; agree w/ holding IVFs 4. Anti-platelets added 5. Bowel regimen added; monitor 6. AND but family wants to hold off on hospice for now; believe prognosis for meaningful neurologic recovery/good quality of life is poor 7. Complex decision-making No family present during my evaluation Subjective Date of service: 09/01/16 Principal diagnosis: Acute respiratory failure Interval history: No events. Comatose. Nonresponsive on ventilator. Tolerating PSV 10/5. BP elevated at times. Not getting sedation. Active Medications Acetaminophen (Tylenol) 650 mg PO Q4H PRN PRN Reason: Pain MILD(1-3)/Fever >100.5/ALFARO Last Admin: 08/27/16 17:14 Dose: 650 mg Albuterol (Proventil) 2.5 mg IH Q6HRT PRN PRN Reason: Shortness Of Breath Last Admin: 08/26/16 13:36 Dose: 2.5 mg Lipase/Protease/Amylase (Pancreaze Dr 10,500 Unit) 1 each FEEDTUBE PRN PRN PRN Reason: For Clogged Feeding Tube Aspirin (Aspirin) 325 mg PO QDAY FORMERLY [facility], [facility] Last Admin: 09/01/16 09:13 Dose: 325 mg Bisacodyl (Dulcolax) 10 mg OH QDAY PRN PRN Reason: Constipation unrelieved by MOM Dextrose (D50w (25gm)) 50 ml IV PRN PRN PRN Reason: Hypoglycemia Famotidine (Pepcid) 20 mg PO DAILY FORMERLY [facility], [facility]1983 Last Admin: 09/01/16 09:14 Dose: 20 mg Heparin Sodium (Porcine) (Heparin) 5,000 unit SUB-Q Q8HR [facility], [facility] Last Admin: 09/01/16 05:36 Dose: 5,000 unit Hydralazine HCl (Apresoline) 50 mg PO Q8HR [facility], [facility] Insulin Aspart (Novolog) 0 units SUB-Q Q6HR JERAMY PRN Reason: Protocol Last Admin: 09/01/16 11:41 Dose: 3 units Insulin Detemir (Levemir) 20 units SUB-Q DAILY [facility]LY [facility], [facility] Last Admin: 09/01/16 09:12 Dose: 20 units Labetalol HCl (Normodyne) 300 mg PO BID [facility], [facility] Last Admin: 09/01/16 09:13 Dose: 200 mg Labetalol HCl (Normodyne) 10 mg IV Q4H PRN PRN Reason: Blood Pressure SBP>185 Last Admin: 08/27/16 08:32 Dose: 10 mg Magnesium Hydroxide (Milk Of Magnesia) 30 ml PO Q4H PRN PRN Reason: Constipation Multi-Ingred Cream/Lotion/Oil/Oint (Artificial Tears Ophth Oint) 1 applic OU PRN PRN PRN Reason: Dry Eye(s) Last Admin: 08/31/16 22:03 Dose: 1 applic Ondansetron HCl (Zofran) 4 mg IV Q8H PRN PRN Reason: N/V unrelieved by Reglan Senna/Docusate Sodium (Senokot S) 2 tab PO QHS FOR[facility], [facility] Last Admin: 08/31/16 22:00 Dose: 2 tab Simple Syrup (Simple Syrup) 15 ml FEEDTUBE PRN PRN PRN Reason: Hypoglycemia Last Admin: 08/28/16 06:05 Dose: 15 ml Simple Syrup (Simple Syrup) 30 ml FEEDTUBE PRN PRN PRN Reason: Hypoglycemia Objective Vital Signs - 12hr 09/01/16 09/01/16 09/01/16 02:30 03:00 03:30 Temperature Pulse Rate 82 83 83 Pulse Rate [ From Monitor] Respiratory 21 23 15 Rate Blood Pressure 153/79 159/79 153/80 O2 Sat by Pulse 96 96 96 Oximetry 09/01/16 09/01/16 09/01/16 04:00 04:30 05:00 Temperature 100 F H Pulse Rate 85 86 84 Pulse Rate [ 90 From Monitor] Respiratory 24 24 20 Rate Blood Pressure 161/83 160/82 161/82 O2 Sat by Pulse 97 97 96 Oximetry 09/01/16 09/01/16 09/01/16 05:30 06:00 06:30 Temperature Pulse Rate 86 88 87 Pulse Rate [ From Monitor] Respiratory 22 23 22 Rate Blood Pressure 164/85 173/85 168/83 O2 Sat by Pulse 97 97 96 Oximetry 09/01/16 09/01/16 09/01/16 07:00 07:30 08:00 Temperature 99.9 F H Pulse Rate 89 89 89 Pulse Rate [ From Monitor] Respiratory 24 22 24 Rate Blood Pressure 173/87 169/87 167/86 O2 Sat by Pulse 97 97 97 Oximetry 09/01/16 09/01/16 09/01/16 08:30 09:00 09:12 Temperature Pulse Rate 89 92 H 91 H Pulse Rate [ From Monitor] Respiratory 24 24 Rate Blood Pressure 171/87 175/88 175/88 O2 Sat by Pulse 97 97 Oximetry 09/01/16 09/01/16 09/01/16 09:13 09:30 09:38 Temperature Pulse Rate 90 84 82 Pulse Rate [ From Monitor] Respiratory 18 Rate Blood Pressure 175/88 162/82 162/82 O2 Sat by Pulse 96 97 Oximetry 09/01/16 09/01/16 09/01/16 10:00 10:05 10:30 Temperature Pulse Rate 83 85 85 Pulse Rate [ From Monitor] Respiratory 23 23 26 H Rate Blood Pressure 150/77 150/77 153/80 O2 Sat by Pulse 97 97 97 Oximetry 09/01/16 09/01/16 09/01/16 11:00 11:30 12:00 Temperature 99.6 F Pulse Rate 83 84 86 Pulse Rate [ 86 From Monitor] Respiratory 20 25 H 26 H Rate Blood Pressure 146/76 155/76 156/83 O2 Sat by Pulse 96 97 97 Oximetry 09/01/16 12:23 Temperature 99.6 F Pulse Rate Pulse Rate [ From Monitor] Respiratory Rate Blood Pressure O2 Sat by Pulse Oximetry Constitutional: comatose, other (critically ill on vent, diaphoretic) Eyes: non-icteric ENT: other (orally intubated) Effort: normal Ascultation: Bilateral: clear Cardiovascular: regular rate and rhythm (no mrg) Gastrointestinal: soft, non-distended Integumentary: normal Extremities: no cyanosis, edema (1+ upper extremities), other (bilateral AKA) Neurologic: other (moves RUE spontaneously, nothing purposeful, minimal opening of eyes but not tracking) Psychiatric: other (not able to assess) CBC and BMP: 09/01/16 06:19 09/01/16 06:19 ABG, PT/INR, D-dimer: ABG POC ABG pH 7.483 (7.35-7.45) H 08/30/16 04:49 POC ABG pCO2 35.7 (35-45) 08/30/16 04:49 POC ABG pO2 67 (80-105) L 08/30/16 04:49 POC ABG HCO3 26.7 08/30/16 04:49 POC ABG Total CO2 28 08/30/16 04:49 POC ABG O2 Sat 94 08/30/16 04:49 PT/INR, D-dimer D-Dimer 1138.47 ng/mlDDU (0-234) H 08/24/16 03:23 Abnormal lab findings: Abnormal Labs 08/24/16 08/24/16 08/24/16 03:23 09:23 10:58 WBC RBC Hgb Hct MCV MCH MCHC RDW Lymph % (Auto) [place] % (Auto) Lymph # [place] # Seg Neutrophils % Seg Neuts % (Manual) Lymphocytes % (Manual) Nucleated RBC % Seg Neutrophils # Seg Neutrophils # Man Lymphocytes # (Manual) Monocytes # (Manual) D-Dimer 1138.47 H POC ABG pH POC ABG pCO2 POC ABG pO2 Sodium Chloride Carbon Dioxide BUN Creatinine Glucose POC Glucose 410 H 392 H Calcium Magnesium Total Bilirubin AST Alkaline Phosphatase Total Creatine Kinase CK-MB (CK-2) Troponin T Total Protein Albumin HDL Cholesterol Urine Creatinine Urine Total Protein 08/24/16 08/24/16 08/24/16 13:02 13:44 17:29 WBC RBC Hgb Hct MCV MCH MCHC RDW Lymph % (Auto) [place] % (Auto) Lymph # [place] # Seg Neutrophils % Seg Neuts % (Manual) Lymphocytes % (Manual) Nucleated RBC % Seg Neutrophils # Seg Neutrophils # Man Lymphocytes # (Manual) Monocytes # (Manual) D-Dimer POC ABG pH POC ABG pCO2 34.8 L POC ABG pO2 Sodium Chloride Carbon Dioxide BUN Creatinine 1.8 H Glucose 266 H POC Glucose 354 H Calcium Magnesium Total Bilirubin AST Alkaline Phosphatase Total Creatine Kinase CK-MB (CK-2) Troponin T Total Protein Albumin HDL Cholesterol Urine Creatinine Urine Total Protein 08/24/16 08/24/16 08/24/16 17:34 18:24 18:41 WBC RBC Hgb Hct MCV MCH MCHC RDW Lymph % (Auto) [place] % (Auto) Lymph # [place] # Seg Neutrophils % Seg Neuts % (Manual) Lymphocytes % (Manual) Nucleated RBC % Seg Neutrophils # Seg Neutrophils # Man Lymphocytes # (Manual) Monocytes # (Manual) D-Dimer POC ABG pH POC ABG pCO2 POC ABG pO2 Sodium Chloride Carbon Dioxide 18 L BUN Creatinine 1.9 H Glucose 174 H POC Glucose 211 H 190 H Calcium 8.2 L Magnesium Total Bilirubin AST Alkaline Phosphatase Total Creatine Kinase CK-MB (CK-2) Troponin T Total Protein Albumin HDL Cholesterol Urine Creatinine Urine Total Protein 08/24/16 08/24/16 08/24/16 19:28 20:24 21:21 WBC RBC Hgb Hct MCV MCH MCHC RDW Lymph % (Auto) [place] % (Auto) Lymph # [place] # Seg Neutrophils % Seg Neuts % (Manual) Lymphocytes % (Manual) Nucleated RBC % Seg Neutrophils # Seg Neutrophils # Man Lymphocytes # (Manual) Monocytes # (Manual) D-Dimer POC ABG pH POC ABG pCO2 POC ABG pO2 Sodium Chloride Carbon Dioxide BUN Creatinine Glucose POC Glucose 159 H 110 H 144 H Calcium Magnesium Total Bilirubin AST Alkaline Phosphatase Total Creatine Kinase CK-MB (CK-2) Troponin T Total Protein Albumin HDL Cholesterol Urine Creatinine Urine Total Protein 08/24/16 08/24/16 08/24/16 21:48 22:26 23:19 WBC RBC Hgb Hct MCV MCH MCHC RDW Lymph % (Auto) [place] % (Auto) Lymph # [place] # Seg Neutrophils % Seg Neuts % (Manual) Lymphocytes % (Manual) Nucleated RBC % Seg Neutrophils # Seg Neutrophils # Man Lymphocytes # (Manual) Monocytes # (Manual) D-Dimer POC ABG pH POC ABG pCO2 POC ABG pO2 Sodium Chloride Carbon Dioxide 21 L BUN Creatinine 1.8 H Glucose 141 H POC Glucose 148 H 140 H Calcium 8.3 L Magnesium Total Bilirubin AST Alkaline Phosphatase Total Creatine Kinase CK-MB (CK-2) Troponin T Total Protein Albumin HDL Cholesterol Urine Creatinine Urine Total Protein 08/25/16 08/25/16 08/25/16 01:11 02:15 03:18 WBC RBC Hgb Hct MCV MCH MCHC RDW Lymph % (Auto) [place] % (Auto) Lymph # [place] # Seg Neutrophils % Seg Neuts % (Manual) Lymphocytes % (Manual) Nucleated RBC % Seg Neutrophils # Seg Neutrophils # Man Lymphocytes # (Manual) Monocytes # (Manual) D-Dimer POC ABG pH POC ABG pCO2 POC ABG pO2 Sodium Chloride Carbon Dioxide BUN Creatinine Glucose POC Glucose 130 H 136 H 145 H Calcium Magnesium Total Bilirubin AST Alkaline Phosphatase Total Creatine Kinase CK-MB (CK-2) Troponin T Total Protein Albumin HDL Cholesterol Urine Creatinine Urine Total Protein 08/25/16 08/25/16 08/25/16 04:09 04:53 04:53 WBC 14.1 H RBC 5.36 H Hgb 9.9 L Hct 32.9 L MCV 61 L MCH 19 L MCHC 30 L RDW 17.5 H Lymph % (Auto) 8.0 L [place] % (Auto) 9.7 H Lymph # 1.1 L [place] # 1.4 H Seg Neutrophils % 82.2 H Seg Neuts % (Manual) Lymphocytes % (Manual) Nucleated RBC % Seg Neutrophils # 11.6 H Seg Neutrophils # Man Lymphocytes # (Manual) Monocytes # (Manual) D-Dimer POC ABG pH POC ABG pCO2 POC ABG pO2 Sodium Chloride Carbon Dioxide 21 L BUN Creatinine 1.9 H Glucose 116 H POC Glucose 120 H Calcium 8.2 L Magnesium Total Bilirubin AST Alkaline Phosphatase Total Creatine Kinase CK-MB (CK-2) Troponin T Total Protein Albumin HDL Cholesterol Urine Creatinine Urine Total Protein 08/25/16 08/25/16 08/25/16 05:05 06:31 07:35 WBC RBC Hgb Hct MCV MCH MCHC RDW Lymph % (Auto) [place] % (Auto) Lymph # [place] # Seg Neutrophils % Seg Neuts % (Manual) Lymphocytes % (Manual) Nucleated RBC % Seg Neutrophils # Seg Neutrophils # Man Lymphocytes # (Manual) Monocytes # (Manual) D-Dimer POC ABG pH POC ABG pCO2 POC ABG pO2 Sodium Chloride Carbon Dioxide BUN Creatinine Glucose POC Glucose 126 H 139 H 142 H Calcium Magnesium Total Bilirubin AST Alkaline Phosphatase Total Creatine Kinase CK-MB (CK-2) Troponin T Total Protein Albumin HDL Cholesterol Urine Creatinine Urine Total Protein 08/25/16 08/25/16 08/25/16 08:55 09:48 10:59 WBC RBC Hgb Hct MCV MCH MCHC RDW Lymph % (Auto) [place] % (Auto) Lymph # [place] # Seg Neutrophils % Seg Neuts % (Manual) Lymphocytes % (Manual) Nucleated RBC % Seg Neutrophils # Seg Neutrophils # Man Lymphocytes # (Manual) Monocytes # (Manual) D-Dimer POC ABG pH POC ABG pCO2 POC ABG pO2 Sodium Chloride Carbon Dioxide BUN Creatinine Glucose POC Glucose 135 H 109 H 126 H Calcium Magnesium Total Bilirubin AST Alkaline Phosphatase Total Creatine Kinase CK-MB (CK-2) Troponin T Total Protein Albumin HDL Cholesterol Urine Creatinine Urine Total Protein 08/25/16 08/25/16 08/25/16 11:34 13:47 15:00 WBC RBC Hgb Hct MCV MCH MCHC RDW Lymph % (Auto) [place] % (Auto) Lymph # [place] # Seg Neutrophils % Seg Neuts % (Manual) Lymphocytes % (Manual) Nucleated RBC % Seg Neutrophils # Seg Neutrophils # Man Lymphocytes # (Manual) Monocytes # (Manual) D-Dimer POC ABG pH POC ABG pCO2 32.8 L POC ABG pO2 108 H Sodium Chloride Carbon Dioxide 19 L BUN Creatinine 1.7 H Glucose 196 H POC Glucose Calcium 8.2 L Magnesium Total Bilirubin AST Alkaline Phosphatase Total Creatine Kinase CK-MB (CK-2) Troponin T Total Protein Albumin HDL Cholesterol Urine Creatinine 237.7 H Urine Total Protein 882 H 08/25/16 08/25/16 08/26/16 16:30 23:09 05:41 WBC RBC Hgb Hct MCV MCH MCHC RDW Lymph % (Auto) [place] % (Auto) Lymph # [place] # Seg Neutrophils % Seg Neuts % (Manual) Lymphocytes % (Manual) Nucleated RBC % Seg Neutrophils # Seg Neutrophils # Man Lymphocytes # (Manual) Monocytes # (Manual) D-Dimer POC ABG pH POC ABG pCO2 POC ABG pO2 Sodium Chloride Carbon Dioxide BUN Creatinine Glucose POC Glucose 242 H 131 H 156 H Calcium Magnesium Total Bilirubin AST Alkaline Phosphatase Total Creatine Kinase CK-MB (CK-2) Troponin T Total Protein Albumin HDL Cholesterol Urine Creatinine Urine Total Protein 08/26/16 08/26/16 08/26/16 07:16 12:12 17:51 WBC RBC Hgb Hct MCV MCH MCHC RDW Lymph % (Auto) [place] % (Auto) Lymph # [place] # Seg Neutrophils % Seg Neuts % (Manual) Lymphocytes % (Manual) Nucleated RBC % Seg Neutrophils # Seg Neutrophils # Man Lymphocytes # (Manual) Monocytes # (Manual) D-Dimer POC ABG pH POC ABG pCO2 POC ABG pO2 Sodium Chloride Carbon Dioxide 18 L BUN 26 H Creatinine 2.0 H Glucose 132 H POC Glucose 119 H 161 H Calcium 8.1 L Magnesium Total Bilirubin AST 41 H Alkaline Phosphatase Total Creatine Kinase CK-MB (CK-2) Troponin T Total Protein 5.5 L Albumin 2.7 L HDL Cholesterol Urine Creatinine Urine Total Protein 08/26/16 08/26/16 08/27/16 22:34 23:50 00:00 WBC 11.8 H RBC 5.29 H Hgb 10.0 L Hct 33.3 L MCV 63 L MCH 19 L MCHC 30 L RDW 17.4 H Lymph % (Auto) [place] % (Auto) 8.7 H Lymph # [place] # 1.0 H Seg Neutrophils % 72.6 H Seg Neuts % (Manual) Lymphocytes % (Manual) Nucleated RBC % Seg Neutrophils # 8.6 H Seg Neutrophils # Man Lymphocytes # (Manual) Monocytes # (Manual) D-Dimer POC ABG pH POC ABG pCO2 POC ABG pO2 Sodium Chloride Carbon Dioxide BUN Creatinine Glucose POC Glucose 107 H 119 H Calcium Magnesium Total Bilirubin AST Alkaline Phosphatase Total Creatine Kinase CK-MB (CK-2) Troponin T Total Protein Albumin HDL Cholesterol Urine Creatinine Urine Total Protein 08/27/16 08/27/16 08/27/16 00:00 00:00 00:02 WBC RBC Hgb Hct MCV MCH MCHC RDW Lymph % (Auto) [place] % (Auto) Lymph # [place] # Seg Neutrophils % Seg Neuts % (Manual) Lymphocytes % (Manual) Nucleated RBC % Seg Neutrophils # Seg Neutrophils # Man Lymphocytes # (Manual) Monocytes # (Manual) D-Dimer POC ABG pH POC ABG pCO2 POC ABG pO2 205 H Sodium 135 L Chloride 96.6 L Carbon Dioxide 16 L BUN 31 H Creatinine 2.2 H Glucose 154 H POC Glucose Calcium 7.8 L Magnesium Total Bilirubin AST Alkaline Phosphatase Total Creatine Kinase 1401 H CK-MB (CK-2) 13.6 H Troponin T 0.421 H* Total Protein Albumin HDL Cholesterol 78 H Urine Creatinine Urine Total Protein 08/27/16 08/27/16 08/27/16 00:37 03:22 04:08 WBC RBC Hgb Hct MCV MCH MCHC RDW Lymph % (Auto) [place] % (Auto) Lymph # [place] # Seg Neutrophils % Seg Neuts % (Manual) Lymphocytes % (Manual) Nucleated RBC % Seg Neutrophils # Seg Neutrophils # Man Lymphocytes # (Manual) Monocytes # (Manual) D-Dimer POC ABG pH 7.467 H POC ABG pCO2 31.3 L POC ABG pO2 Sodium Chloride Carbon Dioxide BUN Creatinine Glucose POC Glucose 106 H Calcium Magnesium Total Bilirubin AST Alkaline Phosphatase Total Creatine Kinase 909 H CK-MB (CK-2) 9.3 H Troponin T Total Protein Albumin HDL Cholesterol Urine Creatinine Urine Total Protein 08/27/16 08/27/16 08/27/16 04:35 05:35 10:32 WBC RBC Hgb Hct MCV MCH MCHC RDW Lymph % (Auto) [place] % (Auto) Lymph # [place] # Seg Neutrophils % Seg Neuts % (Manual) Lymphocytes % (Manual) Nucleated RBC % Seg Neutrophils # Seg Neutrophils # Man Lymphocytes # (Manual) Monocytes # (Manual) D-Dimer POC ABG pH POC ABG pCO2 POC ABG pO2 Sodium Chloride Carbon Dioxide BUN Creatinine Glucose POC Glucose 120 H 113 H Calcium Magnesium Total Bilirubin AST Alkaline Phosphatase Total Creatine Kinase 796 H CK-MB (CK-2) 6.3 H Troponin T Total Protein Albumin HDL Cholesterol Urine Creatinine Urine Total Protein 08/27/16 08/27/16 08/27/16 11:59 17:28 18:46 WBC RBC Hgb Hct MCV MCH MCHC RDW Lymph % (Auto) [place] % (Auto) Lymph # [place] # Seg Neutrophils % Seg Neuts % (Manual) Lymphocytes % (Manual) Nucleated RBC % Seg Neutrophils # Seg Neutrophils # Man Lymphocytes # (Manual) Monocytes # (Manual) D-Dimer POC ABG pH POC ABG pCO2 POC ABG pO2 Sodium Chloride Carbon Dioxide BUN Creatinine Glucose POC Glucose 225 H 231 H Calcium Magnesium Total Bilirubin AST Alkaline Phosphatase Total Creatine Kinase CK-MB (CK-2) Troponin T 0.473 H* Total Protein Albumin HDL Cholesterol Urine Creatinine Urine Total Protein 08/27/16 08/28/16 08/28/16 23:32 03:39 03:39 WBC 11.5 H RBC Hgb 8.9 L Hct 28.8 L MCV 61 L MCH 19 L MCHC 31 L RDW 16.8 H Lymph % (Auto) [place] % (Auto) Lymph # [place] # Seg Neutrophils % Seg Neuts % (Manual) Lymphocytes % (Manual) Nucleated RBC % Seg Neutrophils # Seg Neutrophils # Man Lymphocytes # (Manual) Monocytes # (Manual) D-Dimer POC ABG pH POC ABG pCO2 POC ABG pO2 Sodium 134 L Chloride 95.0 L Carbon Dioxide BUN 29 H Creatinine 1.9 H Glucose 66 L POC Glucose 110 H Calcium 7.5 L Magnesium Total Bilirubin AST Alkaline Phosphatase Total Creatine Kinase CK-MB (CK-2) Troponin T Total Protein Albumin HDL Cholesterol Urine Creatinine Urine Total Protein 08/28/16 08/28/16 08/28/16 04:45 05:25 06:48 WBC RBC Hgb Hct MCV MCH MCHC RDW Lymph % (Auto) [place] % (Auto) Lymph # [place] # Seg Neutrophils % Seg Neuts % (Manual) Lymphocytes % (Manual) Nucleated RBC % Seg Neutrophils # Seg Neutrophils # Man Lymphocytes # (Manual) Monocytes # (Manual) D-Dimer POC ABG pH 7.554 H POC ABG pCO2 POC ABG pO2 108 H Sodium Chloride Carbon Dioxide BUN Creatinine Glucose POC Glucose 67 L 120 H Calcium Magnesium Total Bilirubin AST Alkaline Phosphatase Total Creatine Kinase CK-MB (CK-2) Troponin T Total Protein Albumin HDL Cholesterol Urine Creatinine Urine Total Protein 08/28/16 08/28/16 08/28/16 10:29 11:15 12:00 WBC RBC Hgb Hct MCV MCH MCHC RDW Lymph % (Auto) [place] % (Auto) Lymph # [place] # Seg Neutrophils % Seg Neuts % (Manual) Lymphocytes % (Manual) Nucleated RBC % Seg Neutrophils # Seg Neutrophils # Man Lymphocytes # (Manual) Monocytes # (Manual) D-Dimer POC ABG pH 7.499 H POC ABG pCO2 POC ABG pO2 Sodium Chloride Carbon Dioxide BUN Creatinine Glucose POC Glucose 206 H 181 H Calcium Magnesium Total Bilirubin AST Alkaline Phosphatase Total Creatine Kinase CK-MB (CK-2) Troponin T Total Protein Albumin HDL Cholesterol Urine Creatinine Urine Total Protein 08/28/16 08/29/16 08/29/16 17:38 03:12 05:56 WBC RBC Hgb Hct MCV MCH MCHC RDW Lymph % (Auto) [place] % (Auto) Lymph # [place] # Seg Neutrophils % Seg Neuts % (Manual) Lymphocytes % (Manual) Nucleated RBC % Seg Neutrophils # Seg Neutrophils # Man Lymphocytes # (Manual) Monocytes # (Manual) D-Dimer POC ABG pH 7.463 H POC ABG pCO2 POC ABG pO2 68 L Sodium 134 L Chloride 95.9 L Carbon Dioxide BUN 28 H Creatinine 1.8 H Glucose POC Glucose 140 H Calcium 7.4 L Magnesium Total Bilirubin AST Alkaline Phosphatase Total Creatine Kinase CK-MB (CK-2) Troponin T Total Protein Albumin HDL Cholesterol Urine Creatinine Urine Total Protein 08/29/16 08/29/16 08/29/16 11:52 17:43 23:21 WBC RBC Hgb Hct MCV MCH MCHC RDW Lymph % (Auto) [place] % (Auto) Lymph # [place] # Seg Neutrophils % Seg Neuts % (Manual) Lymphocytes % (Manual) Nucleated RBC % Seg Neutrophils # Seg Neutrophils # Man Lymphocytes # (Manual) Monocytes # (Manual) D-Dimer POC ABG pH POC ABG pCO2 POC ABG pO2 Sodium Chloride Carbon Dioxide BUN Creatinine Glucose POC Glucose 174 H 187 H 208 H Calcium Magnesium Total Bilirubin AST Alkaline Phosphatase Total Creatine Kinase CK-MB (CK-2) Troponin T Total Protein Albumin HDL Cholesterol Urine Creatinine Urine Total Protein 08/30/16 08/30/16 08/30/16 04:49 04:50 05:30 WBC RBC Hgb Hct MCV MCH MCHC RDW Lymph % (Auto) [place] % (Auto) Lymph # [place] # Seg Neutrophils % Seg Neuts % (Manual) Lymphocytes % (Manual) Nucleated RBC % Seg Neutrophils # Seg Neutrophils # Man Lymphocytes # (Manual) Monocytes # (Manual) D-Dimer POC ABG pH 7.483 H POC ABG pCO2 POC ABG pO2 67 L Sodium 135 L Chloride Carbon Dioxide BUN 35 H Creatinine 1.8 H Glucose 167 H POC Glucose 191 H Calcium 7.5 L Magnesium Total Bilirubin AST Alkaline Phosphatase Total Creatine Kinase CK-MB (CK-2) Troponin T Total Protein Albumin HDL Cholesterol Urine Creatinine Urine Total Protein 08/30/16 08/30/16 08/30/16 08:55 11:39 17:18 WBC 15.0 H RBC Hgb 8.6 L Hct 27.5 L MCV 61 L MCH 19 L MCHC 31 L RDW 16.6 H Lymph % (Auto) 7.8 L [place] % (Auto) 10.4 H Lymph # [place] # 1.6 H Seg Neutrophils % 80.9 H Seg Neuts % (Manual) Lymphocytes % (Manual) Nucleated RBC % Seg Neutrophils # 12.2 H Seg Neutrophils # Man Lymphocytes # (Manual) Monocytes # (Manual) D-Dimer POC ABG pH POC ABG pCO2 POC ABG pO2 Sodium Chloride Carbon Dioxide BUN Creatinine Glucose POC Glucose 195 H 147 H Calcium Magnesium Total Bilirubin AST Alkaline Phosphatase Total Creatine Kinase CK-MB (CK-2) Troponin T Total Protein Albumin HDL Cholesterol Urine Creatinine Urine Total Protein 08/30/16 08/31/16 08/31/16 23:19 05:37 08:02 WBC 14.7 H RBC Hgb 8.5 L Hct 27.4 L MCV 61 L MCH 19 L MCHC 31 L RDW 16.4 H Lymph % (Auto) [place] % (Auto) Lymph # [place] # Seg Neutrophils % Seg Neuts % (Manual) Lymphocytes % (Manual) Nucleated RBC % Seg Neutrophils # Seg Neutrophils # Man Lymphocytes # (Manual) Monocytes # (Manual) D-Dimer POC ABG pH POC ABG pCO2 POC ABG pO2 Sodium Chloride Carbon Dioxide BUN Creatinine Glucose POC Glucose 143 H 155 H Calcium Magnesium Total Bilirubin AST Alkaline Phosphatase Total Creatine Kinase CK-MB (CK-2) Troponin T Total Protein Albumin HDL Cholesterol Urine Creatinine Urine Total Protein 08/31/16 08/31/16 08/31/16 08:02 11:42 17:17 WBC RBC Hgb Hct MCV MCH MCHC RDW Lymph % (Auto) [place] % (Auto) Lymph # [place] # Seg Neutrophils % Seg Neuts % (Manual) Lymphocytes % (Manual) Nucleated RBC % Seg Neutrophils # Seg Neutrophils # Man Lymphocytes # (Manual) Monocytes # (Manual) D-Dimer POC ABG pH POC ABG pCO2 POC ABG pO2 Sodium 136 L Chloride Carbon Dioxide BUN 37 H Creatinine 1.7 H Glucose 153 H POC Glucose 195 H 197 H Calcium 7.7 L Magnesium Total Bilirubin AST Alkaline Phosphatase Total Creatine Kinase CK-MB (CK-2) Troponin T Total Protein Albumin HDL Cholesterol Urine Creatinine Urine Total Protein 08/31/16 09/01/16 09/01/16 23:41 05:28 06:19 WBC 15.8 H RBC Hgb 8.2 L Hct 26.6 L MCV 61 L MCH 19 L MCHC 31 L RDW 16.7 H Lymph % (Auto) [place] % (Auto) Lymph # [place] # Seg Neutrophils % Seg Neuts % (Manual) 87.0 H Lymphocytes % (Manual) 5.0 L Nucleated RBC % 1.0 H Seg Neutrophils # Seg Neutrophils # Man 13.7 H Lymphocytes # (Manual) 0.8 L Monocytes # (Manual) 1.1 H D-Dimer POC ABG pH POC ABG pCO2 POC ABG pO2 Sodium Chloride Carbon Dioxide BUN Creatinine Glucose POC Glucose 164 H 154 H Calcium Magnesium Total Bilirubin AST Alkaline Phosphatase Total Creatine Kinase CK-MB (CK-2) Troponin T Total Protein Albumin HDL Cholesterol Urine Creatinine Urine Total Protein 09/01/16 09/01/16 06:19 11:30 WBC RBC Hgb Hct MCV MCH MCHC RDW Lymph % (Auto) [place] % (Auto) Lymph # [place] # Seg Neutrophils % Seg Neuts % (Manual) Lymphocytes % (Manual) Nucleated RBC % Seg Neutrophils # Seg Neutrophils # Man Lymphocytes # (Manual) Monocytes # (Manual) D-Dimer POC ABG pH POC ABG pCO2 POC ABG pO2 Sodium Chloride Carbon Dioxide BUN 43 H Creatinine 2.0 H Glucose 150 H POC Glucose 156 H Calcium 7.8 L Magnesium 2.40 H Total Bilirubin 2.10 H AST 41 H Alkaline Phosphatase 301 H Total Creatine Kinase CK-MB (CK-2) Troponin T Total Protein 4.7 L Albumin 2.2 L HDL Cholesterol Urine Creatinine Urine Total Protein Chest x-ray: report reviewed, image reviewed (no change)
[2016-09-01] MEDS: SENOKOT S PO SCH (21:15)
[2016-09-02] MEDS: NOVOLOG SUB-Q SCH ×5 (00:34→23:40)
[2016-09-02] MEDS: APRESOLINE PO SCH ×3 (06:19→23:11)
[2016-09-02] MEDS: TYLENOL PO PRN (06:19)
[2016-09-02] MEDS: HEPARIN SUB-Q SCH ×3 (06:20→23:13)
[2016-09-02 09:10] LABS: Hematocrit 25.7 % (35.5-45.6); Mean Corpuscular HGB Conc 31 % (32-34); Platelet Count 332 K/mm3 (140-440); Red Blood Count 4.28 M/mm3 (3.65-5.03); Red Cell Distribution Width 16.6 % (13.2-15.2); White Blood Count 18.6 K/mm3 (4.5-11.0)
[2016-09-02 09:18] LABS: Mean Corpuscular Hemoglobin 19 pg (28-32); Mean Corpuscular Volume 60 fl (84-94)
[2016-09-02 09:22] LABS: BUN/Creatinine Ratio 23.8; Calcium 7.9 mg/dL (8.4-10.2)
[2016-09-02 09:23] LABS: Chloride 102.1 mmol/L (98-107); Magnesium 2.5 mg/dL (1.7-2.3); Phosphorous 4.5 mg/dL (2.5-4.5); Potassium 4.8 mmol/L (3.6-5.0)
--- NOTE | 2016-09-02 09:25 | Progress Note ---
Assessment and Plan Assessment and plan: --Status post PEA cardiac arrest With anoxic encephalopathy, continue supportive care, poor prognosis --Anoxic encephalopathy; supportive care --Acute hypoxic hypercapnic respiratory failure/mechanical ventilation more than 96 hrs Continue ventilatory support, wean as tolerated and extubate Pulmonary following, , patient may need trach and PEG placement if unable to wean DO NOT RESUSCITATE status, --Aspiration pneumonia; secondary to altered level of consciousness, CVA Continue current antibiotics, follow cultures, pulmonary following --Acute massive CVA; Patient is unresponsive poor prognosis, supportive care --malignant hypertension Moderate control, continue current antihypertensives and when necessary medications --Acute renal failure; secondary to ATN Closely monitor renal function, avoid nephrotoxic medications, nephrology following --Status post bilateral lower extremity amputation --DO NOT RESUSCITATE status --Poor prognosis Family members aware, family not ready for withdrawal of care or hospice . Plan of care discussed with the patient's nurse, and the case management Members not available Consults and recommendations noted and appreciated Recommend comfort care and hospice History Interval history: Patient remains intubated on ventilatory support Spontaneous opening of eyes, unresponsive Vital signs reviewed DO NOT RESUSCITATE status No new events reported by the nursing staff Hospitalist Physical - Constitutional Vitals: Temp Pulse Resp BP Pulse Ox 100.2 F H 91 H 24 139/69 99 09/02/16 08:00 09/02/16 08:00 09/02/16 08:00 09/02/16 08:00 09/02/16 08:00 General appearance: Present: no acute distress, other (not responsive, orally intubated on ventilator support) - EENT Eyes: Present: conjunctival injection (dry eyes) - Neck Neck: Present: supple, normal ROM - Respiratory Respiratory effort: normal Respiratory: bilateral: diminished, rhonchi, negative: rales, wheezing - Cardiovascular Rhythm: regular Heart Sounds: Present: S1 & S2 - Extremities Extremities: abnormal (bilateral AKA) - Abdominal General gastrointestinal: soft, non-tender, non-distended, normal bowel sounds - Integumentary Integumentary: Present: clear, warm - Psychiatric Psychiatric: other (unresponsive) - Neurologic Neurologic: other (intubated on ventilatory support) Results - Labs CBC & Chem 7: 09/02/16 08:40 09/02/16 08:40 Labs: Laboratory Last Values WBC 18.6 K/mm3 (4.5-11.0) H 09/02/16 08:40 RBC 4.28 M/mm3 (3.65-5.03) 09/02/16 08:40 Hgb 8.0 gm/dl (11.8-15.2) L 09/02/16 08:40 Hct 25.7 % (35.5-45.6) L 09/02/16 08:40 MCV 60 fl (84-94) L 09/02/16 08:40 MCH 19 pg (28-32) L 09/02/16 08:40 MCHC 31 % (32-34) L 09/02/16 08:40 RDW 16.6 % (13.2-15.2) H 09/02/16 08:40 Plt Count 332 K/mm3 (140-440) 09/02/16 08:40 Lymph % (Auto) 7.8 % (13.4-35.0) L 08/30/16 08:55 Archer % (Auto) 10.4 % (0.0-7.3) H 08/30/16 08:55 Eos % (Auto) 0.5 % (0.0-4.3) 08/30/16 08:55 Baso % (Auto) 0.4 % (0.0-1.8) 08/30/16 08:55 Lymph # 1.2 K/mm3 (1.2-5.4) 08/30/16 08:55 Archer # 1.6 K/mm3 (0.0-0.8) H 08/30/16 08:55 Eos # 0.1 K/mm3 (0.0-0.4) 08/30/16 08:55 Baso # 0.1 K/mm3 (0.0-0.1) 08/30/16 08:55 Add Manual Diff Complete 09/01/16 06:19 Total Counted 100 09/01/16 06:19 Seg Neutrophils % 80.9 % (40.0-70.0) H 08/30/16 08:55 Seg Neuts % (Manual) 87.0 % (40.0-70.0) H 09/01/16 06:19 Band Neutrophils % 0 % 09/01/16 06:19 Lymphocytes % (Manual) 5.0 % (13.4-35.0) L 09/01/16 06:19 Reactive Lymphs % (Man) 0 % 09/01/16 06:19 Monocytes % (Manual) 7.0 % (0.0-7.3) 09/01/16 06:19 Eosinophils % (Manual) 1.0 % (0.0-4.3) 09/01/16 06:19 Basophils % (Manual) 0 % (0.0-1.8) 09/01/16 06:19 Metamyelocytes % 0 % 09/01/16 06:19 Myelocytes % 0 % 09/01/16 06:19 Promyelocytes % 0 % 09/01/16 06:19 Blast Cells % 0 % 09/01/16 06:19 Nucleated RBC % 1.0 % (0.0-0.9) H 09/01/16 06:19 Seg Neutrophils # 12.2 K/mm3 (1.8-7.7) H 08/30/16 08:55 Seg Neutrophils # Man 13.7 K/mm3 (1.8-7.7) H 09/01/16 06:19 Band Neutrophils # 0.0 K/mm3 09/01/16 06:19 Lymphocytes # (Manual) 0.8 K/mm3 (1.2-5.4) L 09/01/16 06:19 Abs React Lymphs (Man) 0.0 K/mm3 09/01/16 06:19 Monocytes # (Manual) 1.1 K/mm3 (0.0-0.8) H 09/01/16 06:19 Eosinophils # (Manual) 0.2 K/mm3 (0.0-0.4) 09/01/16 06:19 Basophils # (Manual) 0.0 K/mm3 (0.0-0.1) 09/01/16 06:19 Metamyelocytes # 0.0 K/mm3 09/01/16 06:19 Myelocytes # 0.0 K/mm3 09/01/16 06:19 Promyelocytes # 0.0 K/mm3 09/01/16 06:19 Blast Cells # 0.0 K/mm3 09/01/16 06:19 WBC Morphology Not Reportable 09/01/16 06:19 Hypersegmented Neuts Not Reportable 09/01/16 06:19 Hyposegmented Neuts Not Reportable 09/01/16 06:19 Hypogranular Neuts Not Reportable 09/01/16 06:19 Smudge Cells Not Reportable 09/01/16 06:19 Toxic Granulation Not Reportable 09/01/16 06:19 Toxic Vacuolation Not Reportable 09/01/16 06:19 Dohle Bodies Not Reportable 09/01/16 06:19 Pelger-Huet Anomaly Not Reportable 09/01/16 06:19 Mattie Rods Not Reportable 09/01/16 06:19 Platelet Estimate Cons 09/01/16 06:19 Clumped Platelets Not Reportable 09/01/16 06:19 Plt Clumps, EDTA Not Reportable 09/01/16 06:19 Large Platelets 1+ 09/01/16 06:19 Giant Platelets Rare 09/01/16 06:19 Platelet Satelliting Not Reportable 09/01/16 06:19 Plt Morphology Comment Not Reportable 09/01/16 06:19 RBC Morphology Not Reportable 09/01/16 06:19 Dimorphic RBCs Not Reportable 09/01/16 06:19 Polychromasia Few 09/01/16 06:19 Hypochromasia 2+ 09/01/16 06:19 Poikilocytosis 2+ 09/01/16 06:19 Anisocytosis 2+ 09/01/16 06:19 Microcytosis 2+ 09/01/16 06:19 Macrocytosis Not Reportable 09/01/16 06:19 Spherocytes Not Reportable 09/01/16 06:19 Pappenheimer Bodies Not Reportable 09/01/16 06:19 Sickle Cells Not Reportable 09/01/16 06:19 Target Cells 1+ 09/01/16 06:19 Tear Drop Cells 1+ 09/01/16 06:19 Ovalocytes Not Reportable 09/01/16 06:19 Helmet Cells Not Reportable 09/01/16 06:19 Saeed-Anthoston Bodies Not Reportable 09/01/16 06:19 D[place]den Rings Not Reportable 09/01/16 06:19 Redfield Cells Not Reportable 09/01/16 06:19 Bite Cells Not Reportable 09/01/16 06:19 Crenated Cell Not Reportable 09/01/16 06:19 Elliptocytes Not Reportable 09/01/16 06:19 Acanthocytes (Spur) Not Reportable 09/01/16 06:19 Rouleaux Not Reportable 09/01/16 06:19 Hemoglobin C Crystals Not Reportable 09/01/16 06:19 Schistocytes Rare 09/01/16 06:19 Malaria parasites Not Reportable 09/01/16 06:19 Gentry Bodies Not Reportable 09/01/16 06:19 Hem Pathologist Commnt No 09/01/16 06:19 D-Dimer 1138.47 ng/mlDDU (0-234) H 08/24/16 03:23 POC ABG pH 7.483 (7.35-7.45) H 08/30/16 04:49 POC ABG pCO2 35.7 (35-45) 08/30/16 04:49 POC ABG pO2 67 (80-105) L 08/30/16 04:49 POC ABG HCO3 26.7 08/30/16 04:49 POC ABG Total CO2 28 08/30/16 04:49 POC ABG O2 Sat 94 08/30/16 04:49 POC ABG Base Excess 3 08/30/16 04:49 FiO2 30 % 08/30/16 04:49 Sodium 137 mmol/L (137-145) 09/02/16 08:40 Potassium 4.8 mmol/L (3.6-5.0) 09/02/16 08:40 Chloride 102.1 mmol/L (98-107) 09/02/16 08:40 Carbon Dioxide 25 mmol/L (22-30) 09/02/16 08:40 Anion Gap 15 mmol/L 09/02/16 08:40 BUN 50 mg/dL (9-20) H 09/02/16 08:40 Creatinine 2.1 mg/dL (0.8-1.5) H 09/02/16 08:40 Estimated GFR 40 ml/min 09/02/16 08:40 BUN/Creatinine Ratio 23.80 % 09/02/16 08:40 Glucose 169 mg/dL (75-100) H 09/02/16 08:40 POC Glucose 192 (70-105) H 09/02/16 06:31 Lactic Acid 1.80 mmol/L (0.7-2.0) 08/25/16 13:47 Calcium 7.9 mg/dL (8.4-10.2) L 09/02/16 08:40 Phosphorus 4.50 mg/dL (2.5-4.5) 09/02/16 08:40 Magnesium 2.50 mg/dL (1.7-2.3) H 09/02/16 08:40 Total Bilirubin 2.10 mg/dL (0.1-1.2) H 09/01/16 06:19 AST 41 units/L (5-40) H 09/01/16 06:19 ALT 55 units/L (7-56) 09/01/16 06:19 Alkaline Phosphatase 301 units/L (35-129) H 09/01/16 06:19 Ammonia 46.0 umol/L (25-60) 08/24/16 01:44 Total Creatine Kinase 796 units/L (55-170) H 08/27/16 10:32 CK-MB (CK-2) 6.3 ng/mL (0.0-4.0) H 08/27/16 10:32 CK-MB (CK-2) Rel Index 0.7 (0-4) 08/27/16 10:32 Troponin T 0.473 ng/mL (0.00-0.029) H* 08/27/16 18:46 Total Protein 4.7 g/dL (6.3-8.2) L 09/01/16 06:19 Albumin 2.2 g/dL (3.9-5) L 09/01/16 06:19 Albumin/Globulin Ratio 0.9 % 09/01/16 06:19 Triglycerides 68 mg/dL (2-149) 08/27/16 00:00 Cholesterol 182 mg/dL (50-199) 08/27/16 00:00 LDL Cholesterol Direct 70 mg/dL (50-130) 08/30/16 09:01 HDL Cholesterol 78 mg/dL (40-59) H 08/27/16 00:00 Cholesterol/HDL Ratio 2.33 % 08/27/16 00:00 TSH 3.080 mlU/mL (0.270-4.200) 08/23/16 23:35 Urine Color Yellow (Yellow) 08/24/16 00:40 Urine Turbidity Clear (Clear) 08/24/16 00:40 Urine pH 6.0 (5.0-7.0) 08/24/16 00:40 Ur Specific Ma[place] 1.022 (1.003-1.030) 08/24/16 00:40 Urine Protein >500 mg/dL (Negative) 08/24/16 00:40 Urine Glucose (UA) >=500 mg/dL (Negative) 08/24/16 00:40 Urine Ketones Neg mg/dL (Negative) 08/24/16 00:40 Urine Blood Mod (Negative) 08/24/16 00:40 Urine Nitrite Neg (Negative) 08/24/16 00:40 Urine Bilirubin Neg (Negative) 08/24/16 00:40 Urine Urobilinogen < 2.0 mg/dL (<2.0) 08/24/16 00:40 Ur Leukocyte Esterase Neg (Negative) 08/24/16 00:40 Urine WBC (Auto) 1.0 /HPF (0.0-6.0) 08/24/16 00:40 Urine RBC (Auto) 5.0 /HPF (0.0-6.0) 08/24/16 00:40 Urine Bacteria (Auto) 2+ /HPF (Negative) 08/24/16 00:40 Urine Creatinine 237.7 mg/dL (0.1-20.0) H 08/25/16 15:00 Protein/Creatinin Ratio 3.71 08/25/16 15:00 Urine Sodium 10 mEq/L 08/25/16 15:00 Urine Total Protein 882 mg/dL (5-11.8) H 08/25/16 15:00 Salicylates < 0.3 mg/dL (2.8-20.0) L 08/23/16 23:35 Urine Opiates Screen Presumptive negative 08/24/16 00:40 Urine Methadone Screen Presumptive negative 08/24/16 00:40 Acetaminophen < 15.0 ug/mL (10.0-30.0) 08/23/16 23:35 Ur Barbiturates Screen Presumptive negative 08/24/16 00:40 Ur Phencyclidine Scrn Presumptive negative 08/24/16 00:40 Ur Amphetamines Screen Presumptive negative 08/24/16 00:40 U Benzodiazepines Scrn Presumptive negative 08/24/16 00:40 Urine Cocaine Screen Presumptive negative 08/24/16 00:40 U Marijuana (THC) Screen Presumptive negative 08/24/16 00:40 Drugs of Abuse Note Disclamer 08/24/16 00:40 Plasma/Serum Alcohol < 0.01 gm% (0-0.07) 08/23/16 23:35
--- NOTE | 2016-09-02 09:36 | XRay Report ---
PORTABLE CHEST INDICATION: Followup respiratory failure. COMPARISON: Yesterday. FINDINGS: Portable, frontal chest radiograph, 2:05 AM, 09/02/2016 demonstrates now somewhat more prominent approximately 4 cm opacity at the right lung base, partly obscuring the right hemidiaphragm. Left hemidiaphragm also again obscured with diffuse pulmonary haziness, left more than right, possibly layering pleural fluid/edema. Stable cardiomediastinal silhouette, endotracheal and esophagogastric tubes, EKG leads and osseous structures. CONCLUSION: Bilateral pulmonary congestive haziness appears worse, more so towards the bases, as detailed above. Follow up on subsequent exams as well. Thank you for the opportunity to participate in this patient's care.
[2016-09-02 10:09] LABS: Anisocytosis 2+; Basophils % (Manual) 0 % (0.0-1.8); Blastocytes % (Manual) 0 %; Hypochromasia 2+; Microcytosis 2+; Poikilocytosis 2+
[2016-09-02 10:10] LABS: Polychromasia Few; Schistocytes Few; Target Cells 1+; Tear Drop Cells 1+
[2016-09-02 10:11] LABS: Diff Status Complete; Large Platelets Few; Platelet Estimate Cons
[2016-09-02] MEDS: LEVEMIR SUB-Q SCH (10:47)
[2016-09-02] MEDS: ASPIRIN PO SCH (10:47)
[2016-09-02] MEDS: NORMODYNE PO SCH ×2 (10:47→23:10)
[2016-09-02] MEDS: PEPCID PO SCH (10:47)
--- NOTE | 2016-09-02 14:17 | Progress Note ---
Assessment and Plan 1. S/p Cardiopulm Arrest - Intubated & on vent, f/u arousal 2. HTN - Good control on current meds 3. ALANNAH/ATN - Worsening BUN/Cr, resume cautious IVF & f/u closely 4. Lytes - F/u labs 5. CVA - ?Improving neuro status, continue f/u 6. Periph Edema - Improved off Amlodipine. F/u urine output >36mins Subjective Date of service: 09/02/16 Principal diagnosis: Acute respiratory failure Objective - Vital Signs Vital signs: Vital Signs - 12hr 09/02/16 09/02/16 09/02/16 02:30 03:00 03:25 Temperature Pulse Rate 92 H 94 H 94 H Respiratory 18 24 Rate Blood Pressure 153/73 158/73 158/73 O2 Sat by Pulse 97 97 97 Oximetry 09/02/16 09/02/16 09/02/16 03:30 04:00 04:30 Temperature 101.4 F H Pulse Rate 93 H 95 H 95 H Respiratory 23 24 24 Rate Blood Pressure 150/72 153/72 146/71 O2 Sat by Pulse 97 97 97 Oximetry 09/02/16 09/02/16 09/02/16 05:00 05:30 06:00 Temperature Pulse Rate 95 H 96 H 97 H Respiratory 23 27 H 27 H Rate Blood Pressure 154/75 154/73 159/76 O2 Sat by Pulse 97 98 98 Oximetry 09/02/16 09/02/16 09/02/16 06:19 06:30 07:00 Temperature Pulse Rate 97 H 95 H 96 H Respiratory 21 26 H 27 H Rate Blood Pressure 159/76 156/79 155/72 O2 Sat by Pulse 98 98 Oximetry 09/02/16 09/02/16 09/02/16 07:30 07:50 08:00 Temperature 100.2 F H Pulse Rate 94 H 91 H 91 H Respiratory 24 24 24 Rate Blood Pressure 143/65 143/65 139/69 O2 Sat by Pulse 98 98 99 Oximetry 09/02/16 09/02/16 09/02/16 08:30 09:00 09:30 Temperature Pulse Rate 89 86 86 Respiratory 23 22 20 Rate Blood Pressure 136/69 138/66 145/71 O2 Sat by Pulse 98 98 98 Oximetry 09/02/16 09/02/16 09/02/16 10:00 10:30 10:47 Temperature Pulse Rate 86 86 86 Respiratory 25 H 24 Rate Blood Pressure 148/74 146/75 146/75 O2 Sat by Pulse 97 97 Oximetry 09/02/16 09/02/16 13:15 13:40 Temperature Pulse Rate 75 74 Respiratory 23 Rate Blood Pressure 125/73 120/72 O2 Sat by Pulse 98 Oximetry - General Appearance General appearance: intubated EENT: other (Eyes open with spontaneous blinking but response unclear) Neck: no JVD Respiratory: Present: Other (Good entry per vent) Cardiology: regular, S1S2 Gastrointestinal: other (Soft) - Lab 09/02/16 08:40 09/02/16 08:40 Most recent lab results Calcium 7.9 mg/dL (8.4-10.2) L 09/02/16 08:40 Phosphorus 4.50 mg/dL (2.5-4.5) 09/02/16 08:40 Magnesium 2.50 mg/dL (1.7-2.3) H 09/02/16 08:40 Urine Creatinine 237.7 mg/dL (0.1-20.0) H 08/25/16 15:00 Urine Sodium 10 mEq/L 08/25/16 15:00 Urine Total Protein 882 mg/dL (5-11.8) H 08/25/16 15:00
--- NOTE | 2016-09-02 14:31 | Progress Note ---
Assessment and Plan Imp: 1. Large Acute CVA 2. Malignant HTN related to #1 3. S/p CP arrest 4. Anoxic encephalopathy 5. ALANNAH 6. Acute respiratory failure, hypoxia 7. Constipation 8. 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 SIRS, r/o sepsis/pneumonia Rec: 1. Can cont. PSV but mentation precludes extubation; will need trach/PEG if family wishes for aggressive treatment 2. BP control per primary/renal 3. DVT/GI PPx, TFs; IVFs resumed due to worsening renal function 4. Anti-platelets added 5. Bowel regimen added; monitor 6. AND but family wants to hold off on hospice for now; believe prognosis for meaningful neurologic recovery/good quality of life is poor 7. Fever + worsening leukocytosis and worsening infiltrates on CXR (volume overload versus pneumonia); cannot r/o pneumonia so will start Zosyn; asked RN and pharmacy to confirm there is no PCN allergy w/ family prior to administering a dose; blood, urine, and sputum cultures also sent No family present during my evaluation [id number] minutes Subjective Date of service: 09/02/16 Principal diagnosis: Acute respiratory failure Interval history: Spiked temp this AM. Opens eyes but o/w nonresponsive on ventilator. Tolerating PSV 10/5. BP elevated at times. Not getting sedation. Active Medications Acetaminophen (Tylenol) 650 mg PO Q4H PRN PRN Reason: Pain MILD(1-3)/Fever >100.5/ALFARO Last Admin: 09/02/16 06:19 Dose: 650 mg Albuterol (Proventil) 2.5 mg IH Q6HRT PRN PRN Reason: Shortness Of Breath Last Admin: 08/26/16 13:36 Dose: 2.5 mg Lipase/Protease/Amylase (Pancreaze Dr 10,500 Unit) 1 each FEEDTUBE PRN PRN PRN Reason: For Clogged Feeding Tube Artificial Tears (Isopto Tears 0.5%) 2 drops OU TID JERAMY Aspirin (Aspirin) 325 mg PO QDAY JERAMY Last Admin: 09/02/16 10:47 Dose: 325 mg Bisacodyl (Dulcolax) 10 mg NV QDAY PRN PRN Reason: Constipation unrelieved by MOM Dextrose (D50w (25gm)) 50 ml IV PRN PRN PRN Reason: Hypoglycemia Famotidine (Pepcid) 20 mg PO DAILY [facility] Last Admin: 09/02/16 10:47 Dose: 20 mg Heparin Sodium (Porcine) (Heparin) 5,000 unit SUB-Q Q8HR [facility] Last Admin: 09/02/16 13:40 Dose: 5,000 unit Hydralazine HCl (Apresoline) 50 mg PO Q8HR [facility] Last Admin: 09/02/16 13:40 Dose: 50 mg Sodium Chloride (Nacl 0.45% 1000 Ml) 1,000 mls @ 75 mls/hr IV DIRECT [facility] Piperacillin Sod/Tazobactam Sod (Zosyn/Ns 4.5gm/100ml) 4.5 gm in 100 mls @ 200 mls/hr IV Q8HR [facility] PRN Reason: Protocol Insulin Aspart (Novolog) 0 units SUB-Q Q6HR [facility] PRN Reason: Protocol Last Admin: 09/02/16 12:40 Dose: 3 units Insulin Detemir (Levemir) 20 units SUB-Q DAILY [facility] Last Admin: 09/02/16 10:47 Dose: 20 units Labetalol HCl (Normodyne) 300 mg PO BID [facility] Last Admin: 09/02/16 10:47 Dose: 300 mg Labetalol HCl (Normodyne) 10 mg IV Q4H PRN PRN Reason: Blood Pressure SBP>185 Last Admin: 08/27/16 08:32 Dose: 10 mg Magnesium Hydroxide (Milk Of Magnesia) 30 ml PO Q4H PRN PRN Reason: Constipation Multi-Ingred Cream/Lotion/Oil/Oint (Artificial Tears Ophth Oint) 1 applic OU PRN PRN PRN Reason: Dry Eye(s) Last Admin: 08/31/16 22:03 Dose: 1 applic Ondansetron HCl (Zofran) 4 mg IV Q8H PRN PRN Reason: N/V unrelieved by Reglan Senna/Docusate Sodium (Senokot S) 2 tab PO QHS [facility] Last Admin: 09/01/16 21:15 Dose: 2 tab Simple Syrup (Simple Syrup) 15 ml FEEDTUBE PRN PRN PRN Reason: Hypoglycemia Last Admin: 08/28/16 06:05 Dose: 15 ml Simple Syrup (Simple Syrup) 30 ml FEEDTUBE PRN PRN PRN Reason: Hypoglycemia Objective Vital Signs - 12hr 09/02/16 09/02/16 09/02/16 02:30 03:00 03:25 Temperature Pulse Rate 92 H 94 H 94 H Respiratory 18 24 Rate Blood Pressure 153/73 158/73 158/73 O2 Sat by Pulse 97 97 97 Oximetry 09/02/16 09/02/16 09/02/16 03:30 04:00 04:30 Temperature 101.4 F H Pulse Rate 93 H 95 H 95 H Respiratory 23 24 24 Rate Blood Pressure 150/72 153/72 146/71 O2 Sat by Pulse 97 97 97 Oximetry 09/02/16 09/02/16 09/02/16 05:00 05:30 06:00 Temperature Pulse Rate 95 H 96 H 97 H Respiratory 23 27 H 27 H Rate Blood Pressure 154/75 154/73 159/76 O2 Sat by Pulse 97 98 98 Oximetry 09/02/16 09/02/16 09/02/16 06:19 06:30 07:00 Temperature Pulse Rate 97 H 95 H 96 H Respiratory 21 26 H 27 H Rate Blood Pressure 159/76 156/79 155/72 O2 Sat by Pulse 98 98 Oximetry 09/02/16 09/02/16 09/02/16 07:30 07:50 08:00 Temperature 100.2 F H Pulse Rate 94 H 91 H 91 H Respiratory 24 24 24 Rate Blood Pressure 143/65 143/65 139/69 O2 Sat by Pulse 98 98 99 Oximetry 09/02/16 09/02/16 09/02/16 08:30 09:00 09:30 Temperature Pulse Rate 89 86 86 Respiratory 23 22 20 Rate Blood Pressure 136/69 138/66 145/71 O2 Sat by Pulse 98 98 98 Oximetry 09/02/16 09/02/16 09/02/16 10:00 10:30 10:47 Temperature Pulse Rate 86 86 86 Respiratory 25 H 24 Rate Blood Pressure 148/74 146/75 146/75 O2 Sat by Pulse 97 97 Oximetry 09/02/16 09/02/16 13:15 13:40 Temperature Pulse Rate 75 74 Respiratory 23 Rate Blood Pressure 125/73 120/72 O2 Sat by Pulse 98 Oximetry Constitutional: comatose (opens eyes only), other (critically ill on vent) Eyes: non-icteric ENT: other (orally intubated) Effort: normal Ascultation: Bilateral: clear Cardiovascular: regular rate and rhythm (no mrg) Gastrointestinal: soft, non-distended Integumentary: normal Extremities: no cyanosis, edema (1+ upper extremities), other (bilateral AKA) Neurologic: other (moves RUE spontaneously, nothing purposeful, minimal opening of eyes but not tracking) Psychiatric: other (not able to assess) CBC and BMP: 09/02/16 08:40 09/02/16 08:40 ABG, PT/INR, D-dimer: ABG POC ABG pH 7.483 (7.35-7.45) H 08/30/16 04:49 POC ABG pCO2 35.7 (35-45) 08/30/16 04:49 POC ABG pO2 67 (80-105) L 08/30/16 04:49 POC ABG HCO3 26.7 08/30/16 04:49 POC ABG Total CO2 28 08/30/16 04:49 POC ABG O2 Sat 94 08/30/16 04:49 PT/INR, D-dimer D-Dimer 1138.47 ng/mlDDU (0-234) H 08/24/16 03:23 Abnormal lab findings: Abnormal Labs 08/24/16 08/24/16 08/24/16 03:23 09:23 10:58 WBC RBC Hgb Hct MCV MCH MCHC RDW Lymph % (Auto) Cotton % (Auto) Lymph # Cotton # Seg Neutrophils % Seg Neuts % (Manual) Lymphocytes % (Manual) Nucleated RBC % Seg Neutrophils # Seg Neutrophils # Man Lymphocytes # (Manual) Monocytes # (Manual) D-Dimer 1138.47 H POC ABG pH POC ABG pCO2 POC ABG pO2 Sodium Chloride Carbon Dioxide BUN Creatinine Glucose POC Glucose 410 H 392 H Calcium Magnesium Total Bilirubin AST Alkaline Phosphatase Total Creatine Kinase CK-MB (CK-2) Troponin T Total Protein Albumin HDL Cholesterol Urine Creatinine Urine Total Protein 08/24/16 08/24/16 08/24/16 13:02 13:44 17:29 WBC RBC Hgb Hct MCV MCH MCHC RDW Lymph % (Auto) Cotton % (Auto) Lymph # Cotton # Seg Neutrophils % Seg Neuts % (Manual) Lymphocytes % (Manual) Nucleated RBC % Seg Neutrophils # Seg Neutrophils # Man Lymphocytes # (Manual) Monocytes # (Manual) D-Dimer POC ABG pH POC ABG pCO2 34.8 L POC ABG pO2 Sodium Chloride Carbon Dioxide BUN Creatinine 1.8 H Glucose 266 H POC Glucose 354 H Calcium Magnesium Total Bilirubin AST Alkaline Phosphatase Total Creatine Kinase CK-MB (CK-2) Troponin T Total Protein Albumin HDL Cholesterol Urine Creatinine Urine Total Protein 08/24/16 08/24/16 08/24/16 17:34 18:24 18:41 WBC RBC Hgb Hct MCV MCH MCHC RDW Lymph % (Auto) Cotton % (Auto) Lymph # Cotton # Seg Neutrophils % Seg Neuts % (Manual) Lymphocytes % (Manual) Nucleated RBC % Seg Neutrophils # Seg Neutrophils # Man Lymphocytes # (Manual) Monocytes # (Manual) D-Dimer POC ABG pH POC ABG pCO2 POC ABG pO2 Sodium Chloride Carbon Dioxide 18 L BUN Creatinine 1.9 H Glucose 174 H POC Glucose 211 H 190 H Calcium 8.2 L Magnesium Total Bilirubin AST Alkaline Phosphatase Total Creatine Kinase CK-MB (CK-2) Troponin T Total Protein Albumin HDL Cholesterol Urine Creatinine Urine Total Protein 08/24/16 08/24/16 08/24/16 19:28 20:24 21:21 WBC RBC Hgb Hct MCV MCH MCHC RDW Lymph % (Auto) Cotton % (Auto) Lymph # Cotton # Seg Neutrophils % Seg Neuts % (Manual) Lymphocytes % (Manual) Nucleated RBC % Seg Neutrophils # Seg Neutrophils # Man Lymphocytes # (Manual) Monocytes # (Manual) D-Dimer POC ABG pH POC ABG pCO2 POC ABG pO2 Sodium Chloride Carbon Dioxide BUN Creatinine Glucose POC Glucose 159 H 110 H 144 H Calcium Magnesium Total Bilirubin AST Alkaline Phosphatase Total Creatine Kinase CK-MB (CK-2) Troponin T Total Protein Albumin HDL Cholesterol Urine Creatinine Urine Total Protein 08/24/16 08/24/16 08/24/16 21:48 22:26 23:19 WBC RBC Hgb Hct MCV MCH MCHC RDW Lymph % (Auto) Cotton % (Auto) Lymph # Cotton # Seg Neutrophils % Seg Neuts % (Manual) Lymphocytes % (Manual) Nucleated RBC % Seg Neutrophils # Seg Neutrophils # Man Lymphocytes # (Manual) Monocytes # (Manual) D-Dimer POC ABG pH POC ABG pCO2 POC ABG pO2 Sodium Chloride Carbon Dioxide 21 L BUN Creatinine 1.8 H Glucose 141 H POC Glucose 148 H 140 H Calcium 8.3 L Magnesium Total Bilirubin AST Alkaline Phosphatase Total Creatine Kinase CK-MB (CK-2) Troponin T Total Protein Albumin HDL Cholesterol Urine Creatinine Urine Total Protein 08/25/16 08/25/16 08/25/16 01:11 02:15 03:18 WBC RBC Hgb Hct MCV MCH MCHC RDW Lymph % (Auto) Cotton % (Auto) Lymph # Cotton # Seg Neutrophils % Seg Neuts % (Manual) Lymphocytes % (Manual) Nucleated RBC % Seg Neutrophils # Seg Neutrophils # Man Lymphocytes # (Manual) Monocytes # (Manual) D-Dimer POC ABG pH POC ABG pCO2 POC ABG pO2 Sodium Chloride Carbon Dioxide BUN Creatinine Glucose POC Glucose 130 H 136 H 145 H Calcium Magnesium Total Bilirubin AST Alkaline Phosphatase Total Creatine Kinase CK-MB (CK-2) Troponin T Total Protein Albumin HDL Cholesterol Urine Creatinine Urine Total Protein 08/25/16 08/25/16 08/25/16 04:09 04:53 04:53 WBC 14.1 H RBC 5.36 H Hgb 9.9 L Hct 32.9 L MCV 61 L MCH 19 L MCHC 30 L RDW 17.5 H Lymph % (Auto) 8.0 L Cotton % (Auto) 9.7 H Lymph # 1.1 L Cotton # 1.4 H Seg Neutrophils % 82.2 H Seg Neuts % (Manual) Lymphocytes % (Manual) Nucleated RBC % Seg Neutrophils # 11.6 H Seg Neutrophils # Man Lymphocytes # (Manual) Monocytes # (Manual) D-Dimer POC ABG pH POC ABG pCO2 POC ABG pO2 Sodium Chloride Carbon Dioxide 21 L BUN Creatinine 1.9 H Glucose 116 H POC Glucose 120 H Calcium 8.2 L Magnesium Total Bilirubin AST Alkaline Phosphatase Total Creatine Kinase CK-MB (CK-2) Troponin T Total Protein Albumin HDL Cholesterol Urine Creatinine Urine Total Protein 08/25/16 08/25/16 08/25/16 05:05 06:31 07:35 WBC RBC Hgb Hct MCV MCH MCHC RDW Lymph % (Auto) Cotton % (Auto) Lymph # Cotton # Seg Neutrophils % Seg Neuts % (Manual) Lymphocytes % (Manual) Nucleated RBC % Seg Neutrophils # Seg Neutrophils # Man Lymphocytes # (Manual) Monocytes # (Manual) D-Dimer POC ABG pH POC ABG pCO2 POC ABG pO2 Sodium Chloride Carbon Dioxide BUN Creatinine Glucose POC Glucose 126 H 139 H 142 H Calcium Magnesium Total Bilirubin AST Alkaline Phosphatase Total Creatine Kinase CK-MB (CK-2) Troponin T Total Protein Albumin HDL Cholesterol Urine Creatinine Urine Total Protein 08/25/16 08/25/16 08/25/16 08:55 09:48 10:59 WBC RBC Hgb Hct MCV MCH MCHC RDW Lymph % (Auto) Cotton % (Auto) Lymph # Cotton # Seg Neutrophils % Seg Neuts % (Manual) Lymphocytes % (Manual) Nucleated RBC % Seg Neutrophils # Seg Neutrophils # Man Lymphocytes # (Manual) Monocytes # (Manual) D-Dimer POC ABG pH POC ABG pCO2 POC ABG pO2 Sodium Chloride Carbon Dioxide BUN Creatinine Glucose POC Glucose 135 H 109 H 126 H Calcium Magnesium Total Bilirubin AST Alkaline Phosphatase Total Creatine Kinase CK-MB (CK-2) Troponin T Total Protein Albumin HDL Cholesterol Urine Creatinine Urine Total Protein 08/25/16 08/25/16 08/25/16 11:34 13:47 15:00 WBC RBC Hgb Hct MCV MCH MCHC RDW Lymph % (Auto) Cotton % (Auto) Lymph # Cotton # Seg Neutrophils % Seg Neuts % (Manual) Lymphocytes % (Manual) Nucleated RBC % Seg Neutrophils # Seg Neutrophils # Man Lymphocytes # (Manual) Monocytes # (Manual) D-Dimer POC ABG pH POC ABG pCO2 32.8 L POC ABG pO2 108 H Sodium Chloride Carbon Dioxide 19 L BUN Creatinine 1.7 H Glucose 196 H POC Glucose Calcium 8.2 L Magnesium Total Bilirubin AST Alkaline Phosphatase Total Creatine Kinase CK-MB (CK-2) Troponin T Total Protein Albumin HDL Cholesterol Urine Creatinine 237.7 H Urine Total Protein 882 H 08/25/16 08/25/16 08/26/16 16:30 23:09 05:41 WBC RBC Hgb Hct MCV MCH MCHC RDW Lymph % (Auto) Cotton % (Auto) Lymph # Cotton # Seg Neutrophils % Seg Neuts % (Manual) Lymphocytes % (Manual) Nucleated RBC % Seg Neutrophils # Seg Neutrophils # Man Lymphocytes # (Manual) Monocytes # (Manual) D-Dimer POC ABG pH POC ABG pCO2 POC ABG pO2 Sodium Chloride Carbon Dioxide BUN Creatinine Glucose POC Glucose 242 H 131 H 156 H Calcium Magnesium Total Bilirubin AST Alkaline Phosphatase Total Creatine Kinase CK-MB (CK-2) Troponin T Total Protein Albumin HDL Cholesterol Urine Creatinine Urine Total Protein 08/26/16 08/26/16 08/26/16 07:16 12:12 17:51 WBC RBC Hgb Hct MCV MCH MCHC RDW Lymph % (Auto) Cotton % (Auto) Lymph # Cotton # Seg Neutrophils % Seg Neuts % (Manual) Lymphocytes % (Manual) Nucleated RBC % Seg Neutrophils # Seg Neutrophils # Man Lymphocytes # (Manual) Monocytes # (Manual) D-Dimer POC ABG pH POC ABG pCO2 POC ABG pO2 Sodium Chloride Carbon Dioxide 18 L BUN 26 H Creatinine 2.0 H Glucose 132 H POC Glucose 119 H 161 H Calcium 8.1 L Magnesium Total Bilirubin AST 41 H Alkaline Phosphatase Total Creatine Kinase CK-MB (CK-2) Troponin T Total Protein 5.5 L Albumin 2.7 L HDL Cholesterol Urine Creatinine Urine Total Protein 08/26/16 08/26/16 08/27/16 22:34 23:50 00:00 WBC 11.8 H RBC 5.29 H Hgb 10.0 L Hct 33.3 L MCV 63 L MCH 19 L MCHC 30 L RDW 17.4 H Lymph % (Auto) Cotton % (Auto) 8.7 H Lymph # Cotton # 1.0 H Seg Neutrophils % 72.6 H Seg Neuts % (Manual) Lymphocytes % (Manual) Nucleated RBC % Seg Neutrophils # 8.6 H Seg Neutrophils # Man Lymphocytes # (Manual) Monocytes # (Manual) D-Dimer POC ABG pH POC ABG pCO2 POC ABG pO2 Sodium Chloride Carbon Dioxide BUN Creatinine Glucose POC Glucose 107 H 119 H Calcium Magnesium Total Bilirubin AST Alkaline Phosphatase Total Creatine Kinase CK-MB (CK-2) Troponin T Total Protein Albumin HDL Cholesterol Urine Creatinine Urine Total Protein 08/27/16 08/27/16 08/27/16 00:00 00:00 00:02 WBC RBC Hgb Hct MCV MCH MCHC RDW Lymph % (Auto) Cotton % (Auto) Lymph # Cotton # Seg Neutrophils % Seg Neuts % (Manual) Lymphocytes % (Manual) Nucleated RBC % Seg Neutrophils # Seg Neutrophils # Man Lymphocytes # (Manual) Monocytes # (Manual) D-Dimer POC ABG pH POC ABG pCO2 POC ABG pO2 205 H Sodium 135 L Chloride 96.6 L Carbon Dioxide 16 L BUN 31 H Creatinine 2.2 H Glucose 154 H POC Glucose Calcium 7.8 L Magnesium Total Bilirubin AST Alkaline Phosphatase Total Creatine Kinase 1401 H CK-MB (CK-2) 13.6 H Troponin T 0.421 H* Total Protein Albumin HDL Cholesterol 78 H Urine Creatinine Urine Total Protein 08/27/16 08/27/16 08/27/16 00:37 03:22 04:08 WBC RBC Hgb Hct MCV MCH MCHC RDW Lymph % (Auto) Cotton % (Auto) Lymph # Cotton # Seg Neutrophils % Seg Neuts % (Manual) Lymphocytes % (Manual) Nucleated RBC % Seg Neutrophils # Seg Neutrophils # Man Lymphocytes # (Manual) Monocytes # (Manual) D-Dimer POC ABG pH 7.467 H POC ABG pCO2 31.3 L POC ABG pO2 Sodium Chloride Carbon Dioxide BUN Creatinine Glucose POC Glucose 106 H Calcium Magnesium Total Bilirubin AST Alkaline Phosphatase Total Creatine Kinase 909 H CK-MB (CK-2) 9.3 H Troponin T Total Protein Albumin HDL Cholesterol Urine Creatinine Urine Total Protein 08/27/16 08/27/16 08/27/16 04:35 05:35 10:32 WBC RBC Hgb Hct MCV MCH MCHC RDW Lymph % (Auto) Cotton % (Auto) Lymph # Cotton # Seg Neutrophils % Seg Neuts % (Manual) Lymphocytes % (Manual) Nucleated RBC % Seg Neutrophils # Seg Neutrophils # Man Lymphocytes # (Manual) Monocytes # (Manual) D-Dimer POC ABG pH POC ABG pCO2 POC ABG pO2 Sodium Chloride Carbon Dioxide BUN Creatinine Glucose POC Glucose 120 H 113 H Calcium Magnesium Total Bilirubin AST Alkaline Phosphatase Total Creatine Kinase 796 H CK-MB (CK-2) 6.3 H Troponin T Total Protein Albumin HDL Cholesterol Urine Creatinine Urine Total Protein 08/27/16 08/27/16 08/27/16 11:59 17:28 18:46 WBC RBC Hgb Hct MCV MCH MCHC RDW Lymph % (Auto) Cotton % (Auto) Lymph # Cotton # Seg Neutrophils % Seg Neuts % (Manual) Lymphocytes % (Manual) Nucleated RBC % Seg Neutrophils # Seg Neutrophils # Man Lymphocytes # (Manual) Monocytes # (Manual) D-Dimer POC ABG pH POC ABG pCO2 POC ABG pO2 Sodium Chloride Carbon Dioxide BUN Creatinine Glucose POC Glucose 225 H 231 H Calcium Magnesium Total Bilirubin AST Alkaline Phosphatase Total Creatine Kinase CK-MB (CK-2) Troponin T 0.473 H* Total Protein Albumin HDL Cholesterol Urine Creatinine Urine Total Protein 08/27/16 08/28/16 08/28/16 23:32 03:39 03:39 WBC 11.5 H RBC Hgb 8.9 L Hct 28.8 L MCV 61 L MCH 19 L MCHC 31 L RDW 16.8 H Lymph % (Auto) Cotton % (Auto) Lymph # Cotton # Seg Neutrophils % Seg Neuts % (Manual) Lymphocytes % (Manual) Nucleated RBC % Seg Neutrophils # Seg Neutrophils # Man Lymphocytes # (Manual) Monocytes # (Manual) D-Dimer POC ABG pH POC ABG pCO2 POC ABG pO2 Sodium 134 L Chloride 95.0 L Carbon Dioxide BUN 29 H Creatinine 1.9 H Glucose 66 L POC Glucose 110 H Calcium 7.5 L Magnesium Total Bilirubin AST Alkaline Phosphatase Total Creatine Kinase CK-MB (CK-2) Troponin T Total Protein Albumin HDL Cholesterol Urine Creatinine Urine Total Protein 08/28/16 08/28/16 08/28/16 04:45 05:25 06:48 WBC RBC Hgb Hct MCV MCH MCHC RDW Lymph % (Auto) Cotton % (Auto) Lymph # Cotton # Seg Neutrophils % Seg Neuts % (Manual) Lymphocytes % (Manual) Nucleated RBC % Seg Neutrophils # Seg Neutrophils # Man Lymphocytes # (Manual) Monocytes # (Manual) D-Dimer POC ABG pH 7.554 H POC ABG pCO2 POC ABG pO2 108 H Sodium Chloride Carbon Dioxide BUN Creatinine Glucose POC Glucose 67 L 120 H Calcium Magnesium Total Bilirubin AST Alkaline Phosphatase Total Creatine Kinase CK-MB (CK-2) Troponin T Total Protein Albumin HDL Cholesterol Urine Creatinine Urine Total Protein 08/28/16 08/28/16 08/28/16 10:29 11:15 12:00 WBC RBC Hgb Hct MCV MCH MCHC RDW Lymph % (Auto) Cotton % (Auto) Lymph # Cotton # Seg Neutrophils % Seg Neuts % (Manual) Lymphocytes % (Manual) Nucleated RBC % Seg Neutrophils # Seg Neutrophils # Man Lymphocytes # (Manual) Monocytes # (Manual) D-Dimer POC ABG pH 7.499 H POC ABG pCO2 POC ABG pO2 Sodium Chloride Carbon Dioxide BUN Creatinine Glucose POC Glucose 206 H 181 H Calcium Magnesium Total Bilirubin AST Alkaline Phosphatase Total Creatine Kinase CK-MB (CK-2) Troponin T Total Protein Albumin HDL Cholesterol Urine Creatinine Urine Total Protein 08/28/16 08/29/16 08/29/16 17:38 03:12 05:56 WBC RBC Hgb Hct MCV MCH MCHC RDW Lymph % (Auto) Cotton % (Auto) Lymph # Cotton # Seg Neutrophils % Seg Neuts % (Manual) Lymphocytes % (Manual) Nucleated RBC % Seg Neutrophils # Seg Neutrophils # Man Lymphocytes # (Manual) Monocytes # (Manual) D-Dimer POC ABG pH 7.463 H POC ABG pCO2 POC ABG pO2 68 L Sodium 134 L Chloride 95.9 L Carbon Dioxide BUN 28 H Creatinine 1.8 H Glucose POC Glucose 140 H Calcium 7.4 L Magnesium Total Bilirubin AST Alkaline Phosphatase Total Creatine Kinase CK-MB (CK-2) Troponin T Total Protein Albumin HDL Cholesterol Urine Creatinine Urine Total Protein 08/29/16 08/29/16 08/29/16 11:52 17:43 23:21 WBC RBC Hgb Hct MCV MCH MCHC RDW Lymph % (Auto) Cotton % (Auto) Lymph # Cotton # Seg Neutrophils % Seg Neuts % (Manual) Lymphocytes % (Manual) Nucleated RBC % Seg Neutrophils # Seg Neutrophils # Man Lymphocytes # (Manual) Monocytes # (Manual) D-Dimer POC ABG pH POC ABG pCO2 POC ABG pO2 Sodium Chloride Carbon Dioxide BUN Creatinine Glucose POC Glucose 174 H 187 H 208 H Calcium Magnesium Total Bilirubin AST Alkaline Phosphatase Total Creatine Kinase CK-MB (CK-2) Troponin T Total Protein Albumin HDL Cholesterol Urine Creatinine Urine Total Protein 08/30/16 08/30/16 08/30/16 04:49 04:50 05:30 WBC RBC Hgb Hct MCV MCH MCHC RDW Lymph % (Auto) Cotton % (Auto) Lymph # Cotton # Seg Neutrophils % Seg Neuts % (Manual) Lymphocytes % (Manual) Nucleated RBC % Seg Neutrophils # Seg Neutrophils # Man Lymphocytes # (Manual) Monocytes # (Manual) D-Dimer POC ABG pH 7.483 H POC ABG pCO2 POC ABG pO2 67 L Sodium 135 L Chloride Carbon Dioxide BUN 35 H Creatinine 1.8 H Glucose 167 H POC Glucose 191 H Calcium 7.5 L Magnesium Total Bilirubin AST Alkaline Phosphatase Total Creatine Kinase CK-MB (CK-2) Troponin T Total Protein Albumin HDL Cholesterol Urine Creatinine Urine Total Protein 08/30/16 08/30/16 08/30/16 08:55 11:39 17:18 WBC 15.0 H RBC Hgb 8.6 L Hct 27.5 L MCV 61 L MCH 19 L MCHC 31 L RDW 16.6 H Lymph % (Auto) 7.8 L Cotton % (Auto) 10.4 H Lymph # Cotton # 1.6 H Seg Neutrophils % 80.9 H Seg Neuts % (Manual) Lymphocytes % (Manual) Nucleated RBC % Seg Neutrophils # 12.2 H Seg Neutrophils # Man Lymphocytes # (Manual) Monocytes # (Manual) D-Dimer POC ABG pH POC ABG pCO2 POC ABG pO2 Sodium Chloride Carbon Dioxide BUN Creatinine Glucose POC Glucose 195 H 147 H Calcium Magnesium Total Bilirubin AST Alkaline Phosphatase Total Creatine Kinase CK-MB (CK-2) Troponin T Total Protein Albumin HDL Cholesterol Urine Creatinine Urine Total Protein 08/30/16 08/31/16 08/31/16 23:19 05:37 08:02 WBC 14.7 H RBC Hgb 8.5 L Hct 27.4 L MCV 61 L MCH 19 L MCHC 31 L RDW 16.4 H Lymph % (Auto) Cotton % (Auto) Lymph # Cotton # Seg Neutrophils % Seg Neuts % (Manual) Lymphocytes % (Manual) Nucleated RBC % Seg Neutrophils # Seg Neutrophils # Man Lymphocytes # (Manual) Monocytes # (Manual) D-Dimer POC ABG pH POC ABG pCO2 POC ABG pO2 Sodium Chloride Carbon Dioxide BUN Creatinine Glucose POC Glucose 143 H 155 H Calcium Magnesium Total Bilirubin AST Alkaline Phosphatase Total Creatine Kinase CK-MB (CK-2) Troponin T Total Protein Albumin HDL Cholesterol Urine Creatinine Urine Total Protein 08/31/16 08/31/16 08/31/16 08:02 11:42 17:17 WBC RBC Hgb Hct MCV MCH MCHC RDW Lymph % (Auto) Cotton % (Auto) Lymph # Cotton # Seg Neutrophils % Seg Neuts % (Manual) Lymphocytes % (Manual) Nucleated RBC % Seg Neutrophils # Seg Neutrophils # Man Lymphocytes # (Manual) Monocytes # (Manual) D-Dimer POC ABG pH POC ABG pCO2 POC ABG pO2 Sodium 136 L Chloride Carbon Dioxide BUN 37 H Creatinine 1.7 H Glucose 153 H POC Glucose 195 H 197 H Calcium 7.7 L Magnesium Total Bilirubin AST Alkaline Phosphatase Total Creatine Kinase CK-MB (CK-2) Troponin T Total Protein Albumin HDL Cholesterol Urine Creatinine Urine Total Protein 08/31/16 09/01/16 09/01/16 23:41 05:28 06:19 WBC 15.8 H RBC Hgb 8.2 L Hct 26.6 L MCV 61 L MCH 19 L MCHC 31 L RDW 16.7 H Lymph % (Auto) Cotton % (Auto) Lymph # Cotton # Seg Neutrophils % Seg Neuts % (Manual) 87.0 H Lymphocytes % (Manual) 5.0 L Nucleated RBC % 1.0 H Seg Neutrophils # Seg Neutrophils # Man 13.7 H Lymphocytes # (Manual) 0.8 L Monocytes # (Manual) 1.1 H D-Dimer POC ABG pH POC ABG pCO2 POC ABG pO2 Sodium Chloride Carbon Dioxide BUN Creatinine Glucose POC Glucose 164 H 154 H Calcium Magnesium Total Bilirubin AST Alkaline Phosphatase Total Creatine Kinase CK-MB (CK-2) Troponin T Total Protein Albumin HDL Cholesterol Urine Creatinine Urine Total Protein 09/01/16 09/01/16 09/01/16 06:19 11:30 17:24 WBC RBC Hgb Hct MCV MCH MCHC RDW Lymph % (Auto) Cotton % (Auto) Lymph # Cotton # Seg Neutrophils % Seg Neuts % (Manual) Lymphocytes % (Manual) Nucleated RBC % Seg Neutrophils # Seg Neutrophils # Man Lymphocytes # (Manual) Monocytes # (Manual) D-Dimer POC ABG pH POC ABG pCO2 POC ABG pO2 Sodium Chloride Carbon Dioxide BUN 43 H Creatinine 2.0 H Glucose 150 H POC Glucose 156 H 155 H Calcium 7.8 L Magnesium 2.40 H Total Bilirubin 2.10 H AST 41 H Alkaline Phosphatase 301 H Total Creatine Kinase CK-MB (CK-2) Troponin T Total Protein 4.7 L Albumin 2.2 L HDL Cholesterol Urine Creatinine Urine Total Protein 09/01/16 09/02/16 09/02/16 17:55 00:23 06:31 WBC RBC Hgb Hct MCV MCH MCHC RDW Lymph % (Auto) Cotton % (Auto) Lymph # Cotton # Seg Neutrophils % Seg Neuts % (Manual) Lymphocytes % (Manual) Nucleated RBC % Seg Neutrophils # Seg Neutrophils # Man Lymphocytes # (Manual) Monocytes # (Manual) D-Dimer POC ABG pH POC ABG pCO2 POC ABG pO2 Sodium Chloride Carbon Dioxide BUN Creatinine Glucose POC Glucose 145 H 163 H 192 H Calcium Magnesium Total Bilirubin AST Alkaline Phosphatase Total Creatine Kinase CK-MB (CK-2) Troponin T Total Protein Albumin HDL Cholesterol Urine Creatinine Urine Total Protein 09/02/16 09/02/16 09/02/16 08:40 08:40 12:40 WBC 18.6 H RBC Hgb 8.0 L Hct 25.7 L MCV 60 L MCH 19 L MCHC 31 L RDW 16.6 H Lymph % (Auto) Cotton % (Auto) Lymph # Cotton # Seg Neutrophils % Seg Neuts % (Manual) 86.0 H Lymphocytes % (Manual) 7.0 L Nucleated RBC % Seg Neutrophils # Seg Neutrophils # Man 16.0 H Lymphocytes # (Manual) Monocytes # (Manual) 1.1 H D-Dimer POC ABG pH POC ABG pCO2 POC ABG pO2 Sodium Chloride Carbon Dioxide BUN 50 H Creatinine 2.1 H Glucose 169 H POC Glucose 189 H Calcium 7.9 L Magnesium 2.50 H Total Bilirubin AST Alkaline Phosphatase Total Creatine Kinase CK-MB (CK-2) Troponin T Total Protein Albumin HDL Cholesterol Urine Creatinine Urine Total Protein Chest x-ray: report reviewed, image reviewed (worsening RLL infiltrate and L lung infiltrate (likely effusion))
[2016-09-02] MEDS ORDERED: ZOSYN/NS 4.5GM/100ML 4.5 GM/100 ML VIAL IV SCH (15:00)
[2016-09-02] MEDS: NACL 0.45% 1000 ML 1,000 ML IV SCH (16:17)
[2016-09-02] MEDS: ISOPTO TEARS 0.5% OU SCH (16:18)
[2016-09-02] MEDS: ZOSYN/NS 3.375GM/50ML 3.375 GM/50 ML BAG IV SCH ×2 (16:23→23:22)
[2016-09-02] MEDS: SENOKOT S PO SCH (23:12)
[2016-09-03 05:34] LABS: ISTAT Base Excess 4; ISTAT HCO3 27.3; ISTAT PCO2 36.5 (35-45); ISTAT PH 7.483 (7.35-7.45); ISTAT PO2 90 (80-105); ISTAT SO2 98; ISTAT TCO2 28
[2016-09-03 06:19] LABS: Basophils % (Auto) 0.2 % (0.0-1.8); Eosinophils % (Auto) 0.9 % (0.0-4.3); Hematocrit 23.5 % (35.5-45.6); Hemoglobin 7.2 gm/dl (11.8-15.2); Mean Corpuscular HGB Conc 31 % (32-34); Platelet Count 351 K/mm3 (140-440); Red Blood Count 3.83 M/mm3 (3.65-5.03); Red Cell Distribution Width 16.7 % (13.2-15.2); White Blood Count 18.1 K/mm3 (4.5-11.0)
[2016-09-03 06:29] LABS: Mean Corpuscular Hemoglobin 19 pg (28-32); Mean Corpuscular Volume 61 fl (84-94)
[2016-09-03 06:35] LABS: BUN/Creatinine Ratio 27.14; Calcium 7.7 mg/dL (8.4-10.2); Chloride 98.1 mmol/L (98-107); Potassium 5.2 mmol/L (3.6-5.0)
[2016-09-03] MEDS: APRESOLINE PO SCH ×3 (07:16→21:43)
[2016-09-03] MEDS: HEPARIN SUB-Q SCH ×3 (07:16→21:43)
[2016-09-03] MEDS: NOVOLOG SUB-Q SCH ×3 (07:17→18:41)
[2016-09-03] MEDS: ZOSYN/NS 3.375GM/50ML 3.375 GM/50 ML BAG IV SCH ×2 (07:26→15:00)
[2016-09-03] MEDS: ISOPTO TEARS 0.5% OU SCH ×4 (07:27→20:33)
--- NOTE | 2016-09-03 08:50 | Progress Note ---
Assessment and Plan Assessment and plan: --Acute hypoxic hypercapnic respiratory failure/mechanical ventilation more than 96 hrs Unable to wean , patient may need trach and PEG and LTAC placement , family of aware Continue ventilatory support, wean as tolerated and extubate Pulmonary following, DO NOT RESUSCITATE status, --Status post PEA cardiac arrest -- anoxic encephalopathy, continue supportive care, poor prognosis --Aspiration pneumonia; Continue current antibiotics, cultures negative to date, pulmonary following --Mild hypokalemia; low-dose Kayexalate 1 Closely monitor electrolytes --Acute massive CVA; Patient is unresponsive poor prognosis, supportive care --malignant hypertension Moderate control, continue current antihypertensives and when necessary medications --Acute renal failure; secondary to ATN avoid nephrotoxic medications, nephrology following --Status post bilateral lower extremity amputation --DO NOT RESUSCITATE status --Poor prognosis Family members aware, family not ready for withdrawal of care or hospice . Plan of care discussed with the patient's nurse, Family Members not available Consults and recommendations noted and appreciated Continue current management History Interval history: Patient seen and evaluated in his room this morning Medical records reviewed, no new events reported by the nursing staff Patient remains intubated on ventilatory support, spontaneous opening of eyes Unresponsive Vital signs reviewed Hospitalist Physical - Constitutional Vitals: Temp Pulse Resp BP Pulse Ox 98.6 F 83 20 133/72 99 09/03/16 08:00 09/03/16 08:00 09/03/16 08:00 09/03/16 08:00 09/03/16 08:00 General appearance: Present: no acute distress, well-nourished, other (not responsive, orally intubated on ventilator support) - EENT Eyes: Present: conjunctival injection. Absent: scleral icterus - Neck Neck: Present: supple, normal ROM, other (endotracheal tube and Dobbhoff in place) - Respiratory Respiratory effort: normal Respiratory: bilateral: diminished, rhonchi (occasional), negative: rales, wheezing - Cardiovascular Rhythm: regular Heart Sounds: Present: S1 & S2 - Extremities Extremities: abnormal (status post bilateral above-knee amputation) - Abdominal General gastrointestinal: soft, non-tender, non-distended, normal bowel sounds - Integumentary Integumentary: Present: clear, warm - Psychiatric Psychiatric: other (noncommunicative) - Neurologic Neurologic: other (noncommunicative) Results - Labs CBC & Chem 7: 09/03/16 05:36 09/03/16 05:36 Labs: Laboratory Last Values WBC 18.1 K/mm3 (4.5-11.0) H 09/03/16 05:36 RBC 3.83 M/mm3 (3.65-5.03) 09/03/16 05:36 Hgb 7.2 gm/dl (11.8-15.2) L 09/03/16 05:36 Hct 23.5 % (35.5-45.6) L 09/03/16 05:36 MCV 61 fl (84-94) L 09/03/16 05:36 MCH 19 pg (28-32) L 09/03/16 05:36 MCHC 31 % (32-34) L 09/03/16 05:36 RDW 16.7 % (13.2-15.2) H 09/03/16 05:36 Plt Count 351 K/mm3 (140-440) 09/03/16 05:36 Lymph % (Auto) 7.5 % (13.4-35.0) L 09/03/16 05:36 [place] % (Auto) 7.5 % (0.0-7.3) H 09/03/16 05:36 Eos % (Auto) 0.9 % (0.0-4.3) 09/03/16 05:36 Baso % (Auto) 0.2 % (0.0-1.8) 09/03/16 05:36 Lymph # 1.4 K/mm3 (1.2-5.4) 09/03/16 05:36 [place] # 1.4 K/mm3 (0.0-0.8) H 09/03/16 05:36 Eos # 0.2 K/mm3 (0.0-0.4) 09/03/16 05:36 Baso # 0.0 K/mm3 (0.0-0.1) 09/03/16 05:36 Add Manual Diff Complete 09/02/16 08:40 Total Counted 100 09/02/16 08:40 Seg Neutrophils % 83.9 % (40.0-70.0) H 09/03/16 05:36 Seg Neuts % (Manual) 86.0 % (40.0-70.0) H 09/02/16 08:40 Band Neutrophils % 0 % 09/02/16 08:40 Lymphocytes % (Manual) 7.0 % (13.4-35.0) L 09/02/16 08:40 Reactive Lymphs % (Man) 0 % 09/02/16 08:40 Monocytes % (Manual) 6.0 % (0.0-7.3) 09/02/16 08:40 Eosinophils % (Manual) 1.0 % (0.0-4.3) 09/02/16 08:40 Basophils % (Manual) 0 % (0.0-1.8) 09/02/16 08:40 Metamyelocytes % 0 % 09/02/16 08:40 Myelocytes % 0 % 09/02/16 08:40 Promyelocytes % 0 % 09/02/16 08:40 Blast Cells % 0 % 09/02/16 08:40 Nucleated RBC % Not Reportable 09/02/16 08:40 Seg Neutrophils # 15.2 K/mm3 (1.8-7.7) H 09/03/16 05:36 Seg Neutrophils # Man 16.0 K/mm3 (1.8-7.7) H 09/02/16 08:40 Band Neutrophils # 0.0 K/mm3 09/02/16 08:40 Lymphocytes # (Manual) 1.3 K/mm3 (1.2-5.4) 09/02/16 08:40 Abs React Lymphs (Man) 0.0 K/mm3 09/02/16 08:40 Monocytes # (Manual) 1.1 K/mm3 (0.0-0.8) H 09/02/16 08:40 Eosinophils # (Manual) 0.2 K/mm3 (0.0-0.4) 09/02/16 08:40 Basophils # (Manual) 0.0 K/mm3 (0.0-0.1) 09/02/16 08:40 Metamyelocytes # 0.0 K/mm3 09/02/16 08:40 Myelocytes # 0.0 K/mm3 09/02/16 08:40 Promyelocytes # 0.0 K/mm3 09/02/16 08:40 Blast Cells # 0.0 K/mm3 09/02/16 08:40 WBC Morphology Not Reportable 09/02/16 08:40 Hypersegmented Neuts Not Reportable 09/02/16 08:40 Hyposegmented Neuts Not Reportable 09/02/16 08:40 Hypogranular Neuts Not Reportable 09/02/16 08:40 Smudge Cells Not Reportable 09/02/16 08:40 Toxic Granulation Not Reportable 09/02/16 08:40 Toxic Vacuolation Not Reportable 09/02/16 08:40 Dohle Bodies Not Reportable 09/02/16 08:40 Pelger-Huet Anomaly Not Reportable 09/02/16 08:40 Mattie Rods Not Reportable 09/02/16 08:40 Platelet Estimate Cons 09/02/16 08:40 Clumped Platelets Not Reportable 09/02/16 08:40 Plt Clumps, EDTA Not Reportable 09/02/16 08:40 Large Platelets Few 09/02/16 08:40 Giant Platelets Not Reportable 09/02/16 08:40 Platelet Satelliting Not Reportable 09/02/16 08:40 Plt Morphology Comment Not Reportable 09/02/16 08:40 RBC Morphology Not Reportable 09/02/16 08:40 Dimorphic RBCs Not Reportable 09/02/16 08:40 Polychromasia Few 09/02/16 08:40 Hypochromasia 2+ 09/02/16 08:40 Poikilocytosis 2+ 09/02/16 08:40 Anisocytosis 2+ 09/02/16 08:40 Microcytosis 2+ 09/02/16 08:40 Macrocytosis Not Reportable 09/02/16 08:40 Spherocytes Not Reportable 09/02/16 08:40 Pappenheimer Bodies Not Reportable 09/02/16 08:40 Sickle Cells Not Reportable 09/02/16 08:40 Target Cells 1+ 09/02/16 08:40 Tear Drop Cells 1+ 09/02/16 08:40 Ovalocytes Not Reportable 09/02/16 08:40 Helmet Cells Not Reportable 09/02/16 08:40 Saeed-Many Bodies Not Reportable 09/02/16 08:40 Pawlet Rings Not Reportable 09/02/16 08:40 [place] Cells Not Reportable 09/02/16 08:40 Bite Cells Not Reportable 09/02/16 08:40 Crenated Cell Not Reportable 09/02/16 08:40 Elliptocytes Not Reportable 09/02/16 08:40 Acanthocytes (Spur) Not Reportable 09/02/16 08:40 Rouleaux Not Reportable 09/02/16 08:40 Hemoglobin C Crystals Not Reportable 09/02/16 08:40 Schistocytes Few 09/02/16 08:40 Malaria parasites Not Reportable 09/02/16 08:40 Gentry Bodies Not Reportable 09/02/16 08:40 Hem Pathologist Commnt No 09/02/16 08:40 D-Dimer 1138.47 ng/mlDDU (0-234) H 08/24/16 03:23 POC ABG pH 7.483 (7.35-7.45) H 09/03/16 04:16 POC ABG pCO2 36.5 (35-45) 09/03/16 04:16 POC ABG pO2 90 (80-105) 09/03/16 04:16 POC ABG HCO3 27.3 09/03/16 04:16 POC ABG Total CO2 28 09/03/16 04:16 POC ABG O2 Sat 98 09/03/16 04:16 POC ABG Base Excess 4 09/03/16 04:16 FiO2 30 % 09/03/16 04:16 Sodium 135 mmol/L (137-145) L 09/03/16 05:36 Potassium 5.2 mmol/L (3.6-5.0) H 09/03/16 05:36 Chloride 98.1 mmol/L (98-107) 09/03/16 05:36 Carbon Dioxide 22 mmol/L (22-30) 09/03/16 05:36 Anion Gap 20 mmol/L 09/03/16 05:36 BUN 57 mg/dL (9-20) H 09/03/16 05:36 Creatinine 2.1 mg/dL (0.8-1.5) H 09/03/16 05:36 Estimated GFR 40 ml/min 09/03/16 05:36 BUN/Creatinine Ratio 27.14 % 09/03/16 05:36 Glucose 161 mg/dL (75-100) H 09/03/16 05:36 POC Glucose 185 (70-105) H 09/03/16 04:43 Lactic Acid 1.80 mmol/L (0.7-2.0) 08/25/16 13:47 Calcium 7.7 mg/dL (8.4-10.2) L 09/03/16 05:36 Phosphorus 4.50 mg/dL (2.5-4.5) 09/02/16 08:40 Magnesium 2.50 mg/dL (1.7-2.3) H 09/02/16 08:40 Total Bilirubin 2.10 mg/dL (0.1-1.2) H 09/01/16 06:19 AST 41 units/L (5-40) H 09/01/16 06:19 ALT 55 units/L (7-56) 09/01/16 06:19 Alkaline Phosphatase 301 units/L (35-129) H 09/01/16 06:19 Ammonia 46.0 umol/L (25-60) 08/24/16 01:44 Total Creatine Kinase 796 units/L (55-170) H 08/27/16 10:32 CK-MB (CK-2) 6.3 ng/mL (0.0-4.0) H 08/27/16 10:32 CK-MB (CK-2) Rel Index 0.7 (0-4) 08/27/16 10:32 Troponin T 0.473 ng/mL (0.00-0.029) H* 08/27/16 18:46 Total Protein 4.7 g/dL (6.3-8.2) L 09/01/16 06:19 Albumin 2.2 g/dL (3.9-5) L 09/01/16 06:19 Albumin/Globulin Ratio 0.9 % 09/01/16 06:19 Triglycerides 68 mg/dL (2-149) 08/27/16 00:00 Cholesterol 182 mg/dL (50-199) 08/27/16 00:00 LDL Cholesterol Direct 70 mg/dL (50-130) 08/30/16 09:01 HDL Cholesterol 78 mg/dL (40-59) H 08/27/16 00:00 Cholesterol/HDL Ratio 2.33 % 08/27/16 00:00 TSH 3.080 mlU/mL (0.270-4.200) 08/23/16 23:35 Urine Color Yellow (Yellow) 08/24/16 00:40 Urine Turbidity Clear (Clear) 08/24/16 00:40 Urine pH 6.0 (5.0-7.0) 08/24/16 00:40 Ur Specific Kelly 1.022 (1.003-1.030) 08/24/16 00:40 Urine Protein >500 mg/dL (Negative) 08/24/16 00:40 Urine Glucose (UA) >=500 mg/dL (Negative) 08/24/16 00:40 Urine Ketones Neg mg/dL (Negative) 08/24/16 00:40 Urine Blood Mod (Negative) 08/24/16 00:40 Urine Nitrite Neg (Negative) 08/24/16 00:40 Urine Bilirubin Neg (Negative) 08/24/16 00:40 Urine Urobilinogen < 2.0 mg/dL (<2.0) 08/24/16 00:40 Ur Leukocyte Esterase Neg (Negative) 08/24/16 00:40 Urine WBC (Auto) 1.0 /HPF (0.0-6.0) 08/24/16 00:40 Urine RBC (Auto) 5.0 /HPF (0.0-6.0) 08/24/16 00:40 Urine Bacteria (Auto) 2+ /HPF (Negative) 08/24/16 00:40 Urine Creatinine 237.7 mg/dL (0.1-20.0) H 08/25/16 15:00 Protein/Creatinin Ratio 3.71 08/25/16 15:00 Urine Sodium 10 mEq/L 08/25/16 15:00 Urine Total Protein 882 mg/dL (5-11.8) H 08/25/16 15:00 Salicylates < 0.3 mg/dL (2.8-20.0) L 08/23/16 23:35 Urine Opiates Screen Presumptive negative 08/24/16 00:40 Urine Methadone Screen Presumptive negative 08/24/16 00:40 Acetaminophen < 15.0 ug/mL (10.0-30.0) 08/23/16 23:35 Ur Barbiturates Screen Presumptive negative 08/24/16 00:40 Ur Phencyclidine Scrn Presumptive negative 08/24/16 00:40 Ur Amphetamines Screen Presumptive negative 08/24/16 00:40 U Benzodiazepines Scrn Presumptive negative 08/24/16 00:40 Urine Cocaine Screen Presumptive negative 08/24/16 00:40 U Marijuana (THC) Screen Presumptive negative 08/24/16 00:40 Drugs of Abuse Note Disclamer 08/24/16 00:40 Plasma/Serum Alcohol < 0.01 gm% (0-0.07) 08/23/16 23:35
[2016-09-03] MEDS ORDERED: KIONEX PO ONE (09:00)
[2016-09-03] MEDS: ASPIRIN PO SCH (09:28)
[2016-09-03] MEDS: NORMODYNE PO SCH ×2 (09:28→21:44)
[2016-09-03] MEDS: PEPCID PO SCH (09:29)
[2016-09-03] MEDS: NACL 0.45% 1000 ML 1,000 ML IV SCH ×2 (09:29→21:42)
[2016-09-03] MEDS: LEVEMIR SUB-Q SCH (09:31)
--- NOTE | 2016-09-03 14:37 | Progress Note ---
Assessment and Plan Assessment and Plan Imp: 1. Large Acute CVA 2. Malignant HTN related to #1 3. S/p CP arrest 4. Anoxic encephalopathy 5. ALANNAH 6. Acute respiratory failure, hypoxia 7. Constipation 8. 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 SIRS, r/o sepsis/pneumonia 10. Suspect bilateral pleural effusions Rec: 1. Can cont. PSV but mentation precludes extubation; will need trach/PEG if family wishes for aggressive treatment 2. BP control per primary/renal 3. DVT/GI PPx, TFs; IVFs resumed due to worsening renal function 4. Anti-platelets added 5. Bowel regimen added; monitor 6. AND but family wants to hold off on hospice for now; believe prognosis for meaningful neurologic recovery/good quality of life is poor 7. Fever + worsening leukocytosis and worsening infiltrates on CXR (volume overload versus pneumonia); cannot r/o pneumonia so will start Zosyn; asked RN and pharmacy to confirm there is no PCN allergy w/ family prior to administering a dose; blood, urine, and sputum cultures also sent No family present during my evaluation [id number] minutes Subjective Date of service: 09/03/16 Principal diagnosis: Acute respiratory failure Interval history: Patient remained unresponsive and orally intubated. No new complaints. Objective Vital Signs - 12hr 09/03/16 09/03/16 09/03/16 03:00 03:30 03:38 Temperature Pulse Rate 77 79 Pulse Rate [ 79 From Monitor] Respiratory 20 18 15 Rate Blood Pressure 135/70 137/75 O2 Sat by Pulse 98 98 Oximetry 09/03/16 09/03/16 09/03/16 03:52 04:00 04:30 Temperature 98.8 F Pulse Rate 79 80 Pulse Rate [ From Monitor] Respiratory 18 19 Rate Blood Pressure 142/79 137/75 O2 Sat by Pulse 98 98 Oximetry 09/03/16 09/03/16 09/03/16 05:00 05:30 06:00 Temperature Pulse Rate 82 78 80 Pulse Rate [ From Monitor] Respiratory 23 16 20 Rate Blood Pressure 137/75 141/73 142/77 O2 Sat by Pulse 99 99 99 Oximetry 09/03/16 09/03/16 09/03/16 06:30 07:00 07:16 Temperature Pulse Rate 80 81 81 Pulse Rate [ From Monitor] Respiratory 21 20 Rate Blood Pressure 145/73 141/77 141/77 O2 Sat by Pulse 99 99 Oximetry 09/03/16 09/03/16 09/03/16 07:30 07:42 07:44 Temperature Pulse Rate 81 84 Pulse Rate [ From Monitor] Respiratory 21 20 Rate Blood Pressure 139/72 139/72 O2 Sat by Pulse 99 99 Oximetry 09/03/16 09/03/16 09/03/16 08:00 08:30 09:00 Temperature 98.6 F Pulse Rate 83 84 86 Pulse Rate [ From Monitor] Respiratory 20 23 26 H Rate Blood Pressure 133/72 144/70 141/71 O2 Sat by Pulse 99 99 99 Oximetry 09/03/16 09/03/16 09/03/16 09:28 09:30 10:00 Temperature Pulse Rate 86 86 84 Pulse Rate [ From Monitor] Respiratory 23 23 Rate Blood Pressure 141/71 139/74 134/69 O2 Sat by Pulse 99 99 Oximetry 09/03/16 09/03/16 09/03/16 10:30 11:00 11:05 Temperature Pulse Rate 81 81 80 Pulse Rate [ From Monitor] Respiratory 21 22 Rate Blood Pressure 125/69 133/68 133/68 O2 Sat by Pulse 99 99 99 Oximetry 09/03/16 09/03/16 09/03/16 11:30 12:00 12:30 Temperature 99.2 F Pulse Rate 81 81 80 Pulse Rate [ 83 From Monitor] Respiratory 22 19 21 Rate Blood Pressure 128/65 122/68 123/63 O2 Sat by Pulse 99 99 99 Oximetry 09/03/16 09/03/16 13:00 13:04 Temperature Pulse Rate 82 83 Pulse Rate [ From Monitor] Respiratory 22 Rate Blood Pressure 131/70 123/63 O2 Sat by Pulse 99 Oximetry Constitutional: comatose (opens eyes only), other (critically ill on vent) Eyes: non-icteric ENT: other (orally intubated) Effort: normal Ascultation: Bilateral: clear Percussion: Bilateral: not dull Cardiovascular: regular rate and rhythm (no mrg) Gastrointestinal: soft, non-distended Integumentary: normal Extremities: no cyanosis, edema (1+ upper extremities), other (bilateral AKA) Neurologic: other (moves RUE spontaneously, nothing purposeful, minimal opening of eyes but not tracking) Psychiatric: other (not able to assess) CBC and BMP: 09/03/16 05:36 09/03/16 05:36 ABG, PT/INR, D-dimer: ABG POC ABG pH 7.483 (7.35-7.45) H 09/03/16 04:16 POC ABG pCO2 36.5 (35-45) 09/03/16 04:16 POC ABG pO2 90 (80-105) 09/03/16 04:16 POC ABG HCO3 27.3 09/03/16 04:16 POC ABG Total CO2 28 09/03/16 04:16 POC ABG O2 Sat 98 09/03/16 04:16 PT/INR, D-dimer D-Dimer 1138.47 ng/mlDDU (0-234) H 08/24/16 03:23 Abnormal lab findings: Abnormal Labs 08/24/16 08/24/16 08/24/16 03:23 09:23 10:58 WBC RBC Hgb Hct MCV MCH MCHC RDW Lymph % (Auto) [place] % (Auto) Lymph # [place] # Seg Neutrophils % Seg Neuts % (Manual) Lymphocytes % (Manual) Nucleated RBC % Seg Neutrophils # Seg Neutrophils # Man Lymphocytes # (Manual) Monocytes # (Manual) D-Dimer 1138.47 H POC ABG pH POC ABG pCO2 POC ABG pO2 Sodium Potassium Chloride Carbon Dioxide BUN Creatinine Glucose POC Glucose 410 H 392 H Calcium Magnesium Total Bilirubin AST Alkaline Phosphatase Total Creatine Kinase CK-MB (CK-2) Troponin T Total Protein Albumin HDL Cholesterol Urine Creatinine Urine Total Protein 08/24/16 08/24/16 08/24/16 13:02 13:44 17:29 WBC RBC Hgb Hct MCV MCH MCHC RDW Lymph % (Auto) [place] % (Auto) Lymph # [place] # Seg Neutrophils % Seg Neuts % (Manual) Lymphocytes % (Manual) Nucleated RBC % Seg Neutrophils # Seg Neutrophils # Man Lymphocytes # (Manual) Monocytes # (Manual) D-Dimer POC ABG pH POC ABG pCO2 34.8 L POC ABG pO2 Sodium Potassium Chloride Carbon Dioxide BUN Creatinine 1.8 H Glucose 266 H POC Glucose 354 H Calcium Magnesium Total Bilirubin AST Alkaline Phosphatase Total Creatine Kinase CK-MB (CK-2) Troponin T Total Protein Albumin HDL Cholesterol Urine Creatinine Urine Total Protein 08/24/16 08/24/16 08/24/16 17:34 18:24 18:41 WBC RBC Hgb Hct MCV MCH MCHC RDW Lymph % (Auto) [place] % (Auto) Lymph # [place] # Seg Neutrophils % Seg Neuts % (Manual) Lymphocytes % (Manual) Nucleated RBC % Seg Neutrophils # Seg Neutrophils # Man Lymphocytes # (Manual) Monocytes # (Manual) D-Dimer POC ABG pH POC ABG pCO2 POC ABG pO2 Sodium Potassium Chloride Carbon Dioxide 18 L BUN Creatinine 1.9 H Glucose 174 H POC Glucose 211 H 190 H Calcium 8.2 L Magnesium Total Bilirubin AST Alkaline Phosphatase Total Creatine Kinase CK-MB (CK-2) Troponin T Total Protein Albumin HDL Cholesterol Urine Creatinine Urine Total Protein 08/24/16 08/24/16 08/24/16 19:28 20:24 21:21 WBC RBC Hgb Hct MCV MCH MCHC RDW Lymph % (Auto) [place] % (Auto) Lymph # [place] # Seg Neutrophils % Seg Neuts % (Manual) Lymphocytes % (Manual) Nucleated RBC % Seg Neutrophils # Seg Neutrophils # Man Lymphocytes # (Manual) Monocytes # (Manual) D-Dimer POC ABG pH POC ABG pCO2 POC ABG pO2 Sodium Potassium Chloride Carbon Dioxide BUN Creatinine Glucose POC Glucose 159 H 110 H 144 H Calcium Magnesium Total Bilirubin AST Alkaline Phosphatase Total Creatine Kinase CK-MB (CK-2) Troponin T Total Protein Albumin HDL Cholesterol Urine Creatinine Urine Total Protein 08/24/16 08/24/16 08/24/16 21:48 22:26 23:19 WBC RBC Hgb Hct MCV MCH MCHC RDW Lymph % (Auto) [place] % (Auto) Lymph # [place] # Seg Neutrophils % Seg Neuts % (Manual) Lymphocytes % (Manual) Nucleated RBC % Seg Neutrophils # Seg Neutrophils # Man Lymphocytes # (Manual) Monocytes # (Manual) D-Dimer POC ABG pH POC ABG pCO2 POC ABG pO2 Sodium Potassium Chloride Carbon Dioxide 21 L BUN Creatinine 1.8 H Glucose 141 H POC Glucose 148 H 140 H Calcium 8.3 L Magnesium Total Bilirubin AST Alkaline Phosphatase Total Creatine Kinase CK-MB (CK-2) Troponin T Total Protein Albumin HDL Cholesterol Urine Creatinine Urine Total Protein 08/25/16 08/25/16 08/25/16 01:11 02:15 03:18 WBC RBC Hgb Hct MCV MCH MCHC RDW Lymph % (Auto) [place] % (Auto) Lymph # [place] # Seg Neutrophils % Seg Neuts % (Manual) Lymphocytes % (Manual) Nucleated RBC % Seg Neutrophils # Seg Neutrophils # Man Lymphocytes # (Manual) Monocytes # (Manual) D-Dimer POC ABG pH POC ABG pCO2 POC ABG pO2 Sodium Potassium Chloride Carbon Dioxide BUN Creatinine Glucose POC Glucose 130 H 136 H 145 H Calcium Magnesium Total Bilirubin AST Alkaline Phosphatase Total Creatine Kinase CK-MB (CK-2) Troponin T Total Protein Albumin HDL Cholesterol Urine Creatinine Urine Total Protein 08/25/16 08/25/16 08/25/16 04:09 04:53 04:53 WBC 14.1 H RBC 5.36 H Hgb 9.9 L Hct 32.9 L MCV 61 L MCH 19 L MCHC 30 L RDW 17.5 H Lymph % (Auto) 8.0 L [place] % (Auto) 9.7 H Lymph # 1.1 L [place] # 1.4 H Seg Neutrophils % 82.2 H Seg Neuts % (Manual) Lymphocytes % (Manual) Nucleated RBC % Seg Neutrophils # 11.6 H Seg Neutrophils # Man Lymphocytes # (Manual) Monocytes # (Manual) D-Dimer POC ABG pH POC ABG pCO2 POC ABG pO2 Sodium Potassium Chloride Carbon Dioxide 21 L BUN Creatinine 1.9 H Glucose 116 H POC Glucose 120 H Calcium 8.2 L Magnesium Total Bilirubin AST Alkaline Phosphatase Total Creatine Kinase CK-MB (CK-2) Troponin T Total Protein Albumin HDL Cholesterol Urine Creatinine Urine Total Protein 08/25/16 08/25/16 08/25/16 05:05 06:31 07:35 WBC RBC Hgb Hct MCV MCH MCHC RDW Lymph % (Auto) [place] % (Auto) Lymph # [place] # Seg Neutrophils % Seg Neuts % (Manual) Lymphocytes % (Manual) Nucleated RBC % Seg Neutrophils # Seg Neutrophils # Man Lymphocytes # (Manual) Monocytes # (Manual) D-Dimer POC ABG pH POC ABG pCO2 POC ABG pO2 Sodium Potassium Chloride Carbon Dioxide BUN Creatinine Glucose POC Glucose 126 H 139 H 142 H Calcium Magnesium Total Bilirubin AST Alkaline Phosphatase Total Creatine Kinase CK-MB (CK-2) Troponin T Total Protein Albumin HDL Cholesterol Urine Creatinine Urine Total Protein 08/25/16 08/25/16 08/25/16 08:55 09:48 10:59 WBC RBC Hgb Hct MCV MCH MCHC RDW Lymph % (Auto) [place] % (Auto) Lymph # [place] # Seg Neutrophils % Seg Neuts % (Manual) Lymphocytes % (Manual) Nucleated RBC % Seg Neutrophils # Seg Neutrophils # Man Lymphocytes # (Manual) Monocytes # (Manual) D-Dimer POC ABG pH POC ABG pCO2 POC ABG pO2 Sodium Potassium Chloride Carbon Dioxide BUN Creatinine Glucose POC Glucose 135 H 109 H 126 H Calcium Magnesium Total Bilirubin AST Alkaline Phosphatase Total Creatine Kinase CK-MB (CK-2) Troponin T Total Protein Albumin HDL Cholesterol Urine Creatinine Urine Total Protein 08/25/16 08/25/16 08/25/16 11:34 13:47 15:00 WBC RBC Hgb Hct MCV MCH MCHC RDW Lymph % (Auto) [place] % (Auto) Lymph # [place] # Seg Neutrophils % Seg Neuts % (Manual) Lymphocytes % (Manual) Nucleated RBC % Seg Neutrophils # Seg Neutrophils # Man Lymphocytes # (Manual) Monocytes # (Manual) D-Dimer POC ABG pH POC ABG pCO2 32.8 L POC ABG pO2 108 H Sodium Potassium Chloride Carbon Dioxide 19 L BUN Creatinine 1.7 H Glucose 196 H POC Glucose Calcium 8.2 L Magnesium Total Bilirubin AST Alkaline Phosphatase Total Creatine Kinase CK-MB (CK-2) Troponin T Total Protein Albumin HDL Cholesterol Urine Creatinine 237.7 H Urine Total Protein 882 H 08/25/16 08/25/16 08/26/16 16:30 23:09 05:41 WBC RBC Hgb Hct MCV MCH MCHC RDW Lymph % (Auto) [place] % (Auto) Lymph # [place] # Seg Neutrophils % Seg Neuts % (Manual) Lymphocytes % (Manual) Nucleated RBC % Seg Neutrophils # Seg Neutrophils # Man Lymphocytes # (Manual) Monocytes # (Manual) D-Dimer POC ABG pH POC ABG pCO2 POC ABG pO2 Sodium Potassium Chloride Carbon Dioxide BUN Creatinine Glucose POC Glucose 242 H 131 H 156 H Calcium Magnesium Total Bilirubin AST Alkaline Phosphatase Total Creatine Kinase CK-MB (CK-2) Troponin T Total Protein Albumin HDL Cholesterol Urine Creatinine Urine Total Protein 08/26/16 08/26/16 08/26/16 07:16 12:12 17:51 WBC RBC Hgb Hct MCV MCH MCHC RDW Lymph % (Auto) [place] % (Auto) Lymph # [place] # Seg Neutrophils % Seg Neuts % (Manual) Lymphocytes % (Manual) Nucleated RBC % Seg Neutrophils # Seg Neutrophils # Man Lymphocytes # (Manual) Monocytes # (Manual) D-Dimer POC ABG pH POC ABG pCO2 POC ABG pO2 Sodium Potassium Chloride Carbon Dioxide 18 L BUN 26 H Creatinine 2.0 H Glucose 132 H POC Glucose 119 H 161 H Calcium 8.1 L Magnesium Total Bilirubin AST 41 H Alkaline Phosphatase Total Creatine Kinase CK-MB (CK-2) Troponin T Total Protein 5.5 L Albumin 2.7 L HDL Cholesterol Urine Creatinine Urine Total Protein 08/26/16 08/26/16 08/27/16 22:34 23:50 00:00 WBC 11.8 H RBC 5.29 H Hgb 10.0 L Hct 33.3 L MCV 63 L MCH 19 L MCHC 30 L RDW 17.4 H Lymph % (Auto) [place] % (Auto) 8.7 H Lymph # [place] # 1.0 H Seg Neutrophils % 72.6 H Seg Neuts % (Manual) Lymphocytes % (Manual) Nucleated RBC % Seg Neutrophils # 8.6 H Seg Neutrophils # Man Lymphocytes # (Manual) Monocytes # (Manual) D-Dimer POC ABG pH POC ABG pCO2 POC ABG pO2 Sodium Potassium Chloride Carbon Dioxide BUN Creatinine Glucose POC Glucose 107 H 119 H Calcium Magnesium Total Bilirubin AST Alkaline Phosphatase Total Creatine Kinase CK-MB (CK-2) Troponin T Total Protein Albumin HDL Cholesterol Urine Creatinine Urine Total Protein 08/27/16 08/27/16 08/27/16 00:00 00:00 00:02 WBC RBC Hgb Hct MCV MCH MCHC RDW Lymph % (Auto) [place] % (Auto) Lymph # [place] # Seg Neutrophils % Seg Neuts % (Manual) Lymphocytes % (Manual) Nucleated RBC % Seg Neutrophils # Seg Neutrophils # Man Lymphocytes # (Manual) Monocytes # (Manual) D-Dimer POC ABG pH POC ABG pCO2 POC ABG pO2 205 H Sodium 135 L Potassium Chloride 96.6 L Carbon Dioxide 16 L BUN 31 H Creatinine 2.2 H Glucose 154 H POC Glucose Calcium 7.8 L Magnesium Total Bilirubin AST Alkaline Phosphatase Total Creatine Kinase 1401 H CK-MB (CK-2) 13.6 H Troponin T 0.421 H* Total Protein Albumin HDL Cholesterol 78 H Urine Creatinine Urine Total Protein 08/27/16 08/27/16 08/27/16 00:37 03:22 04:08 WBC RBC Hgb Hct MCV MCH MCHC RDW Lymph % (Auto) [place] % (Auto) Lymph # [place] # Seg Neutrophils % Seg Neuts % (Manual) Lymphocytes % (Manual) Nucleated RBC % Seg Neutrophils # Seg Neutrophils # Man Lymphocytes # (Manual) Monocytes # (Manual) D-Dimer POC ABG pH 7.467 H POC ABG pCO2 31.3 L POC ABG pO2 Sodium Potassium Chloride Carbon Dioxide BUN Creatinine Glucose POC Glucose 106 H Calcium Magnesium Total Bilirubin AST Alkaline Phosphatase Total Creatine Kinase 909 H CK-MB (CK-2) 9.3 H Troponin T Total Protein Albumin HDL Cholesterol Urine Creatinine Urine Total Protein 08/27/16 08/27/16 08/27/16 04:35 05:35 10:32 WBC RBC Hgb Hct MCV MCH MCHC RDW Lymph % (Auto) [place] % (Auto) Lymph # [place] # Seg Neutrophils % Seg Neuts % (Manual) Lymphocytes % (Manual) Nucleated RBC % Seg Neutrophils # Seg Neutrophils # Man Lymphocytes # (Manual) Monocytes # (Manual) D-Dimer POC ABG pH POC ABG pCO2 POC ABG pO2 Sodium Potassium Chloride Carbon Dioxide BUN Creatinine Glucose POC Glucose 120 H 113 H Calcium Magnesium Total Bilirubin AST Alkaline Phosphatase Total Creatine Kinase 796 H CK-MB (CK-2) 6.3 H Troponin T Total Protein Albumin HDL Cholesterol Urine Creatinine Urine Total Protein 08/27/16 08/27/16 08/27/16 11:59 17:28 18:46 WBC RBC Hgb Hct MCV MCH MCHC RDW Lymph % (Auto) [place] % (Auto) Lymph # [place] # Seg Neutrophils % Seg Neuts % (Manual) Lymphocytes % (Manual) Nucleated RBC % Seg Neutrophils # Seg Neutrophils # Man Lymphocytes # (Manual) Monocytes # (Manual) D-Dimer POC ABG pH POC ABG pCO2 POC ABG pO2 Sodium Potassium Chloride Carbon Dioxide BUN Creatinine Glucose POC Glucose 225 H 231 H Calcium Magnesium Total Bilirubin AST Alkaline Phosphatase Total Creatine Kinase CK-MB (CK-2) Troponin T 0.473 H* Total Protein Albumin HDL Cholesterol Urine Creatinine Urine Total Protein 08/27/16 08/28/16 08/28/16 23:32 03:39 03:39 WBC 11.5 H RBC Hgb 8.9 L Hct 28.8 L MCV 61 L MCH 19 L MCHC 31 L RDW 16.8 H Lymph % (Auto) [place] % (Auto) Lymph # [place] # Seg Neutrophils % Seg Neuts % (Manual) Lymphocytes % (Manual) Nucleated RBC % Seg Neutrophils # Seg Neutrophils # Man Lymphocytes # (Manual) Monocytes # (Manual) D-Dimer POC ABG pH POC ABG pCO2 POC ABG pO2 Sodium 134 L Potassium Chloride 95.0 L Carbon Dioxide BUN 29 H Creatinine 1.9 H Glucose 66 L POC Glucose 110 H Calcium 7.5 L Magnesium Total Bilirubin AST Alkaline Phosphatase Total Creatine Kinase CK-MB (CK-2) Troponin T Total Protein Albumin HDL Cholesterol Urine Creatinine Urine Total Protein 08/28/16 08/28/16 08/28/16 04:45 05:25 06:48 WBC RBC Hgb Hct MCV MCH MCHC RDW Lymph % (Auto) [place] % (Auto) Lymph # [place] # Seg Neutrophils % Seg Neuts % (Manual) Lymphocytes % (Manual) Nucleated RBC % Seg Neutrophils # Seg Neutrophils # Man Lymphocytes # (Manual) Monocytes # (Manual) D-Dimer POC ABG pH 7.554 H POC ABG pCO2 POC ABG pO2 108 H Sodium Potassium Chloride Carbon Dioxide BUN Creatinine Glucose POC Glucose 67 L 120 H Calcium Magnesium Total Bilirubin AST Alkaline Phosphatase Total Creatine Kinase CK-MB (CK-2) Troponin T Total Protein Albumin HDL Cholesterol Urine Creatinine Urine Total Protein 08/28/16 08/28/16 08/28/16 10:29 11:15 12:00 WBC RBC Hgb Hct MCV MCH MCHC RDW Lymph % (Auto) [place] % (Auto) Lymph # [place] # Seg Neutrophils % Seg Neuts % (Manual) Lymphocytes % (Manual) Nucleated RBC % Seg Neutrophils # Seg Neutrophils # Man Lymphocytes # (Manual) Monocytes # (Manual) D-Dimer POC ABG pH 7.499 H POC ABG pCO2 POC ABG pO2 Sodium Potassium Chloride Carbon Dioxide BUN Creatinine Glucose POC Glucose 206 H 181 H Calcium Magnesium Total Bilirubin AST Alkaline Phosphatase Total Creatine Kinase CK-MB (CK-2) Troponin T Total Protein Albumin HDL Cholesterol Urine Creatinine Urine Total Protein 08/28/16 08/29/16 08/29/16 17:38 03:12 05:56 WBC RBC Hgb Hct MCV MCH MCHC RDW Lymph % (Auto) [place] % (Auto) Lymph # [place] # Seg Neutrophils % Seg Neuts % (Manual) Lymphocytes % (Manual) Nucleated RBC % Seg Neutrophils # Seg Neutrophils # Man Lymphocytes # (Manual) Monocytes # (Manual) D-Dimer POC ABG pH 7.463 H POC ABG pCO2 POC ABG pO2 68 L Sodium 134 L Potassium Chloride 95.9 L Carbon Dioxide BUN 28 H Creatinine 1.8 H Glucose POC Glucose 140 H Calcium 7.4 L Magnesium Total Bilirubin AST Alkaline Phosphatase Total Creatine Kinase CK-MB (CK-2) Troponin T Total Protein Albumin HDL Cholesterol Urine Creatinine Urine Total Protein 08/29/16 08/29/16 08/29/16 11:52 17:43 23:21 WBC RBC Hgb Hct MCV MCH MCHC RDW Lymph % (Auto) [place] % (Auto) Lymph # [place] # Seg Neutrophils % Seg Neuts % (Manual) Lymphocytes % (Manual) Nucleated RBC % Seg Neutrophils # Seg Neutrophils # Man Lymphocytes # (Manual) Monocytes # (Manual) D-Dimer POC ABG pH POC ABG pCO2 POC ABG pO2 Sodium Potassium Chloride Carbon Dioxide BUN Creatinine Glucose POC Glucose 174 H 187 H 208 H Calcium Magnesium Total Bilirubin AST Alkaline Phosphatase Total Creatine Kinase CK-MB (CK-2) Troponin T Total Protein Albumin HDL Cholesterol Urine Creatinine Urine Total Protein 08/30/16 08/30/16 08/30/16 04:49 04:50 05:30 WBC RBC Hgb Hct MCV MCH MCHC RDW Lymph % (Auto) [place] % (Auto) Lymph # [place] # Seg Neutrophils % Seg Neuts % (Manual) Lymphocytes % (Manual) Nucleated RBC % Seg Neutrophils # Seg Neutrophils # Man Lymphocytes # (Manual) Monocytes # (Manual) D-Dimer POC ABG pH 7.483 H POC ABG pCO2 POC ABG pO2 67 L Sodium 135 L Potassium Chloride Carbon Dioxide BUN 35 H Creatinine 1.8 H Glucose 167 H POC Glucose 191 H Calcium 7.5 L Magnesium Total Bilirubin AST Alkaline Phosphatase Total Creatine Kinase CK-MB (CK-2) Troponin T Total Protein Albumin HDL Cholesterol Urine Creatinine Urine Total Protein 08/30/16 08/30/16 08/30/16 08:55 11:39 17:18 WBC 15.0 H RBC Hgb 8.6 L Hct 27.5 L MCV 61 L MCH 19 L MCHC 31 L RDW 16.6 H Lymph % (Auto) 7.8 L [place] % (Auto) 10.4 H Lymph # [place] # 1.6 H Seg Neutrophils % 80.9 H Seg Neuts % (Manual) Lymphocytes % (Manual) Nucleated RBC % Seg Neutrophils # 12.2 H Seg Neutrophils # Man Lymphocytes # (Manual) Monocytes # (Manual) D-Dimer POC ABG pH POC ABG pCO2 POC ABG pO2 Sodium Potassium Chloride Carbon Dioxide BUN Creatinine Glucose POC Glucose 195 H 147 H Calcium Magnesium Total Bilirubin AST Alkaline Phosphatase Total Creatine Kinase CK-MB (CK-2) Troponin T Total Protein Albumin HDL Cholesterol Urine Creatinine Urine Total Protein 08/30/16 08/31/16 08/31/16 23:19 05:37 08:02 WBC 14.7 H RBC Hgb 8.5 L Hct 27.4 L MCV 61 L MCH 19 L MCHC 31 L RDW 16.4 H Lymph % (Auto) [place] % (Auto) Lymph # [place] # Seg Neutrophils % Seg Neuts % (Manual) Lymphocytes % (Manual) Nucleated RBC % Seg Neutrophils # Seg Neutrophils # Man Lymphocytes # (Manual) Monocytes # (Manual) D-Dimer POC ABG pH POC ABG pCO2 POC ABG pO2 Sodium Potassium Chloride Carbon Dioxide BUN Creatinine Glucose POC Glucose 143 H 155 H Calcium Magnesium Total Bilirubin AST Alkaline Phosphatase Total Creatine Kinase CK-MB (CK-2) Troponin T Total Protein Albumin HDL Cholesterol Urine Creatinine Urine Total Protein 08/31/16 08/31/16 08/31/16 08:02 11:42 17:17 WBC RBC Hgb Hct MCV MCH MCHC RDW Lymph % (Auto) [place] % (Auto) Lymph # [place] # Seg Neutrophils % Seg Neuts % (Manual) Lymphocytes % (Manual) Nucleated RBC % Seg Neutrophils # Seg Neutrophils # Man Lymphocytes # (Manual) Monocytes # (Manual) D-Dimer POC ABG pH POC ABG pCO2 POC ABG pO2 Sodium 136 L Potassium Chloride Carbon Dioxide BUN 37 H Creatinine 1.7 H Glucose 153 H POC Glucose 195 H 197 H Calcium 7.7 L Magnesium Total Bilirubin AST Alkaline Phosphatase Total Creatine Kinase CK-MB (CK-2) Troponin T Total Protein Albumin HDL Cholesterol Urine Creatinine Urine Total Protein 08/31/16 09/01/16 09/01/16 23:41 05:28 06:19 WBC 15.8 H RBC Hgb 8.2 L Hct 26.6 L MCV 61 L MCH 19 L MCHC 31 L RDW 16.7 H Lymph % (Auto) [place] % (Auto) Lymph # [place] # Seg Neutrophils % Seg Neuts % (Manual) 87.0 H Lymphocytes % (Manual) 5.0 L Nucleated RBC % 1.0 H Seg Neutrophils # Seg Neutrophils # Man 13.7 H Lymphocytes # (Manual) 0.8 L Monocytes # (Manual) 1.1 H D-Dimer POC ABG pH POC ABG pCO2 POC ABG pO2 Sodium Potassium Chloride Carbon Dioxide BUN Creatinine Glucose POC Glucose 164 H 154 H Calcium Magnesium Total Bilirubin AST Alkaline Phosphatase Total Creatine Kinase CK-MB (CK-2) Troponin T Total Protein Albumin HDL Cholesterol Urine Creatinine Urine Total Protein 09/01/16 09/01/1617 06:19 11:30 17:24 WBC RBC Hgb Hct MCV MCH MCHC RDW Lymph % (Auto) [place] % (Auto) Lymph # [place] # Seg Neutrophils % Seg Neuts % (Manual) Lymphocytes % (Manual) Nucleated RBC % Seg Neutrophils # Seg Neutrophils # Man Lymphocytes # (Manual) Monocytes # (Manual) D-Dimer POC ABG pH POC ABG pCO2 POC ABG pO2 Sodium Potassium Chloride Carbon Dioxide BUN 43 H Creatinine 2.0 H Glucose 150 H POC Glucose 156 H 155 H Calcium 7.8 L Magnesium 2.40 H Total Bilirubin 2.10 H AST 41 H Alkaline Phosphatase 301 H Total Creatine Kinase CK-MB (CK-2) Troponin T Total Protein 4.7 L Albumin 2.2 L HDL Cholesterol Urine Creatinine Urine Total Protein 09/01/16 09/02/16 09/02/16 17:55 00:23 06:31 WBC RBC Hgb Hct MCV MCH MCHC RDW Lymph % (Auto) [place] % (Auto) Lymph # [place] # Seg Neutrophils % Seg Neuts % (Manual) Lymphocytes % (Manual) Nucleated RBC % Seg Neutrophils # Seg Neutrophils # Man Lymphocytes # (Manual) Monocytes # (Manual) D-Dimer POC ABG pH POC ABG pCO2 POC ABG pO2 Sodium Potassium Chloride Carbon Dioxide BUN Creatinine Glucose POC Glucose 145 H 163 H 192 H Calcium Magnesium Total Bilirubin AST Alkaline Phosphatase Total Creatine Kinase CK-MB (CK-2) Troponin T Total Protein Albumin HDL Cholesterol Urine Creatinine Urine Total Protein 09/02/16 09/02/16 09/02/16 08:40 08:40 12:40 WBC 18.6 H RBC Hgb 8.0 L Hct 25.7 L MCV 60 L MCH 19 L MCHC 31 L RDW 16.6 H Lymph % (Auto) [place] % (Auto) Lymph # [place] # Seg Neutrophils % Seg Neuts % (Manual) 86.0 H Lymphocytes % (Manual) 7.0 L Nucleated RBC % Seg Neutrophils # Seg Neutrophils # Man 16.0 H Lymphocytes # (Manual) Monocytes # (Manual) 1.1 H D-Dimer POC ABG pH POC ABG pCO2 POC ABG pO2 Sodium Potassium Chloride Carbon Dioxide BUN 50 H Creatinine 2.1 H Glucose 169 H POC Glucose 189 H Calcium 7.9 L Magnesium 2.50 H Total Bilirubin AST Alkaline Phosphatase Total Creatine Kinase CK-MB (CK-2) Troponin T Total Protein Albumin HDL Cholesterol Urine Creatinine Urine Total Protein 09/02/16 09/02/16 09/03/16 17:20 23:21 04:16 WBC RBC Hgb Hct MCV MCH MCHC RDW Lymph % (Auto) [place] % (Auto) Lymph # [place] # Seg Neutrophils % Seg Neuts % (Manual) Lymphocytes % (Manual) Nucleated RBC % Seg Neutrophils # Seg Neutrophils # Man Lymphocytes # (Manual) Monocytes # (Manual) D-Dimer POC ABG pH 7.483 H POC ABG pCO2 POC ABG pO2 Sodium Potassium Chloride Carbon Dioxide BUN Creatinine Glucose POC Glucose 181 H 173 H Calcium Magnesium Total Bilirubin AST Alkaline Phosphatase Total Creatine Kinase CK-MB (CK-2) Troponin T Total Protein Albumin HDL Cholesterol Urine Creatinine Urine Total Protein 09/03/16 09/03/16 09/03/16 04:43 05:36 05:36 WBC 18.1 H RBC Hgb 7.2 L Hct 23.5 L MCV 61 L MCH 19 L MCHC 31 L RDW 16.7 H Lymph % (Auto) 7.5 L [place] % (Auto) 7.5 H Lymph # [place] # 1.4 H Seg Neutrophils % 83.9 H Seg Neuts % (Manual) Lymphocytes % (Manual) Nucleated RBC % Seg Neutrophils # 15.2 H Seg Neutrophils # Man Lymphocytes # (Manual) Monocytes # (Manual) D-Dimer POC ABG pH POC ABG pCO2 POC ABG pO2 Sodium 135 L Potassium 5.2 H Chloride Carbon Dioxide BUN 57 H Creatinine 2.1 H Glucose 161 H POC Glucose 185 H Calcium 7.7 L Magnesium Total Bilirubin AST Alkaline Phosphatase Total Creatine Kinase CK-MB (CK-2) Troponin T Total Protein Albumin HDL Cholesterol Urine Creatinine Urine Total Protein 09/03/16 11:48 WBC RBC Hgb Hct MCV MCH MCHC RDW Lymph % (Auto) [place] % (Auto) Lymph # [place] # Seg Neutrophils % Seg Neuts % (Manual) Lymphocytes % (Manual) Nucleated RBC % Seg Neutrophils # Seg Neutrophils # Man Lymphocytes # (Manual) Monocytes # (Manual) D-Dimer POC ABG pH POC ABG pCO2 POC ABG pO2 Sodium Potassium Chloride Carbon Dioxide BUN Creatinine Glucose POC Glucose 201 H Calcium Magnesium Total Bilirubin AST Alkaline Phosphatase Total Creatine Kinase CK-MB (CK-2) Troponin T Total Protein Albumin HDL Cholesterol Urine Creatinine Urine Total Protein Chest x-ray: report reviewed (bilateral haziness and lower lobes)
[2016-09-03] MEDS: SENOKOT S PO SCH (21:43)
[2016-09-04] MEDS: NOVOLOG SUB-Q SCH ×4 (00:20→18:19)
[2016-09-04] MEDS: ZOSYN/NS 3.375GM/50ML 3.375 GM/50 ML BAG IV SCH ×3 (00:21→14:12)
[2016-09-04 05:29] LABS: ISTAT Base Excess 3; ISTAT HCO3 26.1; ISTAT PCO2 33.5 (35-45); ISTAT PO2 74 (80-105); ISTAT SO2 96; ISTAT TCO2 27
[2016-09-04] MEDS: APRESOLINE PO SCH ×3 (06:03→22:06)
[2016-09-04] MEDS: HEPARIN SUB-Q SCH ×3 (06:03→22:07)
[2016-09-04] MEDS: TYLENOL PO PRN (07:32)
[2016-09-04] MEDS: ISOPTO TEARS 0.5% OU SCH ×3 (07:46→20:37)
--- NOTE | 2016-09-04 08:00 | Progress Note ---
Assessment and Plan Assessment and plan: --Acute hypoxic hypercapnic respiratory failure/mechanical ventilation more than 96 hrs Unable to wean , patient may need trach and PEG and LTAC placement , family of aware Continue ventilatory support, wean as tolerated and extubate Pulmonary following, DO NOT RESUSCITATE status, --Status post PEA cardiac arrest -- anoxic encephalopathy, continue supportive care, poor prognosis --Aspiration pneumonia; Continue current antibiotics, cultures negative to date, pulmonary following --Mild hypokalemia; low-dose Kayexalate 1 Closely monitor electrolytes --Acute massive CVA; Patient is unresponsive poor prognosis, supportive care --malignant hypertension Moderate control, continue current antihypertensives and when necessary medications --Acute renal failure; secondary to ATN avoid nephrotoxic medications, nephrology following --Status post bilateral lower extremity amputation --DO NOT RESUSCITATE status --Poor prognosis Family members aware, family not ready for withdrawal of care or hospice . Plan of care discussed with the patient's nurse, Family Members not available Consults and recommendations noted and appreciated Continue current management History Interval history: Patient seen and evaluated medical records reviewed Clinically no change remains intubated on ventilatory support more than 96 outbursts Unresponsive Vital signs reviewed, stable No new events reported by the nursing staff Hospitalist Physical - Constitutional Vitals: Temp Pulse Resp BP Pulse Ox 102.1 F H 98 H 27 H 152/86 97 09/04/16 07:55 09/04/16 07:42 09/04/16 07:42 09/04/16 07:42 09/04/16 07:42 General appearance: Present: no acute distress, well-nourished, other (not responsive, orally intubated on ventilator support) - EENT Eyes: Present: PERRL, EOM intact - Neck Neck: Present: supple, normal ROM - Respiratory Respiratory effort: normal Respiratory: bilateral: diminished, negative: rales, rhonchi, wheezing - Cardiovascular Rhythm: regular Heart Sounds: Present: S1 & S2 - Extremities Extremities: no ischemia, pulses intact, pulses symmetrical Peripheral Pulses: within normal limits - Abdominal General gastrointestinal: soft, non-tender, non-distended, normal bowel sounds - Integumentary Integumentary: Present: clear, warm - Psychiatric Psychiatric: other (unresponsive) - Neurologic Neurologic: other (unresponsive) Results - Labs CBC & Chem 7: 09/03/16 05:36 09/03/16 05:36 Labs: Laboratory Last Values WBC 18.1 K/mm3 (4.5-11.0) H 09/03/16 05:36 RBC 3.83 M/mm3 (3.65-5.03) 09/03/16 05:36 Hgb 7.2 gm/dl (11.8-15.2) L 09/03/16 05:36 Hct 23.5 % (35.5-45.6) L 09/03/16 05:36 MCV 61 fl (84-94) L 09/03/16 05:36 MCH 19 pg (28-32) L 09/03/16 05:36 MCHC 31 % (32-34) L 09/03/16 05:36 RDW 16.7 % (13.2-15.2) H 09/03/16 05:36 Plt Count 351 K/mm3 (140-440) 09/03/16 05:36 Lymph % (Auto) 7.5 % (13.4-35.0) L 09/03/16 05:36 Person % (Auto) 7.5 % (0.0-7.3) H 09/03/16 05:36 Eos % (Auto) 0.9 % (0.0-4.3) 09/03/16 05:36 Baso % (Auto) 0.2 % (0.0-1.8) 09/03/16 05:36 Lymph # 1.4 K/mm3 (1.2-5.4) 09/03/16 05:36 Person # 1.4 K/mm3 (0.0-0.8) H 09/03/16 05:36 Eos # 0.2 K/mm3 (0.0-0.4) 09/03/16 05:36 Baso # 0.0 K/mm3 (0.0-0.1) 09/03/16 05:36 Add Manual Diff Complete 09/02/16 08:40 Total Counted 100 09/02/16 08:40 Seg Neutrophils % 83.9 % (40.0-70.0) H 09/03/16 05:36 Seg Neuts % (Manual) 86.0 % (40.0-70.0) H 09/02/16 08:40 Band Neutrophils % 0 % 09/02/16 08:40 Lymphocytes % (Manual) 7.0 % (13.4-35.0) L 09/02/16 08:40 Reactive Lymphs % (Man) 0 % 09/02/16 08:40 Monocytes % (Manual) 6.0 % (0.0-7.3) 09/02/16 08:40 Eosinophils % (Manual) 1.0 % (0.0-4.3) 09/02/16 08:40 Basophils % (Manual) 0 % (0.0-1.8) 09/02/16 08:40 Metamyelocytes % 0 % 09/02/16 08:40 Myelocytes % 0 % 09/02/16 08:40 Promyelocytes % 0 % 09/02/16 08:40 Blast Cells % 0 % 09/02/16 08:40 Nucleated RBC % Not Reportable 09/02/16 08:40 Seg Neutrophils # 15.2 K/mm3 (1.8-7.7) H 09/03/16 05:36 Seg Neutrophils # Man 16.0 K/mm3 (1.8-7.7) H 09/02/16 08:40 Band Neutrophils # 0.0 K/mm3 09/02/16 08:40 Lymphocytes # (Manual) 1.3 K/mm3 (1.2-5.4) 09/02/16 08:40 Abs React Lymphs (Man) 0.0 K/mm3 09/02/16 08:40 Monocytes # (Manual) 1.1 K/mm3 (0.0-0.8) H 09/02/16 08:40 Eosinophils # (Manual) 0.2 K/mm3 (0.0-0.4) 09/02/16 08:40 Basophils # (Manual) 0.0 K/mm3 (0.0-0.1) 09/02/16 08:40 Metamyelocytes # 0.0 K/mm3 09/02/16 08:40 Myelocytes # 0.0 K/mm3 09/02/16 08:40 Promyelocytes # 0.0 K/mm3 09/02/16 08:40 Blast Cells # 0.0 K/mm3 09/02/16 08:40 WBC Morphology Not Reportable 09/02/16 08:40 Hypersegmented Neuts Not Reportable 09/02/16 08:40 Hyposegmented Neuts Not Reportable 09/02/16 08:40 Hypogranular Neuts Not Reportable 09/02/16 08:40 Smudge Cells Not Reportable 09/02/16 08:40 Toxic Granulation Not Reportable 09/02/16 08:40 Toxic Vacuolation Not Reportable 09/02/16 08:40 Dohle Bodies Not Reportable 09/02/16 08:40 Pelger-Huet Anomaly Not Reportable 09/02/16 08:40 Mattie Rods Not Reportable 09/02/16 08:40 Platelet Estimate Cons 09/02/16 08:40 Clumped Platelets Not Reportable 09/02/16 08:40 Plt Clumps, EDTA Not Reportable 09/02/16 08:40 Large Platelets Few 09/02/16 08:40 Giant Platelets Not Reportable 09/02/16 08:40 Platelet Satelliting Not Reportable 09/02/16 08:40 Plt Morphology Comment Not Reportable 09/02/16 08:40 RBC Morphology Not Reportable 09/02/16 08:40 Dimorphic RBCs Not Reportable 09/02/16 08:40 Polychromasia Few 09/02/16 08:40 Hypochromasia 2+ 09/02/16 08:40 Poikilocytosis 2+ 09/02/16 08:40 Anisocytosis 2+ 09/02/16 08:40 Microcytosis 2+ 09/02/16 08:40 Macrocytosis Not Reportable 09/02/16 08:40 Spherocytes Not Reportable 09/02/16 08:40 Pappenheimer Bodies Not Reportable 09/02/16 08:40 Sickle Cells Not Reportable 09/02/16 08:40 Target Cells 1+ 09/02/16 08:40 Tear Drop Cells 1+ 09/02/16 08:40 Ovalocytes Not Reportable 09/02/16 08:40 Helmet Cells Not Reportable 09/02/16 08:40 Saeed-[place] Bodies Not Reportable 09/02/16 08:40 [place] Rings Not Reportable 09/02/16 08:40 [place] Cells Not Reportable 09/02/16 08:40 Bite Cells Not Reportable 09/02/16 08:40 Crenated Cell Not Reportable 09/02/16 08:40 Elliptocytes Not Reportable 09/02/16 08:40 Acanthocytes (Spur) Not Reportable 09/02/16 08:40 Rouleaux Not Reportable 09/02/16 08:40 Hemoglobin C Crystals Not Reportable 09/02/16 08:40 Schistocytes Few 09/02/16 08:40 Malaria parasites Not Reportable 09/02/16 08:40 [place] Bodies Not Reportable 09/02/16 08:40 Hem Pathologist Commnt No 09/02/16 08:40 D-Dimer 1138.47 ng/mlDDU (0-234) H 08/24/16 03:23 POC ABG pH 7.500 (7.35-7.45) H 09/04/16 04:23 POC ABG pCO2 33.5 (35-45) L 09/04/16 04:23 POC ABG pO2 74 (80-105) L 09/04/16 04:23 POC ABG HCO3 26.1 09/04/16 04:23 POC ABG Total CO2 27 09/04/16 04:23 POC ABG O2 Sat 96 09/04/16 04:23 POC ABG Base Excess 3 09/04/16 04:23 FiO2 30 % 09/04/16 04:23 Sodium 135 mmol/L (137-145) L 09/03/16 05:36 Potassium 5.2 mmol/L (3.6-5.0) H 09/03/16 05:36 Chloride 98.1 mmol/L (98-107) 09/03/16 05:36 Carbon Dioxide 22 mmol/L (22-30) 09/03/16 05:36 Anion Gap 20 mmol/L 09/03/16 05:36 BUN 57 mg/dL (9-20) H 09/03/16 05:36 Creatinine 2.1 mg/dL (0.8-1.5) H 09/03/16 05:36 Estimated GFR 40 ml/min 09/03/16 05:36 BUN/Creatinine Ratio 27.14 % 09/03/16 05:36 Glucose 161 mg/dL (75-100) H 09/03/16 05:36 POC Glucose 166 (70-105) H 09/04/16 05:51 Lactic Acid 1.80 mmol/L (0.7-2.0) 08/25/16 13:47 Calcium 7.7 mg/dL (8.4-10.2) L 09/03/16 05:36 Phosphorus 4.50 mg/dL (2.5-4.5) 09/02/16 08:40 Magnesium 2.50 mg/dL (1.7-2.3) H 09/02/16 08:40 Total Bilirubin 2.10 mg/dL (0.1-1.2) H 09/01/16 06:19 AST 41 units/L (5-40) H 09/01/16 06:19 ALT 55 units/L (7-56) 09/01/16 06:19 Alkaline Phosphatase 301 units/L (35-129) H 09/01/16 06:19 Ammonia 46.0 umol/L (25-60) 08/24/16 01:44 Total Creatine Kinase 796 units/L (55-170) H 08/27/16 10:32 CK-MB (CK-2) 6.3 ng/mL (0.0-4.0) H 08/27/16 10:32 CK-MB (CK-2) Rel Index 0.7 (0-4) 08/27/16 10:32 Troponin T 0.473 ng/mL (0.00-0.029) H* 08/27/16 18:46 Total Protein 4.7 g/dL (6.3-8.2) L 09/01/16 06:19 Albumin 2.2 g/dL (3.9-5) L 09/01/16 06:19 Albumin/Globulin Ratio 0.9 % 09/01/16 06:19 Triglycerides 68 mg/dL (2-149) 08/27/16 00:00 Cholesterol 182 mg/dL (50-199) 08/27/16 00:00 LDL Cholesterol Direct 70 mg/dL (50-130) 08/30/16 09:01 HDL Cholesterol 78 mg/dL (40-59) H 08/27/16 00:00 Cholesterol/HDL Ratio 2.33 % 08/27/16 00:00 TSH 3.080 mlU/mL (0.270-4.200) 08/23/16 23:35 Urine Color Yellow (Yellow) 08/24/16 00:40 Urine Turbidity Clear (Clear) 08/24/16 00:40 Urine pH 6.0 (5.0-7.0) 08/24/16 00:40 Ur Specific [place] 1.022 (1.003-1.030) 08/24/16 00:40 Urine Protein >500 mg/dL (Negative) 08/24/16 00:40 Urine Glucose (UA) >=500 mg/dL (Negative) 08/24/16 00:40 Urine Ketones Neg mg/dL (Negative) 08/24/16 00:40 Urine Blood Mod (Negative) 08/24/16 00:40 Urine Nitrite Neg (Negative) 08/24/16 00:40 Urine Bilirubin Neg (Negative) 08/24/16 00:40 Urine Urobilinogen < 2.0 mg/dL (<2.0) 08/24/16 00:40 Ur Leukocyte Esterase Neg (Negative) 08/24/16 00:40 Urine WBC (Auto) 1.0 /HPF (0.0-6.0) 08/24/16 00:40 Urine RBC (Auto) 5.0 /HPF (0.0-6.0) 08/24/16 00:40 Urine Bacteria (Auto) 2+ /HPF (Negative) 08/24/16 00:40 Urine Creatinine 237.7 mg/dL (0.1-20.0) H 08/25/16 15:00 Protein/Creatinin Ratio 3.71 08/25/16 15:00 Urine Sodium 10 mEq/L 08/25/16 15:00 Urine Total Protein 882 mg/dL (5-11.8) H 08/25/16 15:00 Salicylates < 0.3 mg/dL (2.8-20.0) L 08/23/16 23:35 Urine Opiates Screen Presumptive negative 08/24/16 00:40 Urine Methadone Screen Presumptive negative 08/24/16 00:40 Acetaminophen < 15.0 ug/mL (10.0-30.0) 08/23/16 23:35 Ur Barbiturates Screen Presumptive negative 08/24/16 00:40 Ur Phencyclidine Scrn Presumptive negative 08/24/16 00:40 Ur Amphetamines Screen Presumptive negative 08/24/16 00:40 U Benzodiazepines Scrn Presumptive negative 08/24/16 00:40 Urine Cocaine Screen Presumptive negative 08/24/16 00:40 U Marijuana (THC) Screen Presumptive negative 08/24/16 00:40 Drugs of Abuse Note Disclamer 08/24/16 00:40 Plasma/Serum Alcohol < 0.01 gm% (0-0.07) 08/23/16 23:35
[2016-09-04] MEDS: NORMODYNE PO SCH ×2 (09:26→22:06)
[2016-09-04] MEDS: LEVEMIR SUB-Q SCH (09:27)
[2016-09-04] MEDS: ASPIRIN PO SCH (09:27)
[2016-09-04] MEDS: PEPCID PO SCH (09:27)
--- NOTE | 2016-09-04 11:14 | Progress Note ---
Assessment and Plan 1. S/p Cardiopulm Arrest - Intubated & on vent, f/u arousal ?Encephalopathy 2. HTN - Continue current meds 3. ALANNAH/ATN - Today's labs pending. Hold IVF & f/u BUN/Cr 4. Lytes - F/u labs 5. CVA - Opens eyes & has spontaneous withdrawal of limbs but no obvious purposeful movement or response 6. Periph Edema - Hold IVF & f/u urine output. Still suggest to avoid diuretics for now if possible Subjective Date of service: 09/04/16 Principal diagnosis: Acute respiratory failure Interval history: Pt remains on vent via ETT Objective - Vital Signs Vital signs: Vital Signs - 12hr 09/03/16 09/03/16 09/04/16 23:30 23:43 00:00 Temperature 99.8 F H Pulse Rate 86 87 Respiratory 26 H Rate Blood Pressure 139/76 139/76 O2 Sat by Pulse 98 99 Oximetry 09/04/16 09/04/16 09/04/16 01:00 02:00 03:00 Temperature Pulse Rate 88 89 91 H Respiratory 23 23 24 Rate Blood Pressure 133/77 143/78 144/77 O2 Sat by Pulse 98 99 98 Oximetry 09/04/16 09/04/16 09/04/16 03:43 04:00 04:23 Temperature 100.5 F H Pulse Rate 91 H 93 H Respiratory 24 Rate Blood Pressure 148/80 148/80 O2 Sat by Pulse 98 98 Oximetry 09/04/16 09/04/16 09/04/16 05:00 06:00 06:03 Temperature Pulse Rate 94 H 95 H 96 H Respiratory 24 24 Rate Blood Pressure 149/77 154/81 146/77 O2 Sat by Pulse 98 98 Oximetry 09/04/16 09/04/16 09/04/16 06:04 07:00 07:42 Temperature Pulse Rate 95 H 100 H 98 H Respiratory 24 28 H 27 H Rate Blood Pressure 146/77 158/80 152/86 O2 Sat by Pulse 99 98 97 Oximetry 09/04/16 09/04/16 09/04/16 07:55 07:57 07:59 Temperature 102.1 F H Pulse Rate 102 H Respiratory 29 H Rate Blood Pressure 164/85 O2 Sat by Pulse 99 Oximetry 09/04/16 09/04/16 09/04/16 08:00 09:00 09:26 Temperature Pulse Rate 100 H 94 H 94 H Respiratory 29 H 29 H Rate Blood Pressure 164/85 158/80 158/80 O2 Sat by Pulse 98 99 Oximetry 09/04/16 10:00 Temperature Pulse Rate 84 Respiratory 25 H Rate Blood Pressure 136/76 O2 Sat by Pulse 97 Oximetry - General Appearance General appearance: intubated Respiratory: Present: Other (Good air entry per vent) Cardiology: regular, S1S2 Gastrointestinal: normal Neurologic: obtunded - Lab 09/03/16 05:36 09/03/16 05:36 Most recent lab results Calcium 7.7 mg/dL (8.4-10.2) L 09/03/16 05:36 Phosphorus 4.50 mg/dL (2.5-4.5) 09/02/16 08:40 Magnesium 2.50 mg/dL (1.7-2.3) H 09/02/16 08:40 Urine Creatinine 237.7 mg/dL (0.1-20.0) H 08/25/16 15:00 Urine Sodium 10 mEq/L 08/25/16 15:00 Urine Total Protein 882 mg/dL (5-11.8) H 08/25/16 15:00
--- NOTE | 2016-09-04 14:54 | Progress Note ---
Assessment and Plan Assessment and Plan Imp: 1. Large Acute CVA 2. Malignant HTN related to #1 3. S/p CP arrest 4. Anoxic encephalopathy 5. ALANNAH 6. Acute respiratory failure, hypoxia 7. Constipation 8. 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 SIRS, r/o sepsis/pneumonia 10. Suspect bilateral pleural effusions Rec: 1. Can cont. PSV but mentation precludes extubation; will need trach/PEG if family wishes for aggressive treatment 2. BP control per primary/renal 3. DVT/GI PPx, TFs; IVFs resumed due to worsening renal function 4. Anti-platelets added 5. Bowel regimen added; monitor 6. AND but family wants to hold off on hospice for now; believe prognosis for meaningful neurologic recovery/good quality of life is poor 7. Fever + worsening leukocytosis and worsening infiltrates on CXR (volume overload versus pneumonia); cannot r/o pneumonia so will start Zosyn; asked RN and pharmacy to confirm there is no PCN allergy w/ family prior to administering a dose; blood, urine, and sputum cultures also sent 8. ET tube adjusted to proper position. No family present during my evaluation [id number] minutes Subjective Date of service: 09/04/16 Principal diagnosis: Acute respiratory failure Interval history: Patient remained unresponsive and orally intubated. No new complaints. Mild degree of endotracheal tube cuff leak was noted. Objective Vital Signs - 12hr 09/04/16 09/04/16 09/04/16 03:00 03:43 04:00 Temperature 100.5 F H Pulse Rate 91 H 91 H Pulse Rate [ From Monitor] Respiratory 24 24 Rate Blood Pressure 144/77 148/80 O2 Sat by Pulse 98 98 Oximetry 09/04/16 09/04/16 09/04/16 04:23 05:00 06:00 Temperature Pulse Rate 93 H 94 H 95 H Pulse Rate [ From Monitor] Respiratory 24 24 Rate Blood Pressure 148/80 149/77 154/81 O2 Sat by Pulse 98 98 98 Oximetry 09/04/16 09/04/16 09/04/16 06:03 06:04 07:00 Temperature Pulse Rate 96 H 95 H 100 H Pulse Rate [ From Monitor] Respiratory 24 28 H Rate Blood Pressure 146/77 146/77 158/80 O2 Sat by Pulse 99 98 Oximetry 09/04/16 09/04/16 09/04/16 07:42 07:55 07:57 Temperature 102.1 F H Pulse Rate 98 H 102 H Pulse Rate [ From Monitor] Respiratory 27 H Rate Blood Pressure 152/86 164/85 O2 Sat by Pulse 97 99 Oximetry 09/04/16 09/04/16 09/04/16 07:59 08:00 09:00 Temperature Pulse Rate 100 H 94 H Pulse Rate [ From Monitor] Respiratory 29 H 29 H 29 H Rate Blood Pressure 164/85 158/80 O2 Sat by Pulse 98 99 Oximetry 09/04/16 09/04/16 09/04/16 09:26 10:00 11:00 Temperature Pulse Rate 94 H 84 75 Pulse Rate [ From Monitor] Respiratory 25 H 24 Rate Blood Pressure 158/80 136/76 115/67 O2 Sat by Pulse 97 100 Oximetry 09/04/16 09/04/16 09/04/16 11:59 12:00 14:13 Temperature 99.4 F Pulse Rate 76 76 83 Pulse Rate [ 75 From Monitor] Respiratory 21 Rate Blood Pressure 105/65 115/70 139/76 O2 Sat by Pulse 100 100 Oximetry Constitutional: comatose (opens eyes only), other (critically ill on vent) Eyes: non-icteric ENT: other (orally intubated) Effort: normal Ascultation: Bilateral: clear Percussion: Bilateral: not dull Cardiovascular: regular rate and rhythm (no mrg) Gastrointestinal: soft, non-distended Integumentary: normal Extremities: no cyanosis, edema (1+ upper extremities), other (bilateral AKA) Neurologic: other (moves RUE spontaneously, nothing purposeful, minimal opening of eyes but not tracking) Psychiatric: other (not able to assess) CBC and BMP: 09/03/16 05:36 09/03/16 05:36 ABG, PT/INR, D-dimer: ABG POC ABG pH 7.500 (7.35-7.45) H 09/04/16 04:23 POC ABG pCO2 33.5 (35-45) L 09/04/16 04:23 POC ABG pO2 74 (80-105) L 09/04/16 04:23 POC ABG HCO3 26.1 09/04/16 04:23 POC ABG Total CO2 27 09/04/16 04:23 POC ABG O2 Sat 96 09/04/16 04:23 PT/INR, D-dimer D-Dimer 1138.47 ng/mlDDU (0-234) H 08/24/16 03:23 Abnormal lab findings: Abnormal Labs 08/24/16 08/24/16 08/24/16 03:23 09:23 10:58 WBC RBC Hgb Hct MCV MCH MCHC RDW Lymph % (Auto) Mitchell % (Auto) Lymph # Mitchell # Seg Neutrophils % Seg Neuts % (Manual) Lymphocytes % (Manual) Nucleated RBC % Seg Neutrophils # Seg Neutrophils # Man Lymphocytes # (Manual) Monocytes # (Manual) D-Dimer 1138.47 H POC ABG pH POC ABG pCO2 POC ABG pO2 Sodium Potassium Chloride Carbon Dioxide BUN Creatinine Glucose POC Glucose 410 H 392 H Calcium Magnesium Total Bilirubin AST Alkaline Phosphatase Total Creatine Kinase CK-MB (CK-2) Troponin T Total Protein Albumin HDL Cholesterol Urine Creatinine Urine Total Protein 08/24/16 08/24/16 08/24/16 13:02 13:44 17:29 WBC RBC Hgb Hct MCV MCH MCHC RDW Lymph % (Auto) Mitchell % (Auto) Lymph # Mitchell # Seg Neutrophils % Seg Neuts % (Manual) Lymphocytes % (Manual) Nucleated RBC % Seg Neutrophils # Seg Neutrophils # Man Lymphocytes # (Manual) Monocytes # (Manual) D-Dimer POC ABG pH POC ABG pCO2 34.8 L POC ABG pO2 Sodium Potassium Chloride Carbon Dioxide BUN Creatinine 1.8 H Glucose 266 H POC Glucose 354 H Calcium Magnesium Total Bilirubin AST Alkaline Phosphatase Total Creatine Kinase CK-MB (CK-2) Troponin T Total Protein Albumin HDL Cholesterol Urine Creatinine Urine Total Protein 08/24/16 08/24/16 08/24/16 17:34 18:24 18:41 WBC RBC Hgb Hct MCV MCH MCHC RDW Lymph % (Auto) Mitchell % (Auto) Lymph # [place] # Seg Neutrophils % Seg Neuts % (Manual) Lymphocytes % (Manual) Nucleated RBC % Seg Neutrophils # Seg Neutrophils # Man Lymphocytes # (Manual) Monocytes # (Manual) D-Dimer POC ABG pH POC ABG pCO2 POC ABG pO2 Sodium Potassium Chloride Carbon Dioxide 18 L BUN Creatinine 1.9 H Glucose 174 H POC Glucose 211 H 190 H Calcium 8.2 L Magnesium Total Bilirubin AST Alkaline Phosphatase Total Creatine Kinase CK-MB (CK-2) Troponin T Total Protein Albumin HDL Cholesterol Urine Creatinine Urine Total Protein 08/24/16 08/24/16 08/24/16 19:28 20:24 21:21 WBC RBC Hgb Hct MCV MCH MCHC RDW Lymph % (Auto) Mitchell % (Auto) Lymph # [place] # Seg Neutrophils % Seg Neuts % (Manual) Lymphocytes % (Manual) Nucleated RBC % Seg Neutrophils # Seg Neutrophils # Man Lymphocytes # (Manual) Monocytes # (Manual) D-Dimer POC ABG pH POC ABG pCO2 POC ABG pO2 Sodium Potassium Chloride Carbon Dioxide BUN Creatinine Glucose POC Glucose 159 H 110 H 144 H Calcium Magnesium Total Bilirubin AST Alkaline Phosphatase Total Creatine Kinase CK-MB (CK-2) Troponin T Total Protein Albumin HDL Cholesterol Urine Creatinine Urine Total Protein 08/24/16 08/24/16 08/24/16 21:48 22:26 23:19 WBC RBC Hgb Hct MCV MCH MCHC RDW Lymph % (Auto) [place] % (Auto) Lymph # [place] # Seg Neutrophils % Seg Neuts % (Manual) Lymphocytes % (Manual) Nucleated RBC % Seg Neutrophils # Seg Neutrophils # Man Lymphocytes # (Manual) Monocytes # (Manual) D-Dimer POC ABG pH POC ABG pCO2 POC ABG pO2 Sodium Potassium Chloride Carbon Dioxide 21 L BUN Creatinine 1.8 H Glucose 141 H POC Glucose 148 H 140 H Calcium 8.3 L Magnesium Total Bilirubin AST Alkaline Phosphatase Total Creatine Kinase CK-MB (CK-2) Troponin T Total Protein Albumin HDL Cholesterol Urine Creatinine Urine Total Protein 08/25/16 08/25/16 08/25/16 01:11 02:15 03:18 WBC RBC Hgb Hct MCV MCH MCHC RDW Lymph % (Auto) [place] % (Auto) Lymph # [place] # Seg Neutrophils % Seg Neuts % (Manual) Lymphocytes % (Manual) Nucleated RBC % Seg Neutrophils # Seg Neutrophils # Man Lymphocytes # (Manual) Monocytes # (Manual) D-Dimer POC ABG pH POC ABG pCO2 POC ABG pO2 Sodium Potassium Chloride Carbon Dioxide BUN Creatinine Glucose POC Glucose 130 H 136 H 145 H Calcium Magnesium Total Bilirubin AST Alkaline Phosphatase Total Creatine Kinase CK-MB (CK-2) Troponin T Total Protein Albumin HDL Cholesterol Urine Creatinine Urine Total Protein 08/25/16 08/25/16 08/25/16 04:09 04:53 04:53 WBC 14.1 H RBC 5.36 H Hgb 9.9 L Hct 32.9 L MCV 61 L MCH 19 L MCHC 30 L RDW 17.5 H Lymph % (Auto) 8.0 L Mitchell % (Auto) 9.7 H Lymph # 1.1 L Mitchell # 1.4 H Seg Neutrophils % 82.2 H Seg Neuts % (Manual) Lymphocytes % (Manual) Nucleated RBC % Seg Neutrophils # 11.6 H Seg Neutrophils # Man Lymphocytes # (Manual) Monocytes # (Manual) D-Dimer POC ABG pH POC ABG pCO2 POC ABG pO2 Sodium Potassium Chloride Carbon Dioxide 21 L BUN Creatinine 1.9 H Glucose 116 H POC Glucose 120 H Calcium 8.2 L Magnesium Total Bilirubin AST Alkaline Phosphatase Total Creatine Kinase CK-MB (CK-2) Troponin T Total Protein Albumin HDL Cholesterol Urine Creatinine Urine Total Protein 08/25/16 08/25/16 08/25/16 05:05 06:31 07:35 WBC RBC Hgb Hct MCV MCH MCHC RDW Lymph % (Auto) Mitchell % (Auto) Lymph # [place] # Seg Neutrophils % Seg Neuts % (Manual) Lymphocytes % (Manual) Nucleated RBC % Seg Neutrophils # Seg Neutrophils # Man Lymphocytes # (Manual) Monocytes # (Manual) D-Dimer POC ABG pH POC ABG pCO2 POC ABG pO2 Sodium Potassium Chloride Carbon Dioxide BUN Creatinine Glucose POC Glucose 126 H 139 H 142 H Calcium Magnesium Total Bilirubin AST Alkaline Phosphatase Total Creatine Kinase CK-MB (CK-2) Troponin T Total Protein Albumin HDL Cholesterol Urine Creatinine Urine Total Protein 08/25/16 08/25/16 08/25/16 08:55 09:48 10:59 WBC RBC Hgb Hct MCV MCH MCHC RDW Lymph % (Auto) Mitchell % (Auto) Lymph # [place] # Seg Neutrophils % Seg Neuts % (Manual) Lymphocytes % (Manual) Nucleated RBC % Seg Neutrophils # Seg Neutrophils # Man Lymphocytes # (Manual) Monocytes # (Manual) D-Dimer POC ABG pH POC ABG pCO2 POC ABG pO2 Sodium Potassium Chloride Carbon Dioxide BUN Creatinine Glucose POC Glucose 135 H 109 H 126 H Calcium Magnesium Total Bilirubin AST Alkaline Phosphatase Total Creatine Kinase CK-MB (CK-2) Troponin T Total Protein Albumin HDL Cholesterol Urine Creatinine Urine Total Protein 08/25/16 08/25/16 08/25/16 11:34 13:47 15:00 WBC RBC Hgb Hct MCV MCH MCHC RDW Lymph % (Auto) Mitchell % (Auto) Lymph # [place] # Seg Neutrophils % Seg Neuts % (Manual) Lymphocytes % (Manual) Nucleated RBC % Seg Neutrophils # Seg Neutrophils # Man Lymphocytes # (Manual) Monocytes # (Manual) D-Dimer POC ABG pH POC ABG pCO2 32.8 L POC ABG pO2 108 H Sodium Potassium Chloride Carbon Dioxide 19 L BUN Creatinine 1.7 H Glucose 196 H POC Glucose Calcium 8.2 L Magnesium Total Bilirubin AST Alkaline Phosphatase Total Creatine Kinase CK-MB (CK-2) Troponin T Total Protein Albumin HDL Cholesterol Urine Creatinine 237.7 H Urine Total Protein 882 H 08/25/16 08/25/16 08/26/16 16:30 23:09 05:41 WBC RBC Hgb Hct MCV MCH MCHC RDW Lymph % (Auto) Mitchell % (Auto) Lymph # [place] # Seg Neutrophils % Seg Neuts % (Manual) Lymphocytes % (Manual) Nucleated RBC % Seg Neutrophils # Seg Neutrophils # Man Lymphocytes # (Manual) Monocytes # (Manual) D-Dimer POC ABG pH POC ABG pCO2 POC ABG pO2 Sodium Potassium Chloride Carbon Dioxide BUN Creatinine Glucose POC Glucose 242 H 131 H 156 H Calcium Magnesium Total Bilirubin AST Alkaline Phosphatase Total Creatine Kinase CK-MB (CK-2) Troponin T Total Protein Albumin HDL Cholesterol Urine Creatinine Urine Total Protein 08/26/16 08/26/16 08/26/16 07:16 12:12 17:51 WBC RBC Hgb Hct MCV MCH MCHC RDW Lymph % (Auto) Mitchell % (Auto) Lymph # [place] # Seg Neutrophils % Seg Neuts % (Manual) Lymphocytes % (Manual) Nucleated RBC % Seg Neutrophils # Seg Neutrophils # Man Lymphocytes # (Manual) Monocytes # (Manual) D-Dimer POC ABG pH POC ABG pCO2 POC ABG pO2 Sodium Potassium Chloride Carbon Dioxide 18 L BUN 26 H Creatinine 2.0 H Glucose 132 H POC Glucose 119 H 161 H Calcium 8.1 L Magnesium Total Bilirubin AST 41 H Alkaline Phosphatase Total Creatine Kinase CK-MB (CK-2) Troponin T Total Protein 5.5 L Albumin 2.7 L HDL Cholesterol Urine Creatinine Urine Total Protein 08/26/16 08/26/16 08/27/16 22:34 23:50 00:00 WBC 11.8 H RBC 5.29 H Hgb 10.0 L Hct 33.3 L MCV 63 L MCH 19 L MCHC 30 L RDW 17.4 H Lymph % (Auto) Mitchell % (Auto) 8.7 H Lymph # Mitchell # 1.0 H Seg Neutrophils % 72.6 H Seg Neuts % (Manual) Lymphocytes % (Manual) Nucleated RBC % Seg Neutrophils # 8.6 H Seg Neutrophils # Man Lymphocytes # (Manual) Monocytes # (Manual) D-Dimer POC ABG pH POC ABG pCO2 POC ABG pO2 Sodium Potassium Chloride Carbon Dioxide BUN Creatinine Glucose POC Glucose 107 H 119 H Calcium Magnesium Total Bilirubin AST Alkaline Phosphatase Total Creatine Kinase CK-MB (CK-2) Troponin T Total Protein Albumin HDL Cholesterol Urine Creatinine Urine Total Protein 08/27/16 08/27/16 08/27/16 00:00 00:00 00:02 WBC RBC Hgb Hct MCV MCH MCHC RDW Lymph % (Auto) Mitchell % (Auto) Lymph # [place] # Seg Neutrophils % Seg Neuts % (Manual) Lymphocytes % (Manual) Nucleated RBC % Seg Neutrophils # Seg Neutrophils # Man Lymphocytes # (Manual) Monocytes # (Manual) D-Dimer POC ABG pH POC ABG pCO2 POC ABG pO2 205 H Sodium 135 L Potassium Chloride 96.6 L Carbon Dioxide 16 L BUN 31 H Creatinine 2.2 H Glucose 154 H POC Glucose Calcium 7.8 L Magnesium Total Bilirubin AST Alkaline Phosphatase Total Creatine Kinase 1401 H CK-MB (CK-2) 13.6 H Troponin T 0.421 H* Total Protein Albumin HDL Cholesterol 78 H Urine Creatinine Urine Total Protein 08/27/16 08/27/16 08/27/16 00:37 03:22 04:08 WBC RBC Hgb Hct MCV MCH MCHC RDW Lymph % (Auto) Mitchell % (Auto) Lymph # [place] # Seg Neutrophils % Seg Neuts % (Manual) Lymphocytes % (Manual) Nucleated RBC % Seg Neutrophils # Seg Neutrophils # Man Lymphocytes # (Manual) Monocytes # (Manual) D-Dimer POC ABG pH 7.467 H POC ABG pCO2 31.3 L POC ABG pO2 Sodium Potassium Chloride Carbon Dioxide BUN Creatinine Glucose POC Glucose 106 H Calcium Magnesium Total Bilirubin AST Alkaline Phosphatase Total Creatine Kinase 909 H CK-MB (CK-2) 9.3 H Troponin T Total Protein Albumin HDL Cholesterol Urine Creatinine Urine Total Protein 08/27/16 08/27/16 08/27/16 04:35 05:35 10:32 WBC RBC Hgb Hct MCV MCH MCHC RDW Lymph % (Auto) Mitchell % (Auto) Lymph # [place] # Seg Neutrophils % Seg Neuts % (Manual) Lymphocytes % (Manual) Nucleated RBC % Seg Neutrophils # Seg Neutrophils # Man Lymphocytes # (Manual) Monocytes # (Manual) D-Dimer POC ABG pH POC ABG pCO2 POC ABG pO2 Sodium Potassium Chloride Carbon Dioxide BUN Creatinine Glucose POC Glucose 120 H 113 H Calcium Magnesium Total Bilirubin AST Alkaline Phosphatase Total Creatine Kinase 796 H CK-MB (CK-2) 6.3 H Troponin T Total Protein Albumin HDL Cholesterol Urine Creatinine Urine Total Protein 08/27/16 08/27/16 08/27/16 11:59 17:28 18:46 WBC RBC Hgb Hct MCV MCH MCHC RDW Lymph % (Auto) Mitchell % (Auto) Lymph # [place] # Seg Neutrophils % Seg Neuts % (Manual) Lymphocytes % (Manual) Nucleated RBC % Seg Neutrophils # Seg Neutrophils # Man Lymphocytes # (Manual) Monocytes # (Manual) D-Dimer POC ABG pH POC ABG pCO2 POC ABG pO2 Sodium Potassium Chloride Carbon Dioxide BUN Creatinine Glucose POC Glucose 225 H 231 H Calcium Magnesium Total Bilirubin AST Alkaline Phosphatase Total Creatine Kinase CK-MB (CK-2) Troponin T 0.473 H* Total Protein Albumin HDL Cholesterol Urine Creatinine Urine Total Protein 08/27/16 08/28/16 08/28/16 23:32 03:39 03:39 WBC 11.5 H RBC Hgb 8.9 L Hct 28.8 L MCV 61 L MCH 19 L MCHC 31 L RDW 16.8 H Lymph % (Auto) Mitchell % (Auto) Lymph # [place] # Seg Neutrophils % Seg Neuts % (Manual) Lymphocytes % (Manual) Nucleated RBC % Seg Neutrophils # Seg Neutrophils # Man Lymphocytes # (Manual) Monocytes # (Manual) D-Dimer POC ABG pH POC ABG pCO2 POC ABG pO2 Sodium 134 L Potassium Chloride 95.0 L Carbon Dioxide BUN 29 H Creatinine 1.9 H Glucose 66 L POC Glucose 110 H Calcium 7.5 L Magnesium Total Bilirubin AST Alkaline Phosphatase Total Creatine Kinase CK-MB (CK-2) Troponin T Total Protein Albumin HDL Cholesterol Urine Creatinine Urine Total Protein 08/28/16 08/28/16 08/28/16 04:45 05:25 06:48 WBC RBC Hgb Hct MCV MCH MCHC RDW Lymph % (Auto) Mitchell % (Auto) Lymph # [place] # Seg Neutrophils % Seg Neuts % (Manual) Lymphocytes % (Manual) Nucleated RBC % Seg Neutrophils # Seg Neutrophils # Man Lymphocytes # (Manual) Monocytes # (Manual) D-Dimer POC ABG pH 7.554 H POC ABG pCO2 POC ABG pO2 108 H Sodium Potassium Chloride Carbon Dioxide BUN Creatinine Glucose POC Glucose 67 L 120 H Calcium Magnesium Total Bilirubin AST Alkaline Phosphatase Total Creatine Kinase CK-MB (CK-2) Troponin T Total Protein Albumin HDL Cholesterol Urine Creatinine Urine Total Protein 08/28/16 08/28/16 08/28/16 10:29 11:15 12:00 WBC RBC Hgb Hct MCV MCH MCHC RDW Lymph % (Auto) Mitchell % (Auto) Lymph # [place] # Seg Neutrophils % Seg Neuts % (Manual) Lymphocytes % (Manual) Nucleated RBC % Seg Neutrophils # Seg Neutrophils # Man Lymphocytes # (Manual) Monocytes # (Manual) D-Dimer POC ABG pH 7.499 H POC ABG pCO2 POC ABG pO2 Sodium Potassium Chloride Carbon Dioxide BUN Creatinine Glucose POC Glucose 206 H 181 H Calcium Magnesium Total Bilirubin AST Alkaline Phosphatase Total Creatine Kinase CK-MB (CK-2) Troponin T Total Protein Albumin HDL Cholesterol Urine Creatinine Urine Total Protein 08/28/16 08/29/16 08/29/16 17:38 03:12 05:56 WBC RBC Hgb Hct MCV MCH MCHC RDW Lymph % (Auto) [place] % (Auto) Lymph # [place] # Seg Neutrophils % Seg Neuts % (Manual) Lymphocytes % (Manual) Nucleated RBC % Seg Neutrophils # Seg Neutrophils # Man Lymphocytes # (Manual) Monocytes # (Manual) D-Dimer POC ABG pH 7.463 H POC ABG pCO2 POC ABG pO2 68 L Sodium 134 L Potassium Chloride 95.9 L Carbon Dioxide BUN 28 H Creatinine 1.8 H Glucose POC Glucose 140 H Calcium 7.4 L Magnesium Total Bilirubin AST Alkaline Phosphatase Total Creatine Kinase CK-MB (CK-2) Troponin T Total Protein Albumin HDL Cholesterol Urine Creatinine Urine Total Protein 08/29/16 08/29/16 08/29/16 11:52 17:43 23:21 WBC RBC Hgb Hct MCV MCH MCHC RDW Lymph % (Auto) [place] % (Auto) Lymph # [place] # Seg Neutrophils % Seg Neuts % (Manual) Lymphocytes % (Manual) Nucleated RBC % Seg Neutrophils # Seg Neutrophils # Man Lymphocytes # (Manual) Monocytes # (Manual) D-Dimer POC ABG pH POC ABG pCO2 POC ABG pO2 Sodium Potassium Chloride Carbon Dioxide BUN Creatinine Glucose POC Glucose 174 H 187 H 208 H Calcium Magnesium Total Bilirubin AST Alkaline Phosphatase Total Creatine Kinase CK-MB (CK-2) Troponin T Total Protein Albumin HDL Cholesterol Urine Creatinine Urine Total Protein 08/30/16 08/30/16 08/30/16 04:49 04:50 05:30 WBC RBC Hgb Hct MCV MCH MCHC RDW Lymph % (Auto) [place] % (Auto) Lymph # [place] # Seg Neutrophils % Seg Neuts % (Manual) Lymphocytes % (Manual) Nucleated RBC % Seg Neutrophils # Seg Neutrophils # Man Lymphocytes # (Manual) Monocytes # (Manual) D-Dimer POC ABG pH 7.483 H POC ABG pCO2 POC ABG pO2 67 L Sodium 135 L Potassium Chloride Carbon Dioxide BUN 35 H Creatinine 1.8 H Glucose 167 H POC Glucose 191 H Calcium 7.5 L Magnesium Total Bilirubin AST Alkaline Phosphatase Total Creatine Kinase CK-MB (CK-2) Troponin T Total Protein Albumin HDL Cholesterol Urine Creatinine Urine Total Protein 08/30/16 08/30/16 08/30/16 08:55 11:39 17:18 WBC 15.0 H RBC Hgb 8.6 L Hct 27.5 L MCV 61 L MCH 19 L MCHC 31 L RDW 16.6 H Lymph % (Auto) 7.8 L Mitchell % (Auto) 10.4 H Lymph # Mitchell # 1.6 H Seg Neutrophils % 80.9 H Seg Neuts % (Manual) Lymphocytes % (Manual) Nucleated RBC % Seg Neutrophils # 12.2 H Seg Neutrophils # Man Lymphocytes # (Manual) Monocytes # (Manual) D-Dimer POC ABG pH POC ABG pCO2 POC ABG pO2 Sodium Potassium Chloride Carbon Dioxide BUN Creatinine Glucose POC Glucose 195 H 147 H Calcium Magnesium Total Bilirubin AST Alkaline Phosphatase Total Creatine Kinase CK-MB (CK-2) Troponin T Total Protein Albumin HDL Cholesterol Urine Creatinine Urine Total Protein 08/30/16 08/31/16 08/31/16 23:19 05:37 08:02 WBC 14.7 H RBC Hgb 8.5 L Hct 27.4 L MCV 61 L MCH 19 L MCHC 31 L RDW 16.4 H Lymph % (Auto) Mitchell % (Auto) Lymph # [place] # Seg Neutrophils % Seg Neuts % (Manual) Lymphocytes % (Manual) Nucleated RBC % Seg Neutrophils # Seg Neutrophils # Man Lymphocytes # (Manual) Monocytes # (Manual) D-Dimer POC ABG pH POC ABG pCO2 POC ABG pO2 Sodium Potassium Chloride Carbon Dioxide BUN Creatinine Glucose POC Glucose 143 H 155 H Calcium Magnesium Total Bilirubin AST Alkaline Phosphatase Total Creatine Kinase CK-MB (CK-2) Troponin T Total Protein Albumin HDL Cholesterol Urine Creatinine Urine Total Protein 08/31/16 08/31/16 08/31/16 08:02 11:42 17:17 WBC RBC Hgb Hct MCV MCH MCHC RDW Lymph % (Auto) [place] % (Auto) Lymph # [place] # Seg Neutrophils % Seg Neuts % (Manual) Lymphocytes % (Manual) Nucleated RBC % Seg Neutrophils # Seg Neutrophils # Man Lymphocytes # (Manual) Monocytes # (Manual) D-Dimer POC ABG pH POC ABG pCO2 POC ABG pO2 Sodium 136 L Potassium Chloride Carbon Dioxide BUN 37 H Creatinine 1.7 H Glucose 153 H POC Glucose 195 H 197 H Calcium 7.7 L Magnesium Total Bilirubin AST Alkaline Phosphatase Total Creatine Kinase CK-MB (CK-2) Troponin T Total Protein Albumin HDL Cholesterol Urine Creatinine Urine Total Protein 08/31/16 09/01/16 09/01/16 23:41 05:28 06:19 WBC 15.8 H RBC Hgb 8.2 L Hct 26.6 L MCV 61 L MCH 19 L MCHC 31 L RDW 16.7 H Lymph % (Auto) [place] % (Auto) Lymph # [place] # Seg Neutrophils % Seg Neuts % (Manual) 87.0 H Lymphocytes % (Manual) 5.0 L Nucleated RBC % 1.0 H Seg Neutrophils # Seg Neutrophils # Man 13.7 H Lymphocytes # (Manual) 0.8 L Monocytes # (Manual) 1.1 H D-Dimer POC ABG pH POC ABG pCO2 POC ABG pO2 Sodium Potassium Chloride Carbon Dioxide BUN Creatinine Glucose POC Glucose 164 H 154 H Calcium Magnesium Total Bilirubin AST Alkaline Phosphatase Total Creatine Kinase CK-MB (CK-2) Troponin T Total Protein Albumin HDL Cholesterol Urine Creatinine Urine Total Protein 09/01/16 09/01/16 09/01/16 06:19 11:30 17:24 WBC RBC Hgb Hct MCV MCH MCHC RDW Lymph % (Auto) [place] % (Auto) Lymph # [place] # Seg Neutrophils % Seg Neuts % (Manual) Lymphocytes % (Manual) Nucleated RBC % Seg Neutrophils # Seg Neutrophils # Man Lymphocytes # (Manual) Monocytes # (Manual) D-Dimer POC ABG pH POC ABG pCO2 POC ABG pO2 Sodium Potassium Chloride Carbon Dioxide BUN 43 H Creatinine 2.0 H Glucose 150 H POC Glucose 156 H 155 H Calcium 7.8 L Magnesium 2.40 H Total Bilirubin 2.10 H AST 41 H Alkaline Phosphatase 301 H Total Creatine Kinase CK-MB (CK-2) Troponin T Total Protein 4.7 L Albumin 2.2 L HDL Cholesterol Urine Creatinine Urine Total Protein 09/01/16 09/02/16 09/02/16 17:55 00:23 06:31 WBC RBC Hgb Hct MCV MCH MCHC RDW Lymph % (Auto) [place] % (Auto) Lymph # [place] # Seg Neutrophils % Seg Neuts % (Manual) Lymphocytes % (Manual) Nucleated RBC % Seg Neutrophils # Seg Neutrophils # Man Lymphocytes # (Manual) Monocytes # (Manual) D-Dimer POC ABG pH POC ABG pCO2 POC ABG pO2 Sodium Potassium Chloride Carbon Dioxide BUN Creatinine Glucose POC Glucose 145 H 163 H 192 H Calcium Magnesium Total Bilirubin AST Alkaline Phosphatase Total Creatine Kinase CK-MB (CK-2) Troponin T Total Protein Albumin HDL Cholesterol Urine Creatinine Urine Total Protein 09/02/16 09/02/16 09/02/16 08:40 08:40 12:40 WBC 18.6 H RBC Hgb 8.0 L Hct 25.7 L MCV 60 L MCH 19 L MCHC 31 L RDW 16.6 H Lymph % (Auto) Mitchell % (Auto) Lymph # [place] # Seg Neutrophils % Seg Neuts % (Manual) 86.0 H Lymphocytes % (Manual) 7.0 L Nucleated RBC % Seg Neutrophils # Seg Neutrophils # Man 16.0 H Lymphocytes # (Manual) Monocytes # (Manual) 1.1 H D-Dimer POC ABG pH POC ABG pCO2 POC ABG pO2 Sodium Potassium Chloride Carbon Dioxide BUN 50 H Creatinine 2.1 H Glucose 169 H POC Glucose 189 H Calcium 7.9 L Magnesium 2.50 H Total Bilirubin AST Alkaline Phosphatase Total Creatine Kinase CK-MB (CK-2) Troponin T Total Protein Albumin HDL Cholesterol Urine Creatinine Urine Total Protein 09/02/16 09/02/16 09/03/16 17:20 23:21 04:16 WBC RBC Hgb Hct MCV MCH MCHC RDW Lymph % (Auto) Mitchell % (Auto) Lymph # [place] # Seg Neutrophils % Seg Neuts % (Manual) Lymphocytes % (Manual) Nucleated RBC % Seg Neutrophils # Seg Neutrophils # Man Lymphocytes # (Manual) Monocytes # (Manual) D-Dimer POC ABG pH 7.483 H POC ABG pCO2 POC ABG pO2 Sodium Potassium Chloride Carbon Dioxide BUN Creatinine Glucose POC Glucose 181 H 173 H Calcium Magnesium Total Bilirubin AST Alkaline Phosphatase Total Creatine Kinase CK-MB (CK-2) Troponin T Total Protein Albumin HDL Cholesterol Urine Creatinine Urine Total Protein 09/03/16 09/03/16 09/03/16 04:43 05:36 05:36 WBC 18.1 H RBC Hgb 7.2 L Hct 23.5 L MCV 61 L MCH 19 L MCHC 31 L RDW 16.7 H Lymph % (Auto) 7.5 L [place] % (Auto) 7.5 H Lymph # Mitchell # 1.4 H Seg Neutrophils % 83.9 H Seg Neuts % (Manual) Lymphocytes % (Manual) Nucleated RBC % Seg Neutrophils # 15.2 H Seg Neutrophils # Man Lymphocytes # (Manual) Monocytes # (Manual) D-Dimer POC ABG pH POC ABG pCO2 POC ABG pO2 Sodium 135 L Potassium 5.2 H Chloride Carbon Dioxide BUN 57 H Creatinine 2.1 H Glucose 161 H POC Glucose 185 H Calcium 7.7 L Magnesium Total Bilirubin AST Alkaline Phosphatase Total Creatine Kinase CK-MB (CK-2) Troponin T Total Protein Albumin HDL Cholesterol Urine Creatinine Urine Total Protein 09/03/16 09/03/16 09/03/16 11:48 18:19 23:14 WBC RBC Hgb Hct MCV MCH MCHC RDW Lymph % (Auto) Mitchell % (Auto) Lymph # Mitchell # Seg Neutrophils % Seg Neuts % (Manual) Lymphocytes % (Manual) Nucleated RBC % Seg Neutrophils # Seg Neutrophils # Man Lymphocytes # (Manual) Monocytes # (Manual) D-Dimer POC ABG pH POC ABG pCO2 POC ABG pO2 Sodium Potassium Chloride Carbon Dioxide BUN Creatinine Glucose POC Glucose 201 H 193 H 132 H Calcium Magnesium Total Bilirubin AST Alkaline Phosphatase Total Creatine Kinase CK-MB (CK-2) Troponin T Total Protein Albumin HDL Cholesterol Urine Creatinine Urine Total Protein 09/04/16 09/04/16 09/04/16 04:23 05:51 11:46 WBC RBC Hgb Hct MCV MCH MCHC RDW Lymph % (Auto) Mitchell % (Auto) Lymph # Mitchell # Seg Neutrophils % Seg Neuts % (Manual) Lymphocytes % (Manual) Nucleated RBC % Seg Neutrophils # Seg Neutrophils # Man Lymphocytes # (Manual) Monocytes # (Manual) D-Dimer POC ABG pH 7.500 H POC ABG pCO2 33.5 L POC ABG pO2 74 L Sodium Potassium Chloride Carbon Dioxide BUN Creatinine Glucose POC Glucose 166 H 164 H Calcium Magnesium Total Bilirubin AST Alkaline Phosphatase Total Creatine Kinase CK-MB (CK-2) Troponin T Total Protein Albumin HDL Cholesterol Urine Creatinine Urine Total Protein Chest x-ray: image reviewed (ET tube in good position, cardiomegaly small pleural effusions)
[2016-09-04 16:40] LABS: ISTAT Base Excess 1; ISTAT HCO3 24.4; ISTAT PCO2 34.3 (35-45); ISTAT PH 7.461 (7.35-7.45); ISTAT PO2 76 (80-105); ISTAT SO2 96; ISTAT TCO2 25
--- NOTE | 2016-09-04 17:03 | XRay Report ---
FINAL REPORT PROCEDURE: XRAY CHEST SINGLE VIEW TECHNIQUE: Chest radiograph anteroposterior view. CPT 52230 HISTORY: ETT is advanced from 20 to 22cm. CXR is needed to verify09/04/2016 2:24 PM Cherie Gaylareason ett placement COMPARISON: 08/26/2016 FINDINGS: Heart: Mild to moderately enlarged Mediastinum/Vessels: Moderate congestion with cephalization of flow and mild to moderate edema. Suspect mild to moderate CHF Lungs/Pleural space: Progressive bilateral pleural effusions moderate on the left and small on the right with lower lung zone atelectasis and or infiltrates. Slight haziness in the mid to upper lung zones Bony thorax: No acute osseous abnormality. Life support devices: Endotracheal tube tip 4 centimeters from the bifurcation appearing to be approximately retracted 1 centimeter. NG tube along the esophagus believed to be terminating below the inferior plane of the film headed towards the fundus. IMPRESSION: Endotracheal tube in place with tip 4 centimeters from the bifurcation Bilateral pleural effusions and lower lung zone airspace disease Mild to moderate CHF suspected No pneumothorax Followup is advised
[2016-09-04] MEDS: SENOKOT S PO SCH (22:06)
[2016-09-05] MEDS: ZOSYN/NS 3.375GM/50ML 3.375 GM/50 ML BAG IV SCH ×3 (00:21→14:14)
[2016-09-05] MEDS: NOVOLOG SUB-Q SCH ×4 (00:21→18:16)
[2016-09-05] MEDS: APRESOLINE PO SCH ×2 (06:12→13:30)
[2016-09-05] MEDS: HEPARIN SUB-Q SCH ×2 (06:13→13:30)
--- NOTE | 2016-09-05 08:00 | Progress Note ---
Hospitalist Physical - Constitutional Vitals: Temp Pulse Resp BP Pulse Ox 100.1 F H 96 H 33 H 134/75 97 09/05/16 04:00 09/05/16 07:26 09/05/16 07:16 09/05/16 07:26 09/05/16 07:26 General appearance: Present: no acute distress, well-nourished, other (not responsive, orally intubated on ventilator support) Results - Labs CBC & Chem 7: 09/03/16 05:36 09/03/16 05:36 Labs: Laboratory Last Values WBC 18.1 K/mm3 (4.5-11.0) H 09/03/16 05:36 RBC 3.83 M/mm3 (3.65-5.03) 09/03/16 05:36 Hgb 7.2 gm/dl (11.8-15.2) L 09/03/16 05:36 Hct 23.5 % (35.5-45.6) L 09/03/16 05:36 MCV 61 fl (84-94) L 09/03/16 05:36 MCH 19 pg (28-32) L 09/03/16 05:36 MCHC 31 % (32-34) L 09/03/16 05:36 RDW 16.7 % (13.2-15.2) H 09/03/16 05:36 Plt Count 351 K/mm3 (140-440) 09/03/16 05:36 Lymph % (Auto) 7.5 % (13.4-35.0) L 09/03/16 05:36 Dunn % (Auto) 7.5 % (0.0-7.3) H 09/03/16 05:36 Eos % (Auto) 0.9 % (0.0-4.3) 09/03/16 05:36 Baso % (Auto) 0.2 % (0.0-1.8) 09/03/16 05:36 Lymph # 1.4 K/mm3 (1.2-5.4) 09/03/16 05:36 Dunn # 1.4 K/mm3 (0.0-0.8) H 09/03/16 05:36 Eos # 0.2 K/mm3 (0.0-0.4) 09/03/16 05:36 Baso # 0.0 K/mm3 (0.0-0.1) 09/03/16 05:36 Add Manual Diff Complete 09/02/16 08:40 Total Counted 100 09/02/16 08:40 Seg Neutrophils % 83.9 % (40.0-70.0) H 09/03/16 05:36 Seg Neuts % (Manual) 86.0 % (40.0-70.0) H 09/02/16 08:40 Band Neutrophils % 0 % 09/02/16 08:40 Lymphocytes % (Manual) 7.0 % (13.4-35.0) L 09/02/16 08:40 Reactive Lymphs % (Man) 0 % 09/02/16 08:40 Monocytes % (Manual) 6.0 % (0.0-7.3) 09/02/16 08:40 Eosinophils % (Manual) 1.0 % (0.0-4.3) 09/02/16 08:40 Basophils % (Manual) 0 % (0.0-1.8) 09/02/16 08:40 Metamyelocytes % 0 % 09/02/16 08:40 Myelocytes % 0 % 09/02/16 08:40 Promyelocytes % 0 % 09/02/16 08:40 Blast Cells % 0 % 09/02/16 08:40 Nucleated RBC % Not Reportable 09/02/16 08:40 Seg Neutrophils # 15.2 K/mm3 (1.8-7.7) H 09/03/16 05:36 Seg Neutrophils # Man 16.0 K/mm3 (1.8-7.7) H 09/02/16 08:40 Band Neutrophils # 0.0 K/mm3 09/02/16 08:40 Lymphocytes # (Manual) 1.3 K/mm3 (1.2-5.4) 09/02/16 08:40 Abs React Lymphs (Man) 0.0 K/mm3 09/02/16 08:40 Monocytes # (Manual) 1.1 K/mm3 (0.0-0.8) H 09/02/16 08:40 Eosinophils # (Manual) 0.2 K/mm3 (0.0-0.4) 09/02/16 08:40 Basophils # (Manual) 0.0 K/mm3 (0.0-0.1) 09/02/16 08:40 Metamyelocytes # 0.0 K/mm3 09/02/16 08:40 Myelocytes # 0.0 K/mm3 09/02/16 08:40 Promyelocytes # 0.0 K/mm3 09/02/16 08:40 Blast Cells # 0.0 K/mm3 09/02/16 08:40 WBC Morphology Not Reportable 09/02/16 08:40 Hypersegmented Neuts Not Reportable 09/02/16 08:40 Hyposegmented Neuts Not Reportable 09/02/16 08:40 Hypogranular Neuts Not Reportable 09/02/16 08:40 Smudge Cells Not Reportable 09/02/16 08:40 Toxic Granulation Not Reportable 09/02/16 08:40 Toxic Vacuolation Not Reportable 09/02/16 08:40 Dohle Bodies Not Reportable 09/02/16 08:40 Pelger-Huet Anomaly Not Reportable 09/02/16 08:40 Mattie Rods Not Reportable 09/02/16 08:40 Platelet Estimate Cons 09/02/16 08:40 Clumped Platelets Not Reportable 09/02/16 08:40 Plt Clumps, EDTA Not Reportable 09/02/16 08:40 Large Platelets Few 09/02/16 08:40 Giant Platelets Not Reportable 09/02/16 08:40 Platelet Satelliting Not Reportable 09/02/16 08:40 Plt Morphology Comment Not Reportable 09/02/16 08:40 RBC Morphology Not Reportable 09/02/16 08:40 Dimorphic RBCs Not Reportable 09/02/16 08:40 Polychromasia Few 09/02/16 08:40 Hypochromasia 2+ 09/02/16 08:40 Poikilocytosis 2+ 09/02/16 08:40 Anisocytosis 2+ 09/02/16 08:40 Microcytosis 2+ 09/02/16 08:40 Macrocytosis Not Reportable 09/02/16 08:40 Spherocytes Not Reportable 09/02/16 08:40 Pappenheimer Bodies Not Reportable 09/02/16 08:40 Sickle Cells Not Reportable 09/02/16 08:40 Target Cells 1+ 09/02/16 08:40 Tear Drop Cells 1+ 09/02/16 08:40 Ovalocytes Not Reportable 09/02/16 08:40 Helmet Cells Not Reportable 09/02/16 08:40 Saeed-Claxton Bodies Not Reportable 09/02/16 08:40 [place] Rings Not Reportable 09/02/16 08:40 [place] Cells Not Reportable 09/02/16 08:40 Bite Cells Not Reportable 09/02/16 08:40 Crenated Cell Not Reportable 09/02/16 08:40 Elliptocytes Not Reportable 09/02/16 08:40 Acanthocytes (Spur) Not Reportable 09/02/16 08:40 Rouleaux Not Reportable 09/02/16 08:40 Hemoglobin C Crystals Not Reportable 09/02/16 08:40 Schistocytes Few 09/02/16 08:40 Malaria parasites Not Reportable 09/02/16 08:40 Gentry Bodies Not Reportable 09/02/16 08:40 Hem Pathologist Commnt No 09/02/16 08:40 D-Dimer 1138.47 ng/mlDDU (0-234) H 08/24/16 03:23 POC ABG pH 7.461 (7.35-7.45) H 09/04/16 16:20 POC ABG pCO2 34.3 (35-45) L 09/04/16 16:20 POC ABG pO2 76 (80-105) L 09/04/16 16:20 POC ABG HCO3 24.4 09/04/16 16:20 POC ABG Total CO2 25 09/04/16 16:20 POC ABG O2 Sat 96 09/04/16 16:20 POC ABG Base Excess 1 09/04/16 16:20 FiO2 30 % 09/04/16 16:20 Sodium 135 mmol/L (137-145) L 09/03/16 05:36 Potassium 5.2 mmol/L (3.6-5.0) H 09/03/16 05:36 Chloride 98.1 mmol/L (98-107) 09/03/16 05:36 Carbon Dioxide 22 mmol/L (22-30) 09/03/16 05:36 Anion Gap 20 mmol/L 09/03/16 05:36 BUN 57 mg/dL (9-20) H 09/03/16 05:36 Creatinine 2.1 mg/dL (0.8-1.5) H 09/03/16 05:36 Estimated GFR 40 ml/min 09/03/16 05:36 BUN/Creatinine Ratio 27.14 % 09/03/16 05:36 Glucose 161 mg/dL (75-100) H 09/03/16 05:36 POC Glucose 215 (70-105) H 09/05/16 05:32 Lactic Acid 1.80 mmol/L (0.7-2.0) 08/25/16 13:47 Calcium 7.7 mg/dL (8.4-10.2) L 09/03/16 05:36 Phosphorus 4.50 mg/dL (2.5-4.5) 09/02/16 08:40 Magnesium 2.50 mg/dL (1.7-2.3) H 09/02/16 08:40 Total Bilirubin 2.10 mg/dL (0.1-1.2) H 09/01/16 06:19 AST 41 units/L (5-40) H 09/01/16 06:19 ALT 55 units/L (7-56) 09/01/16 06:19 Alkaline Phosphatase 301 units/L (35-129) H 09/01/16 06:19 Ammonia 46.0 umol/L (25-60) 08/24/16 01:44 Total Creatine Kinase 796 units/L (55-170) H 08/27/16 10:32 CK-MB (CK-2) 6.3 ng/mL (0.0-4.0) H 08/27/16 10:32 CK-MB (CK-2) Rel Index 0.7 (0-4) 08/27/16 10:32 Troponin T 0.473 ng/mL (0.00-0.029) H* 08/27/16 18:46 Total Protein 4.7 g/dL (6.3-8.2) L 09/01/16 06:19 Albumin 2.2 g/dL (3.9-5) L 09/01/16 06:19 Albumin/Globulin Ratio 0.9 % 09/01/16 06:19 Triglycerides 68 mg/dL (2-149) 08/27/16 00:00 Cholesterol 182 mg/dL (50-199) 08/27/16 00:00 LDL Cholesterol Direct 70 mg/dL (50-130) 08/30/16 09:01 HDL Cholesterol 78 mg/dL (40-59) H 08/27/16 00:00 Cholesterol/HDL Ratio 2.33 % 08/27/16 00:00 TSH 3.080 mlU/mL (0.270-4.200) 08/23/16 23:35 Urine Color Yellow (Yellow) 08/24/16 00:40 Urine Turbidity Clear (Clear) 08/24/16 00:40 Urine pH 6.0 (5.0-7.0) 08/24/16 00:40 Ur Specific [place] 1.022 (1.003-1.030) 08/24/16 00:40 Urine Protein >500 mg/dL (Negative) 08/24/16 00:40 Urine Glucose (UA) >=500 mg/dL (Negative) 08/24/16 00:40 Urine Ketones Neg mg/dL (Negative) 08/24/16 00:40 Urine Blood Mod (Negative) 08/24/16 00:40 Urine Nitrite Neg (Negative) 08/24/16 00:40 Urine Bilirubin Neg (Negative) 08/24/16 00:40 Urine Urobilinogen < 2.0 mg/dL (<2.0) 08/24/16 00:40 Ur Leukocyte Esterase Neg (Negative) 08/24/16 00:40 Urine WBC (Auto) 1.0 /HPF (0.0-6.0) 08/24/16 00:40 Urine RBC (Auto) 5.0 /HPF (0.0-6.0) 08/24/16 00:40 Urine Bacteria (Auto) 2+ /HPF (Negative) 08/24/16 00:40 Urine Creatinine 237.7 mg/dL (0.1-20.0) H 08/25/16 15:00 Protein/Creatinin Ratio 3.71 08/25/16 15:00 Urine Sodium 10 mEq/L 08/25/16 15:00 Urine Total Protein 882 mg/dL (5-11.8) H 08/25/16 15:00 Salicylates < 0.3 mg/dL (2.8-20.0) L 08/23/16 23:35 Urine Opiates Screen Presumptive negative 08/24/16 00:40 Urine Methadone Screen Presumptive negative 08/24/16 00:40 Acetaminophen < 15.0 ug/mL (10.0-30.0) 08/23/16 23:35 Ur Barbiturates Screen Presumptive negative 08/24/16 00:40 Ur Phencyclidine Scrn Presumptive negative 08/24/16 00:40 Ur Amphetamines Screen Presumptive negative 08/24/16 00:40 U Benzodiazepines Scrn Presumptive negative 08/24/16 00:40 Urine Cocaine Screen Presumptive negative 08/24/16 00:40 U Marijuana (THC) Screen Presumptive negative 08/24/16 00:40 Drugs of Abuse Note Disclamer 08/24/16 00:40 Plasma/Serum Alcohol < 0.01 gm% (0-0.07) 08/23/16 23:35
[2016-09-05] MEDS: ISOPTO TEARS 0.5% OU SCH ×2 (08:03→13:31)
[2016-09-05] MEDS: TYLENOL PO PRN (08:20)
--- NOTE | 2016-09-05 09:44 | Progress Note ---
Assessment and Plan 55 y/o male with hypertensive emergency, metabolic encephalopathy, acute renal failure and leukocytosis, now cardiac arrest with ROSC and orally intubated on mechanical ventilation 1. Vent support, currently on PEEP of 5 and FiO2 of 30%. CXR is clear. Respiratory failure likely secondary to neurologic dysfunction 2. Family leaning towards hospice per CM, very appropriate given degree of stroke and current mental state 3. Will continue to follow with you. CCT 31 minutes. Subjective Date of service: 09/05/16 Principal diagnosis: Acute respiratory failure Interval history: No acute events. Spoke with CM and they spoke with family this am. Family apparently is leaning towards hospice. Breathing over vent. Not responsive. No family at bedside. No sedation. Objective Vital Signs - 12hr 09/04/16 09/04/16 09/04/16 21:54 22:00 22:06 Temperature Pulse Rate 140 H 140 H 140 H Pulse Rate [ From Monitor] Respiratory 19 25 H Rate Blood Pressure 130/79 127/85 130/79 O2 Sat by Pulse 100 99 Oximetry 09/04/16 09/04/16 09/05/16 23:00 23:30 00:00 Temperature 98.1 F Pulse Rate 79 78 77 Pulse Rate [ From Monitor] Respiratory 23 24 Rate Blood Pressure 113/71 113/71 113/70 O2 Sat by Pulse 99 99 98 Oximetry 09/05/16 09/05/16 09/05/16 01:00 02:00 03:00 Temperature Pulse Rate 78 79 82 Pulse Rate [ From Monitor] Respiratory 24 28 H 27 H Rate Blood Pressure 118/68 113/69 123/69 O2 Sat by Pulse 99 99 99 Oximetry 09/05/16 09/05/16 09/05/16 04:00 05:00 06:00 Temperature 100.1 F H Pulse Rate 85 86 87 Pulse Rate [ From Monitor] Respiratory 27 H 28 H 26 H Rate Blood Pressure 126/75 134/77 136/78 O2 Sat by Pulse 94 99 99 Oximetry 09/05/16 09/05/16 09/05/16 06:12 07:00 07:16 Temperature Pulse Rate 87 96 H 97 H Pulse Rate [ From Monitor] Respiratory 33 H 33 H Rate Blood Pressure 136/78 137/86 137/86 O2 Sat by Pulse 94 96 Oximetry 09/05/16 09/05/16 09/05/16 07:26 08:00 09:00 Temperature Pulse Rate 96 H 90 90 Pulse Rate [ 92 H From Monitor] Respiratory 29 H 29 H Rate Blood Pressure 134/75 136/73 135/70 O2 Sat by Pulse 97 98 99 Oximetry Constitutional: comatose (opens eyes only), other (critically ill on vent) Eyes: non-icteric ENT: other (orally intubated) Effort: normal Ascultation: Bilateral: clear Percussion: Bilateral: not dull Cardiovascular: regular rate and rhythm (no mrg) Gastrointestinal: soft, non-distended Integumentary: normal Extremities: no cyanosis, edema (1+ upper extremities), other (bilateral AKA) Neurologic: other (moves RUE spontaneously, nothing purposeful, minimal opening of eyes but not tracking) Psychiatric: other (not able to assess) CBC and BMP: 09/03/16 05:36 09/03/16 05:36 ABG, PT/INR, D-dimer: ABG POC ABG pH 7.461 (7.35-7.45) H 09/04/16 16:20 POC ABG pCO2 34.3 (35-45) L 09/04/16 16:20 POC ABG pO2 76 (80-105) L 09/04/16 16:20 POC ABG HCO3 24.4 09/04/16 16:20 POC ABG Total CO2 25 09/04/16 16:20 POC ABG O2 Sat 96 09/04/16 16:20 PT/INR, D-dimer D-Dimer 1138.47 ng/mlDDU (0-234) H 08/24/16 03:23 Abnormal lab findings: Abnormal Labs 08/24/16 08/24/16 08/24/16 03:23 09:23 10:58 WBC RBC Hgb Hct MCV MCH MCHC RDW Lymph % (Auto) [place] % (Auto) Lymph # [place] # Seg Neutrophils % Seg Neuts % (Manual) Lymphocytes % (Manual) Nucleated RBC % Seg Neutrophils # Seg Neutrophils # Man Lymphocytes # (Manual) Monocytes # (Manual) D-Dimer 1138.47 H POC ABG pH POC ABG pCO2 POC ABG pO2 Sodium Potassium Chloride Carbon Dioxide BUN Creatinine Glucose POC Glucose 410 H 392 H Calcium Magnesium Total Bilirubin AST Alkaline Phosphatase Total Creatine Kinase CK-MB (CK-2) Troponin T Total Protein Albumin HDL Cholesterol Urine Creatinine Urine Total Protein 08/24/16 08/24/16 08/24/16 13:02 13:44 17:29 WBC RBC Hgb Hct MCV MCH MCHC RDW Lymph % (Auto) [place] % (Auto) Lymph # [place] # Seg Neutrophils % Seg Neuts % (Manual) Lymphocytes % (Manual) Nucleated RBC % Seg Neutrophils # Seg Neutrophils # Man Lymphocytes # (Manual) Monocytes # (Manual) D-Dimer POC ABG pH POC ABG pCO2 34.8 L POC ABG pO2 Sodium Potassium Chloride Carbon Dioxide BUN Creatinine 1.8 H Glucose 266 H POC Glucose 354 H Calcium Magnesium Total Bilirubin AST Alkaline Phosphatase Total Creatine Kinase CK-MB (CK-2) Troponin T Total Protein Albumin HDL Cholesterol Urine Creatinine Urine Total Protein 08/24/16 08/24/16 08/24/16 17:34 18:24 18:41 WBC RBC Hgb Hct MCV MCH MCHC RDW Lymph % (Auto) [place] % (Auto) Lymph # [place] # Seg Neutrophils % Seg Neuts % (Manual) Lymphocytes % (Manual) Nucleated RBC % Seg Neutrophils # Seg Neutrophils # Man Lymphocytes # (Manual) Monocytes # (Manual) D-Dimer POC ABG pH POC ABG pCO2 POC ABG pO2 Sodium Potassium Chloride Carbon Dioxide 18 L BUN Creatinine 1.9 H Glucose 174 H POC Glucose 211 H 190 H Calcium 8.2 L Magnesium Total Bilirubin AST Alkaline Phosphatase Total Creatine Kinase CK-MB (CK-2) Troponin T Total Protein Albumin HDL Cholesterol Urine Creatinine Urine Total Protein 08/24/16 08/24/16 08/24/16 19:28 20:24 21:21 WBC RBC Hgb Hct MCV MCH MCHC RDW Lymph % (Auto) [place] % (Auto) Lymph # [place] # Seg Neutrophils % Seg Neuts % (Manual) Lymphocytes % (Manual) Nucleated RBC % Seg Neutrophils # Seg Neutrophils # Man Lymphocytes # (Manual) Monocytes # (Manual) D-Dimer POC ABG pH POC ABG pCO2 POC ABG pO2 Sodium Potassium Chloride Carbon Dioxide BUN Creatinine Glucose POC Glucose 159 H 110 H 144 H Calcium Magnesium Total Bilirubin AST Alkaline Phosphatase Total Creatine Kinase CK-MB (CK-2) Troponin T Total Protein Albumin HDL Cholesterol Urine Creatinine Urine Total Protein 08/24/16 08/24/16 08/24/16 21:48 22:26 23:19 WBC RBC Hgb Hct MCV MCH MCHC RDW Lymph % (Auto) [place] % (Auto) Lymph # [place] # Seg Neutrophils % Seg Neuts % (Manual) Lymphocytes % (Manual) Nucleated RBC % Seg Neutrophils # Seg Neutrophils # Man Lymphocytes # (Manual) Monocytes # (Manual) D-Dimer POC ABG pH POC ABG pCO2 POC ABG pO2 Sodium Potassium Chloride Carbon Dioxide 21 L BUN Creatinine 1.8 H Glucose 141 H POC Glucose 148 H 140 H Calcium 8.3 L Magnesium Total Bilirubin AST Alkaline Phosphatase Total Creatine Kinase CK-MB (CK-2) Troponin T Total Protein Albumin HDL Cholesterol Urine Creatinine Urine Total Protein 08/25/16 08/25/16 08/25/16 01:11 02:15 03:18 WBC RBC Hgb Hct MCV MCH MCHC RDW Lymph % (Auto) [place] % (Auto) Lymph # [place] # Seg Neutrophils % Seg Neuts % (Manual) Lymphocytes % (Manual) Nucleated RBC % Seg Neutrophils # Seg Neutrophils # Man Lymphocytes # (Manual) Monocytes # (Manual) D-Dimer POC ABG pH POC ABG pCO2 POC ABG pO2 Sodium Potassium Chloride Carbon Dioxide BUN Creatinine Glucose POC Glucose 130 H 136 H 145 H Calcium Magnesium Total Bilirubin AST Alkaline Phosphatase Total Creatine Kinase CK-MB (CK-2) Troponin T Total Protein Albumin HDL Cholesterol Urine Creatinine Urine Total Protein 08/25/16 08/25/16 08/25/16 04:09 04:53 04:53 WBC 14.1 H RBC 5.36 H Hgb 9.9 L Hct 32.9 L MCV 61 L MCH 19 L MCHC 30 L RDW 17.5 H Lymph % (Auto) 8.0 L [place] % (Auto) 9.7 H Lymph # 1.1 L [place] # 1.4 H Seg Neutrophils % 82.2 H Seg Neuts % (Manual) Lymphocytes % (Manual) Nucleated RBC % Seg Neutrophils # 11.6 H Seg Neutrophils # Man Lymphocytes # (Manual) Monocytes # (Manual) D-Dimer POC ABG pH POC ABG pCO2 POC ABG pO2 Sodium Potassium Chloride Carbon Dioxide 21 L BUN Creatinine 1.9 H Glucose 116 H POC Glucose 120 H Calcium 8.2 L Magnesium Total Bilirubin AST Alkaline Phosphatase Total Creatine Kinase CK-MB (CK-2) Troponin T Total Protein Albumin HDL Cholesterol Urine Creatinine Urine Total Protein 08/25/16 08/25/16 08/25/16 05:05 06:31 07:35 WBC RBC Hgb Hct MCV MCH MCHC RDW Lymph % (Auto) [place] % (Auto) Lymph # [place] # Seg Neutrophils % Seg Neuts % (Manual) Lymphocytes % (Manual) Nucleated RBC % Seg Neutrophils # Seg Neutrophils # Man Lymphocytes # (Manual) Monocytes # (Manual) D-Dimer POC ABG pH POC ABG pCO2 POC ABG pO2 Sodium Potassium Chloride Carbon Dioxide BUN Creatinine Glucose POC Glucose 126 H 139 H 142 H Calcium Magnesium Total Bilirubin AST Alkaline Phosphatase Total Creatine Kinase CK-MB (CK-2) Troponin T Total Protein Albumin HDL Cholesterol Urine Creatinine Urine Total Protein 08/25/16 08/25/16 08/25/16 08:55 09:48 10:59 WBC RBC Hgb Hct MCV MCH MCHC RDW Lymph % (Auto) [place] % (Auto) Lymph # [place] # Seg Neutrophils % Seg Neuts % (Manual) Lymphocytes % (Manual) Nucleated RBC % Seg Neutrophils # Seg Neutrophils # Man Lymphocytes # (Manual) Monocytes # (Manual) D-Dimer POC ABG pH POC ABG pCO2 POC ABG pO2 Sodium Potassium Chloride Carbon Dioxide BUN Creatinine Glucose POC Glucose 135 H 109 H 126 H Calcium Magnesium Total Bilirubin AST Alkaline Phosphatase Total Creatine Kinase CK-MB (CK-2) Troponin T Total Protein Albumin HDL Cholesterol Urine Creatinine Urine Total Protein 08/25/16 08/25/16 08/25/16 11:34 13:47 15:00 WBC RBC Hgb Hct MCV MCH MCHC RDW Lymph % (Auto) [place] % (Auto) Lymph # [place] # Seg Neutrophils % Seg Neuts % (Manual) Lymphocytes % (Manual) Nucleated RBC % Seg Neutrophils # Seg Neutrophils # Man Lymphocytes # (Manual) Monocytes # (Manual) D-Dimer POC ABG pH POC ABG pCO2 32.8 L POC ABG pO2 108 H Sodium Potassium Chloride Carbon Dioxide 19 L BUN Creatinine 1.7 H Glucose 196 H POC Glucose Calcium 8.2 L Magnesium Total Bilirubin AST Alkaline Phosphatase Total Creatine Kinase CK-MB (CK-2) Troponin T Total Protein Albumin HDL Cholesterol Urine Creatinine 237.7 H Urine Total Protein 882 H 08/25/16 08/25/16 08/26/16 16:30 23:09 05:41 WBC RBC Hgb Hct MCV MCH MCHC RDW Lymph % (Auto) [place] % (Auto) Lymph # [place] # Seg Neutrophils % Seg Neuts % (Manual) Lymphocytes % (Manual) Nucleated RBC % Seg Neutrophils # Seg Neutrophils # Man Lymphocytes # (Manual) Monocytes # (Manual) D-Dimer POC ABG pH POC ABG pCO2 POC ABG pO2 Sodium Potassium Chloride Carbon Dioxide BUN Creatinine Glucose POC Glucose 242 H 131 H 156 H Calcium Magnesium Total Bilirubin AST Alkaline Phosphatase Total Creatine Kinase CK-MB (CK-2) Troponin T Total Protein Albumin HDL Cholesterol Urine Creatinine Urine Total Protein 08/26/16 08/26/16 08/26/16 07:16 12:12 17:51 WBC RBC Hgb Hct MCV MCH MCHC RDW Lymph % (Auto) [place] % (Auto) Lymph # [place] # Seg Neutrophils % Seg Neuts % (Manual) Lymphocytes % (Manual) Nucleated RBC % Seg Neutrophils # Seg Neutrophils # Man Lymphocytes # (Manual) Monocytes # (Manual) D-Dimer POC ABG pH POC ABG pCO2 POC ABG pO2 Sodium Potassium Chloride Carbon Dioxide 18 L BUN 26 H Creatinine 2.0 H Glucose 132 H POC Glucose 119 H 161 H Calcium 8.1 L Magnesium Total Bilirubin AST 41 H Alkaline Phosphatase Total Creatine Kinase CK-MB (CK-2) Troponin T Total Protein 5.5 L Albumin 2.7 L HDL Cholesterol Urine Creatinine Urine Total Protein 08/26/16 08/26/16 08/27/16 22:34 23:50 00:00 WBC 11.8 H RBC 5.29 H Hgb 10.0 L Hct 33.3 L MCV 63 L MCH 19 L MCHC 30 L RDW 17.4 H Lymph % (Auto) [place] % (Auto) 8.7 H Lymph # [place] # 1.0 H Seg Neutrophils % 72.6 H Seg Neuts % (Manual) Lymphocytes % (Manual) Nucleated RBC % Seg Neutrophils # 8.6 H Seg Neutrophils # Man Lymphocytes # (Manual) Monocytes # (Manual) D-Dimer POC ABG pH POC ABG pCO2 POC ABG pO2 Sodium Potassium Chloride Carbon Dioxide BUN Creatinine Glucose POC Glucose 107 H 119 H Calcium Magnesium Total Bilirubin AST Alkaline Phosphatase Total Creatine Kinase CK-MB (CK-2) Troponin T Total Protein Albumin HDL Cholesterol Urine Creatinine Urine Total Protein 08/27/16 08/27/16 08/27/16 00:00 00:00 00:02 WBC RBC Hgb Hct MCV MCH MCHC RDW Lymph % (Auto) [place] % (Auto) Lymph # [place] # Seg Neutrophils % Seg Neuts % (Manual) Lymphocytes % (Manual) Nucleated RBC % Seg Neutrophils # Seg Neutrophils # Man Lymphocytes # (Manual) Monocytes # (Manual) D-Dimer POC ABG pH POC ABG pCO2 POC ABG pO2 205 H Sodium 135 L Potassium Chloride 96.6 L Carbon Dioxide 16 L BUN 31 H Creatinine 2.2 H Glucose 154 H POC Glucose Calcium 7.8 L Magnesium Total Bilirubin AST Alkaline Phosphatase Total Creatine Kinase 1401 H CK-MB (CK-2) 13.6 H Troponin T 0.421 H* Total Protein Albumin HDL Cholesterol 78 H Urine Creatinine Urine Total Protein 08/27/16 08/27/16 08/27/16 00:37 03:22 04:08 WBC RBC Hgb Hct MCV MCH MCHC RDW Lymph % (Auto) [place] % (Auto) Lymph # [place] # Seg Neutrophils % Seg Neuts % (Manual) Lymphocytes % (Manual) Nucleated RBC % Seg Neutrophils # Seg Neutrophils # Man Lymphocytes # (Manual) Monocytes # (Manual) D-Dimer POC ABG pH 7.467 H POC ABG pCO2 31.3 L POC ABG pO2 Sodium Potassium Chloride Carbon Dioxide BUN Creatinine Glucose POC Glucose 106 H Calcium Magnesium Total Bilirubin AST Alkaline Phosphatase Total Creatine Kinase 909 H CK-MB (CK-2) 9.3 H Troponin T Total Protein Albumin HDL Cholesterol Urine Creatinine Urine Total Protein 08/27/16 08/27/16 08/27/16 04:35 05:35 10:32 WBC RBC Hgb Hct MCV MCH MCHC RDW Lymph % (Auto) [place] % (Auto) Lymph # [place] # Seg Neutrophils % Seg Neuts % (Manual) Lymphocytes % (Manual) Nucleated RBC % Seg Neutrophils # Seg Neutrophils # Man Lymphocytes # (Manual) Monocytes # (Manual) D-Dimer POC ABG pH POC ABG pCO2 POC ABG pO2 Sodium Potassium Chloride Carbon Dioxide BUN Creatinine Glucose POC Glucose 120 H 113 H Calcium Magnesium Total Bilirubin AST Alkaline Phosphatase Total Creatine Kinase 796 H CK-MB (CK-2) 6.3 H Troponin T Total Protein Albumin HDL Cholesterol Urine Creatinine Urine Total Protein 08/27/16 08/27/16 08/27/16 11:59 17:28 18:46 WBC RBC Hgb Hct MCV MCH MCHC RDW Lymph % (Auto) [place] % (Auto) Lymph # [place] # Seg Neutrophils % Seg Neuts % (Manual) Lymphocytes % (Manual) Nucleated RBC % Seg Neutrophils # Seg Neutrophils # Man Lymphocytes # (Manual) Monocytes # (Manual) D-Dimer POC ABG pH POC ABG pCO2 POC ABG pO2 Sodium Potassium Chloride Carbon Dioxide BUN Creatinine Glucose POC Glucose 225 H 231 H Calcium Magnesium Total Bilirubin AST Alkaline Phosphatase Total Creatine Kinase CK-MB (CK-2) Troponin T 0.473 H* Total Protein Albumin HDL Cholesterol Urine Creatinine Urine Total Protein 08/27/16 08/28/16 08/28/16 23:32 03:39 03:39 WBC 11.5 H RBC Hgb 8.9 L Hct 28.8 L MCV 61 L MCH 19 L MCHC 31 L RDW 16.8 H Lymph % (Auto) [place] % (Auto) Lymph # [place] # Seg Neutrophils % Seg Neuts % (Manual) Lymphocytes % (Manual) Nucleated RBC % Seg Neutrophils # Seg Neutrophils # Man Lymphocytes # (Manual) Monocytes # (Manual) D-Dimer POC ABG pH POC ABG pCO2 POC ABG pO2 Sodium 134 L Potassium Chloride 95.0 L Carbon Dioxide BUN 29 H Creatinine 1.9 H Glucose 66 L POC Glucose 110 H Calcium 7.5 L Magnesium Total Bilirubin AST Alkaline Phosphatase Total Creatine Kinase CK-MB (CK-2) Troponin T Total Protein Albumin HDL Cholesterol Urine Creatinine Urine Total Protein 08/28/16 08/28/16 08/28/16 04:45 05:25 06:48 WBC RBC Hgb Hct MCV MCH MCHC RDW Lymph % (Auto) [place] % (Auto) Lymph # [place] # Seg Neutrophils % Seg Neuts % (Manual) Lymphocytes % (Manual) Nucleated RBC % Seg Neutrophils # Seg Neutrophils # Man Lymphocytes # (Manual) Monocytes # (Manual) D-Dimer POC ABG pH 7.554 H POC ABG pCO2 POC ABG pO2 108 H Sodium Potassium Chloride Carbon Dioxide BUN Creatinine Glucose POC Glucose 67 L 120 H Calcium Magnesium Total Bilirubin AST Alkaline Phosphatase Total Creatine Kinase CK-MB (CK-2) Troponin T Total Protein Albumin HDL Cholesterol Urine Creatinine Urine Total Protein 08/28/16 08/28/16 08/28/16 10:29 11:15 12:00 WBC RBC Hgb Hct MCV MCH MCHC RDW Lymph % (Auto) [place] % (Auto) Lymph # [place] # Seg Neutrophils % Seg Neuts % (Manual) Lymphocytes % (Manual) Nucleated RBC % Seg Neutrophils # Seg Neutrophils # Man Lymphocytes # (Manual) Monocytes # (Manual) D-Dimer POC ABG pH 7.499 H POC ABG pCO2 POC ABG pO2 Sodium Potassium Chloride Carbon Dioxide BUN Creatinine Glucose POC Glucose 206 H 181 H Calcium Magnesium Total Bilirubin AST Alkaline Phosphatase Total Creatine Kinase CK-MB (CK-2) Troponin T Total Protein Albumin HDL Cholesterol Urine Creatinine Urine Total Protein 08/28/16 08/29/16 08/29/16 17:38 03:12 05:56 WBC RBC Hgb Hct MCV MCH MCHC RDW Lymph % (Auto) [place] % (Auto) Lymph # [place] # Seg Neutrophils % Seg Neuts % (Manual) Lymphocytes % (Manual) Nucleated RBC % Seg Neutrophils # Seg Neutrophils # Man Lymphocytes # (Manual) Monocytes # (Manual) D-Dimer POC ABG pH 7.463 H POC ABG pCO2 POC ABG pO2 68 L Sodium 134 L Potassium Chloride 95.9 L Carbon Dioxide BUN 28 H Creatinine 1.8 H Glucose POC Glucose 140 H Calcium 7.4 L Magnesium Total Bilirubin AST Alkaline Phosphatase Total Creatine Kinase CK-MB (CK-2) Troponin T Total Protein Albumin HDL Cholesterol Urine Creatinine Urine Total Protein 08/29/16 08/29/16 08/29/16 11:52 17:43 23:21 WBC RBC Hgb Hct MCV MCH MCHC RDW Lymph % (Auto) [place] % (Auto) Lymph # [place] # Seg Neutrophils % Seg Neuts % (Manual) Lymphocytes % (Manual) Nucleated RBC % Seg Neutrophils # Seg Neutrophils # Man Lymphocytes # (Manual) Monocytes # (Manual) D-Dimer POC ABG pH POC ABG pCO2 POC ABG pO2 Sodium Potassium Chloride Carbon Dioxide BUN Creatinine Glucose POC Glucose 174 H 187 H 208 H Calcium Magnesium Total Bilirubin AST Alkaline Phosphatase Total Creatine Kinase CK-MB (CK-2) Troponin T Total Protein Albumin HDL Cholesterol Urine Creatinine Urine Total Protein 08/30/16 08/30/16 08/30/16 04:49 04:50 05:30 WBC RBC Hgb Hct MCV MCH MCHC RDW Lymph % (Auto) [place] % (Auto) Lymph # [place] # Seg Neutrophils % Seg Neuts % (Manual) Lymphocytes % (Manual) Nucleated RBC % Seg Neutrophils # Seg Neutrophils # Man Lymphocytes # (Manual) Monocytes # (Manual) D-Dimer POC ABG pH 7.483 H POC ABG pCO2 POC ABG pO2 67 L Sodium 135 L Potassium Chloride Carbon Dioxide BUN 35 H Creatinine 1.8 H Glucose 167 H POC Glucose 191 H Calcium 7.5 L Magnesium Total Bilirubin AST Alkaline Phosphatase Total Creatine Kinase CK-MB (CK-2) Troponin T Total Protein Albumin HDL Cholesterol Urine Creatinine Urine Total Protein 05/30/17 05/30/17 05/30/17 08:55 11:39 17:18 WBC 15.0 H RBC Hgb 8.6 L Hct 27.5 L MCV 61 L MCH 19 L MCHC 31 L RDW 16.6 H Lymph % (Auto) 7.8 L [place] % (Auto) 10.4 H Lymph # [place] # 1.6 H Seg Neutrophils % 80.9 H Seg Neuts % (Manual) Lymphocytes % (Manual) Nucleated RBC % Seg Neutrophils # 12.2 H Seg Neutrophils # Man Lymphocytes # (Manual) Monocytes # (Manual) D-Dimer POC ABG pH POC ABG pCO2 POC ABG pO2 Sodium Potassium Chloride Carbon Dioxide BUN Creatinine Glucose POC Glucose 195 H 147 H Calcium Magnesium Total Bilirubin AST Alkaline Phosphatase Total Creatine Kinase CK-MB (CK-2) Troponin T Total Protein Albumin HDL Cholesterol Urine Creatinine Urine Total Protein 08/30/16 08/31/16 08/31/16 23:19 05:37 08:02 WBC 14.7 H RBC Hgb 8.5 L Hct 27.4 L MCV 61 L MCH 19 L MCHC 31 L RDW 16.4 H Lymph % (Auto) [place] % (Auto) Lymph # [place] # Seg Neutrophils % Seg Neuts % (Manual) Lymphocytes % (Manual) Nucleated RBC % Seg Neutrophils # Seg Neutrophils # Man Lymphocytes # (Manual) Monocytes # (Manual) D-Dimer POC ABG pH POC ABG pCO2 POC ABG pO2 Sodium Potassium Chloride Carbon Dioxide BUN Creatinine Glucose POC Glucose 143 H 155 H Calcium Magnesium Total Bilirubin AST Alkaline Phosphatase Total Creatine Kinase CK-MB (CK-2) Troponin T Total Protein Albumin HDL Cholesterol Urine Creatinine Urine Total Protein 08/31/16 08/31/16 08/31/16 08:02 11:42 17:17 WBC RBC Hgb Hct MCV MCH MCHC RDW Lymph % (Auto) [place] % (Auto) Lymph # [place] # Seg Neutrophils % Seg Neuts % (Manual) Lymphocytes % (Manual) Nucleated RBC % Seg Neutrophils # Seg Neutrophils # Man Lymphocytes # (Manual) Monocytes # (Manual) D-Dimer POC ABG pH POC ABG pCO2 POC ABG pO2 Sodium 136 L Potassium Chloride Carbon Dioxide BUN 37 H Creatinine 1.7 H Glucose 153 H POC Glucose 195 H 197 H Calcium 7.7 L Magnesium Total Bilirubin AST Alkaline Phosphatase Total Creatine Kinase CK-MB (CK-2) Troponin T Total Protein Albumin HDL Cholesterol Urine Creatinine Urine Total Protein 08/31/16 09/01/16 09/01/16 23:41 05:28 06:19 WBC 15.8 H RBC Hgb 8.2 L Hct 26.6 L MCV 61 L MCH 19 L MCHC 31 L RDW 16.7 H Lymph % (Auto) [place] % (Auto) Lymph # [place] # Seg Neutrophils % Seg Neuts % (Manual) 87.0 H Lymphocytes % (Manual) 5.0 L Nucleated RBC % 1.0 H Seg Neutrophils # Seg Neutrophils # Man 13.7 H Lymphocytes # (Manual) 0.8 L Monocytes # (Manual) 1.1 H D-Dimer POC ABG pH POC ABG pCO2 POC ABG pO2 Sodium Potassium Chloride Carbon Dioxide BUN Creatinine Glucose POC Glucose 164 H 154 H Calcium Magnesium Total Bilirubin AST Alkaline Phosphatase Total Creatine Kinase CK-MB (CK-2) Troponin T Total Protein Albumin HDL Cholesterol Urine Creatinine Urine Total Protein 09/01/16 09/01/16 09/01/16 06:19 11:30 17:24 WBC RBC Hgb Hct MCV MCH MCHC RDW Lymph % (Auto) [place] % (Auto) Lymph # [place] # Seg Neutrophils % Seg Neuts % (Manual) Lymphocytes % (Manual) Nucleated RBC % Seg Neutrophils # Seg Neutrophils # Man Lymphocytes # (Manual) Monocytes # (Manual) D-Dimer POC ABG pH POC ABG pCO2 POC ABG pO2 Sodium Potassium Chloride Carbon Dioxide BUN 43 H Creatinine 2.0 H Glucose 150 H POC Glucose 156 H 155 H Calcium 7.8 L Magnesium 2.40 H Total Bilirubin 2.10 H AST 41 H Alkaline Phosphatase 301 H Total Creatine Kinase CK-MB (CK-2) Troponin T Total Protein 4.7 L Albumin 2.2 L HDL Cholesterol Urine Creatinine Urine Total Protein 09/01/16 09/02/16 09/02/16 17:55 00:23 06:31 WBC RBC Hgb Hct MCV MCH MCHC RDW Lymph % (Auto) [place] % (Auto) Lymph # [place] # Seg Neutrophils % Seg Neuts % (Manual) Lymphocytes % (Manual) Nucleated RBC % Seg Neutrophils # Seg Neutrophils # Man Lymphocytes # (Manual) Monocytes # (Manual) D-Dimer POC ABG pH POC ABG pCO2 POC ABG pO2 Sodium Potassium Chloride Carbon Dioxide BUN Creatinine Glucose POC Glucose 145 H 163 H 192 H Calcium Magnesium Total Bilirubin AST Alkaline Phosphatase Total Creatine Kinase CK-MB (CK-2) Troponin T Total Protein Albumin HDL Cholesterol Urine Creatinine Urine Total Protein 09/02/16 09/02/16 09/02/16 08:40 08:40 12:40 WBC 18.6 H RBC Hgb 8.0 L Hct 25.7 L MCV 60 L MCH 19 L MCHC 31 L RDW 16.6 H Lymph % (Auto) [place] % (Auto) Lymph # [place] # Seg Neutrophils % Seg Neuts % (Manual) 86.0 H Lymphocytes % (Manual) 7.0 L Nucleated RBC % Seg Neutrophils # Seg Neutrophils # Man 16.0 H Lymphocytes # (Manual) Monocytes # (Manual) 1.1 H D-Dimer POC ABG pH POC ABG pCO2 POC ABG pO2 Sodium Potassium Chloride Carbon Dioxide BUN 50 H Creatinine 2.1 H Glucose 169 H POC Glucose 189 H Calcium 7.9 L Magnesium 2.50 H Total Bilirubin AST Alkaline Phosphatase Total Creatine Kinase CK-MB (CK-2) Troponin T Total Protein Albumin HDL Cholesterol Urine Creatinine Urine Total Protein 09/02/16 09/02/16 09/03/16 17:20 23:21 04:16 WBC RBC Hgb Hct MCV MCH MCHC RDW Lymph % (Auto) [place] % (Auto) Lymph # [place] # Seg Neutrophils % Seg Neuts % (Manual) Lymphocytes % (Manual) Nucleated RBC % Seg Neutrophils # Seg Neutrophils # Man Lymphocytes # (Manual) Monocytes # (Manual) D-Dimer POC ABG pH 7.483 H POC ABG pCO2 POC ABG pO2 Sodium Potassium Chloride Carbon Dioxide BUN Creatinine Glucose POC Glucose 181 H 173 H Calcium Magnesium Total Bilirubin AST Alkaline Phosphatase Total Creatine Kinase CK-MB (CK-2) Troponin T Total Protein Albumin HDL Cholesterol Urine Creatinine Urine Total Protein 09/03/16 09/03/16 09/03/16 04:43 05:36 05:36 WBC 18.1 H RBC Hgb 7.2 L Hct 23.5 L MCV 61 L MCH 19 L MCHC 31 L RDW 16.7 H Lymph % (Auto) 7.5 L [place] % (Auto) 7.5 H Lymph # [place] # 1.4 H Seg Neutrophils % 83.9 H Seg Neuts % (Manual) Lymphocytes % (Manual) Nucleated RBC % Seg Neutrophils # 15.2 H Seg Neutrophils # Man Lymphocytes # (Manual) Monocytes # (Manual) D-Dimer POC ABG pH POC ABG pCO2 POC ABG pO2 Sodium 135 L Potassium 5.2 H Chloride Carbon Dioxide BUN 57 H Creatinine 2.1 H Glucose 161 H POC Glucose 185 H Calcium 7.7 L Magnesium Total Bilirubin AST Alkaline Phosphatase Total Creatine Kinase CK-MB (CK-2) Troponin T Total Protein Albumin HDL Cholesterol Urine Creatinine Urine Total Protein 09/03/16 09/03/16 09/03/16 11:48 18:19 23:14 WBC RBC Hgb Hct MCV MCH MCHC RDW Lymph % (Auto) [place] % (Auto) Lymph # [place] # Seg Neutrophils % Seg Neuts % (Manual) Lymphocytes % (Manual) Nucleated RBC % Seg Neutrophils # Seg Neutrophils # Man Lymphocytes # (Manual) Monocytes # (Manual) D-Dimer POC ABG pH POC ABG pCO2 POC ABG pO2 Sodium Potassium Chloride Carbon Dioxide BUN Creatinine Glucose POC Glucose 201 H 193 H 132 H Calcium Magnesium Total Bilirubin AST Alkaline Phosphatase Total Creatine Kinase CK-MB (CK-2) Troponin T Total Protein Albumin HDL Cholesterol Urine Creatinine Urine Total Protein 09/04/16 09/04/16 09/04/16 04:23 05:51 11:46 WBC RBC Hgb Hct MCV MCH MCHC RDW Lymph % (Auto) [place] % (Auto) Lymph # [place] # Seg Neutrophils % Seg Neuts % (Manual) Lymphocytes % (Manual) Nucleated RBC % Seg Neutrophils # Seg Neutrophils # Man Lymphocytes # (Manual) Monocytes # (Manual) D-Dimer POC ABG pH 7.500 H POC ABG pCO2 33.5 L POC ABG pO2 74 L Sodium Potassium Chloride Carbon Dioxide BUN Creatinine Glucose POC Glucose 166 H 164 H Calcium Magnesium Total Bilirubin AST Alkaline Phosphatase Total Creatine Kinase CK-MB (CK-2) Troponin T Total Protein Albumin HDL Cholesterol Urine Creatinine Urine Total Protein 09/04/16 09/04/16 09/04/16 16:20 17:41 23:36 WBC RBC Hgb Hct MCV MCH MCHC RDW Lymph % (Auto) [place] % (Auto) Lymph # [place] # Seg Neutrophils % Seg Neuts % (Manual) Lymphocytes % (Manual) Nucleated RBC % Seg Neutrophils # Seg Neutrophils # Man Lymphocytes # (Manual) Monocytes # (Manual) D-Dimer POC ABG pH 7.461 H POC ABG pCO2 34.3 L POC ABG pO2 76 L Sodium Potassium Chloride Carbon Dioxide BUN Creatinine Glucose POC Glucose 172 H 164 H Calcium Magnesium Total Bilirubin AST Alkaline Phosphatase Total Creatine Kinase CK-MB (CK-2) Troponin T Total Protein Albumin HDL Cholesterol Urine Creatinine Urine Total Protein 09/05/16 05:32 WBC RBC Hgb Hct MCV MCH MCHC RDW Lymph % (Auto) [place] % (Auto) Lymph # [place] # Seg Neutrophils % Seg Neuts % (Manual) Lymphocytes % (Manual) Nucleated RBC % Seg Neutrophils # Seg Neutrophils # Man Lymphocytes # (Manual) Monocytes # (Manual) D-Dimer POC ABG pH POC ABG pCO2 POC ABG pO2 Sodium Potassium Chloride Carbon Dioxide BUN Creatinine Glucose POC Glucose 215 H Calcium Magnesium Total Bilirubin AST Alkaline Phosphatase Total Creatine Kinase CK-MB (CK-2) Troponin T Total Protein Albumin HDL Cholesterol Urine Creatinine Urine Total Protein
[2016-09-05 10:18] LABS: Hematocrit 21.9 % (35.5-45.6); Hemoglobin 6.6 gm/dl (11.8-15.2); Mean Corpuscular HGB Conc 30 % (32-34); Platelet Count 358 K/mm3 (140-440); Red Cell Distribution Width 16.9 % (13.2-15.2)
[2016-09-05 10:20] LABS: Mean Corpuscular Hemoglobin 18 pg (28-32); Mean Corpuscular Volume 61 fl (84-94); White Blood Count 21.5 K/mm3 (4.5-11.0)
[2016-09-05] MEDS: NORMODYNE PO SCH (10:24)
[2016-09-05] MEDS: ASPIRIN PO SCH (10:24)
[2016-09-05] MEDS: PEPCID PO SCH (10:24)
[2016-09-05] MEDS: LEVEMIR SUB-Q SCH (10:25)
[2016-09-05 10:26] LABS: Eosinophils % (Auto) 0.2 % (0.0-4.3)
[2016-09-05 10:34] LABS: Albumin 2.1 g/dL (3.9-5); Albumin/Globulin Ratio 0.5 %; BUN/Creatinine Ratio 25.18; Bilirubin,Total 0.9 mg/dL (0.1-1.2); Chloride 99.3 mmol/L (98-107); Magnesium 2.8 mg/dL (1.7-2.3); Phosphorous 5.4 mg/dL (2.5-4.5); Potassium 5.4 mmol/L (3.6-5.0)
[2016-09-05 11:10] LABS: Basophils % (Manual) 0 % (0.0-1.8); Blastocytes % (Manual) 0 %; Eosinophils % (Manual) 0 % (0.0-4.3); Hypochromasia 2+; Microcytosis 2+
[2016-09-05] MEDS ORDERED: KIONEX PO ONE (11:11)
[2016-09-05 11:12] LABS: Anisocytosis 1+; Target Cells 1+
[2016-09-05 11:13] LABS: Diff Status Complete; Polychromasia Few
[2016-09-05] MEDS ORDERED: NACL 0.9% 500 ML 500 ML IV ONE (11:13)
--- NOTE | 2016-09-05 14:34 | Consultation ---
History of Present Illness - Reason for Consult Consult date: 09/05/16 acute renal failure, chronic renal failure, hyperkalemia Past History Past Medical History: diabetes, hypertension, PVD, stroke Past Surgical History: Other (Leg surgery) Social history: . denies: smoking, alcohol abuse, prescription drug abuse Family history: diabetes, hypertension Medications and Allergies Allergies Allergy/AdvReac Type Severity Reaction Status Date / Time No Known Allergies Allergy Unverified 09/02/16 16:53 Home Medications Medication Instructions Recorded Confirmed Last Taken Type Lopressor 50 mg PO DAILY 08/25/16 08/25/16 Unknown History Nifedipine ER 60 mg PO DAILY 08/25/16 08/25/16 Unknown History Active Meds: Active Medications Acetaminophen (Tylenol) 650 mg PO Q4H PRN PRN Reason: Pain MILD(1-3)/Fever >100.5/ALFARO Last Admin: 09/05/16 08:20 Dose: 650 mg Albuterol (Proventil) 2.5 mg IH Q6HRT PRN PRN Reason: Shortness Of Breath Last Admin: 08/26/16 13:36 Dose: 2.5 mg Lipase/Protease/Amylase (Pancreaze Dr 10,500 Unit) 1 each FEEDTUBE PRN PRN PRN Reason: For Clogged Feeding Tube Artificial Tears (Isopto Tears 0.5%) 2 drops OU TID [facility] Last Admin: 09/05/16 13:31 Dose: 2 drops Aspirin (Aspirin) 325 mg PO QDAY [facility] Last Admin: 09/05/16 10:24 Dose: 325 mg Bisacodyl (Dulcolax) 10 mg ID QDAY PRN PRN Reason: Constipation unrelieved by MOM Dextrose (D50w (25gm)) 50 ml IV PRN PRN PRN Reason: Hypoglycemia Famotidine (Pepcid) 20 mg PO DAILY [facility] Last Admin: 09/05/16 10:24 Dose: 20 mg Heparin Sodium (Porcine) (Heparin) 5,000 unit SUB-Q Q8HR [facility] Last Admin: 09/05/16 13:30 Dose: 5,000 unit Hydralazine HCl (Apresoline) 50 mg PO Q8HR [facility] Last Admin: 09/05/16 13:30 Dose: 50 mg Piperacillin Sod/Tazobactam Sod (Zosyn/Ns 3.375gm/50ml) 3.375 gm in 50 mls @ 100 mls/hr IV Q8H [facility] PRN Reason: Protocol Last Admin: 09/05/16 14:14 Dose: 100 mls/hr Insulin Aspart (Novolog) 0 units SUB-Q Q6HR [facility] PRN Reason: Protocol Last Admin: 09/05/16 13:00 Dose: 3 units Insulin Detemir (Levemir) 20 units SUB-Q DAILY [facility] Last Admin: 09/05/16 10:25 Dose: 20 units Labetalol HCl (Normodyne) 300 mg PO BID [facility] Last Admin: 09/05/16 10:24 Dose: 300 mg Labetalol HCl (Normodyne) 10 mg IV Q4H PRN PRN Reason: Blood Pressure SBP>185 Last Admin: 08/27/16 08:32 Dose: 10 mg Magnesium Hydroxide (Milk Of Magnesia) 30 ml PO Q4H PRN PRN Reason: Constipation Multi-Ingred Cream/Lotion/Oil/Oint (Artificial Tears Ophth Oint) 1 applic OU PRN PRN PRN Reason: Dry Eye(s) Last Admin: 08/31/16 22:03 Dose: 1 applic Ondansetron HCl (Zofran) 4 mg IV Q8H PRN PRN Reason: N/V unrelieved by Reglan Senna/Docusate Sodium (Senokot S) 2 tab PO QHS [facility] Last Admin: 09/04/16 22:06 Dose: 2 tab Simple Syrup (Simple Syrup) 15 ml FEEDTUBE PRN PRN PRN Reason: Hypoglycemia Last Admin: 08/28/16 06:05 Dose: 15 ml Simple Syrup (Simple Syrup) 30 ml FEEDTUBE PRN PRN PRN Reason: Hypoglycemia Exam - Vital Signs Vital signs: Vital Signs Pulse Resp BP Pulse Ox 116 H 26 H 208/114 95 08/23/16 23:25 08/23/16 23:25 08/23/16 23:25 08/23/16 23:25 Results - Lab Results 09/05/16 10:08 09/05/16 10:08 Most recent lab results Calcium 8.0 mg/dL (8.4-10.2) L 09/05/16 10:08 Phosphorus 5.40 mg/dL (2.5-4.5) H 09/05/16 10:08 Magnesium 2.80 mg/dL (1.7-2.3) H 09/05/16 10:08 Urine Creatinine 237.7 mg/dL (0.1-20.0) H 08/25/16 15:00 Urine Sodium 10 mEq/L 08/25/16 15:00 Urine Total Protein 882 mg/dL (5-11.8) H 08/25/16 15:00
--- NOTE | 2016-09-05 14:36 | Progress Note ---
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 Increase in creatinine since yesterday. BP is fair. Renal prognosis is guarded. (2) Volume overload Current Visit: Yes Status: Acute Qualifiers: Hypervolemia type: H Plan to address problem: IV Lasix as needed. (3) Hyperkalemia Current Visit: Yes Status: Acute Plan to address problem: kayexalate and Lasix. (4) Hypertensive emergency Current Visit: Yes Status: Acute Plan to address problem: BP is better. (5) Cardiac arrest Current Visit: Yes Status: Acute (6) Acute CVA (cerebrovascular accident) Current Visit: Yes Status: Acute (7) Acute respiratory failure Current Visit: Yes Status: Acute Qualifiers: Respiratory failure complication: R Plan to address problem: On the vent. Subjective Date of service: 09/05/16 Principal diagnosis: Acute respiratory failure Interval history: Patient remain intubated. Objective - Vital Signs Vital signs: Vital Signs - 12hr 09/05/16 09/05/16 09/05/16 03:00 04:00 05:00 Temperature 100.1 F H Pulse Rate 82 85 86 Pulse Rate [ From Monitor] Respiratory 27 H 27 H 28 H Rate Blood Pressure 123/69 126/75 134/77 O2 Sat by Pulse 99 94 99 Oximetry 09/05/16 09/05/16 09/05/16 06:00 06:12 07:00 Temperature Pulse Rate 87 87 96 H Pulse Rate [ From Monitor] Respiratory 26 H 33 H Rate Blood Pressure 136/78 136/78 137/86 O2 Sat by Pulse 99 94 Oximetry 09/05/16 09/05/16 09/05/16 07:16 07:26 08:00 Temperature 102.1 F H Pulse Rate 97 H 96 H 90 Pulse Rate [ 92 H From Monitor] Respiratory 33 H 29 H Rate Blood Pressure 137/86 134/75 136/73 O2 Sat by Pulse 96 97 98 Oximetry 09/05/16 09/05/16 09/05/16 09:00 10:00 10:24 Temperature Pulse Rate 90 88 90 Pulse Rate [ From Monitor] Respiratory 29 H 28 H Rate Blood Pressure 135/70 130/69 130/69 O2 Sat by Pulse 99 97 Oximetry 09/05/16 09/05/16 09/05/16 11:00 11:20 12:00 Temperature Pulse Rate 79 77 74 Pulse Rate [ From Monitor] Respiratory 22 22 Rate Blood Pressure 119/70 119/70 111/65 O2 Sat by Pulse 100 100 100 Oximetry 09/05/16 09/05/16 09/05/16 13:00 13:30 14:00 Temperature Pulse Rate 75 75 78 Pulse Rate [ From Monitor] Respiratory 19 25 H Rate Blood Pressure 111/64 111/64 126/73 O2 Sat by Pulse 100 99 Oximetry - General Appearance General appearance: well-developed, appears stated age, intubated (FiO2 30%) EENT: ATNC Neck: supple Respiratory: Present: Other (coarse breath sounds) Cardiology: regular, S1S2, no murmurs Gastrointestinal: normoactive bowel sounds, distended Integumentary: no rash Neurologic: obtunded Musculoskeletal: other (bilateral AKA, 2+ edema noted) - Lab 09/05/16 10:08 09/05/16 10:08 Most recent lab results Calcium 8.0 mg/dL (8.4-10.2) L 09/05/16 10:08 Phosphorus 5.40 mg/dL (2.5-4.5) H 09/05/16 10:08 Magnesium 2.80 mg/dL (1.7-2.3) H 09/05/16 10:08 Urine Creatinine 237.7 mg/dL (0.1-20.0) H 08/25/16 15:00 Urine Sodium 10 mEq/L 08/25/16 15:00 Urine Total Protein 882 mg/dL (5-11.8) H 08/25/16 15:00
[2016-09-05] MEDS ORDERED: LASIX IV ONE (16:12)
--- NOTE | 2016-09-05 16:37 | Discharge Summary ---
Providers - Providers Date of Admission: 08/24/16 03:22 Date of discharge: 09/05/16 Attending physician: JULIA DHILLON 08/24/16 03:54 Consult to Physician [CONS] Routine Consulting Provider: BETY PEREZ Reason For Exam: resp failure Place consult to:: DR. PEREZ Notified:: OFFICE Phone number called:: [phone] Was contact made?: Yes If yes, spoke with:: JULIANA Time called:: 09:15 08/24/16 13:09 Consult to Physician [CONS] Routine Consulting Provider: BETY PEREZ Reason For Exam: ICU admission Place consult to:: DR. PEREZ Notified:: OFFICE Phone number called:: [phone] Was contact made?: Yes If yes, spoke with:: MITCHELL Time called:: 13:30 08/25/16 10:24 Consult to Dietitian/Nutrition [CONS] Routine Physician Instructions: Reason For Exam: Reason for Consult: Write/Manage Tube Feeding 08/25/16 10:26 Consult to Physician [CONS] Routine Consulting Provider: KATHERYN HEBERT Reason For Exam: ALANNAH Place consult to:: dr Chong Notified:: yes Phone number called:: [phone] Was contact made?: Yes If yes, spoke with:: Office Time called:: 10:55 08/26/16 11:29 Consult to Physician [CONS] Routine Consulting Provider: ROMAN PEREZ Reason For Exam: AMS Place consult to:: Dr Perez via Nora Osborne Notified:: Nora Osborne Phone number called:: [phone] Was contact made?: Yes If yes, spoke with:: Nora freeman Time called:: 11:32 08/30/16 15:35 Consult to Case Management [CONS] Stat Services Needed at Discharge: Other Notified:: Kavita Was contact made?: Yes Time called:: 15:36 Additional Physician Instructions: Admit & Evaluate for Home Hospice Primary care physician: WAREHOUSE SPECIALIST Hospitalization Condition: Stable Disposition: [facility] (MEDICAL FACILITY) Core Measure Documentation - Palliative Care Palliative Care/ Comfort Measures: Not Applicable - Core Measures Any of the following diagnoses?: none Exam - Constitutional Vitals: Temp Pulse Resp BP Pulse Ox 100.2 F H 85 22 124/76 100 09/05/16 16:00 09/05/16 16:00 09/05/16 16:00 09/05/16 16:00 09/05/16 16:00 Plan Additional Instructions: d/c and transfer to Hospice/LTAC today Follow up with: PRIMARY CARE, [Primary Care Provider] - 3-5 Days
--- NOTE | 2016-09-05 20:28 | Progress Note ---
Assessment and Plan Assessment and plan: --Acute hypoxic hypercapnic respiratory failure/mechanical ventilation more than 96 hrs Unable to wean , patient may need trach and PEG and LTAC placement , family of aware Continue ventilatory support, wean as tolerated and extubate Pulmonary following, DO NOT RESUSCITATE status, --Status post PEA cardiac arrest -- anoxic encephalopathy, continue supportive care, poor prognosis --Aspiration pneumonia; Continue current antibiotics, cultures negative to date, pulmonary following --Mild hypokalemia; low-dose Kayexalate 1 Closely monitor electrolytes --Acute massive CVA; Patient is unresponsive poor prognosis, supportive care --malignant hypertension Moderate control, continue current antihypertensives and when necessary medications --Acute renal failure; secondary to ATN avoid nephrotoxic medications, nephrology following --Status post bilateral lower extremity amputation --DO NOT RESUSCITATE status --Poor prognosis Family members aware, family not ready for withdrawal of care or hospice . Family deciding on hospice and LTAC Patient will be discharged and transfer to LTAC when set up Plan of care discussed with the nurse case management and the family History Interval history: Patient seen and evaluated medical records reviewed Clinically no change remains intubated on ventilatory support more than 96 outbursts Unresponsive, Vital signs reviewed, stable No new events reported by the nursing staff Hospitalist Physical - Constitutional Vitals: Temp Pulse Resp BP Pulse Ox 100.2 F H 88 23 151/82 99 09/05/16 16:00 09/05/16 18:00 09/05/16 18:00 09/05/16 18:00 09/05/16 18:00 General appearance: Present: no acute distress, well-nourished, other (not responsive, orally intubated on ventilator support) - EENT Eyes: Present: PERRL, EOM intact - Neck Neck: Present: supple, normal ROM - Respiratory Respiratory effort: normal Respiratory: bilateral: diminished, rhonchi, negative: rales, wheezing - Cardiovascular Rhythm: regular Heart Sounds: Present: S1 & S2 - Extremities Extremities: no ischemia, pulses intact, pulses symmetrical Peripheral Pulses: within normal limits - Abdominal General gastrointestinal: soft, non-tender, non-distended, normal bowel sounds - Integumentary Integumentary: Present: clear, warm - Psychiatric Psychiatric: other (unresponsive) - Neurologic Neurologic: other (unresponsive) Results - Labs CBC & Chem 7: 09/05/16 10:08 09/05/16 10:08 Labs: Laboratory Last Values WBC 21.5 K/mm3 (4.5-11.0) H 09/05/16 10:08 RBC 3.60 M/mm3 (3.65-5.03) L 09/05/16 10:08 Hgb 6.6 gm/dl (11.8-15.2) L 09/05/16 10:08 Hct 21.9 % (35.5-45.6) L 09/05/16 10:08 MCV 61 fl (84-94) L 09/05/16 10:08 MCH 18 pg (28-32) L 09/05/16 10:08 MCHC 30 % (32-34) L 09/05/16 10:08 RDW 16.9 % (13.2-15.2) H 09/05/16 10:08 Plt Count 358 K/mm3 (140-440) 09/05/16 10:08 Lymph % (Auto) 7.5 % (13.4-35.0) L 09/03/16 05:36 [place] % (Auto) 8.6 % (0.0-7.3) H 09/05/16 10:08 Eos % (Auto) 0.2 % (0.0-4.3) 09/05/16 10:08 Baso % (Auto) 0.2 % (0.0-1.8) 09/03/16 05:36 Lymph # 1.4 K/mm3 (1.2-5.4) 09/03/16 05:36 [place] # 1.9 K/mm3 (0.0-0.8) H 09/05/16 10:08 Eos # 0.1 K/mm3 (0.0-0.4) 09/05/16 10:08 Baso # 0.1 K/mm3 (0.0-0.1) 09/05/16 10:08 Add Manual Diff Complete 09/05/16 10:08 Total Counted 100 09/05/16 10:08 Seg Neutrophils % 85.6 % (40.0-70.0) H 09/05/16 10:08 Seg Neuts % (Manual) 91.0 % (40.0-70.0) H 09/05/16 10:08 Band Neutrophils % 0 % 09/05/16 10:08 Lymphocytes % (Manual) 2.0 % (13.4-35.0) L 09/05/16 10:08 Reactive Lymphs % (Man) 0 % 09/05/16 10:08 Monocytes % (Manual) 7.0 % (0.0-7.3) 09/05/16 10:08 Eosinophils % (Manual) 0 % (0.0-4.3) 09/05/16 10:08 Basophils % (Manual) 0 % (0.0-1.8) 09/05/16 10:08 Metamyelocytes % 0 % 09/05/16 10:08 Myelocytes % 0 % 09/05/16 10:08 Promyelocytes % 0 % 09/05/16 10:08 Blast Cells % 0 % 09/05/16 10:08 Nucleated RBC % Not Reportable 09/05/16 10:08 Seg Neutrophils # 18.7 K/mm3 (1.8-7.7) H 09/05/16 10:08 Seg Neutrophils # Man 19.6 K/mm3 (1.8-7.7) H 09/05/16 10:08 Band Neutrophils # 0.0 K/mm3 09/05/16 10:08 Lymphocytes # (Manual) 0.4 K/mm3 (1.2-5.4) L 09/05/16 10:08 Abs React Lymphs (Man) 0.0 K/mm3 09/05/16 10:08 Monocytes # (Manual) 1.5 K/mm3 (0.0-0.8) H 09/05/16 10:08 Eosinophils # (Manual) 0.0 K/mm3 (0.0-0.4) 09/05/16 10:08 Basophils # (Manual) 0.0 K/mm3 (0.0-0.1) 09/05/16 10:08 Metamyelocytes # 0.0 K/mm3 09/05/16 10:08 Myelocytes # 0.0 K/mm3 09/05/16 10:08 Promyelocytes # 0.0 K/mm3 09/05/16 10:08 Blast Cells # 0.0 K/mm3 09/05/16 10:08 WBC Morphology Not Reportable 09/05/16 10:08 Hypersegmented Neuts Not Reportable 09/05/16 10:08 Hyposegmented Neuts Not Reportable 09/05/16 10:08 Hypogranular Neuts Not Reportable 09/05/16 10:08 Smudge Cells Not Reportable 09/05/16 10:08 Toxic Granulation Not Reportable 09/05/16 10:08 Toxic Vacuolation Not Reportable 09/05/16 10:08 Dohle Bodies Not Reportable 09/05/16 10:08 Pelger-Huet Anomaly Not Reportable 09/05/16 10:08 Mattie Rods Not Reportable 09/05/16 10:08 Platelet Estimate Not Reportable 09/05/16 10:08 Clumped Platelets Not Reportable 09/05/16 10:08 Plt Clumps, EDTA Not Reportable 09/05/16 10:08 Large Platelets Not Reportable 09/05/16 10:08 Giant Platelets Not Reportable 09/05/16 10:08 Platelet Satelliting Not Reportable 09/05/16 10:08 Plt Morphology Comment Not Reportable 09/05/16 10:08 RBC Morphology Not Reportable 09/05/16 10:08 Dimorphic RBCs Not Reportable 09/05/16 10:08 Polychromasia Few 09/05/16 10:08 Hypochromasia 2+ 09/05/16 10:08 Poikilocytosis Not Reportable 09/05/16 10:08 Anisocytosis 1+ 09/05/16 10:08 Microcytosis 2+ 09/05/16 10:08 Macrocytosis Not Reportable 09/05/16 10:08 Spherocytes Not Reportable 09/05/16 10:08 Pappenheimer Bodies Not Reportable 09/05/16 10:08 Sickle Cells Not Reportable 09/05/16 10:08 Target Cells 1+ 09/05/16 10:08 Tear Drop Cells Not Reportable 09/05/16 10:08 Ovalocytes Not Reportable 09/05/16 10:08 Helmet Cells Not Reportable 09/05/16 10:08 Sae[place] Bodies Not Reportable 09/05/16 10:08 Burdine Rings Not Reportable 09/05/16 10:08 Ashlyn Cells Not Reportable 09/05/16 10:08 Bite Cells Not Reportable 09/05/16 10:08 Crenated Cell Not Reportable 09/05/16 10:08 Elliptocytes Not Reportable 09/05/16 10:08 Acanthocytes (Spur) Not Reportable 09/05/16 10:08 Rouleaux Not Reportable 09/05/16 10:08 Hemoglobin C Crystals Not Reportable 09/05/16 10:08 Schistocytes Not Reportable 09/05/16 10:08 Malaria parasites Not Reportable 09/05/16 10:08 Gentry Bodies Not Reportable 09/05/16 10:08 Hem Pathologist Commnt No 09/05/16 10:08 D-Dimer 1138.47 ng/mlDDU (0-234) H 08/24/16 03:23 POC ABG pH 7.461 (7.35-7.45) H 09/04/16 16:20 POC ABG pCO2 34.3 (35-45) L 09/04/16 16:20 POC ABG pO2 76 (80-105) L 09/04/16 16:20 POC ABG HCO3 24.4 09/04/16 16:20 POC ABG Total CO2 25 09/04/16 16:20 POC ABG O2 Sat 96 09/04/16 16:20 POC ABG Base Excess 1 09/04/16 16:20 FiO2 30 % 09/04/16 16:20 Sodium 135 mmol/L (137-145) L 09/05/16 10:08 Potassium 5.4 mmol/L (3.6-5.0) H 09/05/16 10:08 Chloride 99.3 mmol/L (98-107) 09/05/16 10:08 Carbon Dioxide 23 mmol/L (22-30) 09/05/16 10:08 Anion Gap 18 mmol/L 09/05/16 10:08 BUN 68 mg/dL (9-20) H 09/05/16 10:08 Creatinine 2.7 mg/dL (0.8-1.5) H 09/05/16 10:08 Estimated GFR 30 ml/min 09/05/16 10:08 BUN/Creatinine Ratio 25.18 % 09/05/16 10:08 Glucose 177 mg/dL (75-100) H 09/05/16 10:08 POC Glucose 215 (70-105) H 09/05/16 05:32 Lactic Acid 1.80 mmol/L (0.7-2.0) 08/25/16 13:47 Calcium 8.0 mg/dL (8.4-10.2) L 09/05/16 10:08 Phosphorus 5.40 mg/dL (2.5-4.5) H 09/05/16 10:08 Magnesium 2.80 mg/dL (1.7-2.3) H 09/05/16 10:08 Total Bilirubin 0.90 mg/dL (0.1-1.2) 09/05/16 10:08 AST 100 units/L (5-40) H 09/05/16 10:08 ALT 55 units/L (7-56) 09/05/16 10:08 Alkaline Phosphatase 158 units/L (35-129) H 09/05/16 10:08 Ammonia 46.0 umol/L (25-60) 08/24/16 01:44 Total Creatine Kinase 796 units/L (55-170) H 08/27/16 10:32 CK-MB (CK-2) 6.3 ng/mL (0.0-4.0) H 08/27/16 10:32 CK-MB (CK-2) Rel Index 0.7 (0-4) 08/27/16 10:32 Troponin T 0.473 ng/mL (0.00-0.029) H* 08/27/16 18:46 Total Protein 6.0 g/dL (6.3-8.2) L D 09/05/16 10:08 Albumin 2.1 g/dL (3.9-5) L 09/05/16 10:08 Albumin/Globulin Ratio 0.5 % 09/05/16 10:08 Triglycerides 68 mg/dL (2-149) 08/27/16 00:00 Cholesterol 182 mg/dL (50-199) 08/27/16 00:00 LDL Cholesterol Direct 70 mg/dL (50-130) 08/30/16 09:01 HDL Cholesterol 78 mg/dL (40-59) H 08/27/16 00:00 Cholesterol/HDL Ratio 2.33 % 08/27/16 00:00 TSH 3.080 mlU/mL (0.270-4.200) 08/23/16 23:35 Urine Color Yellow (Yellow) 08/24/16 00:40 Urine Turbidity Clear (Clear) 08/24/16 00:40 Urine pH 6.0 (5.0-7.0) 08/24/16 00:40 Ur Specific [place] 1.022 (1.003-1.030) 08/24/16 00:40 Urine Protein >500 mg/dL (Negative) 08/24/16 00:40 Urine Glucose (UA) >=500 mg/dL (Negative) 08/24/16 00:40 Urine Ketones Neg mg/dL (Negative) 08/24/16 00:40 Urine Blood Mod (Negative) 08/24/16 00:40 Urine Nitrite Neg (Negative) 08/24/16 00:40 Urine Bilirubin Neg (Negative) 08/24/16 00:40 Urine Urobilinogen < 2.0 mg/dL (<2.0) 08/24/16 00:40 Ur Leukocyte Esterase Neg (Negative) 08/24/16 00:40 Urine WBC (Auto) 1.0 /HPF (0.0-6.0) 08/24/16 00:40 Urine RBC (Auto) 5.0 /HPF (0.0-6.0) 08/24/16 00:40 Urine Bacteria (Auto) 2+ /HPF (Negative) 08/24/16 00:40 Urine Creatinine 237.7 mg/dL (0.1-20.0) H 08/25/16 15:00 Protein/Creatinin Ratio 3.71 08/25/16 15:00 Urine Sodium 10 mEq/L 08/25/16 15:00 Urine Total Protein 882 mg/dL (5-11.8) H 08/25/16 15:00 Salicylates < 0.3 mg/dL (2.8-20.0) L 08/23/16 23:35 Urine Opiates Screen Presumptive negative 08/24/16 00:40 Urine Methadone Screen Presumptive negative 08/24/16 00:40 Acetaminophen < 15.0 ug/mL (10.0-30.0) 08/23/16 23:35 Ur Barbiturates Screen Presumptive negative 08/24/16 00:40 Ur Phencyclidine Scrn Presumptive negative 08/24/16 00:40 Ur Amphetamines Screen Presumptive negative 08/24/16 00:40 U Benzodiazepines Scrn Presumptive negative 08/24/16 00:40 Urine Cocaine Screen Presumptive negative 08/24/16 00:40 U Marijuana (THC) Screen Presumptive negative 08/24/16 00:40 Drugs of Abuse Note Disclamer 08/24/16 00:40 Plasma/Serum Alcohol < 0.01 gm% (0-0.07) 08/23/16 23:35 Blood Type O POSITIVE 09/05/16 15:05 Antibody Screen TNR 09/05/16 15:05 ALDAIR Antibody Screen Negative 09/05/16 15:05 Crossmatch See Detail 09/05/16 15:05
[2016-09-05 20:43] VITALS: BP 148/80
== END 2016-09-06 04:16 | disposition hospice, inpatient (51) | DRG 207 ==
LOC: ED 23:23 → 3A 08-24 03:22 → CC1 08-24 16:39
PROVIDERS: ADMIT Internal Medicine; ATTEND Internal Medicine
PROC: 4A033R1 Measurement of Arterial Saturation, Peripheral, Percutaneous Approach (ICD-10-PCS; 2016-08-24)
PROC: 5A1955Z Respiratory Ventilation, Greater than 96 Consecutive Hours (ICD-10-PCS; principal; 2016-08-30)
PROC: 0BH18EZ Insertion of Endotracheal Airway into Trachea, Via Natural or Artificial Opening Endoscopic (ICD-10-PCS; 2016-08-30)
DX: J96.01 Acute respiratory failure with hypoxia (principal); J69.0 Pneumonitis due to inhalation of food and vomit; G93.41 Metabolic encephalopathy; I46.9 Cardiac arrest, cause unspecified; N17.0 Acute kidney failure with tubular necrosis; I63.9 Cerebral infarction, unspecified; E87.2 Acidosis; I16.1 Hypertensive emergency; G40.201 Localization-related (focal) (partial) symptomatic epilepsy and epileptic syndromes with complex partial seizures, not intractable, with status epilepticus; G93.1 Anoxic brain damage, not elsewhere classified; R65.10 Systemic inflammatory response syndrome (SIRS) of non-infectious origin without acute organ dysfunction; I42.0 Dilated cardiomyopathy; Z66 Do not resuscitate; I10 Essential (primary) hypertension; E87.6 Hypokalemia; E66.01 Morbid (severe) obesity due to excess calories; K59.00 Constipation, unspecified; I27.2 Other secondary pulmonary hypertension; S01.91XA Laceration without foreign body of unspecified part of head, initial encounter; D64.9 Anemia, unspecified; E11.9 Type 2 diabetes mellitus without complications; W07.XXXA Fall from chair, initial encounter; G40.901 Epilepsy, unspecified, not intractable, with status epilepticus; Z99.3 Dependence on wheelchair; Z83.3 Family history of diabetes mellitus; Z82.49 Family history of ischemic heart disease and other diseases of the circulatory system; Z89.612 Acquired absence of left leg above knee; Z89.611 Acquired absence of right leg above knee; Y93.89 Activity, other specified; Y92.89 Other specified places as the place of occurrence of the external cause; Z68.29 Body mass index [BMI] 29.0-29.9, adult
CPT/HCPCS: 31500; 36415; 36600; 70450; 70551; 71010; 72125; 74000; 76770; 80048; 80053; 80061; 80307; 80320; 81001; 82140; 82550; 82553; 82570; 82803; 82962; 83721; 83735; 84100; 84156; 84300; 84443; 84484; 85007; 85025; 85027; 85379; 86850; 86900; 86901; 86920; 87040; 87070; 87086; 87205; 90471; 90715; 92950; 93005; 93010; 93306; 93880; 94002; 94003; 94640; 94760; 95819; 96361; 96365; 96375; G0480; J0171; J0360; J0456; J0696; J1644; J1650; J1815; J1818; J1940; J1953; J2060; J2543; J3370; J7030; J7050; J7070